=== PATIENT | female | born 1945 | race Caucasian/White ===

== ENCOUNTER 2019-08-13 11:08 | Outpatient (CLI) | payer MEDICARE, SELFPAY ==
[2019-08-13 11:30] LABS: Add Urine Microscopic? YES; Appearance Urine Clear (Clear); Bilirubin Urine Negative (Negative); Blood Urine Negative (Negative); Color Urine Yellow (Yellow); Glucose Urine UA Negative (Negative); Ketones Urine Negative (Negative); Leukocyte Esterase Ur Trace (Negative); Nitrate Urine Negative (Negative); Protein Urine Negative (Negative); Specific Grav Ur <= 1.005 (1.010-1.020); Urobilinogen Urine 0.2 mg/dL (0.2-1.0); pH Urine 5.5 (5.0-8.0)
[2019-08-13 12:17] LABS: Bacteria Urine 1+ /hpf; RBC Urine 0-2 /hpf (0-2); Squamous Epithelial Cell Urine Moderate /hpf (Few); WBC Urine 0-3 /hpf (0-3)
== END 2019-08-13 11:09 | disposition home or self-care (01) ==
LOC: CHSLAB 11:11
PROVIDERS: PCP Nurse Practitioner Family; Visit Provider Nurse Practitioner Family
DX: R39.9 Unspecified symptoms and signs involving the genitourinary system (principal)
CPT/HCPCS: 81001; 87086

== ENCOUNTER 2019-08-18 13:27 | Outpatient (CLI) | payer MEDICARE, SELFPAY ==
[2019-08-18 13:39] LABS: Add Urine Microscopic? NO; Appearance Urine Clear (Clear); Bilirubin Urine Negative (Negative); Blood Urine Negative (Negative); Color Urine Yellow (Yellow); Glucose Urine UA Negative (Negative); Ketones Urine Negative (Negative); Leukocyte Esterase Ur Negative (Negative); Nitrate Urine Negative (Negative); Protein Urine Negative (Negative); Specific Grav Ur <= 1.005 (1.010-1.020); Urobilinogen Urine 0.2 mg/dL (0.2-1.0); pH Urine 5.5 (5.0-8.0)
== END 2019-08-18 13:28 | disposition home or self-care (01) ==
LOC: CHSLAB 13:29
PROVIDERS: PCP Nurse Practitioner Family; Visit Provider Nurse Practitioner Family
DX: N39.0 Urinary tract infection, site not specified (principal); N39.9 Disorder of urinary system, unspecified
CPT/HCPCS: 81003; 87086; 87088

== ENCOUNTER 2019-08-20 11:05 | Outpatient (CLI) | payer MEDICARE, SELFPAY ==
--- NOTE | ~2019-08-20 | US_ITS ---
EXAMINATION: US retroperitoneal comp DATE: 08/20/2019 12:28 INDICATION: Right ureteral stone TECHNIQUE: Multiple ultrasound grayscale images of the kidneys were obtained. COMPARISON: CT dated 07/21/2019 FINDINGS: The right kidney measures 8.8 x 3.9 x 5.1 cm. The left kidney measures 8.7 x 4.6 x 5.1 cm. The kidney s demonstrate normal echogenicity. There is no hydronephrosis in either kidney. No stones identified . The bladder is normal. IMPRESSION: 1. Normal kidneys without hydronephrosis. Reviewed, dictated and finalized at location A. NSION COURSE COORDINATOR
== END 2019-08-20 11:06 | disposition home or self-care (01) ==
PROVIDERS: PCP Nurse Practitioner Family; Visit Provider Urology
DX: R39.9 Unspecified symptoms and signs involving the genitourinary system (principal); N20.1 Calculus of ureter
CPT/HCPCS: 76770

== ENCOUNTER 2019-09-17 16:44 | Outpatient (CLI) | payer MEDICARE, SELFPAY ==
[2019-09-17 16:57] LABS: Basophils Absolute Auto 0.03 K/mm3 (0.00-0.10); Basophils Percent Auto 0.5 % (0.0-1.0); Eosinophils Absolute Auto 0.28 K/mm3 (0.02-0.50); Eosinophils Percent Auto 4.7 % (1.0-6.0); Hemoglobin 12.2 g/dL (11.7-13.8); Immature Granulocyte Absolute 0.02 K/mm3 (0.00-0.00); Immature Granulocyte Percent A 0.3 % (0.0-0.0); Lymphocytes Percent Auto 28.6 % (18.0-42.0); Mean Corpuscular HGB Conc 32.1 g/dL (32.0-36.0); Mean Corpuscular Hemoglobin 29.8 pg (27.0-31.0); Mean Corpuscular Volume 92.7 fL (78.0-102.0); Mean Platelet Volume 9.9 fl (9.2-11.8); Monocytes Absolute Auto 0.45 K/mm3 (0.10-0.90); Monocytes Percent Auto 7.6 % (2.0-11.0); Neutrophils Absolute Auto 3.5 K/mm3 (1.7-7.2); Neutrophils Percent Auto 58.3 % (50.0-70.0); Platelet Count Result 158 K/mm3 (150-420); Red Cell Distribution Width 12.8 % (11.6-14.4); White Blood Count 5.9 K/mm3 (4.8-10.8)
[2019-09-17 18:07] LABS: Alanine Aminotransferase 20 U/L (14-59); Albumin Level 3.6 g/dL (3.4-5.0); Alkaline Phosphatase 41 U/L (46-116); Aspartate Amino Transferase 28 U/L (15-37); Bilirubin,Total 0.3 mg/dL (0.00-1.00); Blood Urea Nitrogen 15 mg/dL (7-18); Calcium 8.6 mg/dL (8.5-10.1); Carbon Dioxide 28 mmol/L (21-32); Chloride 110 mmol/L (98-108); Estimated Glomerular Filt Rate 36; Glucose 103 mg/dL (70-99); Osmolality Calculated 296 mOsm/kg (285-295); Sodium 143 mmol/L (136-145); Total Protein 6.3 g/dL (6.4-8.2)
== END 2019-09-17 16:45 | disposition home or self-care (01) ==
LOC: CHSLAB 16:46
PROVIDERS: PCP Nurse Practitioner Family; Visit Provider Internal Medicine Hematology & Oncology
DX: D05.12 Intraductal carcinoma in situ of left breast (principal)
CPT/HCPCS: 36415; 80053; 85025

== ENCOUNTER 2019-10-07 09:57 | Outpatient (CLI) | payer MEDICARE, SELFPAY ==
--- NOTE | ~2019-10-07 | US_ITS ---
EXAMINATION: US retroperitoneal comp DATE: 10/07/2019 10:38 INDICATION: Chronic kidney disease stage III. TECHNIQUE: Multiple ultrasound grayscale images of the kidneys were obtained. COMPARISON: Ultrasound 08/20/2019 FINDINGS: The right kidney measures 9.0 x 4.8 x 4.1 cm. The left kidney measures 9.0 x 4.0 x 4.3 cm. The kidney s demonstrate normal parenchymal echogenicity. There is no hydronephrosis. The bladder is normal. IMPRESSION: 1. Normal kidneys. No hydronephrosis. Reviewed, dictated and finalized at location A.
[2019-10-07 10:13] LABS: Basophils Absolute Auto 0.01 K/mm3 (0.00-0.10); Basophils Percent Auto 0.2 % (0.0-1.0); Eosinophils Absolute Auto 0.25 K/mm3 (0.02-0.50); Eosinophils Percent Auto 3.9 % (1.0-6.0); Hemoglobin 12.5 g/dL (11.7-13.8); Immature Granulocyte Absolute 0.01 K/mm3 (0.00-0.00); Immature Granulocyte Percent A 0.2 % (0.0-0.0); Lymphocytes Absolute Auto 1.61 K/mm3 (1.10-4.50); Lymphocytes Percent Auto 24.9 % (18.0-42.0); Mean Corpuscular HGB Conc 32.1 g/dL (32.0-36.0); Mean Corpuscular Hemoglobin 29.4 pg (27.0-31.0); Mean Corpuscular Volume 91.8 fL (78.0-102.0); Mean Platelet Volume 10.6 fl (9.2-11.8); Monocytes Absolute Auto 0.49 K/mm3 (0.10-0.90); Monocytes Percent Auto 7.6 % (2.0-11.0); Neutrophils Absolute Auto 4.1 K/mm3 (1.7-7.2); Neutrophils Percent Auto 63.2 % (50.0-70.0); Platelet Count Result 155 K/mm3 (150-420); Red Blood Count 4.25 M/mm3 (4.20-5.40); Red Cell Distribution Width 12.6 % (11.6-14.4); White Blood Count 6.5 K/mm3 (4.8-10.8)
[2019-10-07 10:35] LABS: Add Urine Microscopic? NO; Appearance Urine Clear (Clear); Bilirubin Urine Negative (Negative); Blood Urine Negative (Negative); Color Urine Yellow (Yellow); Glucose Urine UA Negative (Negative); Ketones Urine Negative (Negative); Leukocyte Esterase Ur Negative LEU/UL (Negative); Nitrate Urine Negative (Negative); Protein Urine Negative (Negative); Specific Grav Ur <= 1.005 (1.010-1.020); Urobilinogen Urine 0.2 mg/dL (0.2-1.0); pH Urine 5.5 (5.0-8.0)
[2019-10-07 10:48] LABS: Albumin Level 3.4 g/dL (3.4-5.0); Anion Gap 13.4 mmol/L (7-16); Blood Urea Nitrogen 17 mg/dL (7-18); Calcium 8.3 mg/dL (8.5-10.1); Carbon Dioxide 25 mmol/L (21-32); Chloride 106 mmol/L (98-108); Estimated Glomerular Filt Rate 37; Glucose 79 mg/dL (70-99); Osmolality Calculated 290 mOsm/kg (285-295); Phosphorus 3.8 mg/dL (2.6-4.7); Potassium 4.4 mmol/L (3.5-5.1); Sodium 140 mmol/L (136-145)
[2019-10-07 10:54] LABS: Total Protein Urine Random < 7.0 mg/dL (0.0-11.9)
[2019-10-07 11:30] LABS: Creatinine Urine 23.12 mg/dL (40-278)
[2019-10-07 11:33] LABS: Erythrocyte Sedimentation Rate 8 mm/hr (0-20)
[2019-10-09 11:33] LABS: Complement Total CH50 58 U/mL (31-60)
[2019-10-09 14:11] LABS: Parathyroid Intact 56 pg/mL (14-64)
[2019-10-09 20:10] LABS: Complement C3 103 mg/dL (83-193)
[2019-10-10 17:32] LABS: Kappa\\Lambda Light Chains 1.98 (0.26-1.65)
[2019-10-11 18:31] LABS: Vitamin D 25 Hydroxy 32 ng/mL (30-100)
== END 2019-10-07 09:58 | disposition home or self-care (01) ==
LOC: CHSIMG 09:59
PROVIDERS: PCP Nurse Practitioner Family; Visit Provider Internal Medicine Nephrology
DX: N18.3 Chronic kidney disease, stage 3 (moderate) (principal)
CPT/HCPCS: 36415; 76770; 80069; 81003; 81050; 82306; 82570; 83883; 83970; 84156; 85025; 85652; 86038; 86160; 86162; 86334

== ENCOUNTER 2020-01-15 12:51 | Outpatient (CLI) | payer MEDICARE, SELFPAY ==
[2020-01-15 13:21] LABS: Creatinine Urine 52.96 mg/dL (40-278); Total Protein Urine Random < 7.0 mg/dL (0.0-11.9)
[2020-01-15 13:57] LABS: Albumin Level 3.4 g/dL (3.4-5.0); Anion Gap 10.5 mmol/L (7-16); Blood Urea Nitrogen 18 mg/dL (7-18); Calcium 8.5 mg/dL (8.5-10.1); Carbon Dioxide 29 mmol/L (21-32); Chloride 105 mmol/L (98-108); Estimated Glomerular Filt Rate 36; Glucose 79 mg/dL (70-99); Osmolality Calculated 290 mOsm/kg (285-295); Phosphorus 3.4 mg/dL (2.6-4.7); Potassium 4.5 mmol/L (3.5-5.1); Sodium 140 mmol/L (136-145)
[2020-01-15 15:26] LABS: Appearance Urine Clear (Clear); Blood Urine Negative (Negative); Color Urine Yellow (Yellow); Glucose Urine UA Negative (Negative); Ketones Urine Negative (Negative); Nitrate Urine Negative (Negative); Protein Urine Negative (Negative)
[2020-01-15 15:27] LABS: Add Urine Microscopic? NO; Bilirubin Urine Negative (Negative); Leukocyte Esterase Ur Negative (Negative); Urobilinogen Urine 0.2 mg/dL (0.2-1.0)
[2020-01-21 03:25] LABS: Kappa\\Lambda Light Chains 2.09 (0.26-1.65); Lambda Light Chain 15.8 mg/L (5.7-26.3)
== END 2020-01-15 12:52 | disposition home or self-care (01) ==
LOC: CHSLAB 12:53
PROVIDERS: PCP Nurse Practitioner Family; Visit Provider Internal Medicine Nephrology
DX: N18.3 Chronic kidney disease, stage 3 (moderate) (principal)
CPT/HCPCS: 36415; 80069; 81003; 82570; 83883; 84156

== ENCOUNTER 2020-02-24 14:34 | Outpatient (CLI) | payer MEDICARE, SELFPAY ==
[2020-02-24 16:01] LABS: Free T4 Free Thyroxine 1.04 ng/dL (0.76-1.46); Magnesium 2.2 mg/dL (1.8-2.4); Thyroid Stimulating Hormone 2.36 uIU/mL (0.36-3.74); Vitamin B12 1125 pg/mL (193-986)
[2020-02-27 10:55] LABS: Vitamin D 25 Hydroxy 30 ng/mL (30-100)
== END 2020-02-24 14:35 | disposition home or self-care (01) ==
LOC: CHSLAB 14:37
PROVIDERS: PCP Nurse Practitioner Family; Visit Provider Nurse Practitioner Family
DX: E03.9 Hypothyroidism, unspecified (principal); R53.83 Other fatigue; Z79.899 Other long term (current) drug therapy
CPT/HCPCS: 36415; 82306; 82607; 83735; 84439; 84443

== ENCOUNTER 2020-03-18 09:33 | Outpatient (CLI) | payer MEDICARE, SELFPAY ==
--- NOTE | ~2020-03-18 | XR_ITS ---
XR ankle RT 2V DATE: 03/18/2020 10:04 INDICATION: Lateral ankle pain TECHNIQUE: 2 views COMPARISON: None FINDINGS: No recent fracture or dislocation of the ankle or disruption of the ankle mortise. There is diffuse osteopenia. No periosteal reaction or bone destruction. Mild plantar and posterior calcaneal enthesopathy. IMPRESSION: No recent fracture or dislocation Calcaneal enthesopathy Osteopenia Reviewed, dictated and finalized at location A.
--- NOTE | ~2020-03-18 | US_ITS ---
EXAMINATION: US venous doppler LE RT DATE: 03/18/2020 10:00 INDICATION: Right lower limb swelling TECHNIQUE: Judd scale images without and with compression and Doppler images of the right lower extre mity veins were obtained. COMPARISON: None FINDINGS: The right common femoral vein, profunda femoral vein, femoral vein, popliteal vein, peronea l trunk, posterior tibial veins, and greater saphenous vein are patent. There is partial thrombosis o f the lesser saphenous vein, a superficial vein. IMPRESSION: 1. No evidence of deep venous thrombosis. 2. Partial thrombosis of the lesser saphenous vein, a superficial vein. Reviewed, dictated and finalized at location D.
== END 2020-03-18 09:34 | disposition home or self-care (01) ==
LOC: CHSIMG 09:34
PROVIDERS: PCP Nurse Practitioner Family; Visit Provider Nurse Practitioner Family
DX: M25.571 Pain in right ankle and joints of right foot (principal); R60.0 Localized edema; M79.604 Pain in right leg
CPT/HCPCS: 73600; 93971

== ENCOUNTER 2020-03-31 11:33 | Outpatient (CLI) | payer MEDICARE, SELFPAY ==
[2020-03-31 11:42] LABS: Basophils Absolute Auto 0.04 K/mm3 (0.00-0.10); Basophils Percent Auto 0.7 % (0.0-1.0); Eosinophils Absolute Auto 0.24 K/mm3 (0.02-0.50); Eosinophils Percent Auto 4.1 % (1.0-6.0); Hematocrit 36.7 % (35.0-42.0); Hemoglobin 11.4 g/dL (11.7-13.8); Immature Granulocyte Absolute 0.02 K/mm3 (0.00-0.00); Immature Granulocyte Percent A 0.3 % (0.0-0.0); Lymphocytes Absolute Auto 1.69 K/mm3 (1.10-4.50); Lymphocytes Percent Auto 28.7 % (18.0-42.0); Mean Corpuscular HGB Conc 31.1 g/dL (32.0-36.0); Mean Corpuscular Volume 93.4 fL (78.0-102.0); Mean Platelet Volume 9.9 fl (9.2-11.8); Monocytes Absolute Auto 0.55 K/mm3 (0.10-0.90); Monocytes Percent Auto 9.4 % (2.0-11.0); Neutrophils Absolute Auto 3.3 K/mm3 (1.7-7.2); Neutrophils Percent Auto 56.8 % (50.0-70.0); Platelet Count Result 148 K/mm3 (150-420); Red Blood Count 3.93 M/mm3 (4.20-5.40); Red Cell Distribution Width 13.3 % (11.6-14.4); White Blood Count 5.9 K/mm3 (4.8-10.8)
[2020-03-31 13:08] LABS: Alanine Aminotransferase 17 U/L (14-59); Albumin Level 3.6 g/dL (3.4-5.0); Alkaline Phosphatase 42 U/L (46-116); Anion Gap 7 mmol/L (8-16); Aspartate Amino Transferase 16 U/L (15-37); Bilirubin,Total 0.3 mg/dL (0.00-1.00); Blood Urea Nitrogen 17 mg/dL (7-18); Calcium 8.5 mg/dL (8.5-10.1); Carbon Dioxide 27 mmol/L (21-32); Chloride 109 mmol/L (98-108); Estimated Glomerular Filt Rate 38; Glucose 85 mg/dL (70-99); Osmolality Calculated 296 mOsm/kg (285-295); Potassium 4.4 mmol/L (3.5-5.1); Sodium 143 mmol/L (136-145); Total Protein 6.5 g/dL (6.4-8.2)
== END 2020-03-31 11:34 | disposition home or self-care (01) ==
LOC: CHSLAB 11:34
PROVIDERS: PCP Nurse Practitioner Family; Visit Provider Internal Medicine Hematology & Oncology
DX: D05.12 Intraductal carcinoma in situ of left breast (principal)
CPT/HCPCS: 36415; 80053; 85025

== ENCOUNTER 2020-04-01 13:57 | Outpatient (CLI) | payer MEDICARE, SELFPAY ==
[2020-04-01 14:56] LABS: Lactate Dehydrogenase 235 U/L (81-234)
[2020-04-04 22:06] LABS: Albumin 3.6 g/dL (3.8-4.8); Alpha 1 Globulin 0.2 g/dL (0.2-0.3); Alpha 2 Globulin 0.6 g/dL (0.5-0.9); Beta 1 Globulin 0.5 g/dL (0.4-0.6); Protein, Total 6.1 g/dL (6.1-8.1)
[2020-04-07 20:33] LABS: Beta-2-Microglobulin 3.94 mg/L (<=2.51); Immunoglobulin A 174 mg/dL (70-320); Immunoglobulin G 1005 mg/dL (600-1540); Immunoglobulin M 108 mg/dL (50-300)
== END 2020-04-01 13:58 | disposition home or self-care (01) ==
LOC: CHSLAB 13:58
PROVIDERS: PCP Nurse Practitioner Family; Visit Provider Internal Medicine Hematology & Oncology
DX: Z08 Encounter for follow-up examination after completed treatment for malignant neoplasm (principal)
CPT/HCPCS: 36415; 82232; 82784; 83615; 84155; 84165

== ENCOUNTER 2020-04-18 08:02 | Outpatient (CLI) | payer MEDICARE, SELFPAY ==
--- NOTE | ~2020-04-18 | XR_ITS ---
EXAMINATION: XR foot RT min 3V DATE: 04/18/2020 08:21 INDICATION: Right foot pain TECHNIQUE: Dorsoplantar, lateral, and 2 oblique views of the right foot were obtained. COMPARISON: None. FINDINGS: There is no fracture, dislocation, or subluxation. There is mild osteoarthritis in the midf oot and moderate osteoarthritis at the first metatarsophalangeal joint and several interphalangeal erasto ints. Bone alignment is normal. The soft tissues are unremarkable. Dorsal and plantar calcaneal enthe sophytes are noted. IMPRESSION: 1. Polyarticular osteoarthritis. Reviewed, dictated and finalized at location A.
--- NOTE | ~2020-04-18 | XR_ITS ---
EXAMINATION: XR ankle RT min 3V INDICATION: Right ankle pain TECHNIQUE: Three views of the right ankle are obtained. COMPARISON: 03/18/2020 FINDINGS: Bone alignment is normal. There is no acute fracture. Mild irregularity of the distal fibul a is consistent with prior injury. There is mild osteoarthritis of the ankle and foot. Dorsal and destiny ntar calcaneal enthesophytes are noted. IMPRESSION: 1. No acute osseous abnormality. Reviewed, dictated and finalized at location A.
== END 2020-04-18 08:03 | disposition home or self-care (01) ==
LOC: CHSIMG 08:04
PROVIDERS: PCP Nurse Practitioner Family; Visit Provider Orthopaedic Surgery
DX: M25.571 Pain in right ankle and joints of right foot (principal); M79.671 Pain in right foot
CPT/HCPCS: 73610; 73630

== ENCOUNTER 2020-05-04 14:35 | Outpatient (CLI) | payer MEDICARE, SELFPAY ==
[2020-05-04 14:48] LABS: Basophils Absolute Auto 0.04 K/mm3 (0.00-0.10); Basophils Percent Auto 0.5 % (0.0-1.0); Eosinophils Absolute Auto 0.22 K/mm3 (0.02-0.50); Eosinophils Percent Auto 2.9 % (1.0-6.0); Hematocrit 37.1 % (35.0-42.0); Hemoglobin 11.6 g/dL (11.7-13.8); Immature Granulocyte Absolute 0.02 K/mm3 (0.00-0.00); Immature Granulocyte Percent A 0.3 % (0.0-0.0); Lymphocytes Absolute Auto 1.76 K/mm3 (1.10-4.50); Lymphocytes Percent Auto 23.4 % (18.0-42.0); Mean Corpuscular HGB Conc 31.3 g/dL (32.0-36.0); Mean Corpuscular Hemoglobin 28.7 pg (27.0-31.0); Mean Corpuscular Volume 91.8 fL (78.0-102.0); Mean Platelet Volume 10.6 fl (9.2-11.8); Monocytes Percent Auto 6.7 % (2.0-11.0); Neutrophils Percent Auto 66.2 % (50.0-70.0); Platelet Count Result 136 K/mm3 (150-420); Red Blood Count 4.04 M/mm3 (4.20-5.40); Red Cell Distribution Width 13.6 % (11.6-14.4); White Blood Count 7.5 K/mm3 (4.8-10.8)
[2020-05-04 15:15] LABS: Total Protein Urine Random 9.5 mg/dL (0.0-11.9)
[2020-05-04 15:39] LABS: Albumin Level 3.5 g/dL (3.4-5.0); Anion Gap 7 mmol/L (8-16); Blood Urea Nitrogen 16 mg/dL (7-18); Calcium 8.7 mg/dL (8.5-10.1); Carbon Dioxide 28 mmol/L (21-32); Chloride 107 mmol/L (98-108); Estimated Glomerular Filt Rate 36; Glucose 90 mg/dL (70-99); Osmolality Calculated 295 mOsm/kg (285-295); Phosphorus 3.6 mg/dL (2.6-4.7); Potassium 4.5 mmol/L (3.5-5.1); Sodium 142 mmol/L (136-145)
== END 2020-05-04 14:36 | disposition home or self-care (01) ==
LOC: CHSLAB 14:36
PROVIDERS: PCP Nurse Practitioner Family; Visit Provider Internal Medicine Nephrology
DX: N18.30 Chronic kidney disease, stage 3 unspecified (principal)
CPT/HCPCS: 36415; 80069; 82570; 84156; 85025

== ENCOUNTER 2020-08-26 11:43 | Outpatient (CLI) | payer MEDICARE, SELFPAY ==
[2020-08-26 11:54] LABS: Basophils Absolute Auto 0.02 K/mm3 (0.00-0.10); Basophils Percent Auto 0.3 % (0.0-1.0); Eosinophils Absolute Auto 0.17 K/mm3 (0.02-0.50); Eosinophils Percent Auto 2.7 % (1.0-6.0); Hemoglobin 11.5 g/dL (11.7-13.8); Immature Granulocyte Absolute 0.02 K/mm3 (0.00-0.00); Immature Granulocyte Percent A 0.3 % (0.0-0.0); Lymphocytes Absolute Auto 1.71 K/mm3 (1.10-4.50); Mean Corpuscular HGB Conc 31.9 g/dL (32.0-36.0); Mean Corpuscular Hemoglobin 28.9 pg (27.0-31.0); Mean Corpuscular Volume 90.5 fL (78.0-102.0); Mean Platelet Volume 10.4 fl (9.2-11.8); Monocytes Percent Auto 9.5 % (2.0-11.0); Neutrophils Absolute Auto 3.8 K/mm3 (1.7-7.2); Neutrophils Percent Auto 60.2 % (50.0-70.0); Platelet Count Result 144 K/mm3 (150-420); Red Blood Count 3.98 M/mm3 (4.20-5.40); White Blood Count 6.3 K/mm3 (4.8-10.8)
[2020-08-26 12:09] LABS: Creatinine Urine 36.75 mg/dL (40-278)
[2020-08-26 12:16] LABS: Total Protein Urine Random < 7.0 mg/dL (0.0-11.9); Ur Ttl Prot Creatinine Ratio 0.19 mg/mg (0-0.20)
[2020-08-26 12:20] LABS: Albumin Level 3.5 g/dL (3.4-5.0); Anion Gap 8 mmol/L (8-16); Blood Urea Nitrogen 20 mg/dL (7-18); Calcium 8.7 mg/dL (8.5-10.1); Carbon Dioxide 29 mmol/L (21-32); Chloride 105 mmol/L (98-108); Estimated Glomerular Filt Rate 36; Glucose 85 mg/dL (70-99); Osmolality Calculated 295 mOsm/kg (285-295); Phosphorus 4.1 mg/dL (2.6-4.7); Potassium 4.5 mmol/L (3.5-5.1); Sodium 142 mmol/L (136-145)
[2020-08-28 14:08] LABS: Kappa\\Lambda Light Chains 2.12 (0.26-1.65); Lambda Light Chain 18.1 mg/L (5.7-26.3)
[2020-08-29 13:26] LABS: Parathyroid Intact 62 pg/mL (14-64)
== END 2020-08-26 11:44 | disposition home or self-care (01) ==
LOC: CHSLAB 11:45
PROVIDERS: PCP Nurse Practitioner Family; Visit Provider Internal Medicine Nephrology
DX: N18.32 Chronic kidney disease, stage 3b (principal)
CPT/HCPCS: 36415; 80069; 82570; 83883; 83970; 84156; 85025

== ENCOUNTER 2020-09-12 09:44 | Outpatient (CLI) | payer MEDICARE, SELFPAY ==
[2020-09-12 10:02] LABS: Basophils Absolute Auto 0.02 K/mm3 (0.00-0.10); Basophils Percent Auto 0.4 % (0.0-1.0); Eosinophils Absolute Auto 0.15 K/mm3 (0.02-0.50); Eosinophils Percent Auto 2.9 % (1.0-6.0); Hematocrit 36.4 % (35.0-42.0); Hemoglobin 11.6 g/dL (11.7-13.8); Immature Granulocyte Absolute 0.01 K/mm3 (0.00-0.00); Immature Granulocyte Percent A 0.2 % (0.0-0.0); Lymphocytes Absolute Auto 1.56 K/mm3 (1.10-4.50); Lymphocytes Percent Auto 30.6 % (18.0-42.0); Mean Corpuscular HGB Conc 31.9 g/dL (32.0-36.0); Mean Corpuscular Hemoglobin 28.9 pg (27.0-31.0); Mean Corpuscular Volume 90.8 fL (78.0-102.0); Mean Platelet Volume 10.6 fl (9.2-11.8); Monocytes Absolute Auto 0.48 K/mm3 (0.10-0.90); Monocytes Percent Auto 9.4 % (2.0-11.0); Neutrophils Absolute Auto 2.9 K/mm3 (1.7-7.2); Neutrophils Percent Auto 56.5 % (50.0-70.0); Platelet Count Result 139 K/mm3 (150-420); Red Blood Count 4.01 M/mm3 (4.20-5.40); Red Cell Distribution Width 13.9 % (11.6-14.4); Reticulocyte Hemoglobin Conten 34.4 pg (28.0-35.0); Reticulocyte Percent 2.65 % (0.50-1.50); Reticulocytes Absolute 0.11 M/mm3 (0.02-0.1); White Blood Count 5.1 K/mm3 (4.8-10.8)
[2020-09-12 11:23] LABS: Ferritin 12 ng/mL (8-252); Free T4 Free Thyroxine 1.05 ng/dL (0.76-1.46); Iron 51 ug/dL (50-170); Magnesium 2.2 mg/dL (1.8-2.4); Percent Iron Saturation 14 % (12-57); Vitamin B12 607 pg/mL (193-986)
[2020-09-12 11:54] LABS: Thyroid Stimulating Hormone 2.16 uIU/mL (0.36-3.74)
[2020-09-14 12:11] LABS: Vitamin D 25 Hydroxy 38 ng/mL (30-100)
[2020-09-14 21:00] LABS: Red Blood Cell Folate >1000 ng/mL RBC (>280)
== END 2020-09-12 09:45 | disposition home or self-care (01) ==
LOC: CHSLAB 09:47
PROVIDERS: PCP Nurse Practitioner Family; Visit Provider Nurse Practitioner Family
DX: D64.9 Anemia, unspecified (principal); E03.9 Hypothyroidism, unspecified; R53.83 Other fatigue; Z79.899 Other long term (current) drug therapy
CPT/HCPCS: 36415; 82306; 82607; 82728; 82747; 83540; 83550; 83735; 84439; 84443; 85025; 85046

== ENCOUNTER 2020-10-11 11:42 | Outpatient (CLI) | payer MEDICARE, SELFPAY ==
--- NOTE | ~2020-10-11 | XR_ITS ---
EXAMINATION: XR chest 2V DATE: 10/11/2020 12:13 INDICATION: Coronary atherosclerosis. Preop. TECHNIQUE: Frontal and lateral views of the chest were obtained. COMPARISON: Chest 2 views 07/22/2019 FINDINGS: The chest demonstrates clear lungs without pneumonia, pleural effusion, or pneumothorax. Th e heart size is normal. Surgical clips overlie left breast and the abdomen. IMPRESSION: 1. No acute cardiopulmonary disease. Reviewed, dictated and finalized at location A.
--- NOTE | 2020-10-11 11:45 | ECG_ITS ---
Measurements Intervals [place] Rate: 67 P: 40 NM: 184 QRS: -24 QRSD: 106 T: 17 QT: 393 QTc: 417 Interpretive Statements SINUS RHYTHM BORDERLINE R WAVE PROGRESSION, ANTERIOR LEADS BORDERLINE ECG Electronically Signed On 10-11-2020 12:50:53 CDT by David Arrieta D.O.
[2020-10-11 12:05] LABS: Basophils Absolute Auto 0.02 K/mm3 (0.00-0.10); Basophils Percent Auto 0.4 % (0.0-1.0); Eosinophils Absolute Auto 0.21 K/mm3 (0.02-0.50); Eosinophils Percent Auto 3.9 % (1.0-6.0); Hematocrit 36.9 % (35.0-42.0); Hemoglobin 11.7 g/dL (11.7-13.8); Immature Granulocyte Absolute 0.01 K/mm3 (0.00-0.00); Immature Granulocyte Percent A 0.2 % (0.0-0.0); Mean Corpuscular HGB Conc 31.7 g/dL (32.0-36.0); Mean Corpuscular Volume 91.3 fL (78.0-102.0); Mean Platelet Volume 10.5 fl (9.2-11.8); Monocytes Absolute Auto 0.48 K/mm3 (0.10-0.90); Monocytes Percent Auto 8.8 % (2.0-11.0); Neutrophils Absolute Auto 2.9 K/mm3 (1.7-7.2); Neutrophils Percent Auto 53.7 % (50.0-70.0); Platelet Count Result 148 K/mm3 (150-420); Red Blood Count 4.04 M/mm3 (4.20-5.40); Red Cell Distribution Width 13.7 % (11.6-14.4); White Blood Count 5.5 K/mm3 (4.8-10.8)
[2020-10-11 12:08] LABS: Add Urine Microscopic? NO; Appearance Urine Clear (Clear); Bilirubin Urine Negative (Negative); Blood Urine Negative (Negative); Color Urine Yellow (Yellow); Glucose Urine UA Negative (Negative); Ketones Urine Negative (Negative); Leukocyte Esterase Ur Negative LEU/UL (Negative); Nitrate Urine Negative (Negative); Protein Urine Negative (Negative); Urobilinogen Urine 0.2 mg/dL (0.2-1.0)
[2020-10-11 12:56] LABS: Alanine Aminotransferase 20 U/L (14-59); Albumin Level 3.4 g/dL (3.4-5.0); Alkaline Phosphatase 42 U/L (46-116); Anion Gap 6 mmol/L (8-16); Aspartate Amino Transferase 21 U/L (15-37); Bilirubin,Total 0.4 mg/dL (0.00-1.00); Blood Urea Nitrogen 14 mg/dL (7-18); Calcium 8.7 mg/dL (8.5-10.1); Carbon Dioxide 29 mmol/L (21-32); Chloride 105 mmol/L (98-108); Estimated Glomerular Filt Rate 36; Glucose 89 mg/dL (70-99); Lactate Dehydrogenase 209 U/L (81-234); Osmolality Calculated 289 mOsm/kg (285-295); Potassium 4.4 mmol/L (3.5-5.1); Sodium 140 mmol/L (136-145); Total Protein 6.4 g/dL (6.4-8.2)
== END 2020-10-11 11:43 | disposition home or self-care (01) ==
LOC: CHSLAB 11:45
PROVIDERS: PCP Nurse Practitioner Family; Visit Provider Internal Medicine Hematology & Oncology
DX: D05.12 Intraductal carcinoma in situ of left breast (principal)
CPT/HCPCS: 36415; 71046; 80053; 81003; 83615; 85025; 93005

== ENCOUNTER 2020-11-17 15:58 | Inpatient (IN) | payer MEDICARE, SELFPAY ==
--- NOTE | ~2020-11-17 | CT_ITS ---
EXAMINATION: CT pelvis wo con DATE: 11/28/2020 16:57 INDICATION: Left buttock abscess which is tender to the touch TECHNIQUE: High resolution computed tomography (CT) of the pelvis was performed without intravenous c ontrast. Additional sagittal and coronal reconstructions were performed. Automated exposure control a nd iterative reconstruction technique were employed. The dose-length product was 911.18 mGy-cm. COMPARISON: None FINDINGS: Postoperative change of prior bilateral total hip arthroplasties which appear well-seated in near-hadley tomic alignment. The left total hip arthroplasty is likely relatively recent, not seen on radiograph dated 03/28/2020 and with skin derik extending along a suture line at the posterolateral left buttoc k. No abscess or abnormal mass or fluid collections identified at the left buttock. There has also b een an infraumbilical ventral hernia mesh repair. Partially visualized are couple anastomotic suture lines along the bowel and the central and left hemipelvis. The appendix is not visualized. No pericec al inflammatory change to suggest acute appendicitis. There are few sigmoid diverticula without adjac ent inflammatory change to suggest diverticulitis. The uterus is not identified and has likely been s urgically resected. Portion of the otherwise normal-appearing bladder are obscured by metallic streak artifact from the bilateral total hip arthroplasties. There are a few small heterotopic ossicles lik leyda related to injection granulomata at the bilateral buttocks. IMPRESSION: 1. No evident abscess, mass or other abnormal fluid collections at the left buttock. Reviewed, dictated and finalized at location A. IMPRESSION: 1. No evident abscess, mass or other abnormal fluid collections at the left but tock.
--- NOTE | ~2020-11-17 | US_ITS ---
EXAMINATION: US venous doppler [facility] DATE: 11/23/2020 15:19 INDICATION: Left lower limb pain. TECHNIQUE: Grayscale ultrasound images without and with compression and Doppler ultrasound images of the left lower extremity veins were obtained. COMPARISON: None. FINDINGS: The visualized portions of left common femoral vein, profunda (deep) femoral vein, femoral vein, popl iteal vein, peroneal veins, posterior tibial veins, and greater saphenous vein outflow are patent. Th ere is a moderate-sized Hooper's cyst. IMPRESSION: 1. No deep venous thrombosis. 2. Moderate-sized Hooper's cyst. Reviewed, dictated and finalized at location A.
[2020-11-17 16:00] VITALS: BP 113/47; PULSE 76; RESP 16; TEMP 37.5; O2SAT 95
--- NOTE | 2020-11-17 16:00 | ADMGEN ---
This patient, Maida Camacho, was admitted to 2nd Floor Room 204-2 from [facility]. Patient/family oriented to hospital policies and general routines including ID bracelet, bed and alarms, visiting hours, pain management, procedures, bathroom and other care routines, personal items, smoking policy, room service/diet, and visiting hours. Information on how to activate the Rapid Response Team has been discussed. Patient/Family are encouraged to report perceived risks to care and to ask questions if they do not understand what they are told or what they should do.
[2020-11-17 16:40] VITALS: BMI 34.6
[2020-11-17 17:07] VITALS: BP 113/47; PULSE 76; RESP 16; TEMP 37.5; O2SAT 95
[2020-11-17] MEDS: APIXABAN 2.5 MG TABLET PO (18:03)
[2020-11-17] MEDS: CYCLOBENZAPRINE HCL 5 MG TABLET PO (18:03)
[2020-11-17] MEDS: GABAPENTIN 100 MG CAPSULE PO (18:03)
[2020-11-17] MEDS: oxyCODONE HCL (*CRX) 5 MG TAB IR 10 MG PO (18:20)
[2020-11-17] MEDS: ALPRAZolam (*CRX) 0.5 MG TABLET PO (20:55)
[2020-11-17] MEDS: TAMOXIFEN CITRATE (*CHEMO) 10 MG TABLET 20 MG PO (20:55)
[2020-11-17] MEDS: CHOLECALCIFEROL 1,000 UNITS TABLET 1000 UNITS PO (20:56)
--- NOTE | 2020-11-17 21:09 | PC.NURSE ---
Patient states dressing has not been changed since surgery, it has been reinforced.
--- NOTE | 2020-11-17 21:49 | PC.NURSE ---
Sleeping, no signs of distress.
[2020-11-17 23:47] VITALS: BP 121/45; PULSE 61; RESP 18; TEMP 38; O2SAT 97
--- NOTE | 2020-11-18 00:09 | PC.NURSE ---
pt refused scheduled Tylenol stating my finisher fine diamond dies does not want me to take it nurse discharge notified will pass on to FINANCIAL QUANTITATIVE ANALYST
[2020-11-18 05:35] LABS: Basophils Absolute Auto 0.01 K/mm3 (0.00-0.10); Basophils Percent Auto 0.2 % (0.0-1.0); Eosinophils Absolute Auto 0.18 K/mm3 (0.02-0.50); Eosinophils Percent Auto 3.1 % (1.0-6.0); Hematocrit 23.1 % (35.0-42.0); Hemoglobin 7.5 g/dL (11.7-13.8); Immature Granulocyte Absolute 0.02 K/mm3 (0.00-0.00); Immature Granulocyte Percent A 0.3 % (0.0-0.0); Lymphocytes Absolute Auto 1.27 K/mm3 (1.10-4.50); Lymphocytes Percent Auto 22.2 % (18.0-42.0); Mean Corpuscular HGB Conc 32.5 g/dL (32.0-36.0); Mean Corpuscular Hemoglobin 29.2 pg (27.0-31.0); Mean Corpuscular Volume 89.9 fL (78.0-102.0); Mean Platelet Volume 10.7 fl (9.2-11.8); Monocytes Absolute Auto 0.44 K/mm3 (0.10-0.90); Monocytes Percent Auto 7.7 % (2.0-11.0); Neutrophils Absolute Auto 3.8 K/mm3 (1.7-7.2); Neutrophils Percent Auto 66.5 % (50.0-70.0); Platelet Count Result 115 K/mm3 (150-420); Red Blood Count 2.57 M/mm3 (4.20-5.40); Red Cell Distribution Width 13.7 % (11.6-14.4); White Blood Count 5.7 K/mm3 (4.8-10.8)
[2020-11-18 05:54] LABS: Alanine Aminotransferase 17 U/L (14-59); Albumin Level 1.7 g/dL (3.4-5.0); Alkaline Phosphatase 38 U/L (46-116); Anion Gap 6 mmol/L (8-16); Aspartate Amino Transferase 40 U/L (15-37); Bilirubin,Total 0.4 mg/dL (0.00-1.00); Blood Urea Nitrogen 10 mg/dL (7-18); Calcium 7.3 mg/dL (8.5-10.1); Carbon Dioxide 26 mmol/L (21-32); Chloride 103 mmol/L (98-108); Estimated CRCL calculation 50 ml/min; Estimated Glomerular Filt Rate 48; Glucose 88 mg/dL (70-99); Osmolality Calculated 278 mOsm/kg (285-295); Potassium 3.8 mmol/L (3.5-5.1); Sodium 135 mmol/L (136-145); Total Protein 4.7 g/dL (6.4-8.2)
--- NOTE | 2020-11-18 06:44 | WPDREHABHP ---
H&P: HPI History of Present Illness Date/Time: 11/18/20 06:44 this is a 75-year-old female from [facility] with a history of osteoarthritis and had surgery with a left total hip arthroplasty on the 10th of this month with a history of hypertension and coronary artery disease with status post stent placement 1999, patient also has a history of breast cancer on the left with a lumpectomy status post chemo and radiation and in remission. Patient here transferred for physical therapy and occupational therapy. Chief Complaint: Status post hip replacement Review of Systems Review of Systems All systems reviewed & are unremarkable except as noted in HPI and below PMFSH Past Medical History Medical History Achilles tendinitis of right lower extremity Anxiety Arthritis of ankle, right, degenerative Bilateral lower extremity edema BMI 34.0-34.9,adult Chronic back pain Chronic narcotic use 7.5mg percocet for ten years. Coronary artery disease With history of acute myocardial infarction in 1999 and which is stent was placed. She also had another stent placed in 2008. 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 PORSCHE (generalized anxiety disorder) History of Clostridioides difficile colitis Hyperlipemia Hyperlipidemia Kidney stones Macular degeneration Right ankle pain Surgical History Surgical History H/O bilateral breast reduction surgery H/O cataract extraction H/O hemorrhoidectomy History of appendectomy History of dilation and curettage History of heart artery stent In 1999 and 2008. History of hip replacement History of hysterectomy History of repair of rectocele History of tonsillectomy Hx of cholecystectomy Hx of coronary artery bypass graft Personal history of gastric bypass S/P lumpectomy, left breast Family History Family History Mother Family history of congenital heart disease Family history of diabetes mellitus in first degree relative Family history of malignant neoplasm of uterus Father Family history of chronic obstructive pulmonary disease Family history of emphysema Family history of malignant neoplasm of breast in first degree relative Family history of malignant neoplasm of urinary bladder Diabetes mellitus Hypertension Family history of malignant neoplasm Sibling Family history of diabetes mellitus in first degree relative Family history of malignant neoplasm of uterus Sister Family history of type 2 diabetes mellitus Hypertension Father Acute myocardial infarction Social History Social History Social History: The patient is and lives in [place]. 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 her from cancer in 2003. They have 2 sons, 1 from amyloidosis at the age of 54. Her other son lives in [place]. She designates her son, Malachi, as her surrogate decision maker and she wishes to be a full code. Smoking packs per day: 0.5 Smoking cigarettes per day: 10.0 Years smoked: 41 Smoking pack-years: 20.50 Smoking status: Former smoker Tobacco type: cigarettes Smoking end date: 07/08/99 Alcohol intake: never Substance use: never Substance use type: does not use and prescription drug Other substance usage details: [facility]. Spiritual care concerns: No Agree to blood products: Yes Meds Home Medications and Allergies Home Medications Medication Instructions Recorded Confirmed Type furosemide 40 mg PO DAILY PRN 05/29/19 11/17/20 History potassium chloride 10 meq PO DAILY PRN 05/29/19 11/17/20 History calcium carbonate
[2020-11-18] MEDS: oxyCODONE HCL (*CRX) 5 MG TAB IR 10 MG PO ×3 (07:10→20:17)
[2020-11-18 08:00] VITALS: BP 123/59; PULSE 80; RESP 20; TEMP 37.2; O2SAT 99
[2020-11-18 08:18] VITALS: TEMP 37.2
[2020-11-18] MEDS: APIXABAN 2.5 MG TABLET PO ×2 (08:38→16:32)
[2020-11-18] MEDS: CALCIUM CARBONATE (OSCAL) 500 MG TABLET PO ×2 (08:38→16:32)
[2020-11-18] MEDS: CYCLOBENZAPRINE HCL 5 MG TABLET PO ×3 (08:38→16:32)
[2020-11-18] MEDS: SENNA/DOCUSATE SODIUM TABLET 2 TAB PO ×2 (08:38→16:32)
[2020-11-18] MEDS: ROSUVASTATIN 10 MG TABLET 20 MG PO (08:39)
[2020-11-18] MEDS: GABAPENTIN 100 MG CAPSULE PO ×3 (08:39→16:32)
--- NOTE | 2020-11-18 09:46 | PC.NURSE ---
pt sleeping, left undisturbed. call vega in reach
--- NOTE | 2020-11-18 11:02 | PC.NURSE ---
Report to AMANDA Chavez
[2020-11-18] MEDS: ACETAMINOPHEN 500 MG TABLET 1000 MG PO ×2 (12:39→16:34)
--- NOTE | 2020-11-18 14:18 | PC.NURSE ---
1400--Patient reports pain 9/10, diaphoretic. Repositioned patient back on her back. Patient states pain is better. Checked on patient at 1420. Patient is sleeping. --Lucie Prieto RN
[2020-11-18 16:00] VITALS: BP 105/51; PULSE 79; RESP 16; TEMP 36.9; O2SAT 100
[2020-11-18] MEDS: CHOLECALCIFEROL 1,000 UNITS TABLET 1000 UNITS PO (20:18)
[2020-11-18] MEDS: ALPRAZolam (*CRX) 0.5 MG TABLET PO (20:18)
[2020-11-18] MEDS: TAMOXIFEN CITRATE (*CHEMO) 10 MG TABLET 20 MG PO (20:18)
[2020-11-19] VITALS: BP 109/44; PULSE 78; RESP 18; TEMP 36.1; O2SAT 95
[2020-11-19] MEDS: ACETAMINOPHEN 500 MG TABLET 1000 MG PO (00:02)
--- NOTE | 2020-11-19 02:57 | PC.NURSE ---
PT reports diaphoretic episode, vital signs obtained WNL: BP 100/44, P 80, SPO2 98%, T 97.2, RR 20. PT skin clammy, normal color, PT denies SOB, pain, dizziness or nausea. Removed extra blankets and turned down heat in PT room, PT states she believes it is caused by Tylenol, reported to charge nurse Tracey, will pass on to PLASTERING CONTRACTOR in am.
[2020-11-19] MEDS: oxyCODONE HCL (*CRX) 5 MG TAB IR 10 MG PO ×3 (03:35→22:24)
--- NOTE | 2020-11-19 07:40 | PC.NURSE ---
Patient states that she will only get out of bed with therapy. Patient states she may dangle her legs later today.
[2020-11-19 08:00] VITALS: BP 107/44; PULSE 75; RESP 16; TEMP 37; O2SAT 99
[2020-11-19] MEDS: GABAPENTIN 100 MG CAPSULE PO ×3 (09:01→17:01)
[2020-11-19] MEDS: SENNA/DOCUSATE SODIUM TABLET 2 TAB PO ×2 (09:01→17:01)
[2020-11-19] MEDS: ROSUVASTATIN 10 MG TABLET 20 MG PO (09:01)
[2020-11-19] MEDS: CALCIUM CARBONATE (OSCAL) 500 MG TABLET PO ×2 (09:01→17:01)
[2020-11-19] MEDS: APIXABAN 2.5 MG TABLET PO ×2 (09:01→17:01)
[2020-11-19] MEDS: CYCLOBENZAPRINE HCL 5 MG TABLET PO ×3 (09:01→17:01)
--- NOTE | 2020-11-19 11:31 | PC.NURSE ---
Patient placed on right side
[2020-11-19 16:00] VITALS: BP 116/55; PULSE 80; RESP 18; TEMP 37.4; O2SAT 95
--- NOTE | 2020-11-19 17:58 | PC.NURSE ---
ABD pads changed to left hip incision. NO s/s infection. Well approximated, derik intact. Silver dressing left intact.
[2020-11-19] MEDS: ALPRAZolam (*CRX) 0.5 MG TABLET PO (20:51)
[2020-11-19] MEDS: CHOLECALCIFEROL 1,000 UNITS TABLET 1000 UNITS PO (20:51)
[2020-11-19] MEDS: TAMOXIFEN CITRATE (*CHEMO) 10 MG TABLET 20 MG PO (20:51)
[2020-11-20] VITALS: BP 114/43; PULSE 85; RESP 20; TEMP 36.9; O2SAT 94
[2020-11-20] MEDS: oxyCODONE HCL (*CRX) 5 MG TAB IR 10 MG PO ×3 (04:12→20:37)
[2020-11-20 05:46] LABS: Hematocrit 23.2 % (35.0-42.0); Hemoglobin 7.2 g/dL (11.7-13.8)
[2020-11-20 06:04] LABS: Anion Gap 5 mmol/L (8-16); Blood Urea Nitrogen 10 mg/dL (7-18); Carbon Dioxide 28 mmol/L (21-32); Chloride 104 mmol/L (98-108); Estimated CRCL calculation 54 ml/min; Estimated Glomerular Filt Rate 53; Glucose 93 mg/dL (70-99); Osmolality Calculated 283 mOsm/kg (285-295); Potassium 3.9 mmol/L (3.5-5.1); Sodium 137 mmol/L (136-145)
[2020-11-20] MEDS: ACETAMINOPHEN 500 MG TABLET 1000 MG PO ×3 (06:06→16:56)
[2020-11-20 08:00] VITALS: BP 104/48; PULSE 72; RESP 18; TEMP 36.7; O2SAT 96
[2020-11-20] MEDS: SENNA/DOCUSATE SODIUM TABLET 2 TAB PO ×2 (09:51→16:55)
[2020-11-20] MEDS: CYCLOBENZAPRINE HCL 5 MG TABLET PO ×3 (09:51→16:55)
[2020-11-20] MEDS: CALCIUM CARBONATE (OSCAL) 500 MG TABLET PO ×2 (09:52→16:56)
[2020-11-20] MEDS: ROSUVASTATIN 10 MG TABLET 20 MG PO (09:52)
[2020-11-20] MEDS: GABAPENTIN 100 MG CAPSULE PO ×3 (09:52→16:56)
[2020-11-20] MEDS: APIXABAN 2.5 MG TABLET PO ×2 (09:52→16:55)
[2020-11-20 16:00] VITALS: BP 104/48; PULSE 72; RESP 18; TEMP 36.7; O2SAT 96
--- NOTE | 2020-11-20 17:50 | PC.NURSE ---
Patient sat on side of bed for supper. Patient didn't want to get into chair for supper
[2020-11-20] MEDS: ALPRAZolam (*CRX) 0.5 MG TABLET PO (20:37)
[2020-11-20] MEDS: CHOLECALCIFEROL 1,000 UNITS TABLET 1000 UNITS PO (20:37)
[2020-11-20] MEDS: TAMOXIFEN CITRATE (*CHEMO) 10 MG TABLET 20 MG PO (20:38)
[2020-11-21 00:20] VITALS: BP 106/55; PULSE 76; RESP 16; TEMP 36.1; O2SAT 96
[2020-11-21] MEDS: ACETAMINOPHEN 500 MG TABLET 1000 MG PO ×4 (00:26→17:24)
[2020-11-21] MEDS: oxyCODONE HCL (*CRX) 5 MG TAB IR 10 MG PO ×3 (02:11→21:13)
[2020-11-21 08:00] VITALS: BP 115/46; PULSE 72; RESP 20; TEMP 37.2; O2SAT 98
[2020-11-21] MEDS: SENNA/DOCUSATE SODIUM TABLET 2 TAB PO ×2 (09:02→17:23)
[2020-11-21] MEDS: CYCLOBENZAPRINE HCL 5 MG TABLET PO ×3 (09:03→17:23)
[2020-11-21] MEDS: CALCIUM CARBONATE (OSCAL) 500 MG TABLET PO ×2 (09:03→17:23)
[2020-11-21] MEDS: ROSUVASTATIN 10 MG TABLET 20 MG PO (09:03)
[2020-11-21] MEDS: GABAPENTIN 100 MG CAPSULE PO ×3 (09:03→17:23)
[2020-11-21] MEDS: APIXABAN 2.5 MG TABLET PO ×2 (09:03→17:23)
[2020-11-21 16:45] VITALS: BP 109/54; PULSE 81; RESP 18; TEMP 36.8; O2SAT 99
[2020-11-21] MEDS: CHOLECALCIFEROL 1,000 UNITS TABLET 1000 UNITS PO (21:13)
[2020-11-21] MEDS: ALPRAZolam (*CRX) 0.5 MG TABLET PO (21:13)
[2020-11-21] MEDS: TAMOXIFEN CITRATE (*CHEMO) 10 MG TABLET 20 MG PO (21:14)
[2020-11-22] VITALS: BP 110/80; PULSE 88; RESP 18; TEMP 37; O2SAT 99
[2020-11-22] MEDS: ACETAMINOPHEN 500 MG TABLET 1000 MG PO ×2 (01:00→05:58)
[2020-11-22 06:49] LABS: Hematocrit 22.6 % (35.0-42.0); Hemoglobin 7.1 g/dL (11.7-13.8)
[2020-11-22 06:56] LABS: Anion Gap 6 mmol/L (8-16); Blood Urea Nitrogen 14 mg/dL (7-18); Calcium 8.3 mg/dL (8.5-10.1); Carbon Dioxide 28 mmol/L (21-32); Chloride 104 mmol/L (98-108); Estimated CRCL calculation 49 ml/min; Estimated Glomerular Filt Rate 46; Glucose 80 mg/dL (70-99); Osmolality Calculated 285 mOsm/kg (285-295); Potassium 3.7 mmol/L (3.5-5.1); Sodium 138 mmol/L (136-145)
[2020-11-22 08:00] VITALS: BP 101/57; PULSE 82; RESP 22; TEMP 36.6; O2SAT 97
--- NOTE | 2020-11-22 08:10 | PM.EVENT ---
Event Note Event Note Event Note: received report from physical therapy that patient noted that she had not seen a physician since her admission. informed patient that on her 1st day of admission she did in fact see a physician. I also informed her that she is a rehab patient we as providers only visit her once weekly unless she has complications or problems that she needs to discuss with us. patient informed me that her pain is uncontrolled. her pain medication has been adjusted she is currently on oxycodone extended release with a breakthrough of [place] and p.r.n. Tylenol. I instructed patient that if her pain is not controlled she will need to notify me so that I can make further adjustments. patient agree to notify me if her pain is not controlled.
[2020-11-22] MEDS: SENNA/DOCUSATE SODIUM TABLET 2 TAB PO ×2 (09:35→17:18)
[2020-11-22] MEDS: GABAPENTIN 100 MG CAPSULE PO ×3 (09:36→17:18)
[2020-11-22] MEDS: CYCLOBENZAPRINE HCL 5 MG TABLET PO ×3 (09:36→17:18)
[2020-11-22] MEDS: ROSUVASTATIN 10 MG TABLET 20 MG PO (09:36)
[2020-11-22] MEDS: APIXABAN 2.5 MG TABLET PO ×2 (09:36→17:18)
[2020-11-22] MEDS: oxyCODONE HCL (*CRX) 10 MG TAB SR 12HR PO ×2 (09:36→20:28)
[2020-11-22] MEDS: CALCIUM CARBONATE (OSCAL) 500 MG TABLET PO ×2 (09:36→17:18)
[2020-11-22] MEDS: HYDROcodone/acetaminophen (*CRX) 7.5-325 MG TABLET 1 TAB PO (13:29)
[2020-11-22 15:45] VITALS: BP 115/56; PULSE 70; RESP 18; TEMP 36.5; O2SAT 100
[2020-11-22] MEDS: TAMOXIFEN CITRATE (*CHEMO) 10 MG TABLET 20 MG PO (20:28)
[2020-11-22] MEDS: CHOLECALCIFEROL 1,000 UNITS TABLET 1000 UNITS PO (20:28)
[2020-11-22] MEDS: ALPRAZolam (*CRX) 0.5 MG TABLET PO (20:28)
[2020-11-23] VITALS: BP 133/65; PULSE 91; RESP 18; TEMP 36.4; O2SAT 99
[2020-11-23] MEDS: HYDROcodone/acetaminophen (*CRX) 7.5-325 MG TABLET 1 TAB PO ×2 (02:12→16:46)
[2020-11-23 08:00] VITALS: BP 119/53; PULSE 82; RESP 20; TEMP 37; O2SAT 97
[2020-11-23] MEDS: SENNA/DOCUSATE SODIUM TABLET 2 TAB PO ×2 (09:01→16:45)
[2020-11-23] MEDS: oxyCODONE HCL (*CRX) 10 MG TAB SR 12HR PO ×2 (09:02→21:21)
[2020-11-23] MEDS: ROSUVASTATIN 10 MG TABLET 20 MG PO (09:02)
[2020-11-23] MEDS: GABAPENTIN 100 MG CAPSULE PO ×3 (09:02→16:47)
[2020-11-23] MEDS: APIXABAN 2.5 MG TABLET PO ×2 (09:02→16:47)
[2020-11-23] MEDS: CYCLOBENZAPRINE HCL 5 MG TABLET PO ×3 (09:02→16:46)
[2020-11-23] MEDS: CALCIUM CARBONATE (OSCAL) 500 MG TABLET PO ×2 (09:02→16:46)
[2020-11-23 09:56] LABS: Hematocrit 26.6 % (35.0-42.0); Hemoglobin 8.4 g/dL (11.7-13.8); Mean Corpuscular HGB Conc 31.6 g/dL (32.0-36.0); Mean Corpuscular Hemoglobin 28.7 pg (27.0-31.0); Mean Corpuscular Volume 90.8 fL (78.0-102.0); Mean Platelet Volume 10.5 fl (9.2-11.8); Platelet Count Result 232 K/mm3 (150-420); Red Blood Count 2.93 M/mm3 (4.20-5.40); Red Cell Distribution Width 14.6 % (11.6-14.4); White Blood Count 8.8 K/mm3 (4.8-10.8)
[2020-11-23 09:58] LABS: Add Urine Microscopic? YES; Appearance Urine Cloudy (Clear); Bilirubin Urine Negative (Negative); Blood Urine 3+ (Negative); Color Urine Yellow (Yellow); Glucose Urine UA Negative (Negative); Ketones Urine Trace (Negative); Leukocyte Esterase Ur 2+ (Negative); Nitrate Urine Positive (Negative); Protein Urine 2+ (Negative); Urobilinogen Urine 0.2 mg/dL (0.2-1.0)
[2020-11-23 10:03] LABS: RBC Urine 21-50 /hpf (0-2)
[2020-11-23 10:04] LABS: Bacteria Urine 3+ /hpf; Squamous Epithelial Cell Urine Moderate /hpf (Few); WBC Urine >75 /hpf (0-3)
[2020-11-23 10:15] LABS: Alanine Aminotransferase 17 U/L (14-59); Albumin Level 2.5 g/dL (3.4-5.0); Alkaline Phosphatase 49 U/L (46-116); Anion Gap 11 mmol/L (8-16); Aspartate Amino Transferase 22 U/L (15-37); Bilirubin,Total 0.7 mg/dL (0.00-1.00); Blood Urea Nitrogen 15 mg/dL (7-18); Calcium 8.4 mg/dL (8.5-10.1); Carbon Dioxide 25 mmol/L (21-32); Chloride 102 mmol/L (98-108); Estimated CRCL calculation 42 ml/min; Estimated Glomerular Filt Rate 38; Glucose 101 mg/dL (70-99); Osmolality Calculated 286 mOsm/kg (285-295); Potassium 3.6 mmol/L (3.5-5.1); Sodium 138 mmol/L (136-145); Total Protein 6.2 g/dL (6.4-8.2)
--- NOTE | 2020-11-23 13:39 | P.PN_ITS ---
Progress Note: A&P Assessment and Plan (1) Weakness: Code(s): R53.1 - Weakness Status: Acute Assessment and Plan: ? Exhibit tolerance during physical activity as evidenced by a normal fluctuation of vital signs during physical activity. ? Patient will be ability to perform required activities of daily living. ? Provide appropriate nutrition for healing and strength. ? Use appropriate to prevent falls. ? Continue physical therapy/occupational therapy. (2) Bilateral lower extremity edema: Code(s): R60.0 - Localized edema Status: Acute Assessment and Plan: * Peripheral edema * Continue use of Lasix 40 mg daily (3) Arthritis of ankle, right, degenerative: Qualifiers: Osteoarthritis type: primary Qualified Code(s): M19.071 - Primary osteoarthritis, right ankle and foot Code(s): M19.071 - Primary osteoarthritis, right ankle and foot Status: Acute Assessment and Plan: * Continue PT/OT * Continue pain medication (4) Arthritis of left hip: Code(s): M16.12 - Unilateral primary osteoarthritis, left hip Status: Acute Assessment and Plan: * Status post right ASHLEY 11/14/2020 * Remove derik on 11/28 and apply Steri-Strips * Weightbearing as tolerated * Walker crutches for 6 weeks * Hip precaution posterior hip precaution for 6 weeks (5) BMI 34.0-34.9,adult: Code(s): Z68.34 - Body mass index [BMI] 34.0-34.9, adult Status: Chronic Assessment and Plan: * Patient is status post gastric bypass surgery * Educated on healthy lifestyle (6) PORSCHE (generalized anxiety disorder): Code(s): F41.1 - Generalized anxiety disorder Status: Chronic Assessment and Plan: * Continue Xanax (7) Elevated serum creatinine: Code(s): R79.89 - Other specified abnormal findings of blood chemistry Status: Acute Assessment and Plan: According to patient notes patient has a history of (8) Chronic narcotic use: Code(s): F11.90 - Opioid use, unspecified, uncomplicated Status: Acute Assessment and Plan: * Due to chronic pain (9) Chronic pain: Code(s): G89.29 - Other chronic pain Status: Acute Assessment and Plan: * Chronic pain to the left hip status post right ASHLEY * Chronic opiate use (10) History of cardiac disorder: Code(s): Z86.79 - Personal history of other diseases of the circulatory system Status: Acute Assessment and Plan: * Status post stenting to RCA in 1999 and female LAD 09/30/2011 * History of bradycardic with PVCs * [place] x1 in 1999 * EF 71% stress test 02/05/2017 no insomnia but in part an apical lateral, Mild inferior lateral * Cautious with blood pressure medicine due to history of dizziness or vertigo syncope (11) Elevated d-dimer: Code(s): R79.89 - Other specified abnormal findings of blood chemistry Status: Acute Assessment and Plan: * Complain of left leg pain with edema * Positive Ana * D-dimer 5.20 * Doppler pending * Patient currently on Eliquis will adjust for DVT if positive (12) Hyperlipemia: Qualifiers: Hyperlipidemia type: mixed hyperlipidemia Qualified Code(s): E78.2 - Mixed hyperlipidemia Code(s): E78.5 - Hyperlipidemia, unspecified Status: Acute Assessment and Plan: * Continue statin Objective Data Vital Signs Vital Signs: Vital Signs - 24 hr 11/22/20 15:45 11/23/20 00:00 11/23/20 08:00
--- NOTE | 2020-11-23 13:39 | WPDPN ---
Progress Note: A&P Assessment and Plan (1) Weakness: Code(s): R53.1 - Weakness Status: Acute Assessment and Plan: ? Exhibit tolerance during physical activity as evidenced by a normal fluctuation of vital signs during physical activity. ? Patient will be ability to perform required activities of daily living. ? Provide appropriate nutrition for healing and strength. ? Use appropriate to prevent falls. ? Continue physical therapy/occupational therapy. (2) Bilateral lower extremity edema: Code(s): R60.0 - Localized edema Status: Acute Assessment and Plan: Peripheral edema Continue use of Lasix 40 mg daily (3) Arthritis of ankle, right, degenerative: Qualifiers: Osteoarthritis type: primary Qualified Code(s): M19.071 - Primary osteoarthritis, right ankle and foot Code(s): M19.071 - Primary osteoarthritis, right ankle and foot Status: Acute Assessment and Plan: Continue PT/OT Continue pain medication (4) Arthritis of left hip: Code(s): M16.12 - Unilateral primary osteoarthritis, left hip Status: Acute Assessment and Plan: Status post right ASHLEY 11/14/2020 Remove derik on 11/28 and apply Steri-Strips Weightbearing as tolerated Walker crutches for 6 weeks Hip precaution posterior hip precaution for 6 weeks (5) BMI 34.0-34.9,adult: Code(s): Z68.34 - Body mass index [BMI] 34.0-34.9, adult Status: Chronic Assessment and Plan: Patient is status post gastric bypass surgery Educated on healthy lifestyle (6) PORSCHE (generalized anxiety disorder): Code(s): F41.1 - Generalized anxiety disorder Status: Chronic Assessment and Plan: Continue Xanax (7) Elevated serum creatinine: Code(s): R79.89 - Other specified abnormal findings of blood chemistry Status: Acute Assessment and Plan: According to patient notes patient has a history of (8) Chronic narcotic use: Code(s): F11.90 - Opioid use, unspecified, uncomplicated Status: Acute Assessment and Plan: Due to chronic pain (9) Chronic pain: Code(s): G89.29 - Other chronic pain Status: Acute Assessment and Plan: Chronic pain to the left hip status post right ASHLEY Chronic opiate use (10) History of cardiac disorder: Code(s): Z86.79 - Personal history of other diseases of the circulatory system Status: Acute Assessment and Plan: Status post stenting to RCA in 1999 and female LAD 09/30/2011 History of bradycardic with PVCs [place] x1 in 1999 EF 71% stress test 02/05/2017 no insomnia but in part an apical lateral, Mild inferior lateral Cautious with blood pressure medicine due to history of dizziness or vertigo syncope (11) Elevated d-dimer: Code(s): R79.89 - Other specified abnormal findings of blood chemistry Status: Acute Assessment and Plan: Complain of left leg pain with edema Positive Ana D-dimer 5.20 Doppler pending Patient currently on Eliquis will adjust for DVT if positive (12) Hyperlipemia: Qualifiers: Hyperlipidemia type: mixed hyperlipidemia Qualified Code(s): E78.2 - Mixed hyperlipidemia Code(s): E78.5 - Hyperlipidemia, unspecified Status: Acute Assessment and Plan: Continue statin Objective Data Vital Signs Vital Signs: Vital Signs - 24 hr 11/22/20 15:45 11/23/20 00:00 11/23/20 08:00 Temperature 97.7 F 97.5 F L 98.6 F Pulse Rate 70 91 82 Respiratory Rate 18 18 20 Blood Pressure 115/56 L 133/65 119/53 L Pulse Oximetry 100 99 97 Intake/Output Intake/Output: Intake & Output 11/20/20 11/21/20 11/22/20 11/23/20 23:59 23:59 23:59 23:59 Intake Total 1500 1510 1390 960 Output Total 2100 678 1515 2 Balance -600 1035 -1282 958 Meds/Results Medications: Active Medications Generic Name Dose Route Start Last Admin Trade Name Freq PRN Reason Stop Dose Admin Acetaminophen 650
--- NOTE | 2020-11-23 15:45 | PC.NURSE ---
PT SITTING UP IN CHAIR WORKING WITH THERAPY. ATTEMPTED TO ELEVATE LLE ON STOOL AND PATIENT STATES THAT IT HURT TO MUCH TO ELEVATE AND ASKED THAT THE STOOL BE REMOVED. C/O PAIN STARTING TO RETURN TO HIP AND LEG OFFERED ICE PACK, PATIENTS REFUSED AND STATES SHE IS COLD NATURED. WILL PROVIDE ANALGESICS IF ADMINISTRATION TIME PERMITS.
[2020-11-23 16:00] VITALS: BP 114/51; PULSE 89; RESP 16; TEMP 37.1; O2SAT 95
[2020-11-23] MEDS: TAMOXIFEN CITRATE (*CHEMO) 10 MG TABLET 20 MG PO (21:20)
[2020-11-23] MEDS: CHOLECALCIFEROL 1,000 UNITS TABLET 1000 UNITS PO (21:21)
[2020-11-23] MEDS: ALPRAZolam (*CRX) 0.5 MG TABLET PO (21:21)
[2020-11-23] MEDS: NITROFURANTOIN MONOHYD MACROCR 100 MG CAP PO (21:21)
[2020-11-24] VITALS: BP 127/54; PULSE 84; RESP 16; TEMP 37.3; O2SAT 96
--- NOTE | 2020-11-24 07:19 | PM.EVENT ---
Event Note Event Note Event Note: patient doppler neg for dvt. patient order [place] for edema
[2020-11-24 08:00] VITALS: BP 114/54; PULSE 68; RESP 18; TEMP 36.5; O2SAT 97
[2020-11-24] MEDS: oxyCODONE HCL (*CRX) 20 MG TAB SR 12HR PO ×2 (08:55→20:35)
[2020-11-24] MEDS: ROSUVASTATIN 10 MG TABLET 20 MG PO (08:56)
[2020-11-24] MEDS: GABAPENTIN 100 MG CAPSULE PO ×3 (08:56→16:49)
[2020-11-24] MEDS: CYCLOBENZAPRINE HCL 5 MG TABLET PO ×3 (08:56→16:49)
[2020-11-24] MEDS: SENNA/DOCUSATE SODIUM TABLET 2 TAB PO ×2 (08:56→16:49)
[2020-11-24] MEDS: NITROFURANTOIN MONOHYD MACROCR 100 MG CAP PO ×2 (08:56→20:35)
[2020-11-24] MEDS: CALCIUM CARBONATE (OSCAL) 500 MG TABLET PO ×2 (08:57→16:49)
[2020-11-24] MEDS: APIXABAN 2.5 MG TABLET PO ×2 (08:57→16:50)
[2020-11-24] MEDS: HYDROcodone/acetaminophen (*CRX) 7.5-325 MG TABLET 1 TAB PO (13:43)
[2020-11-24 16:00] VITALS: BP 124/58; PULSE 78; RESP 20; TEMP 37.1; O2SAT 97
--- NOTE | 2020-11-24 18:22 | PC.NURSE ---
erp aware of urine prelim
[2020-11-24] MEDS: ALPRAZolam (*CRX) 0.5 MG TABLET PO (20:26)
[2020-11-24] MEDS: TAMOXIFEN CITRATE (*CHEMO) 10 MG TABLET 20 MG PO (20:26)
[2020-11-24] MEDS: CHOLECALCIFEROL 1,000 UNITS TABLET 1000 UNITS PO (20:26)
[2020-11-25 00:31] VITALS: BP 134/54; PULSE 76; RESP 18; TEMP 37.1; O2SAT 100
[2020-11-25] MEDS: HYDROcodone/acetaminophen (*CRX) 7.5-325 MG TABLET 1 TAB PO ×2 (00:56→13:01)
[2020-11-25 08:00] VITALS: BP 106/59; PULSE 88; RESP 18; TEMP 36.8; O2SAT 95
[2020-11-25] MEDS: APIXABAN 2.5 MG TABLET PO ×2 (09:45→17:13)
[2020-11-25] MEDS: NITROFURANTOIN MONOHYD MACROCR 100 MG CAP PO ×2 (09:45→21:04)
[2020-11-25] MEDS: CALCIUM CARBONATE (OSCAL) 500 MG TABLET PO ×2 (09:45→17:14)
[2020-11-25] MEDS: GABAPENTIN 100 MG CAPSULE PO ×3 (09:45→17:14)
[2020-11-25] MEDS: ROSUVASTATIN 10 MG TABLET 20 MG PO (09:45)
[2020-11-25] MEDS: CYCLOBENZAPRINE HCL 5 MG TABLET PO ×3 (09:45→17:13)
[2020-11-25] MEDS: SENNA/DOCUSATE SODIUM TABLET 2 TAB PO ×2 (09:45→17:14)
[2020-11-25] MEDS: oxyCODONE HCL (*CRX) 20 MG TAB SR 12HR PO ×2 (09:45→21:04)
[2020-11-25 15:47] VITALS: BP 102/50; PULSE 74; RESP 20; TEMP 36.4; O2SAT 95
--- NOTE | 2020-11-25 18:10 | PC.NURSE ---
Pt c SBA use of walker and gait belt p eating dinner. PT. voided and had BM at this time and walked back to bed unassisted. Pt. c/o pain in her hip and leg but got back to bed c minimal assist and salvatore. well.
[2020-11-25] MEDS: ALPRAZolam (*CRX) 0.5 MG TABLET PO (21:04)
[2020-11-25] MEDS: TAMOXIFEN CITRATE (*CHEMO) 10 MG TABLET 20 MG PO (21:04)
[2020-11-25] MEDS: CHOLECALCIFEROL 1,000 UNITS TABLET 1000 UNITS PO (21:04)
[2020-11-26] VITALS: BP 117/53; PULSE 80; RESP 20; TEMP 36.5; O2SAT 98
[2020-11-26] MEDS: HYDROcodone/acetaminophen (*CRX) 7.5-325 MG TABLET 1 TAB PO ×2 (03:21→13:52)
[2020-11-26 08:00] VITALS: BP 110/49; PULSE 73; RESP 16; TEMP 36.4; O2SAT 92
[2020-11-26] MEDS: APIXABAN 2.5 MG TABLET PO ×2 (08:50→17:35)
[2020-11-26] MEDS: SENNA/DOCUSATE SODIUM TABLET 2 TAB PO ×2 (08:50→17:35)
[2020-11-26] MEDS: CALCIUM CARBONATE (OSCAL) 500 MG TABLET PO ×2 (08:50→17:35)
[2020-11-26] MEDS: NITROFURANTOIN MONOHYD MACROCR 100 MG CAP PO ×2 (08:51→21:05)
[2020-11-26] MEDS: GABAPENTIN 100 MG CAPSULE PO ×3 (08:51→17:35)
[2020-11-26] MEDS: ROSUVASTATIN 10 MG TABLET 20 MG PO (08:51)
[2020-11-26] MEDS: CYCLOBENZAPRINE HCL 5 MG TABLET PO ×3 (08:51→17:35)
[2020-11-26] MEDS: oxyCODONE HCL (*CRX) 20 MG TAB SR 12HR PO ×2 (08:51→21:05)
--- NOTE | 2020-11-26 14:30 | PM.EVENT ---
Event Note Event Note Event Note: It appears the patient has a i mass underneath her skin to the left buttocks that is tender to touch. We will continue patient's antibiotic and if no improvement we will complete imaging of her buttocks.
[2020-11-26 16:00] VITALS: BP 97/53; PULSE 72; RESP 18; TEMP 37.3; O2SAT 98
[2020-11-26] MEDS: ALPRAZolam (*CRX) 0.5 MG TABLET PO (21:05)
[2020-11-26] MEDS: TAMOXIFEN CITRATE (*CHEMO) 10 MG TABLET 20 MG PO (21:05)
[2020-11-26] MEDS: CHOLECALCIFEROL 1,000 UNITS TABLET 1000 UNITS PO (21:05)
[2020-11-27] VITALS: BP 120/49; PULSE 77; RESP 18; TEMP 36.4; O2SAT 98
[2020-11-27 08:00] VITALS: BP 124/61; PULSE 83; RESP 18; TEMP 36.9; O2SAT 94
[2020-11-27] MEDS: CYCLOBENZAPRINE HCL 5 MG TABLET PO ×3 (08:05→17:01)
[2020-11-27] MEDS: ROSUVASTATIN 10 MG TABLET 20 MG PO (08:05)
[2020-11-27] MEDS: SENNA/DOCUSATE SODIUM TABLET 2 TAB PO ×2 (08:05→17:01)
[2020-11-27] MEDS: GABAPENTIN 100 MG CAPSULE PO ×3 (08:06→17:01)
[2020-11-27] MEDS: oxyCODONE HCL (*CRX) 20 MG TAB SR 12HR PO ×2 (08:06→21:25)
[2020-11-27] MEDS: APIXABAN 2.5 MG TABLET PO ×2 (08:06→17:01)
[2020-11-27] MEDS: NITROFURANTOIN MONOHYD MACROCR 100 MG CAP PO ×2 (08:06→21:25)
[2020-11-27] MEDS: CALCIUM CARBONATE (OSCAL) 500 MG TABLET PO ×2 (08:06→17:01)
[2020-11-27] MEDS: HYDROcodone/acetaminophen (*CRX) 7.5-325 MG TABLET 1 TAB PO (13:06)
[2020-11-27 16:00] VITALS: BP 118/52; PULSE 76; RESP 20; TEMP 36.9; O2SAT 96
[2020-11-27] MEDS: ACETAMINOPHEN 325 MG TABLET 650 MG PO (17:00)
[2020-11-27] MEDS: CHOLECALCIFEROL 1,000 UNITS TABLET 1000 UNITS PO (21:25)
[2020-11-27] MEDS: TAMOXIFEN CITRATE (*CHEMO) 10 MG TABLET 20 MG PO (21:25)
[2020-11-27] MEDS: ALPRAZolam (*CRX) 0.5 MG TABLET PO (21:33)
[2020-11-28] VITALS: BP 115/51; PULSE 108; RESP 18; TEMP 36.2; O2SAT 96
[2020-11-28] MEDS: HYDROcodone/acetaminophen (*CRX) 7.5-325 MG TABLET 1 TAB PO ×2 (03:15→14:15)
[2020-11-28 08:00] VITALS: BP 117/62; PULSE 95; RESP 18; TEMP 37.1; O2SAT 98
[2020-11-28] MEDS: CYCLOBENZAPRINE HCL 5 MG TABLET PO ×3 (08:46→17:35)
[2020-11-28] MEDS: CALCIUM CARBONATE (OSCAL) 500 MG TABLET PO ×2 (08:47→17:35)
[2020-11-28] MEDS: APIXABAN 2.5 MG TABLET PO ×2 (08:47→17:34)
[2020-11-28] MEDS: NITROFURANTOIN MONOHYD MACROCR 100 MG CAP PO (08:47)
[2020-11-28] MEDS: GABAPENTIN 100 MG CAPSULE PO ×3 (08:48→17:35)
[2020-11-28] MEDS: oxyCODONE HCL (*CRX) 20 MG TAB SR 12HR PO ×2 (08:48→21:00)
[2020-11-28] MEDS: SENNA/DOCUSATE SODIUM TABLET 2 TAB PO ×2 (08:48→17:34)
[2020-11-28] MEDS: ROSUVASTATIN 10 MG TABLET 20 MG PO (08:49)
--- NOTE | 2020-11-28 14:54 | PM.EVENT ---
Event Note Event Note Event Note: patient ua with the growth of K. pnemoniae sensative to bactrim will change ABX to bactrim to treat UTI and abscess ct pending to determine the degree of abscess.
[2020-11-28 16:05] VITALS: BP 105/57; PULSE 87; RESP 18; TEMP 36.8; O2SAT 99
[2020-11-28] MEDS: ACETAMINOPHEN 325 MG TABLET 650 MG PO (17:34)
--- NOTE | 2020-11-28 17:40 | PC.NURSE ---
25 derik removed from incision site to right hip. Patient tolerated well. Site well approximated,no dehiscence noted. Steri-strips applied. Patient resting in bed with hob elevated. Call light and belongings at side.
[2020-11-28] MEDS: CHOLECALCIFEROL 1,000 UNITS TABLET 1000 UNITS PO (20:53)
[2020-11-28] MEDS: CIPROFLOXACIN 500 MG TAB PO (20:53)
[2020-11-28] MEDS: ALPRAZolam (*CRX) 0.5 MG TABLET PO (20:54)
[2020-11-28] MEDS: TAMOXIFEN CITRATE (*CHEMO) 10 MG TABLET 20 MG PO (21:45)
[2020-11-28 23:33] VITALS: BP 107/44; PULSE 74; RESP 20; TEMP 36.9; O2SAT 92
[2020-11-29 08:00] VITALS: BP 102/56; PULSE 74; RESP 18; TEMP 37; O2SAT 98
[2020-11-29] MEDS: SENNA/DOCUSATE SODIUM TABLET 2 TAB PO ×2 (08:27→16:45)
[2020-11-29] MEDS: ROSUVASTATIN 10 MG TABLET 20 MG PO (08:27)
[2020-11-29] MEDS: CALCIUM CARBONATE (OSCAL) 500 MG TABLET PO ×2 (08:28→16:45)
[2020-11-29] MEDS: GABAPENTIN 100 MG CAPSULE PO ×3 (08:28→16:46)
[2020-11-29] MEDS: oxyCODONE HCL (*CRX) 20 MG TAB SR 12HR PO ×2 (08:28→20:47)
[2020-11-29] MEDS: CYCLOBENZAPRINE HCL 5 MG TABLET PO ×3 (08:28→16:46)
[2020-11-29] MEDS: CIPROFLOXACIN 500 MG TAB PO ×2 (08:28→20:46)
[2020-11-29] MEDS: APIXABAN 2.5 MG TABLET PO ×2 (08:28→16:45)
--- NOTE | 2020-11-29 10:09 | PC.NURSE ---
pt sitting up in bed watching tv, denies any needs at this time
--- NOTE | 2020-11-29 11:55 | PC.NURSE ---
pt sitting on side of bed, requests to have Tylenol with next med dose
[2020-11-29] MEDS: ACETAMINOPHEN 325 MG TABLET 650 MG PO (12:00)
[2020-11-29] MEDS: HYDROcodone/acetaminophen (*CRX) 7.5-325 MG TABLET 1 TAB PO (14:12)
[2020-11-29 16:00] VITALS: BP 100/64; PULSE 90; RESP 18; TEMP 37.2; O2SAT 97
[2020-11-29] MEDS: CHOLECALCIFEROL 1,000 UNITS TABLET 1000 UNITS PO (20:47)
[2020-11-29] MEDS: ALPRAZolam (*CRX) 0.5 MG TABLET PO (20:47)
[2020-11-29] MEDS: TAMOXIFEN CITRATE (*CHEMO) 10 MG TABLET 20 MG PO (20:47)
[2020-11-30] VITALS: BP 90/43; PULSE 80; RESP 20; TEMP 37.3; O2SAT 96
--- NOTE | 2020-11-30 00:06 | PC.NURSE ---
Pt resting quietly in bed and doesnt voice any c/o discomfort.
--- NOTE | 2020-11-30 02:05 | PC.NURSE ---
Pt asleep and no signs of discomfort noted.
--- NOTE | 2020-11-30 04:03 | PC.NURSE ---
Pt asleep and no signs of discomfort noted.
--- NOTE | 2020-11-30 05:04 | PC.NURSE ---
Pt called and said she had pain in her left leg, foot and heel. Pt rated her pain as an '8' on a 1-10 pain scale. Pt's left foot and heel were placed on a pillow and pt was given hydrocodone/acetaminophen 7.5/325 mg PO one tablet to relieve left leg, foot and heel pain.
[2020-11-30] MEDS: HYDROcodone/acetaminophen (*CRX) 7.5-325 MG TABLET 1 TAB PO ×2 (05:09→11:10)
[2020-11-30 05:22] LABS: Hematocrit 23.9 % (35.0-42.0); Hemoglobin 7.4 g/dL (11.7-13.8); Mean Corpuscular Hemoglobin 28.6 pg (27.0-31.0); Mean Corpuscular Volume 92.3 fL (78.0-102.0); Mean Platelet Volume 10.3 fl (9.2-11.8); Platelet Count Result 217 K/mm3 (150-420); Red Blood Count 2.59 M/mm3 (4.20-5.40); Red Cell Distribution Width 15.6 % (11.6-14.4); White Blood Count 4.3 K/mm3 (4.8-10.8)
[2020-11-30 05:33] LABS: Anion Gap 5 mmol/L (8-16); Blood Urea Nitrogen 10 mg/dL (7-18); Calcium 8.2 mg/dL (8.5-10.1); Carbon Dioxide 30 mmol/L (21-32); Chloride 105 mmol/L (98-108); Estimated CRCL calculation 44 ml/min; Estimated Glomerular Filt Rate 41; Glucose 87 mg/dL (70-99); Osmolality Calculated 288 mOsm/kg (285-295); Potassium 4.1 mmol/L (3.5-5.1); Sodium 140 mmol/L (136-145)
--- NOTE | 2020-11-30 06:24 | PC.NURSE ---
Pt resting quietly in bed and doesnt voice any c/o left leg, foot or heel pain. Hydrocodone/acetaminophen 7.5/325 effective in relieving pain.
[2020-11-30 08:00] VITALS: BP 104/46; PULSE 71; RESP 16; TEMP 36.9; O2SAT 97
[2020-11-30] MEDS: oxyCODONE HCL (*CRX) 20 MG TAB SR 12HR PO (08:47)
[2020-11-30] MEDS: APIXABAN 2.5 MG TABLET PO (08:47)
[2020-11-30] MEDS: CALCIUM CARBONATE (OSCAL) 500 MG TABLET PO (08:47)
[2020-11-30] MEDS: SENNA/DOCUSATE SODIUM TABLET 2 TAB PO (08:47)
[2020-11-30] MEDS: ROSUVASTATIN 10 MG TABLET 20 MG PO (08:48)
[2020-11-30] MEDS: CYCLOBENZAPRINE HCL 5 MG TABLET PO ×2 (08:48→12:39)
[2020-11-30] MEDS: GABAPENTIN 100 MG CAPSULE PO ×2 (08:48→12:39)
[2020-11-30] MEDS: CIPROFLOXACIN 500 MG TAB PO (08:48)
--- NOTE | 2020-11-30 08:56 | PM.DS ---
DS: Admitting Diagnosis Admitting Diagnosis Admitting Diagnosis: Weakness s/p Total Hip Replacement, UTI DS: Discharge Diagnosis Discharge Diagnosis (1) UTI (urinary tract infection): Code(s): N39.0 - Urinary tract infection, site not specified Status: Acute Assessment and Plan: 11/30/2020 Pt found to have UTI and was started on Cipro, will DC with same for a total of 5 days, Pt also states she has a yeast infection and will write for Diflucan for Pt to take after finishing her Cipro (2) Weakness: Code(s): R53.1 - Weakness Status: Acute Assessment and Plan: ? Exhibit tolerance during physical activity as evidenced by a normal fluctuation of vital signs during physical activity. ? Patient will be ability to perform required activities of daily living. ? Provide appropriate nutrition for healing and strength. ? Use appropriate to prevent falls. ? Continue physical therapy/occupational therapy. 11/30/2020 Pt continues to work with PT/OT and reported to me that she is doing well, able to take shower and dress herself as she is eager to return home (3) Bilateral lower extremity edema: Code(s): R60.0 - Localized edema Status: Acute Assessment and Plan: Peripheral edema Continue use of Lasix 40 mg daily 11/30/2020 Lasix 40 mg, [place] hose ordered but Pt refuses to wear stating she has better ones at home, Pt also instructed to ensure she elevates her leg throughout the day (4) Arthritis of ankle, right, degenerative: Qualifiers: Osteoarthritis type: primary Qualified Code(s): M19.071 - Primary osteoarthritis, right ankle and foot Code(s): M19.071 - Primary osteoarthritis, right ankle and foot Status: Acute Assessment and Plan: Continue PT/OT Continue pain medication (5) Arthritis of left hip: Code(s): M16.12 - Unilateral primary osteoarthritis, left hip Status: Acute Assessment and Plan: Status post right ASHLEY 11/14/2020 Remove derik on 11/28 and apply Steri-Strips Weightbearing as tolerated Walker crutches for 6 weeks Hip precaution posterior hip precaution for 6 weeks (6) BMI 34.0-34.9,adult: Code(s): Z68.34 - Body mass index [BMI] 34.0-34.9, adult Status: Chronic Assessment and Plan: Patient is status post gastric bypass surgery Educated on healthy lifestyle (7) PORSCHE (generalized anxiety disorder): Code(s): F41.1 - Generalized anxiety disorder Status: Chronic Assessment and Plan: Continue Xanax (8) Elevated serum creatinine: Code(s): R79.89 - Other specified abnormal findings of blood chemistry Status: Acute Assessment and Plan: In PCP note Pt states she does not take NSAIDs because of her kidneys. Pt states she was diagnosed with CKD within the last year but unable to find this in PMHx, will leave note for PCP when setting up f/u appointment (9) Chronic narcotic use: Code(s): F11.90 - Opioid use, unspecified, uncomplicated Status: Acute Assessment and Plan: Due to chronic pain (10) Chronic pain: Code(s): G89.29 - Other chronic pain Status: Acute Assessment and Plan: Chronic pain to the left hip status post right ASHLEY Chronic opiate use (11) History of cardiac disorder: Code(s): Z86.79 - Personal history of other diseases of the circulatory system Status: Acute Assessment and Plan: Status post stenting to RCA in 1999 and female LAD 09/30/2011 History of bradycardic with PVCs MO x1 in 1999 EF 71% stress test 02/05/2017 no insomnia but in part an apical lateral, Mild inferior lateral Cautious with blood pressure medicine due to history of dizziness or vertigo syncope 11/30/2020 no reports of Pt having chest pains and Pt has not reported CP (12) Elevated d-dimer: Code(s): R79.89 - Other specified abnormal findings of blood chemistry Status: Acute Assessment and Plan: Compla
--- NOTE | 2020-11-30 13:51 | PC.NURSE ---
Pt given discharge instructions. She verbalized understanding. Scripts sent with pt. All pt belongings returned. Pt discharged per wheel chair to friends car in stable condition. MARSHA
--- NOTE | 2020-12-01 13:50 | PC.NURSE ---
discharge call back attempted, no answer
--- NOTE | 2020-12-06 12:51 | PC.NURSE ---
Follow up call completed, spoke with patient, states probably didn't understand her dc instructions fully at the time, but its ok, Home health has made contact and OT to come today. No concerns regarding care received
== END 2020-11-30 13:50 | disposition home health service (06) | DRG 560 ==
PROVIDERS: Nurse Practitioner; Nurse Practitioner Family; Admitting Provider Emergency Medicine; PCP Nurse Practitioner Family; Visit Provider Emergency Medicine
DX: Z47.1 Aftercare following joint replacement surgery (principal); N39.0 Urinary tract infection, site not specified; Z96.642 Presence of left artificial hip joint; M19.071 Primary osteoarthritis, right ankle and foot; M54.9 Dorsalgia, unspecified; G89.29 Other chronic pain; K57.30 Diverticulosis of large intestine without perforation or abscess without bleeding; E78.5 Hyperlipidemia, unspecified; H35.30 Unspecified macular degeneration; F41.9 Anxiety disorder, unspecified; Z95.5 Presence of coronary angioplasty implant and graft; Z85.3 Personal history of malignant neoplasm of breast; I25.2 Old myocardial infarction; Z87.442 Personal history of urinary calculi; Z98.49 Cataract extraction status, unspecified eye; Z90.710 Acquired absence of both cervix and uterus; Z90.49 Acquired absence of other specified parts of digestive tract; Z98.84 Bariatric surgery status; Z87.891 Personal history of nicotine dependence
CPT/HCPCS: 36415; 72192; 80048; 80053; 81001; 85014; 85018; 85025; 85027; 85380; 87077; 87086; 87088; 87186; 93971; 97110; 97161; 97165; 97530; 97535; A9270

== ENCOUNTER 2020-12-06 17:21 | Emergency (ER) | payer MEDICARE, SELFPAY ==
--- NOTE | ~2020-12-06 | CT_ITS ---
EXAMINATION: CT abdomen pelvis wo con DATE: 12/06/2020 18:19 INDICATION: Left lower quadrant pain. Constipation. TECHNIQUE: Computed tomography (CT) of the abdomen and pelvis was performed without intravenous contr ast. Automated exposure control and iterative reconstruction technique were employed. Exam dose: 939 .42 mGy-cm total exam DLP. COMPARISON: 11/28/2020 CT pelvis 07/21/[address] abdomen pelvis FINDINGS: The lung bases are clear of consolidation. Normal heart size. No pericardial or pleural eff usion. Postoperative change of the proximal stomach. Small sliding hiatal hernia. Ventral abdominal and pelvic wall mesh repair. The gallbladder is absent. No bile duct or pancreatic duct dilatation is evident. Normal splenic size . No pancreatic mass lesion or calcification or pancreatic duct dilatation. Normal morphology of the adrenal glands. Approximately 4.5 mm nonobstructing lower pole left renal calculus. No other apparent urinary tract c alculus or hydroureteronephrosis is evident. The distal ureters and urinary bladder are obscured largely by extensive streak artifact from bilater al hip replacements. Probable hysterectomy, but this area is not well evaluated due to the streak art ifact. There is extensive atherosclerotic calcification of the abdominal aorta but no aneurysm. No intraperi toneal or retroperitoneal or pelvic mass lesion or adenopathy or ascites is evident. Mild sigmoid diverticulosis; no CT evidence of diverticulitis. There is prominent soft tissue thickening and apparent apple core sign of the proximal sigmoid colon suggesting sigmoid colon carcinoma. Further evaluation by barium enema or colonoscopy is recommended. No suspicious osteolytic or osteoblastic lesions are noted. Bilateral total hip arthroplasty. IMPRESSION: Prominent thickening of the wall of the proximal sigmoid colon with suggestion of a palp able core sign, suggestive of colon carcinoma. Further evaluation by barium enema or colonoscopy is r ecommended Mild sigmoid diverticulosis Status post cholecystectomy 4.5 mm nonobstructing lower pole left renal calculus Probable hysterectomy; however is partially obscured by streak artifact from bilateral hip replacemen ts Status post ventral abdominal and pelvic wall mesh repair Reviewed, dictated and finalized at [facility]. Reviewed, dictated and finalized at [facility]. IMPRESSION: Prominent thickening of the wall of the proximal sigmoid colon wit h suggestion of a palpable core sign, suggestive of colon carcinoma. Further ev aluation by barium enema or colonoscopy is recommended Mild sigmoid diverticulosis Status post cholecystectomy 4.5 mm nonobstructing lower pole left renal calculus Probable hysterectomy; however is partially obscured by streak artifact from bi lateral hip replacements Status post ventral abdominal and pelvic wall mesh repair
[2020-12-06 17:35] VITALS: BP 132/59; PULSE 78; RESP 18; TEMP 36.6; O2SAT 95
--- NOTE | 2020-12-06 17:37 | ED.GENADULT ---
HPI - General Adult General Chief complaint: Unspecified Stated complaint: shaking,fever, cold chills Time Seen by Provider: 12/06/20 17:25 Source: patient Mode of arrival: ambulatory Limitations: no limitations History of Present Illness HPI narrative: Patient comes in with complaints of pain all over, in hips, knees, back, moderately severe, and ongoing. She states that she went home from the hospital a few days ago on Saturday. She did ok initially, but then has started to heve diffuse pain and has not been moving well. Pain is moderately severe, sharp and ongoing. It has not been relieved by medications taken at home. No modifying factors. Onset (ago): day(s) Location: back and pelvis (knees, hips) Radiation: non-radiation Severity: moderate Quality: sharp Pain Consistency: intermittent Relieving factors: none Exacerbating factors: movement Associated symptoms: shortness of breath Treatments prior to arrival: other (oxycodone, Eliquis ) Related Data Home Medications Medication Instructions Recorded Confirmed potassium chloride 10 meq PO DAILY PRN 05/29/19 12/06/20 calcium carbonate [Calcium 600] 600 mg PO BID 07/21/19 12/06/20 cholecalciferol (vitamin D3) 25 25 mcg PO HS 03/18/20 12/06/20 mcg (1,000 unit) capsule acetaminophen 1,000 mg PO Q6H 11/17/20 12/06/20 alprazolam 0.5 mg PO HS 11/17/20 12/06/20 apixaban 2.5 mg PO BID 11/17/20 12/06/20 cyclobenzaprine 5 mg PO TID 11/17/20 12/06/20 gabapentin [Neurontin] 100 mg PO TID 11/17/20 12/06/20 oxycodone 10 mg PO Q6H PRN 11/17/20 12/06/20 rosuvastatin 20 mg PO DAILY 11/17/20 12/06/20 senna-docusate sodium 2 tablet PO BID 11/17/20 12/06/20 tamoxifen 20 mg PO HS 11/17/20 12/06/20 Allergies Allergy/AdvReac Type Severity Reaction Status Date / Time codeine Allergy Intermediate unknown Verified 12/06/20 08:39 Sulfa (Sulfonamide Allergy Unknown Nausea Verified 12/06/20 08:39 Antibiotics) Tetanus Vaccines and Toxoid Allergy Unknown Vomiting Verified 12/06/20 08:39 Iodinated Contrast Media AdvReac Other Verified 12/06/20 08:39 Review of Systems Constitutional: Constitutional: Reports body ache(s), Reports fatigue and Reports fever(s) Eyes: Eyes: Reports no additional eye complaints ENT: Reports system reviewed and no additional complaints, except as documented Cardiovascular: Cardiovascular: Reports no additional cardiovascular complaints Respiratory: Respiratory: Reports dyspnea on exertion Gastrointestinal: Gastrointestinal: Reports no additional gastrointestinal complaints Genitourinary: Genitourinary: Reports no additional female genitourinary complaints Musculoskeletal: Musculoskeletal: Reports back pain, Reports myalgias and Reports arthralgias Integumentary/Breasts: Skin/Breast: Reports system reviewed and no additional complaints, except as docu Neurologic: Reports system reviewed and no additional complaints, except as documented Psychiatric: Psychiatric: Reports no additional psychiatric complaints Endocrine: Endocrine: Reports no additional endocrine complaints Hematologic/Lymphatic: Hematologic/Lymphatic: Reports no additional hematologic/lymphatic complaints Allergic/Immunologic: Allergic/Immunologic: Reports no additional allergic/immunologic complaints [facility] Past Medical History Medical History Achilles tendinitis of right lower extremity Anxiety Arthritis of ankle, right, degenerative Bilateral lower extremity edema BMI 34.0-34.9,adult Chronic back pain Chronic narcotic use 7.5mg percocet for ten years. Coronary artery disease With history of acute myocardial infarction in 1999 and which is stent was placed. She also had another stent placed in 2008. 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 PORSCHE (generalized anxiety disorde
--- NOTE | 2020-12-06 17:38 | ECG_ITS ---
Measurements Intervals [place] Rate: 90 P: 57 ND: 190 QRS: -48 QRSD: 117 T: 49 QT: 385 QTc: 473 Interpretive Statements SINUS RHYTHM LEFT ANTERIOR FASCICULAR BLOCK Electronically Signed On 12-06-2020 19:25:34 CDT by David Arrieta D.O.
[2020-12-06] MEDS: KETOROLAC 30 MG/ML VIAL (*BKC) IV PUSH (17:54)
[2020-12-06 18:19] VITALS: BP 138/68; PULSE 80; RESP 18
[2020-12-06 18:22] LABS: Basophils Absolute Auto 0.02 K/mm3 (0.00-0.10); Basophils Percent Auto 0.2 % (0.0-1.0); Eosinophils Absolute Auto 0.02 K/mm3 (0.02-0.50); Eosinophils Percent Auto 0.2 % (1.0-6.0); Hematocrit 28.9 % (35.0-42.0); Immature Granulocyte Absolute 0.07 K/mm3 (0.00-0.00); Immature Granulocyte Percent A 0.6 % (0.0-0.0); Lymphocytes Absolute Auto 0.88 K/mm3 (1.10-4.50); Lymphocytes Percent Auto 7.1 % (18.0-42.0); Mean Corpuscular HGB Conc 31.1 g/dL (32.0-36.0); Mean Corpuscular Hemoglobin 27.9 pg (27.0-31.0); Mean Corpuscular Volume 89.5 fL (78.0-102.0); Mean Platelet Volume 10.4 fl (9.2-11.8); Monocytes Absolute Auto 0.64 K/mm3 (0.10-0.90); Monocytes Percent Auto 5.2 % (2.0-11.0); Neutrophils Absolute Auto 10.8 K/mm3 (1.7-7.2); Neutrophils Percent Auto 86.7 % (50.0-70.0); Platelet Count Result 204 K/mm3 (150-420); Red Blood Count 3.23 M/mm3 (4.20-5.40); Red Cell Distribution Width 15.4 % (11.6-14.4); White Blood Count 12.4 K/mm3 (4.8-10.8)
--- NOTE | 2020-12-06 18:28 | PC.NURSE ---
patient very rude to staff, cussing at staff
[2020-12-06 18:41] LABS: D Dimer 5.59 mg/L (0.19-0.50)
[2020-12-06 18:42] LABS: Alanine Aminotransferase 11 U/L (14-59); Albumin Level 2.9 g/dL (3.4-5.0); Alkaline Phosphatase 59 U/L (46-116); Anion Gap 11 mmol/L (8-16); Aspartate Amino Transferase 16 U/L (15-37); Bilirubin,Total 0.5 mg/dL (0.00-1.00); Blood Urea Nitrogen 13 mg/dL (7-18); Calcium 8.3 mg/dL (8.5-10.1); Carbon Dioxide 26 mmol/L (21-32); Chloride 99 mmol/L (98-108); Estimated CRCL calculation 37 ml/min; Estimated Glomerular Filt Rate 35; Glucose 130 mg/dL (70-99); Osmolality Calculated 284 mOsm/kg (285-295); Potassium 3.5 mmol/L (3.5-5.1); Sodium 136 mmol/L (136-145); Total Protein 6.2 g/dL (6.4-8.2); Troponin I 8.7 ng/L (0.00-60.4); Uric Acid 4.4 mg/dL (2.6-6.0)
[2020-12-06 19:04] LABS: NT Pro B Type Natriuretic Pept 1067 pg/mL (0-450)
[2020-12-06 19:16] LABS: Lactic Acid Reflex 1.2 mmol/L (0.4-2.0)
--- NOTE | 2020-12-06 19:23 | PC.NURSE ---
waiting on radiology to read report
[2020-12-06 19:39] VITALS: BP 130/59; PULSE 70; RESP 18; O2SAT 95
[2020-12-06] MEDS: ENOXAPARIN 100 MG/ML SYRINGE SUB-Q (20:04)
--- NOTE | 2020-12-06 20:30 | PC.NURSE ---
called jes for a bed
--- NOTE | 2020-12-06 20:47 | PC.NURSE ---
accepted, waiting for room number
[2020-12-06 21:05] LABS: Add Urine Microscopic? YES; Appearance Urine Sl Cloudy (Clear); Bilirubin Urine Negative (Negative); Blood Urine Negative (Negative); Color Urine Yellow (Yellow); Glucose Urine UA Negative (Negative); Ketones Urine Trace (Negative); Leukocyte Esterase Ur 1+ LEU/UL (Negative); Nitrate Urine Negative (Negative); Protein Urine Trace (Negative); Specific Grav Ur 1.015 (1.010-1.020); Urobilinogen Urine 0.2 mg/dL (0.2-1.0)
[2020-12-06 21:09] LABS: Bacteria Urine 1+ /hpf; RBC Urine None seen /hpf (0-2); Squamous Epithelial Cell Urine Moderate /hpf (Few)
[2020-12-06] MEDS: HYDROmorphone HCL INJ (*CRX) 2 MG/ML VIAL 1 MG IV PUSH (21:24)
[2020-12-06] MEDS: ONDANSETRON HCL ODT 4 MG TABLET PO (21:25)
[2020-12-06 21:51] VITALS: BP 140/60; PULSE 72; RESP 16; TEMP 36.6; O2SAT 98
== END 2020-12-06 21:53 | disposition short-term general hospital (02) ==
PROVIDERS: Emergency Provider Emergency Medicine; PCP Nurse Practitioner Family
DX: L03.90 Cellulitis, unspecified (principal); I82.409 Acute embolism and thrombosis of unspecified deep veins of unspecified lower extremity; R06.02 Shortness of breath; E78.5 Hyperlipidemia, unspecified; Z87.891 Personal history of nicotine dependence; R82.90 Unspecified abnormal findings in urine
CPT/HCPCS: 36415; 71046; 74176; 80053; 81001; 83605; 83880; 84484; 84550; 85025; 85380; 87040; 87086; 87088; 93005; 96365; 96372; 96375; 99285; A9270; J1170; J1650; J1885; J2543

== ENCOUNTER 2020-12-06 22:33 | Inpatient (IN) | payer MEDICARE, SELFPAY ==
--- NOTE | ~2020-12-06 | US_ITS ---
EXAMINATION: US venous doppler LE EXAM DATE: 12/07/2020 11:05 INDICATION: left leg swelling. TECHNIQUE: Multiple grayscale, color flow and Doppler images of the lower extremity deep venous syste ms bilaterally were obtained and reviewed. Comparison is made to prior examination from 11/23/2020. FINDINGS: Right side: The right common femoral, femoral and profunda veins demonstrate normal color flow, respi ratory variation, augmentation and compressibility. Compressibility, color flow confirmed within the right popliteal, posterior tibial, peroneal, and greater saphenous veins. Left side: The left common femoral, femoral and profunda veins demonstrate normal color flow, respira tory variation, augmentation and compressibility. Compressibility, color flow confirmed within the l eft popliteal, posterior tibial, peroneal, and greater saphenous veins. IMPRESSION: 1. No lower extremity deep venous thrombosis bilaterally. Reviewed, dictated and finalized at location [facility].
--- NOTE | ~2020-12-06 | US_ITS ---
EXAMINATION: US soft tissue buttock RT DATE: 12/07/2020 15:45 INDICATION: Right buttock mass. TECHNIQUE: Multiple grayscale and Doppler ultrasound images of the right buttock were obtained. COMPARISON: CT abdomen and pelvis 12/06/2020 FINDINGS: There is hyperechoic subcutaneous fat in the area of concern in right buttock, consistent w ith inflammation. IMPRESSION: 1. Hyperechoic subcutaneous fat in the area of concern in right buttock, consistent with inflammation . Reviewed, dictated and finalized at location [facility]. IMPRESSION: 1. Hyperechoic subcutaneous fat in the area of concern in right buttock, consis tent with inflammation.
--- NOTE | 2020-12-06 22:33 | ADMGEN ---
This patient, Maida Camacho, was admitted to Medical Room 345-01. Patient/family oriented to hospital policies and general routines including ID bracelet, bed and alarms, visiting hours, pain management, procedures, bathroom and other care routines, personal items, smoking policy, room service/diet, and visiting hours. Information on how to activate the Rapid Response Team has been discussed. Patient/Family are encouraged to report perceived risks to care and to ask questions if they do not understand what they are told or what they should do.
[2020-12-06 23:03] VITALS: BMI 32.3
[2020-12-06 23:04] VITALS: BP 135/65; PULSE 77; RESP 14; TEMP 36.8; O2SAT 98
[2020-12-07] VITALS (9 sets, daily range): BP systolic 106–120; BP diastolic 45–54; PULSE 81–107; RESP 16–18; TEMP 36.1–37.7; O2SAT 97–100; BMI 32.3
--- NOTE | 2020-12-07 00:47 | PM.IMHP ---
H&P: HPI History of Present Illness Date/Time: 12/07/20 00:47 Chief Complaint: fever, generalized pain Narrative: Patient came to the [facility] ED today with generalised pain and fever. She was feeling weak and sob with ambulation. She was recently released from [facility] after finished her rehabilitation from her left hip replacment surgery done in early November 2020 at [facility]. she reprots she noticed fever and also foul smelling drainage from her wound in the bottom. she states the wound starated while she was at [place] but got worse subsequently. she has been ambulatory since being on rehab. she was evaluted in the ED and was noted to have cellulitis around her coccygeal wound along with left lower extremity dopler. she was on eliquis 2.5 mg po bid dosing since the left hip surgery but has been off anticoagulation since her discahrge from the rehab facility. she was given a lovenox shot priro to transfer for her left lower extrmeity swelling. dopper could not be done there in the [facility]. she also had CT abdomen done which showed some apple core deformity in sigmoid colon. she reports she has hx of breast cancer needing lumpectomy and follows with Dr. Sal in [place], [place]. she has been cancer free since past 4 years now. she denies any loss of weight. no blood loss in bowel, no melena or hematochezia. she is noted to be anemic in outlying hospital, she has been anemic since her left hip surery though. she also reports she has hx of diverticulitis needing sigmoid colon surgical resection. she subsequenlty had adhesions related bowel obstrution in the past which required her another abdomnal surgery with resection of more part of her intestines removed. Review of Systems Review of Systems: Narrative: - CONSTITUTIONAL: Denies weight loss, reports fever and chills. - HEENT: Denies changes in vision and hearing - RESPIRATORY: Denies SOB and cough. - CV: Denies palpitations and CP. - GI: reports abdominal pain, denies nausea, vomiting and diarrhea. she rpeorts chronic constipation - : Denies dysuria and urinary frequency. - MSK: Denies myalgia and joint pain. - SKIN: Denies rash and pruritus. - NEUROLOGICAL: Denies headache and syncope. - PSYCHIATRIC: Denies recent changes in mood. Denies anxiety and depression. All systems reviewed & are unremarkable except as noted in HPI and below Constitutional: Constitutional: Reports fatigue and Reports weakness Neurologic: Reports weakness Endocrine: Endocrine: Reports fatigue [facility] Past Medical History Medical History Achilles tendinitis of right lower extremity Anxiety Arthritis of ankle, right, degenerative Bilateral lower extremity edema BMI 34.0-34.9,adult Chronic back pain Chronic narcotic use 7.5mg percocet for ten years. Coronary artery disease With history of acute myocardial infarction in 1999 and which is stent was placed. She also had another stent placed in 2008. 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 PORSCHE (generalized anxiety disorder) History of Clostridioides difficile colitis Hyperlipemia Hyperlipidemia Kidney stones Macular degeneration Right ankle pain Surgical History Surgical History H/O bilateral breast reduction surgery H/O cataract extraction H/O hemorrhoidectomy History of appendectomy History of dilation and curettage History of heart artery stent In 1999 and 2008. History of hip replacement History of hysterectomy History of repair of rectocele History of tonsillectomy Hx of cholecystectomy Hx of coronary artery bypass graft Personal history of gastric bypass S/P lumpectomy, left breast Family History Family History Mot
[2020-12-07] MEDS: oxyCODONE HCL (*CRX) 5 MG TAB IR 10 MG PO ×3 (05:31→18:52)
[2020-12-07 05:43] LABS: Basophils Percent Auto 0.2 % (0.2-1.2); Eosinophils Absolute Auto 0.1 K/mm3 (0-0.3); Eosinophils Percent Auto 0.5 % (0-4.4); Hematocrit 25.1 % (37.0-47.0); Hemoglobin 7.8 g/dL (12.0-15.0); Immature Granulocyte Absolute 0.07 K/mm3 (0.00-0.031); Immature Granulocyte Percent A 0.6 % (0-0.5); Lymphocytes Absolute Auto 1.27 K/mm3 (0.9-3.2); Lymphocytes Percent Auto 11.2 % (18.3-44.2); Mean Corpuscular HGB Conc 31.1 g/dl (32-36); Mean Corpuscular Hemoglobin 28.2 pg (26-34); Mean Corpuscular Volume 90.6 fl (80-100); Monocytes Absolute Auto 0.6 K/mm3 (0.1-0.6); Monocytes Percent Auto 5.5 % (2.6-8.5); Neutrophils Absolute Auto 9.3 K/mm3 (1.3-6.7); Platelet Count Result 145 k/mm3 (150-375); Red Blood Count 2.77 M/mm3 (4.2-5.4); Red Cell Distribution Width 15.4 % (11.5-14.5); White Blood Count 11.4 K/mm3 (4.5-10.0)
[2020-12-07 05:57] LABS: Alanine Aminotransferase 7 U/L (4-35); Albumin Level 2.8 g/dL (3.5-5.1); Alkaline Phosphatase 44 U/L (38-126); Anion Gap 5 mmol/L (8-16); Aspartate Amino Transferase 22 U/L (14-36); Bilirubin,Total 0.4 mg/dL (0.2-1.3); Blood Urea Nitrogen 14 mg/dL (7-17); Calcium 8.1 mg/dL (8.4-10.2); Carbon Dioxide 28 mmol/L (22-30); Chloride 100 mmol/L (98-107); Estimated CRCL calculation 39 ml/min; Estimated Glomerular Filt Rate 37; Glucose 117 mg/dL (65-105); Potassium 3.7 mmol/L (3.4-5.0); Sodium 133 mmol/L (137-145)
[2020-12-07 06:26] LABS: Iron < 10 ug/dL (37-170)
[2020-12-07 06:38] LABS: Percent Iron Saturation < 4 % (20-50)
[2020-12-07] MEDS: CALCIUM CARBONATE (OSCAL) 500 MG TABLET PO ×2 (09:04→16:42)
[2020-12-07] MEDS: OPTI-GEN TAB 1 TABLET PO ×2 (09:04→16:41)
[2020-12-07] MEDS: ASPIRIN 81 MG CHEWABLE TABLET PO (09:04)
[2020-12-07] MEDS: ROSUVASTATIN 10 MG TABLET 20 MG PO (09:04)
[2020-12-07] MEDS: SENNA/DOCUSATE SODIUM TABLET 2 TAB PO ×2 (09:04→16:41)
[2020-12-07] MEDS: COLLAGENASE OINT 30 GM TUBE 1 APPLIC TOPICAL (11:58)
--- NOTE | 2020-12-07 14:28 | WPDGICN ---
Assessment and Plan Assessment and plan (1) Acute on chronic blood loss anemia: Code(s): D62 - Acute posthemorrhagic anemia Status: Acute Assessment and Plan: anemia could be multifactorial after recent hip surgery and now ongoing infection, also malabsorption (h/o gastric surgery) but also noted abnormal sigmoid by CT scan- need to rule out malignancy will do EGD and colonoscopy this Saturday, will wait that she can tolerate bowel prep (2) Abnormal CT scan, sigmoid colon: Code(s): R93.3 - Abnormal findings on diagnostic imaging of other parts of digestive tract Status: Acute Assessment and Plan: colonoscopy saturday no overt gib (3) CKD (chronic kidney disease), stage III: Code(s): N18.30 - Chronic kidney disease, stage 3 unspecified Status: Acute (4) Decubitus ulcer: Code(s): L89.90 - Pressure ulcer of unspecified site, unspecified stage Status: Acute Assessment and Plan: on antibiotics by primary team (5) Leukocytosis: Code(s): D72.829 - Elevated white blood cell count, unspecified Status: Acute Assessment and Plan: continue to monitor (6) Personal history of gastric bypass: Code(s): Z98.84 - Bariatric surgery status Status: Acute GI Consult Note Consult date/time: 12/07/20 14:28 Reason for consult: anemia, abnormal sigmoid colon by CT scan HPI: Maida Camacho is a 75 year old female with previous left hemicolectomy years ago after diverticulitis (last colonoscopy about 5-6 years ago in [place]), gastric bypass complicated with adhesions (had partial sb resection), breast cancer on remission, left hip surgery at [facility] November 2020, admitted with generalized pain and fever. She was recently released from [facility] after finished her rehabilitation from her hip replacement surgery. Noted fever and also foul smelling drainage from her wound in the bottom. She was found to have cellulitis around her coccygeal wound, also had edema left lower extremity (doppler negative for DVT). She was on eliquis 2.5 mg po bid dosing since the left hip surgery but has been off anticoagulation since her discharge from the rehab facility. CT scan a/p reviewed, showed prominent thickening of the wall of the proximal sigmoid colon with suggestion of a palpable core sign, suggestive of colon carcinoma, mild sigmoid diverticulosis, status post cholecystectomy. She denies overt GIB but noted more constipation lately. Hb recently has been around 7.5-8.5 Review of Systems Constitutional: Constitutional: Reports weakness Eyes: Eyes: Denies blurry vision ENT: Reports Normal hearing present Cardiovascular: Cardiovascular: Denies chest pain Respiratory: Respiratory: Denies dyspnea Gastrointestinal: Gastrointestinal: Reports constipation Genitourinary: Genitourinary: Denies dysuria Musculoskeletal: Musculoskeletal: Reports arthralgias Integumentary/Breasts: Skin/Breast: Reports wounds Neurologic: Reports system reviewed and no additional complaints, except as documented Psychiatric: Psychiatric: Reports no additional psychiatric complaints [facility] Past Medical History Medical History (Updated 12/07/20 @ 17:48 by Rohith Cochran MD) Abnormal CT scan, sigmoid colon Achilles tendinitis of right lower extremity Acute on chronic blood loss anemia Anxiety Arthritis of ankle, right, degenerative Bilateral lower extremity edema BMI 34.0-34.9,adult Chronic back pain Chronic narcotic use 7.5mg percocet for ten years. Coronary artery disease With history of acute myocardial infarction in 1999 and which is stent was placed. She also had another stent placed in 2008. 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 PORSCHE (generalized anxiety disorder) History of Clostridioides diff
--- NOTE | 2020-12-07 14:58 | PCPTNOTE ---
Attempted PT evaluation. Pt just got back into bed and fatigued. Was up in chair and walking to restroom all day CGA with 2WW. Will follow. Niyah Jones, VENITAT
--- NOTE | 2020-12-07 15:16 | PM.IMPN ---
Progress Note: A&P Assessment and Plan (1) Decubitus ulcer: Code(s): L89.90 - Pressure ulcer of unspecified site, unspecified stage Status: Acute Assessment and Plan: Patient has decubitus ulcer is unstageable with some slight drainage but no odor and no overwhelming signs of infection -she does have a 2 cm masslike abnormality on her right buttocks close to the wound. Will obtain ultrasound to ensure no abscess -there is also prominent soft tissue thickening on CT -continue cefepime and vancomycin, will tailor results once blood cultures are back and ultrasound is back -wound care has seen the patient, please see their note for recommendations (2) Leukocytosis: Code(s): D72.829 - Elevated white blood cell count, unspecified Status: Acute Assessment and Plan: Patient has a leukocytosis which she has had in the past but is concerning as she had a fever of 102 outpatient -she has not had no fevers here -she had a left hip repair 11/14/20 -will obtain blood cultures since she has had recent surgery and continue antibiotics until those resulted. I am also worried about the abscess-like mass as stated above -monitor (3) Elevated d-dimer: Code(s): R79.89 - Other specified abnormal findings of blood chemistry Status: Acute Assessment and Plan: Unclear etiology at this time -ultrasound lower extremities are negative -if in fact she does have a mass in her colon, this could represent cancer -it also could be elevated due to infection or recent surgery -PE seems less likely; wells criteria for PE she was a 1.5 point results which shows a low risk of it being a PE. The patient has CKD and I am concerned that a CTA may worsen her kidney function. At this time since the likelihood of PE is low, I will hold off on this at this time (4) Chronic pain: Code(s): G89.29 - Other chronic pain Status: Acute Assessment and Plan: Continue pain medications (5) Hyperlipemia: Qualifiers: Hyperlipidemia type: mixed hyperlipidemia Qualified Code(s): E78.2 - Mixed hyperlipidemia Code(s): E78.5 - Hyperlipidemia, unspecified Status: Acute Assessment and Plan: Chronic (6) Chronic narcotic use: Code(s): F11.90 - Opioid use, unspecified, uncomplicated Status: Acute Assessment and Plan: As above (7) CKD (chronic kidney disease), stage III: Code(s): N18.30 - Chronic kidney disease, stage 3 unspecified Status: Acute Assessment and Plan: At baseline (8) Left leg swelling: Code(s): M79.89 - Other specified soft tissue disorders Status: Acute Assessment and Plan: She says this has been like this since surgery -no DVT noted on ultrasound -will obtain echo since the patient's BNP is elevated and she had cardiac stents in 1999 and 2008 (9) Anemia: Code(s): D64.9 - Anemia, unspecified Status: Acute Assessment and Plan: Back in October of this year her hemoglobin was around normal 11.7 -since her surgery and admission, her hemoglobin has ranged from 7.1-9.0 -she was on anticoagulation but is not currently -she has some dyspnea on exertion which could be explained by blood loss. The iron studies look to be early iron deficiency anemia. This is also concerning with the CT abnormality of an apple-core lesion. -obtain colonoscopy, I believe the plan is to do this on Saturday -consider Janene, will speak with GI (10) Abnormal CT of the abdomen: Code(s): R93.5 - Abnormal findings on diagnostic imaging of other abdominal regions, including retroperitoneum Status: Acute Assessment and Plan: CT shows appple core lesion -patient has a history of abdominal surgeries in the past -plan for colonoscopy I believe on Saturday per GI Time Spent With Patient Time with patient: 25 - 35 minutes Subjective Date/time seen: 0
[2020-12-07] MEDS: CHOLECALCIFEROL 1,000 UNITS TABLET 1000 UNITS PO (20:02)
[2020-12-07] MEDS: TAMOXIFEN CITRATE (*CHEMO) 10 MG TABLET 20 MG PO (20:02)
[2020-12-08] VITALS (9 sets, daily range): BP systolic 108–119; BP diastolic 49–57; PULSE 76–86; RESP 14–16; TEMP 36.1–37.1; O2SAT 95–98
--- NOTE | 2020-12-08 | ECHO_ITS ---
Patient Info Name: Maida Camacho Age: 75 years : 1945 Gender: Female Ht: 69 in Wt: 218 lbs BSA: 2.23 m2 HR: 77 bpm BP: 119 / 49 mmHg Heart Rhythm: Sinus Rhythm Technical Quality: Good Exam Date: 12/08/2020 9:57 AM Exam Location: [facility] Patient Status: Outpatient Admit Date: 12/06/2020 Staff Ordering Physician: Kayla Baptiste PA-C Assistant General Manager: Shannan Sullivan RDCS Attending Provider: Kayla Baptiste PA-C Referring Physician: Emile LAYTON; Exam Type: CA echo doppler color flow Study Info Indications R06.02 - Shortness of breath Complete two-dimensional, color flow and Doppler transthoracic echocardiogram is performed. Summary 1. Complete two-dimensional, color flow and Doppler transthoracic echocardiogram is performed. 2. Left ventricular chamber dimension is normal. 3. Left ventricular systolic function is normal, estimated at 65-70%. 4. There is mildly increased left ventricular wall thickness. 5. The left ventricular diastolic function is grade I diastolic dysfunction. 6. Left atrial chamber dimension is mildly enlarged. 7. Mild pulmonary hypertension, estimated pulmonary arterial systolic pressure is 37 mmHg. 8. There is mild tricuspid valve regurgitation. Left Ventricle Left ventricular chamber dimension is normal. Left ventricular systolic function is normal, estimated at 65-70%. There is mildly increased left ventricular wall thickness. The left ventricular diastolic function is grade I diastolic dysfunction. Right Ventricle Right ventricular chamber dimension is normal. Right ventricular systolic function is normal. Left Atria Left atrial chamber dimension is mildly enlarged. Right Atria Right atrial chamber dimension is normal. Atrial Septum Intact interatrial septum visualized by color flow imaging. Aortic Valve The aortic valve is trileaflet. There is mild aortic valve sclerosis. There is no aortic valve stenosis. There is trace aortic valve regurgitation. Pulmonic Valve The pulmonic valve is normal. There is no pulmonic valve stenosis. There is trace pulmonic regurgitation. Mitral Valve The mitral valve has normal leaflets. There is no mitral valve stenosis. There is trace mitral valve regurgitation. Tricuspid Valve The tricuspid valve leaflets are normal. There is no significant tricuspid valve stenosis. There is mild tricuspid valve regurgitation. Mild pulmonary hypertension, estimated pulmonary arterial systolic pressure is 37 mmHg. Pericardium/Pleural The pericardium appears normal. There is no pericardial effusion. Inferior Vena Cava Normal inferior vena cava with <50% collapse upon inspiration consistent with elevated right atrial pressure, 10 mmHg. Left Ventricular Outflow Tract Name Value Normal LVOT 2D LVOT Diameter 2.0 cm LVOT Doppler LVOT Peak Gradient 5 mmHg LVOT Mean Gradient 2 mmHg LVOT VTI 24 cm LVOT VTI/AV VTI Ratio 0.7 LVOT Stroke Volume 72 ml
[2020-12-08] MEDS: oxyCODONE HCL (*CRX) 5 MG TAB IR 10 MG PO ×4 (01:09→21:36)
[2020-12-08 05:58] LABS: Basophils Percent Auto 0.2 % (0.2-1.2); Eosinophils Absolute Auto 0.3 K/mm3 (0-0.3); Eosinophils Percent Auto 3.2 % (0-4.4); Hemoglobin 7.4 g/dL (12.0-15.0); Immature Granulocyte Absolute 0.04 K/mm3 (0.00-0.031); Immature Granulocyte Percent A 0.5 % (0-0.5); Lymphocytes Absolute Auto 1.18 K/mm3 (0.9-3.2); Lymphocytes Percent Auto 14.1 % (18.3-44.2); Mean Corpuscular HGB Conc 30.8 g/dl (32-36); Mean Corpuscular Hemoglobin 28.1 pg (26-34); Mean Corpuscular Volume 91.3 fl (80-100); Mean Platelet Volume 11.8 fl (7.4-10.4); Monocytes Absolute Auto 0.6 K/mm3 (0.1-0.6); Monocytes Percent Auto 7.2 % (2.6-8.5); Neutrophils Absolute Auto 6.3 K/mm3 (1.3-6.7); Neutrophils Percent Auto 74.8 % (45.5-73.1); Platelet Count Result 138 k/mm3 (150-375); Red Blood Count 2.63 M/mm3 (4.2-5.4); Red Cell Distribution Width 15.1 % (11.5-14.5); White Blood Count 8.4 K/mm3 (4.5-10.0)
[2020-12-08 06:28] LABS: Anion Gap 4 mmol/L (8-16); Blood Urea Nitrogen 17 mg/dL (7-17); Calcium 8.3 mg/dL (8.4-10.2); Carbon Dioxide 28 mmol/L (22-30); Chloride 101 mmol/L (98-107); Estimated CRCL calculation 41 ml/min; Estimated Glomerular Filt Rate 40; Glucose 90 mg/dL (65-105); Potassium 3.8 mmol/L (3.4-5.0); Sodium 133 mmol/L (137-145)
[2020-12-08 07:09] LABS: CRP 23.3 mg/dL (<1.0)
--- NOTE | 2020-12-08 08:56 | WPDGIPROGNO ---
Progress Note: A&P Assessment and Plan (1) Acute on chronic blood loss anemia: Code(s): D62 - Acute posthemorrhagic anemia Status: Acute Assessment and Plan: will do EGD and colonoscopy tomorrow to assess if GI blood loss anemia also could be multifactorial (history of hip surgery, also post gastric bypass, etc) (2) Abnormal CT scan, sigmoid colon: Code(s): R93.3 - Abnormal findings on diagnostic imaging of other parts of digestive tract Status: Acute Assessment and Plan: abnormal appearance of sigmoid, will check with colonoscopy to rule out malignancy (3) Left leg swelling: Code(s): M79.89 - Other specified soft tissue disorders Status: Acute (4) CKD (chronic kidney disease), stage III: Code(s): N18.30 - Chronic kidney disease, stage 3 unspecified Status: Acute (5) Personal history of gastric bypass: Code(s): Z98.84 - Bariatric surgery status Status: Acute Assessment and Plan: will check with egd (6) Decubitus ulcer: Code(s): L89.90 - Pressure ulcer of unspecified site, unspecified stage Status: Acute Assessment and Plan: on iv antibiotics, wound care management Subjective Date/time seen: 12/08/20 08:56 Interval history: still some abdominal but otherwise she is comfortable Review of Systems Review of Systems: All systems reviewed & are unremarkable except as noted in HPI and below Exam Const: General: comfortable and no acute distress HENMT: General nose exam: Normal nares present Neck: Neck: supple Resp: Auscultation: clear to auscultation bilaterally Cardio: Rate: regular rate GI: Inspection: non-distended GI Palp: Yes Soft to palpation and No Guarding due to palpation present (GI) Auscultation: normal bowel sounds Skin: Other: Incision site on the left hip is clean and dry back: 2.0 cm unstageable coccyx wound with slough. Neuro: Speech: normal speech Extrem: Other: edema left leg Psych: Affect: normal affect and Anxious affect present Objective Data Vital Signs Vital Signs: Vital Signs - 24 hr 12/07/20 12:00 12/07/20 14:00 12/07/20 16:00 Temperature 97.0 F L Pulse Rate 98 81 107 H Respiratory Rate 18 Blood Pressure 106/54 L Pulse Oximetry 100 12/07/20 20:00 12/07/20 20:49 12/08/20 00:00 Temperature 99.8 F H Pulse Rate 87 84 86 Respiratory Rate 18 Blood Pressure 120/45 L Pulse Oximetry 97 12/08/20 04:00 12/08/20 04:46 12/08/20 07:49 Temperature 98.7 F 98.5 F Pulse Rate 78 76 77 Respiratory Rate 14 14 Blood Pressure 119/49 L 119/49 L Pulse Oximetry 95 96 12/08/20 08:00 Temperature Pulse Rate 83 Respiratory Rate Blood Pressure Pulse Oximetry Intake/Output Intake/Output: Intake & Output 12/05/20 12/06/20 12/07/20 12/08/20 23:59 23:59 23:59 23:59 Intake Total 1460 50 Output Total 1200 1450 Balance 260 -1400 Meds/Results Medications: Active Medications Generic Name Dose Route Start Last Admin Trade Name Freq PRN Reason Stop Dose Admin Acetaminophen 650 mg 12/07/20 07:36 Acetaminophen 325 Mg Tablet PO Q6H PRN Pain Rated 1-3 Alprazolam 0.5 mg 12/07/20 01:09 Alprazolam (*Crx) 0.5 Mg Tablet PO HS PRN Insomnia Aspirin 81 mg 12/07/20 08:00 12/07/20 09:04 Aspirin 81 Mg Chewable Tablet PO 81 mg DAILY@0800 [place] Administration Bisacodyl 20 mg 12/08/20 16:00 Bisacodyl 5 Mg Tablet Ec PO 12/08/20 16:01 ONCE ONE Calcium Carbonate 500 mg 12/07/20 09:00 12/07/20 16:42 Calcium Carbonate (Oscal) 500 Mg Tablet PO 01/06/21 09:01 500 mg BID [place] Administration Collagenase 1 applic 12/07/20 09:00 12/07/20 11:58 Collagenase Oint 30 Gm Tube TOPICAL 1 applic QAM [place] Administration Furosemide 40 mg 12/07/20 01:09 Furosemide 40 Mg Tablet PO DAILY PRN Edema Iron Sucrose 100 mg/ Sodium 55 mls @ 220 mls/hr 12/08/20 09:00 Chloride IV
[2020-12-08] MEDS: ROSUVASTATIN 10 MG TABLET 20 MG PO (09:16)
[2020-12-08] MEDS: SENNA/DOCUSATE SODIUM TABLET 2 TAB PO ×2 (09:18→17:40)
[2020-12-08] MEDS: CALCIUM CARBONATE (OSCAL) 500 MG TABLET PO ×2 (09:18→17:40)
[2020-12-08] MEDS: ASPIRIN 81 MG CHEWABLE TABLET PO (09:21)
[2020-12-08] MEDS: OPTI-GEN TAB 1 TABLET PO ×2 (09:21→17:40)
--- NOTE | 2020-12-08 09:21 | PC.NURSE ---
Patient medications to be administered by clinical instructor and student.
--- NOTE | 2020-12-08 09:52 | PM.IMPN ---
Progress Note: A&P Assessment and Plan (1) Decubitus ulcer: Code(s): L89.90 - Pressure ulcer of unspecified site, unspecified stage Status: Acute Assessment and Plan: Patient has decubitus ulcer is unstageable with some slight drainage but no odor and no overwhelming signs of infection -she does have a 2 cm masslike abnormality on her right buttocks close to the wound.This was ultrasounds and just shows inflammation, no signs of abscess -there is also prominent soft tissue thickening on CT -continue cefepime and vancomycin. Would consider stopping/narrowing these if blood cultures are negative tomorrow after colonoscopy if no infectious source is found. She had a fever outpt but none here. However, her WBC has normalized. -wound care has seen the patient, please see their note for recommendations (2) Leukocytosis: Code(s): D72.829 - Elevated white blood cell count, unspecified Status: Acute Assessment and Plan: Patient has a leukocytosis with a fever of 102 outpatient -she has not had no fevers here -she had a left hip repair 11/14/20 and incision site looks clean and dry -She had a dental impant 11/01/20 with no pain or sigs of infection as well -Await blood cultures since she has had recent surgery and continue antibiotics until those resulted. -as above, consider adjusting abx tomorrow depending on cultures and procedure findings. (3) Elevated d-dimer: Code(s): R79.89 - Other specified abnormal findings of blood chemistry Status: Acute Assessment and Plan: Unclear etiology at this time -ultrasound lower extremities are negative -if in fact she does have a mass in her colon, this could be caused by cancer -She has no further SOB whatsoever on exam -it also could be elevated due to infection or recent surgery -PE seems less likely; wells criteria for PE she was a 1.5 point results which shows a low risk of it being a PE. The patient has CKD and I am concerned that a CTA may worsen her kidney function. At this time since the likelihood of PE is low, I will hold off on this (4) Chronic pain: Code(s): G89.29 - Other chronic pain Status: Acute Assessment and Plan: Continue pain medications (5) Hyperlipemia: Qualifiers: Hyperlipidemia type: mixed hyperlipidemia Qualified Code(s): E78.2 - Mixed hyperlipidemia Code(s): E78.5 - Hyperlipidemia, unspecified Status: Acute Assessment and Plan: Chronic (6) Chronic narcotic use: Code(s): F11.90 - Opioid use, unspecified, uncomplicated Status: Acute Assessment and Plan: As above (7) CKD (chronic kidney disease), stage III: Code(s): N18.30 - Chronic kidney disease, stage 3 unspecified Status: Acute Assessment and Plan: At baseline (8) Left leg swelling: Code(s): M79.89 - Other specified soft tissue disorders Status: Acute Assessment and Plan: She says this has been like this since surgery -no DVT noted on ultrasound -will obtain echo since the patient's BNP is elevated and she had cardiac stents in 1999 and 2008 (9) Anemia: Code(s): D64.9 - Anemia, unspecified Status: Acute Assessment and Plan: Back in October of this year her hemoglobin was around normal 11.7 -since her surgery and admission, her hemoglobin has ranged from 7.1-9.0 -she was on anticoagulation but is not currently -she has some dyspnea on exertion which could be explained by blood loss but this is now improved without improvement in her hgb. The iron studies look to be early iron deficiency anemia. This is also concerning with the CT abnormality of an apple-core lesion. -obtain colonoscopy, I believe the plan is to do this on Saturday -Venofer ordered while she is here, will give oral iron at d/c -consider transfusion if pt drops below 7 or she becomes symptomatic (10) Abnormal CT of the ab
[2020-12-08] MEDS: COLLAGENASE OINT 30 GM TUBE 1 APPLIC TOPICAL (12:16)
[2020-12-08] MEDS: IRON SUCROSE COMPLEX 100 MG in SODIUM CHLORIDE 0.9% IV 50 ML 220 MG IVPB (15:19)
[2020-12-08] MEDS: BISACODYL 5 MG TABLET EC 20 MG PO (15:19)
[2020-12-08] MEDS: MAGNESIUM CITRATE 300 ML BTL PO (15:33)
--- NOTE | 2020-12-08 15:47 | PC.NURSE ---
On 12/08/20, the student, [ Sabine Montano], provided care and completed [facility] documentation on this patient. I have reviewed the student's documentation and agree with the findings.
[2020-12-08] MEDS: TAMOXIFEN CITRATE (*CHEMO) 10 MG TABLET 20 MG PO (20:02)
[2020-12-08] MEDS: CHOLECALCIFEROL 1,000 UNITS TABLET 1000 UNITS PO (20:02)
[2020-12-09] VITALS (11 sets, daily range): BP systolic 111–162; BP diastolic 46–65; PULSE 76–98; RESP 15–22; TEMP 36.1–36.6; O2SAT 91–99
[2020-12-09 03:23] LABS: IFOB Positive Control Positive; Immunochemical Fecal Occult Bl Positive (N)
[2020-12-09] MEDS: oxyCODONE HCL (*CRX) 5 MG TAB IR 10 MG PO ×3 (03:45→19:32)
[2020-12-09] MEDS: MAGNESIUM CITRATE 300 ML BTL PO (03:49)
[2020-12-09 06:02] LABS: Basophils Percent Auto 0.1 % (0.2-1.2); Eosinophils Absolute Auto 0.3 K/mm3 (0-0.3); Eosinophils Percent Auto 4.2 % (0-4.4); Hematocrit 31.1 % (37.0-47.0); Hemoglobin 9.5 g/dL (12.0-15.0); Immature Granulocyte Absolute 0.02 K/mm3 (0.00-0.031); Immature Granulocyte Percent A 0.3 % (0-0.5); Lymphocytes Absolute Auto 0.63 K/mm3 (0.9-3.2); Lymphocytes Percent Auto 9.4 % (18.3-44.2); Mean Corpuscular HGB Conc 30.5 g/dl (32-36); Mean Corpuscular Hemoglobin 27.8 pg (26-34); Mean Corpuscular Volume 90.9 fl (80-100); Mean Platelet Volume 11.3 fl (7.4-10.4); Monocytes Absolute Auto 0.5 K/mm3 (0.1-0.6); Monocytes Percent Auto 7.5 % (2.6-8.5); Neutrophils Absolute Auto 5.2 K/mm3 (1.3-6.7); Neutrophils Percent Auto 78.5 % (45.5-73.1); Platelet Count Result 172 k/mm3 (150-375); Red Blood Count 3.42 M/mm3 (4.2-5.4); Red Cell Distribution Width 14.9 % (11.5-14.5); White Blood Count 6.7 K/mm3 (4.5-10.0)
[2020-12-09 06:10] LABS: INR 1.4; Partial Thromboplastin Time 39.2 SECONDS (22.3-36.8); Prothrombin Time 18.1 Seconds (11.1-14.7)
[2020-12-09 06:28] LABS: Anion Gap 8 mmol/L (8-16); Blood Urea Nitrogen 22 mg/dL (7-17); Carbon Dioxide 27 mmol/L (22-30); Chloride 101 mmol/L (98-107); Estimated CRCL calculation 45 ml/min; Estimated Glomerular Filt Rate 44; Glucose 99 mg/dL (65-105); Potassium 3.9 mmol/L (3.4-5.0); Sodium 136 mmol/L (137-145)
[2020-12-09 06:51] LABS: CRP 18.1 mg/dL (<1.0)
[2020-12-09] MEDS: IRON SUCROSE COMPLEX 100 MG in SODIUM CHLORIDE 0.9% IV 50 ML 220 MG IVPB (08:02)
--- NOTE | 2020-12-09 11:04 | PC.NURSE ---
0810 patients IV infiltrated. Oneyda the Vascular resource management specialist notified we need a new IV. She placed her previous IV yesterday. She will come and place a new IV. IV medications will be given once IV access obtained.
--- NOTE | 2020-12-09 11:16 | PCOTNOTE ---
Attempted to see pt for therapy this AM. Pt declined to participate in ADLs, therapeutic activities stating increased discomfort, nausea, and pain and states that she is prepping for a colonoscopy. When asked if therapist could try later, pt declined stating I am just not doing good today. Will attempt tomorrow per POC frequency and duration.
--- NOTE | 2020-12-09 11:27 | PCPTNOTE ---
Attempted to see patient for Physical Therapy this AM. Patient stated that things were not going well leading up to her colonoscopy this afternoon. Patient stated that it hurts every time she moves. RN notified of patient stating that she had pain every time she moved and refusing Physical Therapy.
[2020-12-09] MEDS: ONDANSETRON INJ 4 MG/2 ML VIAL IV PUSH (12:22)
--- NOTE | 2020-12-09 12:57 | PC.NURSE ---
Pt to GI lab per wheelchair.
--- NOTE | 2020-12-09 13:02 | PM.IMPN ---
Progress Note: A&P Assessment and Plan (1) Colitis: Code(s): K52.9 - Noninfective gastroenteritis and colitis, unspecified Status: Acute Assessment and Plan: Patient with history of gastric bypass presents with abdominal pain. CT abdomen demonstrated demonstrated prominent wall thickening at proximal sigmoid colon with apparent apple core sign. Colonoscopy this afternoon with Dr. Haas demonstrated a large ulcer with a localized ischemic colitis, no evidence of active bleeding. Biopsy taken. Discussed case with Dr. Haas and we have agreed to narrow antibiotics to ciprofloxacin and Flagyl. Start with a full liquid diet, advanced diet as tolerated to low fiber diet. (2) Decubitus ulcer: Qualifiers: Pressure injury location: sacral region Pressure injury stage: unstageable Qualified Code(s): L89.150 - Pressure ulcer of sacral region, unstageable Code(s): L89.90 - Pressure ulcer of unspecified site, unspecified stage Status: Acute Assessment and Plan: Patient has a chronic decubitus ulcer with some slight drainage without evidence of acute infection. She does have a 2 cm masslike abnormality on her right buttocks close to the wound. Ultrasound just shows inflammation, no signs of abscess. Continue local wound care, turn every few hours for pressure offloading. (3) Leukocytosis: Qualifiers: Leukocytosis type: unspecified Qualified Code(s): D72.829 - Elevated white blood cell count, unspecified Code(s): D72.829 - Elevated white blood cell count, unspecified Status: Acute Assessment and Plan: Patient has a leukocytosis with a fever of 102 outpatient; afebrile here. Suspect related to colitis. Antibiotics changed as above. She had a left hip repair 11/14/20 and incision site looks clean and dry. She had a dental implant 11/01/20 with no pain or signs of infection as well. Blood cultures pending with no growth to date. (4) Elevated d-dimer: Code(s): R79.89 - Other specified abnormal findings of blood chemistry Status: Acute Assessment and Plan: Etiology unclear. Venous Doppler lower extremities with no evidence of DVT. No shortness of breath, tachycardia, or other signs of PE. May be related secondary to infection. PE seems less likely; Wells criteria for PE she was a 1.5 point result which shows a low risk for PE. The patient has CKD and CTA could worsen her kidney function. At this time since the likelihood of PE is low, I will hold off on this. Consider CTA chest if she develops any worrisome symptoms. (5) CKD (chronic kidney disease), stage III: Qualifiers: Chronic kidney disease stage 3 subtype: stage 3b (GFR 30-44) Qualified Code(s): N18.32 - Chronic kidney disease, stage 3b Code(s): N18.30 - Chronic kidney disease, stage 3 unspecified Status: Acute Assessment and Plan: Cr 1.2; renal function appears at baseline. Monitor renal function and electrolytes daily, avoid nephrotoxic agents as possible. (6) Chronic pain: Qualifiers: Chronic pain type: other chronic pain Qualified Code(s): G89.29 - Other chronic pain Code(s): G89.29 - Other chronic pain Status: Chronic Assessment and Plan: Continue pain medications. (7) Chronic narcotic use: Code(s): F11.90 - Opioid use, unspecified, uncomplicated Status: Chronic Assessment and Plan: As above (8) Left leg swelling: Code(s): M79.89 - Other specified soft tissue disorders Status: Acute Assessment and Plan: She says this has been like this since surgery. No DVT noted on ultr
--- NOTE | 2020-12-09 13:26 | WPDANESEPPF ---
Anes - Initial Pre Proc Eval Procedure: Operation Date: 12/09/20 15:15 Proposed Procedures p Esophagogastroduodenoscopy & Colonoscopy - Rohith Cochran MD Date/Time: 12/09/20 13:26 Surgeon: ANDREW Lyle Pre Op Diagnosis: Decubitus ulcer infection, cellulitis, abnormal ct Patient Data Age: 75 Gender: F Height: 5 ft 9 in Weight: 99.2 kg Last Vital Signs Temp 97.7 F 12/09/20 13:07 Pulse 96 12/09/20 13:07 Resp 20 12/09/20 13:07 BP 162/65 H 12/09/20 13:07 Pulse Ox 98 12/09/20 13:07 Allergies Allergy/AdvReac Type Severity Reaction Status Date / Time codeine Allergy Intermediate unknown Verified 12/09/20 13:06 Sulfa (Sulfonamide Allergy Unknown Nausea Verified 12/09/20 13:06 Antibiotics) Tetanus Vaccines and Toxoid Allergy Unknown Vomiting Verified 12/09/20 13:06 Iodinated Contrast Media AdvReac Other Verified 12/09/20 13:06 Home Medications Medication Instructions Recorded Confirmed Type potassium chloride 10 meq PO DAILY PRN 05/29/19 12/06/20 History calcium carbonate [Calcium 600] 600 mg PO BID 07/21/19 12/06/20 History cholecalciferol (vitamin D3) 25 25 mcg PO HS 03/18/20 12/06/20 History mcg (1,000 unit) capsule alprazolam 0.5 mg PO HS PRN 11/17/20 12/06/20 History oxycodone 10 mg PO Q6H PRN 11/17/20 12/06/20 History rosuvastatin 20 mg PO DAILY 11/17/20 12/06/20 History senna-docusate sodium 2 tablet PO BID 11/17/20 12/06/20 History tamoxifen 20 mg PO HS 11/17/20 12/06/20 History Baby Aspirin 81 mg PO DAILY 12/06/20 12/06/20 History PreserVision AREDS 1 tab-cap PO BID 12/06/20 12/06/20 History furosemide 40 mg PO DAILY PRN 12/06/20 12/06/20 History Laboratory Tests 12/09/20 12/09/20 12/09/20 02:59 05:42 05:42 WBC 6.7 K/mm3 K/mm3 (4.5-10.0) RBC 3.42 M/mm3 L M/mm3 (4.2-5.4) Hgb 9.5 g/dL L g/dL (12.0-15.0) Hct 31.1 % L % (37.0-47.0) MCV 90.9 fl fl (80-100) MCH 27.8 pg pg (26-34) MCHC 30.5 g/dl L g/dl (32-36) RDW 14.9 % H % (11.5-14.5) Plt Count 172 k/mm3 k/mm3 (150-375) MPV 11.3 fl H fl (7.4-10.4) Immature Gran % (Auto) 0.3 % % (0-0.5) Neut % (Auto) 78.5 % H % (45.5-73.1) Lymph % (Auto) 9.4 % L % (18.3-44.2) [place] % (Auto) 7.5 % % (2.6-8.5) Eos % (Auto) 4.2 % % (0-4.4) Baso % (Auto) 0.1 % L % (0.2-1.2) Lymph # (Auto) 0.63 K/mm3 L K/mm3 (0.9-3.2) [place] # (Auto) 0.5 K/mm3 K/mm3 (0.1-0.6) Eos # (Auto) 0.3 K/mm3 K/mm3 (0-0.3) Baso # (Auto) 0.0 K/mm3 K/mm3 (0.0-0.1) Abs Immat Gran (auto) 0.02 K/mm3 K/mm3 (0.00-0.031) Absolute Neuts (auto) 5.2 K/mm3 K/mm3 (1.3-6.7) Absolute Nucleated RBC 0.0 K/mm3 K/mm3 (0.0-0.012) Nucleated RBC % 0.0 % % (0.0-0.2) PT 18.1 Seconds H Seconds (11.1-14.7) INR 1.4 APTT 39.2 SECONDS H SECONDS (22.3-36.8) Sodium Potassium Chloride Carbon Dioxide Anion Gap BUN Creatinine Estim Creat Clear Calc Estimated GFR Glucose Calcium C-Reactive Protein Stl Occult Blood (IFOB) Positive H (N) 12/09/20 05:42 WBC RBC Hgb Hct MCV MCH MCHC RDW Plt Count MPV Immature Gran % (Auto) Neut % (Auto) Lymph % (Auto) [place] % (Auto) Eos % (Auto) Baso % (Auto) Lymph # (Auto) [place] # (Auto) Eos # (Auto) Baso # (Auto) Abs Immat Gran (auto) Absolute Neuts (auto) Absolute Nucleated RBC Nucleated RBC % PT INR APTT Sodium 136 mmol/L L mmol/L (137-145) Potassium 3.9 mmol/L mmol/L (3.4-5.0) Chloride
[2020-12-09] MEDS: diphenhydrAMINE HCl INJ 50 MG/ML VIAL 12.5 MG IV PUSH (13:43)
--- NOTE | 2020-12-09 14:34 | PC.NURSE ---
On 12/09/20, the student, [Sabine Montano ], provided care and completed [facility] documentation on this patient. I have reviewed the student's documentation and agree with the findings.
[2020-12-09] MEDS: LACTATED RINGERS 1,000 ML 150 ML IV CONT (15:01)
--- NOTE | 2020-12-09 15:40 | PC.NURSE ---
Pt return from GI lab per stretcher 12/09/20 [id number].
[2020-12-09] MEDS: OPTI-GEN TAB 1 TABLET PO (15:49)
[2020-12-09] MEDS: FUROSEMIDE 40 MG TABLET PO (15:50)
[2020-12-09] MEDS: POTASSIUM CHLORIDE 20 MEQ TABLET.ER 10 MEQ PO (15:50)
[2020-12-09] MEDS: CALCIUM CARBONATE (OSCAL) 500 MG TABLET PO (15:51)
[2020-12-09] MEDS: ROSUVASTATIN 10 MG TABLET 20 MG PO (15:51)
[2020-12-09] MEDS: COLLAGENASE OINT 30 GM TUBE 1 APPLIC TOPICAL (15:52)
[2020-12-09] MEDS: CIPROFLOXACIN 400 MG/D5W 200ML 200 ML 200 MG IVPB (16:42)
[2020-12-09] MEDS: TAMOXIFEN CITRATE (*CHEMO) 10 MG TABLET 20 MG PO (21:06)
[2020-12-09] MEDS: CHOLECALCIFEROL 1,000 UNITS TABLET 1000 UNITS PO (21:06)
[2020-12-09] MEDS: metroNIDAZOLE 500 MG/ISO 100ML 500 MG/100 ML BAG 100 MG IVPB (21:07)
[2020-12-10] MEDS: CIPROFLOXACIN 400 MG/D5W 200ML 200 ML 200 MG IVPB ×2 (04:58→15:01)
[2020-12-10 05:03] VITALS: BP 104/69; PULSE 73; RESP 17; TEMP 36.4; O2SAT 97
[2020-12-10] MEDS: metroNIDAZOLE 500 MG/ISO 100ML 500 MG/100 ML BAG 100 MG IVPB ×2 (06:11→14:01)
[2020-12-10 06:17] LABS: Basophils Percent Auto 0.2 % (0.2-1.2); Eosinophils Absolute Auto 0.3 K/mm3 (0-0.3); Eosinophils Percent Auto 4.9 % (0-4.4); Hemoglobin 7.4 g/dL (12.0-15.0); Immature Granulocyte Absolute 0.02 K/mm3 (0.00-0.031); Immature Granulocyte Percent A 0.4 % (0-0.5); Lymphocytes Absolute Auto 1.42 K/mm3 (0.9-3.2); Mean Corpuscular HGB Conc 30.8 g/dl (32-36); Mean Corpuscular Hemoglobin 27.4 pg (26-34); Mean Corpuscular Volume 88.9 fl (80-100); Mean Platelet Volume 11.5 fl (7.4-10.4); Monocytes Absolute Auto 0.5 K/mm3 (0.1-0.6); Monocytes Percent Auto 8.2 % (2.6-8.5); Neutrophils Absolute Auto 3.3 K/mm3 (1.3-6.7); Neutrophils Percent Auto 60.3 % (45.5-73.1); Platelet Count Result 154 k/mm3 (150-375); Red Cell Distribution Width 14.8 % (11.5-14.5); White Blood Count 5.5 K/mm3 (4.5-10.0)
[2020-12-10 06:26] LABS: Anion Gap 5 mmol/L (8-16); Blood Urea Nitrogen 18 mg/dL (7-17); Calcium 7.6 mg/dL (8.4-10.2); Carbon Dioxide 32 mmol/L (22-30); Chloride 99 mmol/L (98-107); Estimated CRCL calculation 48 ml/min; Estimated Glomerular Filt Rate 48; Glucose 100 mg/dL (65-105); Magnesium 2.7 mg/dL (1.6-2.3); Potassium 3.4 mmol/L (3.4-5.0); Sodium 136 mmol/L (137-145)
[2020-12-10] MEDS: COLLAGENASE OINT 30 GM TUBE 1 APPLIC TOPICAL (08:54)
[2020-12-10] MEDS: SENNA/DOCUSATE SODIUM TABLET 2 TAB PO ×2 (08:54→17:10)
[2020-12-10 08:55] LABS: Vancomycin Trough 7.1 ug/mL (10.0-20.0)
[2020-12-10] MEDS: CALCIUM CARBONATE (OSCAL) 500 MG TABLET PO ×2 (08:55→17:11)
[2020-12-10] MEDS: OPTI-GEN TAB 1 TABLET PO ×2 (08:55→17:10)
[2020-12-10] MEDS: ROSUVASTATIN 10 MG TABLET 20 MG PO (08:56)
[2020-12-10] MEDS: oxyCODONE HCL (*CRX) 5 MG TAB IR 10 MG PO ×3 (08:59→21:17)
[2020-12-10] MEDS: POTASSIUM CHLORIDE 20 MEQ TABLET 40 MEQ PO (10:20)
[2020-12-10 11:48] LABS: Lactic Acid Reflex 1.2 mmol/L (0.7-2.1)
--- NOTE | 2020-12-10 12:08 | PM.IMPN ---
Progress Note: A&P Assessment and Plan (1) Colitis: Code(s): K52.9 - Noninfective gastroenteritis and colitis, unspecified Status: Acute Assessment and Plan: Patient with history of gastric bypass presents with abdominal pain. CT abdomen demonstrated demonstrated prominent wall thickening at proximal sigmoid colon with apparent apple core sign. Colonoscopy 12/09/[address] Haas demonstrated a large ulcer with a localized colitis possibly ischemic, no evidence of active bleeding. Biopsies taken. Lactic acid normal x 2. Discussed case with Dr. Haas and we have agreed to narrow antibiotics to ciprofloxacin and Flagyl, continue these today. Tolerating a low fiber diet. (2) Decubitus ulcer: Qualifiers: Pressure injury location: sacral region Pressure injury stage: unstageable Qualified Code(s): L89.150 - Pressure ulcer of sacral region, unstageable Code(s): L89.90 - Pressure ulcer of unspecified site, unspecified stage Status: Acute Assessment and Plan: Patient has a chronic decubitus ulcer with some slight drainage without evidence of acute infection. She does have a 2 cm masslike abnormality on her right buttocks close to the wound. Ultrasound just shows inflammation, no signs of abscess. Continue local wound care, turn every few hours for pressure offloading. (3) Leukocytosis: Qualifiers: Leukocytosis type: unspecified Qualified Code(s): D72.829 - Elevated white blood cell count, unspecified Code(s): D72.829 - Elevated white blood cell count, unspecified Status: Acute Assessment and Plan: Patient has a leukocytosis with a fever of 102 outpatient; afebrile here. Suspect related to colitis. Antibiotics as above. She had a left hip repair 11/14/20 and incision site looks clean and dry. She had a dental implant 11/01/20 with no pain or signs of infection as well. Blood cultures pending with no growth to date. (4) Elevated d-dimer: Code(s): R79.89 - Other specified abnormal findings of blood chemistry Status: Acute Assessment and Plan: Etiology unclear. Venous Doppler lower extremities with no evidence of DVT. No shortness of breath, tachycardia, or other signs of PE. May be related secondary to infection. PE seems less likely; Wells criteria for PE she was a 1.5 point result which shows a low risk for PE. The patient has CKD and CTA could worsen her kidney function. At this time since the likelihood of PE is low, will hold off on this. Consider CTA chest if she develops any worrisome symptoms. (5) CKD (chronic kidney disease), stage III: Qualifiers: Chronic kidney disease stage 3 subtype: stage 3b (GFR 30-44) Qualified Code(s): N18.32 - Chronic kidney disease, stage 3b Code(s): N18.30 - Chronic kidney disease, stage 3 unspecified Status: Acute Assessment and Plan: Cr 1.1; renal function appears at baseline. Monitor renal function and electrolytes daily, avoid nephrotoxic agents as possible. (6) Chronic pain: Qualifiers: Chronic pain type: other chronic pain Qualified Code(s): G89.29 - Other chronic pain Code(s): G89.29 - Other chronic pain Status: Chronic Assessment and Plan: Continue pain medications. (7) Chronic narcotic use: Code(s): F11.90 - Opioid use, unspecified, uncomplicated Status: Chronic Assessment and Plan: As above (8) Left leg swelling: Code(s): M79.89 - Other specified soft tissue disorders Status: Acute Assessment and Plan: Improved today. She says this has been like this since surgery. No DVT noted
--- NOTE | 2020-12-10 12:52 | WPDGIPROGNO ---
Progress Note: A&P Assessment and Plan (1) Ischemic colitis: Code(s): K55.9 - Vascular disorder of intestine, unspecified Status: Acute Assessment and Plan: part of the reason of anemia, pending biopsy no abdominal pain or diarrhea advancing diet to low fiber on iv antibiotics (flagyl, cipro) (2) Acute on chronic blood loss anemia: Code(s): D62 - Acute posthemorrhagic anemia Status: Acute Assessment and Plan: multifactorial ok to start iron (3) Abnormal CT scan, sigmoid colon: Code(s): R93.3 - Abnormal findings on diagnostic imaging of other parts of digestive tract Status: Acute (4) Personal history of gastric bypass: Code(s): Z98.84 - Bariatric surgery status Status: Acute (5) GERD (gastroesophageal reflux disease): Code(s): K21.9 - Gastro-esophageal reflux disease without esophagitis Status: Acute Assessment and Plan: egd unremarkable but given gerd symptoms in setting of previous gastric bypass will start low dose of ppi Subjective Date/time seen: 12/10/20 12:52 Interval history: colonoscopy yesterday with large ulcerated area in sigmoid, probably localized ischemic colitis. EGD with changes of gastric bypass. Today denies abdominal pain, tolerating diet, no new issues other than more reflux Review of Systems Review of Systems: All systems reviewed & are unremarkable except as noted in HPI and below Exam Const: General: comfortable and no acute distress HENMT: General nose exam: Normal nares present Neck: Neck: supple Resp: Auscultation: clear to auscultation bilaterally Cardio: Rate: regular rate GI: Inspection: non-distended GI Palp: Yes Soft to palpation and No Guarding due to palpation present (GI) Auscultation: normal bowel sounds Skin: Other: Incision site on the left hip is clean and dry Neuro: Speech: normal speech Motor exam (neuro): Normal motor muscle tone present throughout Extrem: Other: edema left leg Psych: Affect: normal affect and Anxious affect present Objective Data Vital Signs Vital Signs: Vital Signs - 24 hr 12/09/20 13:07 12/09/20 15:07 12/09/20 15:17 Temperature 97.7 F Pulse Rate 96 79 79 Respiratory Rate 20 15 19 Blood Pressure 162/65 H 128/58 L 133/61 Pulse Oximetry 98 91 97 12/09/20 15:27 12/09/20 16:06 12/09/20 19:55 Temperature 96.9 F L 98 F Pulse Rate 76 83 83 Respiratory Rate 18 18 18 Blood Pressure 114/46 L 130/52 L 111/58 L Pulse Oximetry 99 97 99 12/10/20 05:03 Temperature 97.6 F Pulse Rate 73 Respiratory Rate 17 Blood Pressure 104/69 Pulse Oximetry 97 Intake/Output Intake/Output: Intake & Output 12/07/20 12/08/20 12/09/20 12/10/20 23:59 23:59 23:59 23:59 Intake Total 4706 820 9874 980 Output Total 1200 3000 300 550 Balance 260 -1545 950 430 Meds/Results Medications: Active Medications Generic Name Dose Route Start Last Admin Trade Name Freq PRN Reason Stop Dose Admin Acetaminophen 650 mg 12/07/20 07:36 Acetaminophen 325 Mg Tablet PO Q6H PRN Pain Rated 1-3 Alprazolam 0.5 mg 12/07/20 01:09 Alprazolam (*Crx) 0.5 Mg Tablet PO HS PRN Insomnia Aspirin 81 mg 12/07/20 08:00 12/09/20 15:57 Aspirin 81 Mg Chewable Tablet PO Not Given DAILY@0800 [place] Calcium Carbonate 500 mg 12/07/20 09:00 12/10/20 08:55 Calcium Carbonate (Oscal) 500 Mg Tablet PO 01/06/21 09:01 500 mg BID [place] Administration Collagenase 1 applic 12/07/20 09:00 12/10/20 08:54 Collagenase Oint 30 Gm Tube TOPICAL 1 applic QAM [place] Administration Furosemide 40 mg 12/07/20 01:09 12/09/20 15:50 Furosemide 40 Mg Tablet PO 40 mg DAILY PRN Administration Edema Metronidazole 500 mg in 100 mls @ 100 mls/hr 12/09/20 22:00 12/10/20 07:11 Flagyl 500 Mg/Iso Soln 100 Ml IVPB Infused Q8HR [place] Infusion Ciprofloxacin/Dextrose 200 mls @ 200 mls/hr 12/09/20 16:00 12/10/20 05:58 Cipro 400 Mg/D5w
[2020-12-10 14:00] VITALS: BP 116/55; PULSE 80; RESP 18; TEMP 36.6; O2SAT 100
[2020-12-10] MEDS: FERROUS SULFATE 324 MG TABLET PO (14:01)
[2020-12-10] MEDS: PANTOPRAZOLE SOD SESQUIHYDRATE 20 MG TAB PO (17:10)
[2020-12-10 20:29] VITALS: BP 127/56; PULSE 74; RESP 18; TEMP 36.4; O2SAT 98
[2020-12-10] MEDS: TAMOXIFEN CITRATE (*CHEMO) 10 MG TABLET 20 MG PO (21:17)
[2020-12-10] MEDS: CHOLECALCIFEROL 1,000 UNITS TABLET 1000 UNITS PO (21:17)
[2020-12-10] MEDS: metroNIDAZOLE 250 MG TABLET 500 MG PO (22:51)
[2020-12-11] MEDS: oxyCODONE HCL (*CRX) 5 MG TAB IR 10 MG PO ×2 (03:32→10:34)
[2020-12-11 04:08] VITALS: BP 138/54; PULSE 87; RESP 20; TEMP 36.3; O2SAT 98
[2020-12-11 06:04] LABS: Hematocrit 23.8 % (37.0-47.0); Hemoglobin 7.5 g/dL (12.0-15.0)
[2020-12-11 06:18] LABS: Anion Gap 4 mmol/L (8-16); Blood Urea Nitrogen 13 mg/dL (7-17); Calcium 7.9 mg/dL (8.4-10.2); Carbon Dioxide 28 mmol/L (22-30); Chloride 102 mmol/L (98-107); Estimated CRCL calculation 53 ml/min; Estimated Glomerular Filt Rate 54; Glucose 93 mg/dL (65-105); Magnesium 2.3 mg/dL (1.6-2.3); Potassium 4.1 mmol/L (3.4-5.0); Sodium 134 mmol/L (137-145)
[2020-12-11] MEDS: metroNIDAZOLE 250 MG TABLET 500 MG PO ×2 (06:31→13:16)
[2020-12-11] MEDS: CIPROFLOXACIN 500 MG TAB PO (06:31)
[2020-12-11] MEDS: CALCIUM CARBONATE (OSCAL) 500 MG TABLET PO (09:41)
[2020-12-11] MEDS: PANTOPRAZOLE SOD SESQUIHYDRATE 20 MG TAB PO (09:41)
[2020-12-11] MEDS: OPTI-GEN TAB 1 TABLET PO (09:42)
[2020-12-11] MEDS: SENNA/DOCUSATE SODIUM TABLET 2 TAB PO (09:42)
[2020-12-11] MEDS: COLLAGENASE OINT 30 GM TUBE 1 APPLIC TOPICAL (09:42)
[2020-12-11] MEDS: ROSUVASTATIN 10 MG TABLET 20 MG PO (09:42)
[2020-12-11] MEDS: FERROUS SULFATE 324 MG TABLET PO (09:44)
--- NOTE | 2020-12-11 11:38 | WPDGIPROGNO ---
Progress Note: A&P Assessment and Plan (1) Ischemic colitis: Code(s): K55.9 - Vascular disorder of intestine, unspecified Status: Acute Assessment and Plan: part of the reason of anemia, pending biopsy advancing diet to low fiber she can complete oral antibiotics (flagyl, cipro) 5 more days and follow-up in office in 2-3 weeks consider to repeat sigmoidoscopy in ~ 6 months to assess for healing of ulcerated site in sigmoid (2) Acute on chronic blood loss anemia: Code(s): D62 - Acute posthemorrhagic anemia Status: Acute Assessment and Plan: multifactorial ok to start iron (3) Abnormal CT scan, sigmoid colon: Code(s): R93.3 - Abnormal findings on diagnostic imaging of other parts of digestive tract Status: Acute (4) Personal history of gastric bypass: Code(s): Z98.84 - Bariatric surgery status Status: Acute Assessment and Plan: antiemetics prn (5) GERD (gastroesophageal reflux disease): Code(s): K21.9 - Gastro-esophageal reflux disease without esophagitis Status: Acute Assessment and Plan: egd unremarkable but given gerd symptoms in setting of previous gastric bypass will start low dose of ppi Subjective Date/time seen: 12/11/20 11:38 Interval history: she had a BM earlier today without any bleeding, also some left abdominal pain and left hip area but she feels like going home today Review of Systems Review of Systems: All systems reviewed & are unremarkable except as noted in HPI and below Exam Const: General: comfortable and no acute distress HENMT: General nose exam: Normal nares present Eyes: Pupils: Equal, round and reactive pupils present Neck: Neck: supple Resp: Auscultation: clear to auscultation bilaterally Cardio: Rate: regular rate GI: Inspection: non-distended GI Palp: Yes Soft to palpation and No Guarding due to palpation present (GI) Auscultation: normal bowel sounds Skin: Other: Incision site on the left hip is clean and dry Neuro: Speech: normal speech Motor exam (neuro): Normal motor muscle tone present throughout Extrem: Other: edema left leg Psych: Affect: normal affect Objective Data Vital Signs Vital Signs: Vital Signs - 24 hr 12/10/20 14:00 12/10/20 20:29 12/11/20 04:08 Temperature 97.8 F 97.6 F 97.4 F L Pulse Rate 80 74 87 Respiratory Rate 18 18 20 Blood Pressure 116/55 L 127/56 L 138/54 L Pulse Oximetry 100 98 98 Intake/Output Intake/Output: Intake & Output 12/08/20 12/09/20 12/10/20 12/11/20 23:59 23:59 23:59 23:59 Intake Total 605 1250 1400 340 Output Total 3000 300 550 550 Balance -2395 950 850 -210 Meds/Results Medications: Active Medications Generic Name Dose Route Start Last Admin Trade Name Freq PRN Reason Stop Dose Admin Acetaminophen 650 mg 12/07/20 07:36 Acetaminophen 325 Mg Tablet PO Q6H PRN Pain Rated 1-3 Alprazolam 0.5 mg 12/07/20 01:09 Alprazolam (*Crx) 0.5 Mg Tablet PO HS PRN Insomnia Aspirin 81 mg 12/07/20 08:00 12/09/20 15:57 Aspirin 81 Mg Chewable Tablet PO Not Given DAILY@0800 [facility] Calcium Carbonate 500 mg 12/07/20 09:00 12/11/20 09:41 Calcium Carbonate (Oscal) 500 Mg Tablet PO 01/06/21 09:01 500 mg BID [place] Administration Ciprofloxacin 500 mg 12/11/20 07:00 12/11/20 06:31 Ciprofloxacin 500 Mg Tab PO 500 mg Q12H [place] Administration Collagenase 1 applic 12/07/20 09:00 12/11/20 09:42 Collagenase Oint 30 Gm Tube TOPICAL 1 applic QAM [place] Administration Ferrous Sulfate 324 mg 12/10/20 13:15 12/11/20 09:44 Ferrous Sulfate 324 Mg Tablet PO 324 mg DAILY [place] Administration Furosemide 40 mg 12/07/20 01:09 12/09/20 15:50 Furosemide 40 Mg Tablet PO 40 mg DAILY PRN Administration Edema Metronidazole 500 mg 12/10/20 22:40 12/11/20 06:31 Metronidazole 250 Mg Tablet PO 500 mg Q8HR [place] Administration Multivitamins/Minerals 1 table
[2020-12-11 14:00] VITALS: BP 108/66; PULSE 82; RESP 18; TEMP 36.4; O2SAT 100
--- NOTE | 2020-12-11 14:38 | PM.DS ---
DS: Admitting Diagnosis Admitting Diagnosis Admitting Diagnosis: Abnormal CT, colitis DS: Discharge Diagnosis Discharge Diagnosis (1) Colitis: Code(s): K52.9 - Noninfective gastroenteritis and colitis, unspecified Status: Acute Assessment and Plan: Date of Admission 12/06/20 Date of Discharge 12/11/20 Ms. Camacho is a 75yo F with CKD, anemia, dyslipidemia, chronic pain on narcotic pain medications for many years, and a sacral decubitus ulcer who presented to [facility] [place] of pain all over. She described abdominal pain, CT demonstrated prominent thickening of the wall of the proximal sigmoid colon. She was transferred to our facility for GI consultation and was started on IV zosyn due to some leg swelling and suspicion for infection of sacral decubitus ulcer. She was evaluated by wound RN and wound bed looks clean, does not appear to be acutely infected. She has a lump to right buttocks that was evaluated by ultrasound which showed no evidence of abscess. She was evaluated by GI, Dr Haas. She underwent EGD/Colonoscopy 12/09/20 and colonoscopy demonstrated a large ulcer with localized colitis, possibly ischemic, no evidence of active bleeding - biopsies were taken. Lactic acid normal x 2. Since she did not appear to have an acute skin/soft tissue infection - her antibiotics were narrowed to Cipro and Flagyl to cover for the colitis. She showed clinical improvement in pain and was tolerating low-fiber meals without nausea, vomiting or abdominal pain prior to discharge. She was hemodynamically stable for discharge on 12/11/20 with instructions to follow up with PCP and GI. She is anemic and will benefit from outpatient follow up labs - started on oral iron. Patient with history of gastric bypass presents with abdominal pain. CT abdomen demonstrated demonstrated prominent wall thickening at proximal sigmoid colon with apparent apple core sign. Colonoscopy 12/09/[address] Haas demonstrated a large ulcer with a localized colitis possibly ischemic, no evidence of active bleeding. Biopsies taken. Lactic acid normal x 2. Discussed case with Dr. Haas and we have agreed to narrow antibiotics to ciprofloxacin and Flagyl, continue these at discharge. Tolerating a low fiber diet. (2) Decubitus ulcer: Qualifiers: Pressure injury location: sacral region Pressure injury stage: unstageable Qualified Code(s): L89.150 - Pressure ulcer of sacral region, unstageable Code(s): L89.90 - Pressure ulcer of unspecified site, unspecified stage Status: Acute Assessment and Plan: Patient has a chronic decubitus ulcer with some slight drainage without evidence of acute infection. She does have a 2 cm masslike abnormality on her right buttocks close to the wound. Ultrasound just shows inflammation, no signs of abscess. Continue local wound care, turn every few hours for pressure offloading. (3) Leukocytosis: Qualifiers: Leukocytosis type: unspecified Qualified Code(s): D72.829 - Elevated white blood cell count, unspecified Code(s): D72.829 - Elevated white blood cell count, unspecified Status: Acute Assessment and Plan: Patient has a leukocytosis with a fever of 102 outpatient; afebrile here. Suspect related to colitis. Antibiotics as above. She had a left hip repair 11/14/20 and incision site looks clean and dry. She had a dental implant 11/01/20 with no pain or signs of infection as well. Blood cultures negative. (4) Elevated d-dimer: Code(s): R79.89 - Other specified abnormal findings of blood chemistry Status: Acute Assessment and Plan: Etiology unclear. Venous Doppler lower extremities with no evidence of DVT. No shortness of breath, tachycardia, or other signs of P
== END 2020-12-11 16:40 | disposition home health service (06) | DRG 394 ==
PROVIDERS: Internal Medicine Gastroenterology; Physician Assistant; Admitting Provider Internal Medicine; PCP Nurse Practitioner Family; Visit Provider Family Medicine
PROC: 0DJ08ZZ Inspection of Upper Intestinal Tract, Via Natural or Artificial Opening Endoscopic (ICD-10-PCS; CPT 43235; principal; 2020-12-09 15:15)
DX: K55.9 Vascular disorder of intestine, unspecified (principal); L03.319 Cellulitis of trunk, unspecified; K63.3 Ulcer of intestine; L89.150 Pressure ulcer of sacral region, unstageable; D50.0 Iron deficiency anemia secondary to blood loss (chronic); K21.9 Gastro-esophageal reflux disease without esophagitis; K31.89 Other diseases of stomach and duodenum; Z98.84 Bariatric surgery status; R93.3 Abnormal findings on diagnostic imaging of other parts of digestive tract; I12.9 Hypertensive chronic kidney disease with stage 1 through stage 4 chronic kidney disease, or unspecified chronic kidney disease; N18.32 Chronic kidney disease, stage 3b; D72.829 Elevated white blood cell count, unspecified; F41.1 Generalized anxiety disorder; I25.10 Atherosclerotic heart disease of native coronary artery without angina pectoris; M79.89 Other specified soft tissue disorders; G89.29 Other chronic pain; R79.89 Other specified abnormal findings of blood chemistry; F11.90 Opioid use, unspecified, uncomplicated; E78.2 Mixed hyperlipidemia; Z96.642 Presence of left artificial hip joint; Z85.3 Personal history of malignant neoplasm of breast; Z87.19 Personal history of other diseases of the digestive system; Z95.5 Presence of coronary angioplasty implant and graft; Z87.891 Personal history of nicotine dependence
CPT/HCPCS: 36415; 76705; 80048; 80053; 80202; 82274; 82728; 83540; 83550; 83605; 83735; 85014; 85018; 85025; 85610; 85730; 86140; 88305; 93306; 93970; 96365; 96366; 96367; 96376; 97110; 97116; 97161; 97165; 97530; 97535; A9270; G0378; J0692; J0744; J1200; J1756; J2405; J3370; J7120

== ENCOUNTER 2020-12-15 13:45 | Outpatient (NON) | payer MEDICARE, SELFPAY ==
[2020-12-15 14:08] LABS: Basophils Absolute Auto 0.02 K/mm3 (0.00-0.10); Basophils Percent Auto 0.3 % (0.0-1.0); Eosinophils Absolute Auto 0.14 K/mm3 (0.02-0.50); Eosinophils Percent Auto 2.4 % (1.0-6.0); Hematocrit 32.7 % (35.0-42.0); Hemoglobin 9.8 g/dL (11.7-13.8); Immature Granulocyte Absolute 0.07 K/mm3 (0.00-0.00); Immature Granulocyte Percent A 1.2 % (0.0-0.0); Lymphocytes Absolute Auto 1.51 K/mm3 (1.10-4.50); Lymphocytes Percent Auto 25.9 % (18.0-42.0); Mean Corpuscular Hemoglobin 27.5 pg (27.0-31.0); Mean Corpuscular Volume 91.6 fL (78.0-102.0); Mean Platelet Volume 11.1 fl (9.2-11.8); Monocytes Absolute Auto 0.66 K/mm3 (0.10-0.90); Monocytes Percent Auto 11.3 % (2.0-11.0); Neutrophils Absolute Auto 3.4 K/mm3 (1.7-7.2); Neutrophils Percent Auto 58.9 % (50.0-70.0); Platelet Count Result 283 K/mm3 (150-420); Red Blood Count 3.57 M/mm3 (4.20-5.40); Red Cell Distribution Width 15.9 % (11.6-14.4); White Blood Count 5.8 K/mm3 (4.8-10.8)
== END 2020-12-15 13:46 | disposition home or self-care (01) ==
LOC: CHSLAB 13:47
PROVIDERS: Visit Provider Nurse Practitioner Family
DX: D64.9 Anemia, unspecified (principal)
CPT/HCPCS: 36415; 85025

== ENCOUNTER 2020-12-21 10:17 | Outpatient (RCR) | payer MEDICARE, SELFPAY ==
[2020-12-21 10:15] VITALS: BMI 32.2
== END 2021-02-28 12:20 | disposition home or self-care (01) ==
LOC: ANHWOC 10:17
PROVIDERS: PCP Nurse Practitioner Family; Visit Provider Nurse Practitioner Family
DX: L89.150 Pressure ulcer of sacral region, unstageable (principal)
CPT/HCPCS: 99212; G0463

== ENCOUNTER 2020-12-23 10:41 | Outpatient (NON) | payer MEDICARE, SELFPAY ==
[2020-12-23 10:56] LABS: Basophils Absolute Auto 0.03 K/mm3 (0.00-0.10); Basophils Percent Auto 0.7 % (0.0-1.0); Eosinophils Absolute Auto 0.17 K/mm3 (0.02-0.50); Eosinophils Percent Auto 3.8 % (1.0-6.0); Hematocrit 33.4 % (35.0-42.0); Hemoglobin 10.3 g/dL (11.7-13.8); Immature Granulocyte Absolute 0.01 K/mm3 (0.00-0.00); Immature Granulocyte Percent A 0.2 % (0.0-0.0); Lymphocytes Absolute Auto 1.59 K/mm3 (1.10-4.50); Lymphocytes Percent Auto 35.3 % (18.0-42.0); Mean Corpuscular HGB Conc 30.8 g/dL (32.0-36.0); Mean Corpuscular Volume 90.8 fL (78.0-102.0); Mean Platelet Volume 11.2 fl (9.2-11.8); Monocytes Absolute Auto 0.31 K/mm3 (0.10-0.90); Monocytes Percent Auto 6.9 % (2.0-11.0); Neutrophils Absolute Auto 2.4 K/mm3 (1.7-7.2); Neutrophils Percent Auto 53.1 % (50.0-70.0); Platelet Count Result 241 K/mm3 (150-420); Red Blood Count 3.68 M/mm3 (4.20-5.40); Red Cell Distribution Width 16.8 % (11.6-14.4); White Blood Count 4.5 K/mm3 (4.8-10.8)
== END 2020-12-23 10:42 | disposition home or self-care (01) ==
LOC: CHSHH 10:43
PROVIDERS: Visit Provider Nurse Practitioner Family
DX: Z47.1 Aftercare following joint replacement surgery (principal); Z96.642 Presence of left artificial hip joint; F41.1 Generalized anxiety disorder; I25.10 Atherosclerotic heart disease of native coronary artery without angina pectoris
CPT/HCPCS: 36415; 85025

== ENCOUNTER 2021-01-24 11:34 | Outpatient (CLI) | payer MEDICARE, SELFPAY ==
--- NOTE | ~2021-01-24 | XR_ITS ---
XR shoulder RT min 2V DATE: 01/24/2021 11:53 INDICATION: Right shoulder pain for 5 months TECHNIQUE: 4 views COMPARISON: None FINDINGS: Diffuse osteopenia. No fracture or dislocation, periosteal reaction or bone destruction. No abnormal shoulder soft tissue calcification. IMPRESSION: Osteopenia Reviewed, dictated and finalized at location A. IMPRESSION: Osteopenia
[2021-01-24 11:52] LABS: Basophils Absolute Auto 0.03 K/mm3 (0.00-0.10); Basophils Percent Auto 0.5 % (0.0-1.0); Eosinophils Absolute Auto 0.13 K/mm3 (0.02-0.50); Eosinophils Percent Auto 2.3 % (1.0-6.0); Hematocrit 39.1 % (35.0-42.0); Hemoglobin 12.1 g/dL (11.7-13.8); Immature Granulocyte Absolute 0.01 K/mm3 (0.00-0.00); Immature Granulocyte Percent A 0.2 % (0.0-0.0); Lymphocytes Absolute Auto 1.83 K/mm3 (1.10-4.50); Mean Corpuscular HGB Conc 30.9 g/dL (32.0-36.0); Mean Corpuscular Volume 90.5 fL (78.0-102.0); Neutrophils Absolute Auto 3.3 K/mm3 (1.7-7.2); Platelet Count Result 163 K/mm3 (150-420); Red Blood Count 4.32 M/mm3 (4.20-5.40); Red Cell Distribution Width 14.6 % (11.6-14.4); White Blood Count 5.7 K/mm3 (4.8-10.8)
[2021-01-24 12:45] LABS: Alanine Aminotransferase 24 U/L (14-59); Albumin Level 3.6 g/dL (3.4-5.0); Alkaline Phosphatase 44 U/L (46-116); Anion Gap 9 mmol/L (8-16); Aspartate Amino Transferase 18 U/L (15-37); Bilirubin,Total 0.4 mg/dL (0.00-1.00); Blood Urea Nitrogen 11 mg/dL (7-18); Calcium 8.8 mg/dL (8.5-10.1); Carbon Dioxide 26 mmol/L (21-32); Chloride 107 mmol/L (98-108); Estimated Glomerular Filt Rate 49; Glucose 97 mg/dL (70-99); Osmolality Calculated 293 mOsm/kg (285-295); Potassium 4.5 mmol/L (3.5-5.1); Sodium 142 mmol/L (136-145); Total Protein 6.4 g/dL (6.4-8.2)
== END 2021-01-24 11:35 | disposition home or self-care (01) ==
LOC: CHSLAB 11:36
PROVIDERS: PCP Nurse Practitioner Family; Visit Provider Nurse Practitioner Family
DX: D64.9 Anemia, unspecified (principal); M25.511 Pain in right shoulder; Z00.00 Encounter for general adult medical examination without abnormal findings; N18.32 Chronic kidney disease, stage 3b
CPT/HCPCS: 36415; 73030; 80053; 85025

== ENCOUNTER 2021-02-06 08:54 | Outpatient (CLI) | payer MEDICARE, SELFPAY ==
--- NOTE | ~2021-02-06 | MM_ITS ---
EXAMINATION: MM screening [facility] BI w rafiq HISTORY: Screening TECHNIQUE: Craniocaudal and mediolateral oblique 3-D tomosynthesis images were obtained and synthetic 2-D images were generated. CAD analysis was submitted and interpreted. COMPARISON: Comparison to multiple prior studies sequentially, with oldest reviewed study dated 11/2016. BREAST PARENCHYMAL COMPOSITION: There are scattered areas of fibroglandular density. FINDINGS: There is no evidence of suspicious mass, calcification, or architectural distortion to sugg est malignancy in either breast. There has been no suspicious interval change. IMPRESSION: 1. No mammographic evidence of malignancy. 2. Recommend routine screening mammography in one year. BI-RADS Category 1: Negative Reviewed, dictated and finalized at location A.
== END 2021-02-06 08:55 | disposition home or self-care (01) ==
LOC: CHSIMG 08:55
PROVIDERS: PCP Nurse Practitioner Family; Visit Provider Internal Medicine Hematology & Oncology
DX: Z12.31 Encounter for screening mammogram for malignant neoplasm of breast (principal)
CPT/HCPCS: 77063; 77067

== ENCOUNTER 2021-02-14 01:28 | Day surgery (SDC) | payer MEDICARE, SELFPAY ==
[2021-02-02 13:12] VITALS: BMI 31.1
[2021-02-14 11:00] VITALS: BP 153/72; PULSE 73; RESP 16; TEMP 36.2; O2SAT 99; BMI 30.1
[2021-02-14] MEDS: LACTATED RINGERS 1,000 ML 150 ML IV CONT (11:14)
--- NOTE | 2021-02-14 11:27 | WPDANESEPPF ---
Anes - Initial Pre Proc Eval Procedure: Operation Date: 02/14/21 12:30 Proposed Procedures p Flexible Sigmoidoscopy - Rohith Cochran MD Date/Time: 02/14/21 11:27 Surgeon: Rohith Cochran MD Pre Op Diagnosis: ischemic colitis Patient Data Age: 76 Gender: F Height: 1.73 m Weight: 89.9 kg Last Vital Signs Temp 36.2 C L 02/14/21 11:00 Pulse 73 02/14/21 11:00 Resp 16 02/14/21 11:00 BP 153/72 H 02/14/21 11:00 Pulse Ox 99 02/14/21 11:00 Allergies Allergy/AdvReac Type Severity Reaction Status Date / Time codeine Allergy Intermediate unknown Verified 02/14/21 11:10 cephalexin [From Keflex] Allergy Rash Verified 02/14/21 11:10 Sulfa (Sulfonamide AdvReac Unknown Nausea Verified 02/14/21 11:10 Antibiotics) Tetanus Vaccines and Toxoid AdvReac Unknown Vomiting Verified 02/14/21 11:10 Iodinated Contrast Media AdvReac Other Verified 02/14/21 11:10 Home Medications Medication Instructions Recorded Confirmed Type calcium carbonate [Calcium 600] 600 mg PO BID 07/21/19 02/14/21 History cholecalciferol (vitamin D3) 25 25 mcg PO HS 03/18/20 02/14/21 History mcg (1,000 unit) capsule rosuvastatin 20 mg PO DAILY 11/17/20 02/14/21 History senna-docusate sodium 2 tablet PO BID PRN 11/17/20 02/14/21 History tamoxifen 20 mg PO HS 11/17/20 02/14/21 History Baby Aspirin 81 mg PO DAILY 12/06/20 02/14/21 History PreserVision AREDS 1 tab-cap PO BID 12/06/20 02/14/21 History furosemide 40 mg PO DAILY PRN 12/06/20 02/14/21 History linaclotide 145 mcg capsule 145 mcg PO DAILY #30 cap 01/19/21 02/14/21 Rx alprazolam 0.5 mg tablet 0.5 mg PO HS PRN #20 tablet 01/24/21 02/14/21 Rx cyanocobalamin (vitamin B-12) 1 tablet PO EVERY OTHER DAY 02/02/21 02/14/21 History [Vitamin B-12] meclizine 12.5 mg PO BID 02/02/21 02/14/21 History [id number]-FA-vit K 1 tablet PO DAILY 02/02/21 02/14/21 History [Adults Multivitamin] oxycodone-acetaminophen 1 tablet PO BID PRN 02/02/21 02/14/21 History potassium chloride 20 meq PO DAILY PRN 02/02/21 02/14/21 History Patient hx anesthesia problems: none Family hx anesthesia problems: none PMFSH Past Medical History Medical History Abnormal CT scan, sigmoid colon Achilles tendinitis of right lower extremity Acute on chronic blood loss anemia Anxiety Arthritis of ankle, right, degenerative Bilateral lower extremity edema BMI 34.0-34.9,adult Chronic back pain Chronic narcotic use 7.5mg percocet for ten years. Coronary artery disease With history of acute myocardial infarction in 1999 and which is stent was placed. She also had another stent placed in 2008. 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 PORSCHE (generalized anxiety disorder) GERD (gastroesophageal reflux disease) History of Clostridioides difficile colitis Hyperlipemia Hyperlipidemia Ischemic colitis Kidney stones Macular degeneration Right ankle pain Surgical History Surgical History H/O bilateral breast reduction surgery H/O cataract extraction H/O hemorrhoidectomy History of appendectomy History of dilation and curettage History of heart artery stent In 1999 and 2008. History of hip replacement History of hysterectomy History of repair of rectocele History of tonsillectomy Hx of cholecystectomy Hx of coronary artery bypass graft Personal history of gastric bypass S/P lumpectomy, left breast Family History Family History Mother Family history of congenital heart disease Family history of diabetes mellitus in first degree relative Family history of malignant neoplasm of uterus Father Family history of chronic obstructive pulmonary disease Family history
--- NOTE | 2021-02-14 12:10 | PM.HPGS ---
History of Present Illness History of Present Illness Consent: Risks, benefits, and alternatives have been discussed and questions answered. Patient agrees to proceed with procedure. Chief complaint: ischemic colitis Narrative: Maida Camacho is a 76 year old female with severe ischemic colitis in sigmoid, here to reassess, denies rectal bleeding. Review of Systems Constitutional: Constitutional: Denies headache(s) and Denies weakness Eyes: Eyes: Denies blurry vision ENT: Reports Normal hearing present, Denies headache(s) and Denies neck pain Cardiovascular: Cardiovascular: Denies chest pain and Denies dyspnea Respiratory: Respiratory: Denies dyspnea Gastrointestinal: Gastrointestinal: Reports no additional gastrointestinal complaints Genitourinary: Genitourinary: Denies dysuria Musculoskeletal: Musculoskeletal: Denies neck pain Integumentary/Breasts: Skin/Breast: Denies dry skin Neurologic: Reports Normal hearing present, Denies headache(s) and Denies weakness Psychiatric: Psychiatric: Denies anxiety Endocrine: Endocrine: Denies change in body appearance Hematologic/Lymphatic: Hematologic/Lymphatic: Denies easy bleeding Allergic/Immunologic: Allergic/Immunologic: Denies urticaria PMFSH Past Medical History Medical History Abnormal CT scan, sigmoid colon Achilles tendinitis of right lower extremity Acute on chronic blood loss anemia Anxiety Arthritis of ankle, right, degenerative Bilateral lower extremity edema BMI 34.0-34.9,adult Chronic back pain Chronic narcotic use 7.5mg percocet for ten years. Coronary artery disease With history of acute myocardial infarction in 1999 and which is stent was placed. She also had another stent placed in 2008. 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 PORSCHE (generalized anxiety disorder) GERD (gastroesophageal reflux disease) History of Clostridioides difficile colitis Hyperlipemia Hyperlipidemia Ischemic colitis Kidney stones Macular degeneration Right ankle pain Surgical History Surgical History H/O bilateral breast reduction surgery H/O cataract extraction H/O hemorrhoidectomy History of appendectomy History of dilation and curettage History of heart artery stent In 1999 and 2008. History of hip replacement History of hysterectomy History of repair of rectocele History of tonsillectomy Hx of cholecystectomy Hx of coronary artery bypass graft Personal history of gastric bypass S/P lumpectomy, left breast Family History Family History Mother Family history of congenital heart disease Family history of diabetes mellitus in first degree relative Family history of malignant neoplasm of uterus Father Family history of chronic obstructive pulmonary disease Family history of emphysema Family history of malignant neoplasm of breast in first degree relative Family history of malignant neoplasm of urinary bladder Diabetes mellitus Hypertension Family history of malignant neoplasm Sibling Family history of diabetes mellitus in first degree relative Family history of malignant neoplasm of uterus Sister Family history of type 2 diabetes mellitus Hypertension Father Acute myocardial infarction Social History Social History Social History: The patient is and lives in [place]. 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 her from cancer in 2003. They have 2 sons, 1 from amyloidosis at the age of 54. Her other son lives in [place]. She designates her son, Malachi, as her surrogate decision maker and she wishes to be a full code. Smoking packs per day: 0.5
[2021-02-14 12:29] VITALS: BP 110/52; PULSE 61; RESP 22; O2SAT 99
[2021-02-14 12:39] VITALS: BP 133/66; PULSE 66; RESP 12; O2SAT 100
[2021-02-14 12:49] VITALS: BP 133/66; PULSE 69; RESP 18; O2SAT 100
== END 2021-02-14 13:11 | disposition home or self-care (01) ==
PROVIDERS: PCP Nurse Practitioner Family; Visit Provider Internal Medicine Gastroenterology
PROC: 0DJD8ZZ Inspection of Lower Intestinal Tract, Via Natural or Artificial Opening Endoscopic (ICD-10-PCS; CPT 45330; principal; 2021-02-14 12:30)
DX: K55.9 Vascular disorder of intestine, unspecified (principal); K52.9 Noninfective gastroenteritis and colitis, unspecified; D12.3 Benign neoplasm of transverse colon; K63.3 Ulcer of intestine; I25.10 Atherosclerotic heart disease of native coronary artery without angina pectoris; K21.9 Gastro-esophageal reflux disease without esophagitis; E78.5 Hyperlipidemia, unspecified; F41.1 Generalized anxiety disorder; Z85.3 Personal history of malignant neoplasm of breast; Z92.21 Personal history of antineoplastic chemotherapy; Z79.891 Long term (current) use of opiate analgesic; Z95.1 Presence of aortocoronary bypass graft; Z95.5 Presence of coronary angioplasty implant and graft; Z98.84 Bariatric surgery status; Z87.891 Personal history of nicotine dependence; Z79.810 Long term (current) use of selective estrogen receptor modulators (SERMs)
CPT/HCPCS: 45331; 45338; 88305; J2704; J7120

== ENCOUNTER 2021-03-07 13:44 | Outpatient (CLI) | payer MEDICARE, SELFPAY ==
[2021-03-07 14:07] LABS: Basophils Absolute Auto 0.02 K/mm3 (0.00-0.10); Basophils Percent Auto 0.4 % (0.0-1.0); Eosinophils Percent Auto 1.9 % (1.0-6.0); Hematocrit 36.6 % (35.0-42.0); Hemoglobin 11.7 g/dL (11.7-13.8); Immature Granulocyte Absolute 0.01 K/mm3 (0.00-0.00); Immature Granulocyte Percent A 0.2 % (0.0-0.0); Lymphocytes Absolute Auto 1.97 K/mm3 (1.10-4.50); Mean Corpuscular Hemoglobin 28.5 pg (27.0-31.0); Mean Corpuscular Volume 89.3 fL (78.0-102.0); Mean Platelet Volume 10.8 fl (9.2-11.8); Monocytes Absolute Auto 0.43 K/mm3 (0.10-0.90); Monocytes Percent Auto 8.1 % (2.0-11.0); Neutrophils Absolute Auto 2.8 K/mm3 (1.7-7.2); Neutrophils Percent Auto 52.4 % (50.0-70.0); Platelet Count Result 161 K/mm3 (150-420); Red Cell Distribution Width 13.6 % (11.6-14.4); White Blood Count 5.3 K/mm3 (4.8-10.8)
[2021-03-07 14:12] LABS: Creatinine Urine 41.23 mg/dL (40-278); Ur Ttl Prot Creatinine Ratio 0.15 mg/mg (0-0.20)
[2021-03-07 14:18] LABS: Total Protein Urine Random < 6.0 mg/dL (0.0-11.9)
[2021-03-07 14:48] LABS: Albumin Level 3.6 g/dL (3.4-5.0); Anion Gap 5 mmol/L (8-16); Blood Urea Nitrogen 10 mg/dL (7-18); Calcium 8.9 mg/dL (8.5-10.1); Carbon Dioxide 29 mmol/L (21-32); Chloride 103 mmol/L (98-108); Estimated Glomerular Filt Rate 50; Glucose 83 mg/dL (70-99); Osmolality Calculated 282 mOsm/kg (285-295); Potassium 4.3 mmol/L (3.5-5.1); Sodium 137 mmol/L (136-145)
== END 2021-03-07 13:45 | disposition home or self-care (01) ==
LOC: CHSLAB 13:46
PROVIDERS: PCP Nurse Practitioner Family; Visit Provider Internal Medicine Nephrology
DX: N18.32 Chronic kidney disease, stage 3b (principal)
CPT/HCPCS: 36415; 80069; 82570; 84156; 85025

== ENCOUNTER 2021-04-12 09:03 | Outpatient (CLI) | payer MEDICARE, SELFPAY ==
--- NOTE | ~2021-04-12 | XR_ITS ---
XR lumbar spine 2-3V DATE: 04/12/2021 09:22 INDICATION: Generalized low back pain, stiffness TECHNIQUE: AP, lateral, coned lateral lumbosacral views COMPARISON: 02/25/2019 lumbar spine 02/25/2019 MRI lumbar spine FINDINGS: Diffuse osteopenia. There is minimal levoscoliosis of the lumbar spine. There is moderately prominent degenerative disc disease at L1-2, mild degenerative disc disease at L2 -3 and moderate loss of interspace height at L5-S1. No fracture or bone destruction is evident. The included lower thoracic and lumbar pedicles are intac t. The sacroiliac joints are intact. Bilateral hip prostheses are noted. There is extensive calcification of the abdominal aorta and calcification of the common iliac arterie s; no abdominal aortic aneurysm is evident. IMPRESSION: Diffuse osteopenia Multilevel degenerative disc disease Bilateral hip joint replacement Reviewed, dictated and finalized at location A.
--- NOTE | ~2021-04-12 | XR_ITS ---
XR_CERV2-3V_CR DATE: 04/12/2021 09:22 INDICATION: Neck pain, stiffness TECHNIQUE: AP, open-mouth, lateral views COMPARISON: None FINDINGS: There is diffuse osteopenia. Elongated C7 transverse processes are noted bilaterally. C1 and C2 are normally aligned and the odontoid process is intact. No fracture or dislocation or lock ed facet or prevertebral soft tissue swelling. There is moderately severe degenerative disc disease and minimal retrolisthesis at C5-6. There is sev ere degenerative disc disease at C6-7. There is uncovertebral joint spurring particularly at C5-6 and C6-7. IMPRESSION: Moderately severe degenerative disc disease and mild retrolisthesis at C5-6 Severe degenerative disc disease at C6-7 Reviewed, dictated and finalized at Location A. Reviewed, dictated and finalized at location A.
== END 2021-04-12 09:04 | disposition home or self-care (01) ==
LOC: CHSIMG 09:05
PROVIDERS: PCP Nurse Practitioner Family; Visit Provider Nurse Practitioner Family
DX: M54.50 Low back pain, unspecified (principal); M25.60 Stiffness of unspecified joint, not elsewhere classified; Z96.643 Presence of artificial hip joint, bilateral; M51.36 Other intervertebral disc degeneration, lumbar region; M50.322 Other cervical disc degeneration at C5-C6 level; M50.323 Other cervical disc degeneration at C6-C7 level
CPT/HCPCS: 72040; 72100

== ENCOUNTER 2021-04-17 15:49 | Outpatient (RCR) | payer MEDICARE, SELFPAY ==
--- NOTE | 2021-04-17 17:07 | PTOPEVAL ---
Thank you for referring Maida Camacho to [facility].? The patient is scheduled to be seen for therapy? ____x/week for ___ weeks. Please review, sign, date and return this plan of care NBA. I agree with and certify that the following plan of care is medically necessary. Referring Physician Date Admitting Provider: Attending Provider: Irasema Murguia NP Referring Provider: MyraPT Outpatient Evaluation Start: 04/17/21 15:50 Freq: Status: Active Protocol: Document 04/17/21 15:51 ACR (Rec: 04/17/21 16:59 ACR [id number]) Therapy Assessment Status Assessment Status Assessment Status Evaluation Outpatient Past Medical History Neurological History Hx Neurological Disorders No Significant History Cardiovascular History Hx Deep Vein Thrombosis Yes: DVT, Surface bloodclot Respiratory History Hx Respiratory Disorders No Significant History Gastrointestinal History Hx Bowel Surgery Yes: 12.5 inches removed r/t diverticulitis with mesh Genitourinary History Hx Bladder Surgery Yes: Tie up Musculoskeletal History Hx Arthritis Yes: Generalized arthritis Hx Back Pain Yes Hx Fractures Yes: Hx Rony ankle Fractures Hx Orthopedic Surgery Yes: ankle surgery Hematological History Hx Anemia Yes Endocrine History Hx Hypothyroidism Yes HEENT History Hx Macular Degeneration Yes Hx Ear Surgery Yes: Recent lower teeth implants Integumentary History Hx Other Skin Disorders Yes: Decubitus ulcer on coccyx Reproductive History Hx Post Menopausal Yes Psychosocial History Hx Anxiety Yes Pain History Has Past Pain Affected Your Daily Life Yes History of Long-Term Prescription Pain Yes: Uses Percocet from Pain Medication Use (Opiates) Clinic Anesthesia History Hx Anesthesia Reactions No Significant History Other History Hx Implanted Device Yes: Abdominal Mesh, Bilater Hip Replacements, Dental Implants Hx Radiation Therapy Yes Evaluation Information Problem Diagnosis poor balance, R shoulder pain, back pain, neck pain Onset 04/10/21 Subjective Information Patient states that she got a Query Text:As Reported By Patient/ L hip replacement on 11/14/20 Family and she has had hip and back pain since then, the more she walks the more it hurts. She states she is unable to get dressed without holding onto
--- NOTE | 2021-05-17 12:49 | PTOPEVAL ---
Thank you for referring Maida Camacho to [facility].? The patient is scheduled to be seen for therapy? ____x/week for ___ weeks. Please review, sign, date and return this plan of care NBA. I agree with and certify that the following plan of care is medically necessary. Referring Physician Date Admitting Provider: Attending Provider: Irasema Murguia NP Referring Provider: SWATHI Outpatient Evaluation Start: 04/17/21 15:50 Freq: Status: Active Protocol: Document 05/17/21 10:00 [facility] (Rec: 05/17/21 12:48 [facility] [id number]) Therapy Assessment Status Assessment Status Assessment Status Discharge Outpatient Past Medical History Neurological History Hx Neurological Disorders No Significant History Cardiovascular History Hx Deep Vein Thrombosis Yes: DVT, Surface bloodclot Respiratory History Hx Respiratory Disorders No Significant History Gastrointestinal History Hx Bowel Surgery Yes: 12.5 inches removed r/t diverticulitis with mesh Genitourinary History Hx Bladder Surgery Yes: Tie up Musculoskeletal History Hx Arthritis Yes: Generalized arthritis Hx Back Pain Yes Hx Fractures Yes: Hx Rony ankle Fractures Hx Orthopedic Surgery Yes: ankle surgery Hematological History Hx Anemia Yes Endocrine History Hx Hypothyroidism Yes HEENT History Hx Macular Degeneration Yes Hx Ear Surgery Yes: Recent lower teeth implants Integumentary History Hx Other Skin Disorders Yes: Decubitus ulcer on coccyx Reproductive History Hx Post Menopausal Yes Psychosocial History Hx Anxiety Yes Pain History Has Past Pain Affected Your Daily Life Yes History of Long-Term Prescription Pain Yes: Uses Percocet from Pain Medication Use (Opiates) Clinic Anesthesia History Hx Anesthesia Reactions No Significant History Other History Hx Implanted Device Yes: Abdominal Mesh, Bilater Hip Replacements, Dental Implants Hx Radiation Therapy Yes Evaluation Information Problem Diagnosis poor balance, R shoulder pain, back pain, neck pain Onset 04/10/21 Subjective Information patient reports she feels Query Text:As Reported By Patient/ Well this date. she reports Family some soreness in the neck and shoulders. she report sno falls. she reports she is completing her exerises at home. she reports feeling stron
== END 2021-05-17 13:29 | disposition home or self-care (01) ==
LOC: CHSPT 15:49
PROVIDERS: PCP Nurse Practitioner Family; Visit Provider Nurse Practitioner Family
DX: M25.511 Pain in right shoulder (principal); M54.2 Cervicalgia; R26.9 Unspecified abnormalities of gait and mobility; M54.50 Low back pain, unspecified
CPT/HCPCS: 97014; 97110; 97140; 97161; 97530; G0283

== ENCOUNTER 2021-04-21 09:28 | Outpatient (CLI) | payer MEDICARE, SELFPAY ==
[2021-04-21 09:42] LABS: Basophils Absolute Auto 0.04 K/mm3 (0.00-0.10); Basophils Percent Auto 0.6 % (0.0-1.0); Eosinophils Absolute Auto 0.42 K/mm3 (0.02-0.50); Eosinophils Percent Auto 6.3 % (1.0-6.0); Hematocrit 38.1 % (35.0-42.0); Hemoglobin 12.1 g/dL (11.7-13.8); Immature Granulocyte Absolute 0.02 K/mm3 (0.00-0.00); Immature Granulocyte Percent A 0.3 % (0.0-0.0); Lymphocytes Percent Auto 31.7 % (18.0-42.0); Mean Corpuscular HGB Conc 31.8 g/dL (32.0-36.0); Mean Corpuscular Hemoglobin 28.5 pg (27.0-31.0); Mean Corpuscular Volume 89.9 fL (78.0-102.0); Mean Platelet Volume 10.2 fl (9.2-11.8); Monocytes Absolute Auto 0.53 K/mm3 (0.10-0.90); Neutrophils Absolute Auto 3.5 K/mm3 (1.7-7.2); Neutrophils Percent Auto 53.1 % (50.0-70.0); Platelet Count Result 188 K/mm3 (150-420); Red Blood Count 4.24 M/mm3 (4.20-5.40); Red Cell Distribution Width 14.2 % (11.6-14.4); White Blood Count 6.6 K/mm3 (4.8-10.8)
[2021-04-21 10:11] LABS: Alanine Aminotransferase 18 U/L (14-59); Albumin Level 3.5 g/dL (3.4-5.0); Alkaline Phosphatase 46 U/L (46-116); Anion Gap 7 mmol/L (8-16); Aspartate Amino Transferase 14 U/L (15-37); Bilirubin,Total 0.3 mg/dL (0.00-1.00); Blood Urea Nitrogen 14 mg/dL (7-18); Calcium 9.2 mg/dL (8.5-10.1); Carbon Dioxide 30 mmol/L (21-32); Chloride 103 mmol/L (98-108); Estimated Glomerular Filt Rate 48; Glucose 90 mg/dL (70-99); Osmolality Calculated 290 mOsm/kg (285-295); Potassium 4.4 mmol/L (3.5-5.1); Sodium 140 mmol/L (136-145); Total Protein 6.7 g/dL (6.4-8.2)
== END 2021-04-21 09:29 | disposition home or self-care (01) ==
LOC: CHSLAB 09:32
PROVIDERS: PCP Nurse Practitioner Family; Visit Provider Internal Medicine Hematology & Oncology
DX: D05.12 Intraductal carcinoma in situ of left breast (principal)
CPT/HCPCS: 36415; 80053; 85025

== ENCOUNTER 2021-08-01 08:02 | Outpatient (CLI) | payer MEDICARE, SELFPAY ==
--- NOTE | ~2021-08-01 | MR_ITS ---
EXAMINATION: MR cervical spine wo con DATE: 08/01/2021 09:03 INDICATION: Cervical myelopathy. Neck pain. TECHNIQUE: Magnetic resonance imaging (MRI) of the cervical spine was performed without intravenous c ontrast. Sequences included sagittal T2-weighted FSE, sagittal T2-weighted FS FSE, sagittal T1-weight ed FSE, axial MERGE, and axial T2-weighted FSE. COMPARISON: Cervical spine radiographs 04/12/2021 FINDINGS: Bone alignment is normal in cervical spine. Vertebral body heights are normal. There is mod erately decreased disc height at C5-C6 and severely decreased disc height at C6-C7 with endplate juan deling. The spinal cord signal intensity is normal. The following disc levels are specifically discus sed: C2-C3: The disc does not extend beyond the endplate margin. There is no uncovertebral joint osteoarth ritis. There is severe bilateral facet joint osteoarthritis. There is mild left neural foraminal sten osis. There is no central canal stenosis. C3-C4: There is a central protrusion. There is no uncovertebral joint osteoarthritis. There is severe right facet joint osteoarthritis. There is ankylosis of left facet joint with moderate hypertrophy. There is mild left neural foraminal stenosis. There is no central canal stenosis. C4-C5: There is a central protrusion. There is mild left uncovertebral joint osteoarthritis. There is severe bilateral facet joint osteoarthritis. There is no neural foraminal stenosis. There is mild ce ntral canal stenosis. C5-C6: The disc is bulging. There is severe bilateral uncovertebral joint osteoarthritis. There is se mike bilateral facet joint osteoarthritis. There is mild bilateral neural foraminal stenosis. There i s mild central canal stenosis with ventral indentation of the spinal cord. C6-C7: The disc is bulging. There is severe bilateral uncovertebral joint osteoarthritis. There is mo derate right and severe left facet joint osteoarthritis. There is mild left neural foraminal stenosis . There is mild central canal stenosis with ventral indentation of the spinal cord. C7-T1: The disc does not extend beyond the endplate margin. There is no uncovertebral joint osteoarth ritis. There is severe bilateral facet joint osteoarthritis. There is mild bilateral neural foraminal stenosis. There is no central canal stenosis. IMPRESSION: 1. Severe cervical spondylosis. Reviewed, dictated and finalized at location A. 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
== END 2021-08-01 08:03 | disposition home or self-care (01) ==
LOC: CHSIMG 08:04
PROVIDERS: PCP Nurse Practitioner Family
DX: G95.9 Disease of spinal cord, unspecified (principal)
CPT/HCPCS: 72141

== ENCOUNTER 2021-09-08 09:52 | Outpatient (CLI) | payer MEDICARE, SELFPAY ==
[2021-09-08 10:12] LABS: Basophils Absolute Auto 0.02 K/mm3 (0.00-0.10); Basophils Percent Auto 0.4 % (0.0-1.0); Eosinophils Absolute Auto 0.16 K/mm3 (0.02-0.50); Eosinophils Percent Auto 3.2 % (1.0-6.0); Hematocrit 35.4 % (35.0-42.0); Hemoglobin 11.1 g/dL (11.7-13.8); Immature Granulocyte Absolute 0.01 K/mm3 (0.00-0.00); Immature Granulocyte Percent A 0.2 % (0.0-0.0); Lymphocytes Absolute Auto 1.66 K/mm3 (1.10-4.50); Lymphocytes Percent Auto 33.4 % (18.0-42.0); Mean Corpuscular HGB Conc 31.4 g/dL (32.0-36.0); Mean Corpuscular Hemoglobin 29.2 pg (27.0-31.0); Mean Corpuscular Volume 93.2 fL (78.0-102.0); Mean Platelet Volume 10.3 fl (9.2-11.8); Monocytes Absolute Auto 0.45 K/mm3 (0.10-0.90); Monocytes Percent Auto 9.1 % (2.0-11.0); Neutrophils Absolute Auto 2.7 K/mm3 (1.7-7.2); Neutrophils Percent Auto 53.7 % (50.0-70.0); Platelet Count Result 144 K/mm3 (150-420); Red Cell Distribution Width 13.9 % (11.6-14.4)
[2021-09-08 10:27] LABS: Creatinine Urine 40.99 mg/dL (40-278); Total Protein Urine Random < 7.0 mg/dL (0.0-11.9); Ur Ttl Prot Creatinine Ratio 0.17 mg/mg (0-0.20)
[2021-09-08 11:20] LABS: Albumin Level 3.3 g/dL (3.4-5.0); Anion Gap 9 mmol/L (8-16); Blood Urea Nitrogen 23 mg/dL (7-18); Calcium 8.6 mg/dL (8.5-10.1); Carbon Dioxide 27 mmol/L (21-32); Chloride 107 mmol/L (98-108); Estimated Glomerular Filt Rate 37; Glucose 87 mg/dL (70-99); Osmolality Calculated 298 mOsm/kg (285-295); Phosphorus 4.2 mg/dL (2.6-4.7); Potassium 4.4 mmol/L (3.5-5.1); Sodium 143 mmol/L (136-145)
[2021-09-12 12:53] LABS: Parathyroid Intact 54 pg/mL (14-64)
== END 2021-09-08 09:53 | disposition home or self-care (01) ==
LOC: CHSLAB 09:54
PROVIDERS: PCP Nurse Practitioner Family; Visit Provider Internal Medicine Nephrology
DX: N18.32 Chronic kidney disease, stage 3b (principal)
CPT/HCPCS: 36415; 80069; 82570; 83970; 84156; 85025

== ENCOUNTER 2021-10-14 10:15 | Outpatient (CLI) | payer MEDICARE, SELFPAY ==
--- NOTE | ~2021-10-14 | MR_ITS ---
EXAMINATION: MR lumbar spine wo [facility] EXAM DATE: 10/14/2021 11:11 INDICATION: Spinal stenosis lumbar. TECHNIQUE: Multi-sequential, multiplanar MR images of the lumbar spine were obtained without contrast . Sagittal T1, T2, T2 fat saturation images. Axial T2 weighted images. Comparison is made to prior examination from 02/25/2019. FINDINGS: There is mild to moderate disc disease L-1-2 with 2-3 mm retrolisthesis. There is mild disc disease at L2-3. There are no suspicious marrow signal abnormalities. The conus medullaris terminate s at the T12-L1 level and has normal signal intensity and morphology. Paraspinal soft tissue is unre markable. Level by level evaluation: T12-L1: There is a mild diffuse disc bulge. Facet arthropathy: Mild. Neural foraminal stenosis: Mild right. Central canal stenosis: No stenosis. L1-L2: Disc does not extend beyond the endplate margin. Facet arthropathy: None. Neural foraminal stenosis: No stenosis. Central canal stenosis: No stenosis. L2-L3: There is a mild diffuse disc bulge. Facet arthropathy: Mild. Neural foraminal stenosis: Mild right. Central canal stenosis: Mild. L3-L4: There is a minimal diffuse disc bulge. Facet arthropathy: Moderate . Ligamentum flavum enlargement. Neural foraminal stenosis: Mild to moderate right, mild left. Central canal stenosis: Mild to moderate. L4-L5: There is a minimal diffuse disc bulge. Facet arthropathy: Moderate to severe right, moderate left. Neural foraminal stenosis: Mild bilateral. Central canal stenosis: Mild. L5-S1: Disc does not extend beyond the endplate margin. Facet arthropathy: Mild to moderate. Neural foraminal stenosis: No stenosis. Central canal stenosis: No stenosis. IMPRESSION: 1. Overall moderate mid lumbar facet arthropathy. 2. Spondylosis as detailed above. Reviewed, dictated and finalized at location A.
== END 2021-10-14 10:16 | disposition home or self-care (01) ==
LOC: CHSIMG 10:17
PROVIDERS: PCP Nurse Practitioner Family
DX: M54.50 Low back pain, unspecified (principal)
CPT/HCPCS: 72148

== ENCOUNTER 2021-11-06 10:27 | Outpatient (CLI) | payer MEDICARE, SELFPAY ==
[2021-11-06 10:42] LABS: Add Urine Microscopic? YES; Appearance Urine Clear (Clear); Basophils Absolute Auto 0.03 K/mm3 (0.00-0.10); Basophils Percent Auto 0.5 % (0.0-1.0); Bilirubin Urine Negative (Negative); Blood Urine Negative (Negative); Color Urine Light Yellow (Yellow); Eosinophils Absolute Auto 0.15 K/mm3 (0.02-0.50); Eosinophils Percent Auto 2.6 % (1.0-6.0); Glucose Urine UA Negative (Negative); Hematocrit 35.2 % (35.0-42.0); Hemoglobin 10.6 g/dL (11.7-13.8); Immature Granulocyte Absolute 0.01 K/mm3 (0.00-0.00); Immature Granulocyte Percent A 0.2 % (0.0-0.0); Ketones Urine Negative (Negative); Leukocyte Esterase Ur 2+ LEU/UL (Negative); Lymphocytes Percent Auto 31.2 % (18.0-42.0); Mean Corpuscular HGB Conc 30.1 g/dL (32.0-36.0); Mean Corpuscular Hemoglobin 27.8 pg (27.0-31.0); Mean Corpuscular Volume 92.4 fL (78.0-102.0); Monocytes Absolute Auto 0.53 K/mm3 (0.10-0.90); Monocytes Percent Auto 9.2 % (2.0-11.0); Neutrophils Absolute Auto 3.3 K/mm3 (1.7-7.2); Neutrophils Percent Auto 56.3 % (50.0-70.0); Nitrate Urine Negative (Negative); Platelet Count Result 153 K/mm3 (150-420); Protein Urine Negative (Negative); Red Blood Count 3.81 M/mm3 (4.20-5.40); Red Cell Distribution Width 14.4 % (11.6-14.4); Urobilinogen Urine 0.2 mg/dL (0.2-1.0); White Blood Count 5.8 K/mm3 (4.8-10.8)
[2021-11-06 10:51] LABS: Bacteria Urine Trace /hpf; RBC Urine None seen /hpf (0-2); Squamous Epithelial Cell Urine Few /hpf (Few); WBC Urine 0-3 /hpf (0-3)
[2021-11-06 11:09] LABS: Alanine Aminotransferase 17 U/L (14-59); Albumin Level 3.3 g/dL (3.4-5.0); Alkaline Phosphatase 42 U/L (46-116); Anion Gap 4 mmol/L (8-16); Aspartate Amino Transferase 21 U/L (15-37); Bilirubin,Total 0.5 mg/dL (0.00-1.00); Blood Urea Nitrogen 24 mg/dL (7-18); Calcium 8.6 mg/dL (8.5-10.1); Carbon Dioxide 28 mmol/L (21-32); Chloride 105 mmol/L (98-108); Estimated Glomerular Filt Rate 36; Glucose 88 mg/dL (70-99); Osmolality Calculated 287 mOsm/kg (285-295); Potassium 4.6 mmol/L (3.5-5.1); Sodium 137 mmol/L (136-145); Total Protein 6.8 g/dL (6.4-8.2)
== END 2021-11-06 10:28 | disposition home or self-care (01) ==
LOC: CHSLAB 10:30
PROVIDERS: PCP Nurse Practitioner Family; Visit Provider Internal Medicine Hematology & Oncology
DX: D05.12 Intraductal carcinoma in situ of left breast (principal); R39.9 Unspecified symptoms and signs involving the genitourinary system
CPT/HCPCS: 36415; 80053; 81001; 85025; 87086; 87088

== ENCOUNTER 2021-11-16 09:44 | Outpatient (RCR) | payer MEDICARE, SELFPAY ==
--- NOTE | 2021-11-16 10:29 | PTOPEVAL ---
Thank you for referring Maida Camacho to [facility].? The patient is scheduled to be seen for therapy? __1__x/week for 2 visits. Please review, sign, date and return this plan of care NBA. I agree with and certify that the following plan of care is medically necessary. Referring Physician Date Admitting Provider: Attending Provider: Irasema Murguia NP Referring Provider: *PT Outpatient Evaluation Start: 11/16/21 09:43 Freq: Status: Active Protocol: Document 11/16/21 09:43 DONNY (Rec: 11/16/21 10:28 DONNY [id number]) Therapy Assessment Status Assessment Status Assessment Status Evaluation Outpatient Past Medical History Neurological History Hx Neurological Disorders No Significant History Cardiovascular History Hx Deep Vein Thrombosis Yes: DVT, Surface bloodclot Respiratory History Hx Respiratory Disorders No Significant History Gastrointestinal History Hx Bowel Surgery Yes: 12.5 inches removed r/t diverticulitis with mesh Genitourinary History Hx Bladder Surgery Yes: Tie up Musculoskeletal History Hx Arthritis Yes: Generalized arthritis Hx Back Pain Yes Hx Fractures Yes: Hx Rony ankle Fractures Hx Orthopedic Surgery Yes: ankle surgery Hematological History Hx Anemia Yes Endocrine History Hx Hypothyroidism Yes HEENT History Hx Macular Degeneration Yes Hx Ear Surgery Yes: Recent lower teeth implants Integumentary History Hx Other Skin Disorders Yes: Decubitus ulcer on coccyx Reproductive History Hx Post Menopausal Yes Psychosocial History Hx Anxiety Yes Pain History Has Past Pain Affected Your Daily Life Yes History of Long-Term Prescription Pain Yes: Uses Percocet from Pain Medication Use (Opiates) Clinic Anesthesia History Hx Anesthesia Reactions No Significant History Other History Hx Implanted Device Yes: Abdominal Mesh, Bilater Hip Replacements, Dental Implants Hx Radiation Therapy Yes Evaluation Information Problem Diagnosis vertigo Onset 11/16/21 Subjective Information Pt. reports that she has Query Text:As Reported By Patient/ experienced on/off dizziness Family for years. She reports that the dizziness is increased with bending forward. She recalls no falls in the recent months. She reports that the dizziness will also increase wi
--- NOTE | 2021-11-29 13:04 | PTOPEVAL ---
Thank you for referring Maida Camacho to [facility].? The patient is scheduled to be seen for therapy? __2__x/week for 8 visits. Please review, sign, date and return this plan of care NBA. I agree with and certify that the following plan of care is medically necessary. Referring Physician Date Admitting Provider: Attending Provider: Irasema Murguia NP Referring Provider: *PT Outpatient Evaluation Start: 11/16/21 09:43 Freq: Status: Active Protocol: Document 11/28/21 10:00 DONNY (Rec: 11/29/21 13:04 DONNY [id number]) Therapy Assessment Status Assessment Status Assessment Status Progress Outpatient Past Medical History Neurological History Hx Neurological Disorders No Significant History Cardiovascular History Hx Deep Vein Thrombosis Yes: DVT, Surface bloodclot Respiratory History Hx Respiratory Disorders No Significant History Gastrointestinal History Hx Bowel Surgery Yes: 12.5 inches removed r/t diverticulitis with mesh Genitourinary History Hx Bladder Surgery Yes: Tie up Musculoskeletal History Hx Arthritis Yes: Generalized arthritis Hx Back Pain Yes Hx Fractures Yes: Hx Rony ankle Fractures Hx Orthopedic Surgery Yes: ankle surgery Hematological History Hx Anemia Yes Endocrine History Hx Hypothyroidism Yes HEENT History Hx Macular Degeneration Yes Hx Ear Surgery Yes: Recent lower teeth implants Integumentary History Hx Other Skin Disorders Yes: Decubitus ulcer on coccyx Reproductive History Hx Post Menopausal Yes Psychosocial History Hx Anxiety Yes Pain History Has Past Pain Affected Your Daily Life Yes History of Long-Term Prescription Pain Yes: Uses Percocet from Pain Medication Use (Opiates) Clinic Anesthesia History Hx Anesthesia Reactions No Significant History Other History Hx Implanted Device Yes: Abdominal Mesh, Bilater Hip Replacements, Dental Implants Hx Radiation Therapy Yes Evaluation Information Problem Diagnosis vertigo, neck pain Onset 11/16/21 Subjective Information Pt. enters the clinic with Query Text:As Reported By Patient/ orders to address neck pain. Family She states that her vertigo has been less intense and was able to work in the garden without dizziness. She reports she still notes dizziness if getting out of bed
--- NOTE | 2021-12-15 16:45 | PTOPEVAL ---
Thank you for referring Maida Camacho to [facility].? The patient is scheduled to be seen for therapy? ____x/week for ___ weeks. Please review, sign, date and return this plan of care NBA. I agree with and certify that the following plan of care is medically necessary. Referring Physician Date Admitting Provider: Attending Provider: Irasema Murguia NP Referring Provider: SWATHI Outpatient Evaluation Start: 11/16/21 09:43 Freq: Status: Active Protocol: Document 12/15/21 11:00 [facility] (Rec: 12/15/21 12:30 [facility] [id number]) Therapy Assessment Status Assessment Status Assessment Status Progress Outpatient Past Medical History Neurological History Hx Neurological Disorders No Significant History Cardiovascular History Hx Deep Vein Thrombosis Yes: DVT, Surface bloodclot Respiratory History Hx Respiratory Disorders No Significant History Gastrointestinal History Hx Bowel Surgery Yes: 12.5 inches removed r/t diverticulitis with mesh Genitourinary History Hx Bladder Surgery Yes: Tie up Musculoskeletal History Hx Arthritis Yes: Generalized arthritis Hx Back Pain Yes Hx Fractures Yes: Hx Rony ankle Fractures Hx Orthopedic Surgery Yes: ankle surgery Hematological History Hx Anemia Yes Endocrine History Hx Hypothyroidism Yes HEENT History Hx Macular Degeneration Yes Hx Ear Surgery Yes: Recent lower teeth implants Integumentary History Hx Other Skin Disorders Yes: Decubitus ulcer on coccyx Reproductive History Hx Post Menopausal Yes Psychosocial History Hx Anxiety Yes Pain History Has Past Pain Affected Your Daily Life Yes History of Long-Term Prescription Pain Yes: Uses Percocet from Pain Medication Use (Opiates) Clinic Anesthesia History Hx Anesthesia Reactions No Significant History Other History Hx Implanted Device Yes: Abdominal Mesh, Bilater Hip Replacements, Dental Implants Hx Radiation Therapy Yes Evaluation Information Problem Diagnosis vertigo, neck pain Onset 11/16/21 Subjective Information Niecy reports that her neck Query Text:As Reported By Patient/ pain is a little bit better. Family She reports that the most challenging thing for her to do is to look over her shoulder when driving her car. She has the most dizziness when sitting up from supine, putting
--- NOTE | 2021-12-26 14:07 | PTOPEVAL ---
Thank you for referring Maida Camacho to [facility].? The patient is scheduled to be seen for therapy? ____x/week for ___ weeks. Please review, sign, date and return this plan of care NBA. I agree with and certify that the following plan of care is medically necessary. Referring Physician Date Admitting Provider: Attending Provider: Irasema Murguia NP Referring Provider: *PT Outpatient Evaluation Start: 11/16/21 09:43 Freq: Status: Active Protocol: Document 12/26/21 13:00 Matt (Rec: 12/26/21 13:41 JENI [id number]) Therapy Assessment Status Assessment Status Assessment Status Discharge Outpatient Past Medical History Neurological History Hx Neurological Disorders No Significant History Cardiovascular History Hx Deep Vein Thrombosis Yes: DVT, Surface bloodclot Respiratory History Hx Respiratory Disorders No Significant History Gastrointestinal History Hx Bowel Surgery Yes: 12.5 inches removed r/t diverticulitis with mesh Genitourinary History Hx Bladder Surgery Yes: Tie up Musculoskeletal History Hx Arthritis Yes: Generalized arthritis Hx Back Pain Yes Hx Fractures Yes: Hx Rony ankle Fractures Hx Orthopedic Surgery Yes: ankle surgery Hematological History Hx Anemia Yes Endocrine History Hx Hypothyroidism Yes HEENT History Hx Macular Degeneration Yes Hx Ear Surgery Yes: Recent lower teeth implants Integumentary History Hx Other Skin Disorders Yes: Decubitus ulcer on coccyx Reproductive History Hx Post Menopausal Yes Psychosocial History Hx Anxiety Yes Pain History Has Past Pain Affected Your Daily Life Yes History of Long-Term Prescription Pain Yes: Uses Percocet from Pain Medication Use (Opiates) Clinic Anesthesia History Hx Anesthesia Reactions No Significant History Other History Hx Implanted Device Yes: Abdominal Mesh, Bilater Hip Replacements, Dental Implants Hx Radiation Therapy Yes Evaluation Information Problem Diagnosis vertigo, neck pain Onset 11/16/21 Subjective Information Pt reports that her neck is Query Text:As Reported By Patient/ doing better compared to her Family first day of therapy. She feels as though her neck is more flexible when turning to the R, but has difficulty turning her head to the L. She says that this primarily causes
== END 2021-12-26 15:11 | disposition home or self-care (01) ==
LOC: CHSPT 09:44
PROVIDERS: PCP Nurse Practitioner Family; Visit Provider Nurse Practitioner Family
DX: R42 Dizziness and giddiness (principal)
CPT/HCPCS: 97014; 97110; 97112; 97140; 97161; G0283

== ENCOUNTER 2022-02-08 10:15 | Outpatient (CLI) | payer MEDICARE, SELFPAY ==
--- NOTE | ~2022-02-08 | MM_ITS ---
EXAMINATION: MM screening [facility] BI w rafiq HISTORY: Screening TECHNIQUE: Craniocaudal and mediolateral oblique 3-D tomosynthesis images were obtained and synthetic 2-D images were generated. CAD analysis was submitted and interpreted. COMPARISON: Comparison to multiple prior studies sequentially, with oldest reviewed study dated 01/2017. BREAST PARENCHYMAL COMPOSITION: There are scattered areas of fibroglandular density. FINDINGS: There is no evidence of suspicious mass, calcification, or architectural distortion to sugg est malignancy in either breast. There has been no suspicious interval change. IMPRESSION: 1. No mammographic evidence of malignancy. 2. Recommend routine screening mammography in one year. BI-RADS Category 1: Negative Reviewed, dictated and finalized at location A.
== END 2022-02-08 10:16 | disposition home or self-care (01) ==
LOC: CHSIMG 10:17
PROVIDERS: PCP Nurse Practitioner Family; Visit Provider Internal Medicine Hematology & Oncology
DX: Z12.31 Encounter for screening mammogram for malignant neoplasm of breast (principal)
CPT/HCPCS: 77063; 77067

== ENCOUNTER 2022-03-08 09:43 | Outpatient (CLI) | payer MEDICARE, SELFPAY ==
[2022-03-08 10:10] LABS: Basophils Absolute Auto 0.03 K/mm3 (0.00-0.10); Basophils Percent Auto 0.5 % (0.0-1.0); Eosinophils Absolute Auto 0.21 K/mm3 (0.02-0.50); Eosinophils Percent Auto 3.4 % (1.0-6.0); Hematocrit 35.6 % (35.0-42.0); Hemoglobin 10.8 g/dL (11.7-13.8); Immature Granulocyte Absolute 0.02 K/mm3 (0.00-0.00); Immature Granulocyte Percent A 0.3 % (0.0-0.0); Lymphocytes Absolute Auto 2.14 K/mm3 (1.10-4.50); Lymphocytes Percent Auto 34.4 % (18.0-42.0); Mean Corpuscular HGB Conc 30.3 g/dL (32.0-36.0); Mean Corpuscular Hemoglobin 27.6 pg (27.0-31.0); Mean Corpuscular Volume 90.8 fL (78.0-102.0); Mean Platelet Volume 10.9 fl (9.2-11.8); Monocytes Absolute Auto 0.52 K/mm3 (0.10-0.90); Monocytes Percent Auto 8.4 % (2.0-11.0); Neutrophils Absolute Auto 3.3 K/mm3 (1.7-7.2); Platelet Count Result 156 K/mm3 (150-420); Red Blood Count 3.92 M/mm3 (4.20-5.40); Red Cell Distribution Width 15.1 % (11.6-14.4); White Blood Count 6.2 K/mm3 (4.8-10.8)
[2022-03-08 10:53] LABS: Creatinine Urine 37.58 mg/dL (40-278); Total Protein Urine Random < 6.0 mg/dL (0.0-11.9); Ur Ttl Prot Creatinine Ratio 0.16 mg/mg (0-0.20)
[2022-03-08 11:22] LABS: Albumin Level 3.1 g/dL (3.4-5.0); Anion Gap 8 mmol/L (8-16); Blood Urea Nitrogen 24 mg/dL (7-18); Calcium 8.4 mg/dL (8.5-10.1); Carbon Dioxide 25 mmol/L (21-32); Chloride 106 mmol/L (98-108); Cholesterol 98 mg/dL (0-200); Estimated Glomerular Filt Rate 38; Free T4 Free Thyroxine 0.85 ng/dL (0.76-1.46); Glucose 103 mg/dL (70-99); HDL Direct 49 mg/dL (40-60); LDL Cholesterol Calculated 34 mg/dL (<130); Osmolality Calculated 292 mOsm/kg (285-295); Phosphorus 5.3 mg/dL (2.6-4.7); Potassium 4.2 mmol/L (3.5-5.1); Sodium 139 mmol/L (136-145); Thyroid Stimulating Hormone 1.95 uIU/mL (0.36-3.74); Triglycerides 74 mg/dL (0-150)
[2022-03-11 13:27] LABS: Parathyroid Intact 60 pg/mL (14-64)
[2022-03-13 12:49] LABS: Vitamin D 25 Hydroxy 38 ng/mL (30-100)
== END 2022-03-08 09:44 | disposition home or self-care (01) ==
LOC: CHSLAB 09:46
PROVIDERS: PCP Nurse Practitioner Family; Visit Provider Internal Medicine Nephrology
DX: N18.32 Chronic kidney disease, stage 3b (principal); E03.9 Hypothyroidism, unspecified; E78.5 Hyperlipidemia, unspecified; E78.2 Mixed hyperlipidemia; Z79.899 Other long term (current) drug therapy
CPT/HCPCS: 36415; 80061; 80069; 82306; 82570; 83970; 84156; 84439; 84443; 85025

== ENCOUNTER 2022-05-17 09:03 | Outpatient (CLI) | payer MEDICARE, SELFPAY ==
[2022-05-17 09:14] LABS: Basophils Absolute Auto 0.03 K/mm3 (0.00-0.10); Basophils Percent Auto 0.5 % (0.0-1.0); Eosinophils Absolute Auto 0.22 K/mm3 (0.02-0.50); Eosinophils Percent Auto 3.6 % (1.0-6.0); Hematocrit 34.6 % (35.0-42.0); Hemoglobin 10.5 g/dL (11.7-13.8); Immature Granulocyte Absolute 0.02 K/mm3 (0.00-0.00); Immature Granulocyte Percent A 0.3 % (0.0-0.0); Immature Reticulocyte Fraction 18.6 % (2.0-16.52); Lymphocytes Absolute Auto 1.86 K/mm3 (1.10-4.50); Lymphocytes Percent Auto 30.7 % (18.0-42.0); Mean Corpuscular HGB Conc 30.3 g/dL (32.0-36.0); Mean Corpuscular Hemoglobin 27.3 pg (27.0-31.0); Mean Corpuscular Volume 90.1 fL (78.0-102.0); Mean Platelet Volume 10.9 fl (9.2-11.8); Monocytes Absolute Auto 0.51 K/mm3 (0.10-0.90); Monocytes Percent Auto 8.4 % (2.0-11.0); Neutrophils Absolute Auto 3.4 K/mm3 (1.7-7.2); Neutrophils Percent Auto 56.5 % (50.0-70.0); Platelet Count Result 161 K/mm3 (150-420); Red Blood Count 3.84 M/mm3 (4.20-5.40); Red Cell Distribution Width 15.3 % (11.6-14.4); Reticulocyte Hemoglobin Conten 27.5 pg (28.0-35.0); Reticulocyte Percent 1.44 % (0.50-1.50); Reticulocytes Absolute 0.06 M/mm3 (0.02-0.1); White Blood Count 6.1 K/mm3 (4.8-10.8)
[2022-05-17 09:53] LABS: Alanine Aminotransferase 18 U/L (14-59); Albumin Level 3.3 g/dL (3.4-5.0); Alkaline Phosphatase 40 U/L (46-116); Anion Gap 7 mmol/L (8-16); Aspartate Amino Transferase 21 U/L (15-37); Bilirubin,Total 0.4 mg/dL (0.00-1.00); Blood Urea Nitrogen 21 mg/dL (7-18); Calcium 8.6 mg/dL (8.5-10.1); Carbon Dioxide 28 mmol/L (21-32); Chloride 109 mmol/L (98-108); Estimated Glomerular Filt Rate 35; Ferritin 9 ng/mL (8-252); Free T4 Free Thyroxine 0.95 ng/dL (0.76-1.46); Glucose 91 mg/dL (70-99); Iron 51 ug/dL (50-170); Osmolality Calculated 301 mOsm/kg (285-295); Potassium 4.5 mmol/L (3.5-5.1); Sodium 144 mmol/L (136-145); Thyroid Stimulating Hormone 2.48 uIU/mL (0.36-3.74); Total Protein 6.5 g/dL (6.4-8.2)
== END 2022-05-17 09:04 | disposition home or self-care (01) ==
LOC: CHSLAB 09:04
PROVIDERS: PCP Nurse Practitioner Family; Visit Provider Internal Medicine Hematology & Oncology
DX: E85.9 Amyloidosis, unspecified (principal); E64.9 Sequelae of unspecified nutritional deficiency; E03.9 Hypothyroidism, unspecified; D64.9 Anemia, unspecified
CPT/HCPCS: 36415; 80053; 82728; 83540; 84439; 84443; 85025; 85046

== ENCOUNTER 2022-06-11 10:59 | Outpatient (CLI) | payer MEDICARE, SELFPAY ==
--- NOTE | ~2022-06-11 | XR_ITS ---
XR hand BI arthritis min 3V DATE: 06/11/2022 11:50 INDICATION: Pain in the joints of the fingers TECHNIQUE: 4 views of each hand COMPARISON: None FINDINGS: There is osteopenia. There is narrowing at the triscaphe joints and first carpometacarpal joints with spurring at the firs t carpometacarpal joints, more severe on the left. There is mild narrowing at the right first metacarpophalangeal and left fifth metacarpophalangeal osorio nts. There is narrowing at the interphalangeal joints of both hands. Findings are consistent with ost eoporosis. No erosive change is noted. No fracture or dislocation, periosteal reaction or bone destruction or chondrocalcinosis is detected. IMPRESSION: Osteopenia Polyarticular osteoarthritis Reviewed, dictated and finalized at location B. STANT COOK
--- NOTE | ~2022-06-11 | XR_ITS ---
XR foot LT standing 2V DATE: 06/11/2022 11:49 INDICATION: Pain in joints of the foot TECHNIQUE: Weightbearing AP and lateral views COMPARISON: None FINDINGS: There is osteopenia. Mild soft tissue swelling of the dorsum of the forefoot. Mild plantar and slight posterior calcaneal enthesopathy without associated erosive change or periost itis. Status post bunionectomy. Mild osteophyte is at first metatarsophalangeal joint and multiple interphalangeal joints. No erosive change. No fracture or dislocation, periosteal reaction or bone destruction or erosive change. Anterior and posterior tibial and dorsalis pedis artery calcification. IMPRESSION: Mild plantar and slight posterior calcaneal enthesopathy Status post bunionectomy Mild osteoarthritis Reviewed, dictated and finalized at location B. ING/SIGNAGE TEAM MEMBER
--- NOTE | ~2022-06-11 | XR_ITS ---
XR foot RT standing 2V DATE: 06/11/2022 11:47 INDICATION: Pain of the joints of the feet TECHNIQUE: AP and lateral weightbearing views of right foot COMPARISON: None FINDINGS: Mild plantar calcaneal enthesopathy without associated erosive change or periostitis. Mild hallux valgus and bunion deformity. There is narrowing at multiple interphalangeal joints consistent with mild osteoarthritis. No fracture or dislocation, periosteal reaction or bone destruction is detected. Osteopenia. Anterior and posterior tibial artery and dorsalis pedis artery mild calcification. IMPRESSION: Mild plantar calcaneal enthesopathy Mild osteoarthritis Mild hallux valgus and bunion deformity Osteopenia. Reviewed, dictated and finalized at location B. S [employer]
[2022-06-11 11:45] LABS: Rheumatoid Factor Screen Negative (Negative)
[2022-06-14 12:38] LABS: Anti Cyclic Citrullinated Pept <16 Units (<20)
== END 2022-06-11 11:00 | disposition home or self-care (01) ==
PROVIDERS: PCP Nurse Practitioner Family; Visit Provider Internal Medicine
DX: M19.90 Unspecified osteoarthritis, unspecified site (principal)
CPT/HCPCS: 36415; 73130; 73620; 86200; 86430

== ENCOUNTER 2022-07-25 11:09 | Outpatient (CLI) | payer MEDICARE, SELFPAY ==
[2022-07-25 11:19] LABS: Basophils Absolute Auto 0.01 K/mm3 (0.00-0.10); Basophils Percent Auto 0.2 % (0.0-1.0); Eosinophils Absolute Auto 0.22 K/mm3 (0.02-0.50); Eosinophils Percent Auto 4.4 % (1.0-6.0); Hematocrit 35.2 % (35.0-42.0); Hemoglobin 10.4 g/dL (11.7-13.8); Immature Granulocyte Absolute 0.01 K/mm3 (0.00-0.00); Immature Granulocyte Percent A 0.2 % (0.0-0.0); Lymphocytes Absolute Auto 1.79 K/mm3 (1.10-4.50); Lymphocytes Percent Auto 36.2 % (18.0-42.0); Mean Corpuscular HGB Conc 29.5 g/dL (32.0-36.0); Mean Corpuscular Hemoglobin 26.8 pg (27.0-31.0); Mean Corpuscular Volume 90.7 fL (78.0-102.0); Mean Platelet Volume 11.4 fl (9.2-11.8); Monocytes Absolute Auto 0.44 K/mm3 (0.10-0.90); Monocytes Percent Auto 8.9 % (2.0-11.0); Neutrophils Absolute Auto 2.5 K/mm3 (1.7-7.2); Neutrophils Percent Auto 50.1 % (50.0-70.0); Platelet Count Result 154 K/mm3 (150-420); Red Blood Count 3.88 M/mm3 (4.20-5.40); Red Cell Distribution Width 15.7 % (11.6-14.4)
[2022-07-25 11:35] LABS: Alanine Aminotransferase 20 U/L (14-59); Albumin Level 3.3 g/dL (3.4-5.0); Alkaline Phosphatase 46 U/L (46-116); Anion Gap 5 mmol/L (8-16); Aspartate Amino Transferase 24 U/L (15-37); Bilirubin,Total 0.4 mg/dL (0.00-1.00); Blood Urea Nitrogen 17 mg/dL (7-18); Calcium 8.4 mg/dL (8.5-10.1); Carbon Dioxide 30 mmol/L (21-32); Chloride 105 mmol/L (98-108); Cholesterol 118 mg/dL (0-200); Estimated Glomerular Filt Rate 41; Glucose 89 mg/dL (70-99); HDL Direct 55 mg/dL (40-60); Iron 52 ug/dL (50-170); LDL Cholesterol Calculated 50 mg/dL (<130); Osmolality Calculated 290 mOsm/kg (285-295); Percent Iron Saturation 14 % (12-57); Potassium 4.4 mmol/L (3.5-5.1); Sodium 140 mmol/L (136-145); Total Protein 6.3 g/dL (6.4-8.2); Triglycerides 65 mg/dL (0-150)
== END 2022-07-25 11:10 | disposition home or self-care (01) ==
LOC: CHSLAB 11:10
PROVIDERS: PCP Nurse Practitioner Family; Visit Provider Nurse Practitioner Family
DX: E78.2 Mixed hyperlipidemia (principal); N18.32 Chronic kidney disease, stage 3b; E61.1 Iron deficiency; D64.9 Anemia, unspecified
CPT/HCPCS: 36415; 80053; 80061; 83540; 83550; 85025

== ENCOUNTER 2022-08-10 10:43 | Outpatient (CLI) | payer MEDICARE, SELFPAY | END 2022-08-10 10:44 | disposition home or self-care (01) | LOC: CHSLAB 10:44 | PROVIDERS: PCP Nurse Practitioner Family; Visit Provider Nurse Practitioner Family | DX: R19.7 Diarrhea, unspecified (principal) | CPT/HCPCS: 87045; 87427; 87493 ==

== ENCOUNTER 2022-09-06 08:24 | Outpatient (CLI) | payer MEDICARE, SELFPAY ==
--- NOTE | ~2022-09-06 | DEXA_ITS ---
Bone Density Report Name: MARBELLA IYER Age: 77 Sex: Female Ethnicity: White Date of : 1945 Indication: postmenopausal; screening for osteoporosis; height loss; inflammatory bowel disease; prior fracture; cancer; end stage renal disease; hysterectomy; Referring Provider: Irasema Murguia Study: Bone densitometry was performed. Exam Date: September 06, 2022 Accession number: [id number] Bone Density: Region BMD T-score Z-score Classification AP Spine(L2, L3, L4) 1.104 0.2 2.9 Normal World Health Organization criteria for BMD impression classify patients as: Normal (T-score at or above -1.0), Osteopenia (T-score between -1.0 and -2.5), or Osteoporosis (T-score at or below -2.5). Clinical Information Provided by Patient: Have had a previous hip or vertebral fracture Has had a low trauma fracture Has used the following medications: Vitamin D, Calcium, multivitamin Has the following medical conditions: Cancer, End stage renal disease, Inflammatory bowel diseases, Hysterectomy Patient maximum height was 69 Menopause Age: 37 No regular weight bearing exercise Drinks caffeinated beverages Onset of menses at age 13 Number of children 2 Impression: The patient has normal bone mass. The patient has risk factors, including: previous fracture. Discussion: INCREASED RISK OF FRACTURE DUE TO HISTORY OF FRACTURE. The patient's previous fracture puts the patient at high risk of a future fracture. In untreated patients, the risk of osteoporotic fracture increases approximately two-fold for each 1.0 SD decrease in T-score. Low bone density is not the only risk factor for fracture; also consider factors such as patient's age, frailty or poor health, risk of falling, risk of injury, previous osteoporotic fracture, family history of osteoporosis, cigarette smoking, low body weight, etc. Not everyone with a low trauma fracture has osteoporosis; osteomalacia and other metabolic bone disorders should also be considered. Patients who have osteoporosis should be evaluated for specific diseases and conditions (secondary causes) that may cause or contribute to bone loss and fracture risk. National Osteoporosis Foundation (NOF) recommends pharmacologic intervention for patients with a prior hip or vertebral fracture regardless of BMD T-score. The patient should follow a healthful lifestyle (good nutrition with adequate calcium and vitamin D, and appropriate weight-bearing exercise). Follow-Up: Consider a repeat BMD and Vertebral Fracture Assessment (VFA) exam in 2 years or sooner if medically necessary, to reassess this patient's status. Reported by: Dr. Dwain Gomez on 09/10/2022 8:23:00 AM. Reviewed, dictated and finalized at location [facility]
== END 2022-09-06 08:25 | disposition home or self-care (01) ==
PROVIDERS: PCP Nurse Practitioner Family; Visit Provider Internal Medicine
DX: N18.32 Chronic kidney disease, stage 3b (principal); Z78.0 Asymptomatic menopausal state
CPT/HCPCS: 77080

== ENCOUNTER 2022-09-08 09:03 | Outpatient (CLI) | payer MEDICARE, SELFPAY ==
--- NOTE | ~2022-09-08 | MR_ITS ---
EXAMINATION: MR hand RT wo con DATE: 09/08/2022 10:30 INDICATION: Right hand pain. TECHNIQUE: Magnetic resonance imaging (MRI) of the right hand was performed without intravenous contr ast. COMPARISON: Right hand radiographs 06/11/2022 FINDINGS: Bone alignment is normal. No fracture. There is mild osteoarthritis of triscaphe joint and severe osteoarthritis of first carpometacarpal joint. There is mild osteoarthritis of many of the int erphalangeal joints. There is moderate osteoarthritis of second-fourth distal interphalangeal joints. There is a small effusion of first carpometacarpal joint. The flexor and extensor tendons are normal . IMPRESSION: 1. Polyarticular osteoarthritis. Reviewed, dictated and finalized at location A. L HARDENER
--- NOTE | ~2022-09-08 | MR_ITS ---
EXAMINATION: MR hand LT wo con DATE: 09/08/2022 10:31 INDICATION: Left hand pain. TECHNIQUE: Magnetic resonance imaging (MRI) of the left hand was performed without intravenous contra st. COMPARISON: Left hand radiographs 06/11/2022 FINDINGS: Bone alignment is normal. No fracture. There is mild osteoarthritis of triscaphe joint and moderate osteoarthritis of first carpometacarpal joint. There is mild osteoarthritis of some of the i nterphalangeal joints. There is moderate osteoarthritis of second-fourth distal interphalangeal joint s. The flexor and extensor tendons are normal. The musculature is normal. IMPRESSION: 1. Polyarticular osteoarthritis. Reviewed, dictated and finalized at location A. ING HOME ADMISSIONS DIRECTOR
== END 2022-09-08 09:04 | disposition home or self-care (01) ==
LOC: CHSIMG 09:04
PROVIDERS: PCP Nurse Practitioner Family; Visit Provider Internal Medicine
DX: M19.042 Primary osteoarthritis, left hand (principal); M19.041 Primary osteoarthritis, right hand
CPT/HCPCS: 73218

== ENCOUNTER 2022-09-17 11:17 | Outpatient (CLI) | payer MEDICARE, SELFPAY ==
[2022-09-17 11:32] LABS: Basophils Absolute Auto 0.02 K/mm3 (0.00-0.10); Basophils Percent Auto 0.3 % (0.0-1.0); Eosinophils Absolute Auto 0.21 K/mm3 (0.02-0.50); Eosinophils Percent Auto 3.7 % (1.0-6.0); Hematocrit 38.2 % (35.0-42.0); Hemoglobin 11.7 g/dL (11.7-13.8); Immature Granulocyte Absolute 0.01 K/mm3 (0.00-0.00); Immature Granulocyte Percent A 0.2 % (0.0-0.0); Lymphocytes Absolute Auto 1.95 K/mm3 (1.10-4.50); Mean Corpuscular HGB Conc 30.6 g/dL (32.0-36.0); Mean Corpuscular Hemoglobin 27.6 pg (27.0-31.0); Mean Corpuscular Volume 90.1 fL (78.0-102.0); Mean Platelet Volume 10.7 fl (9.2-11.8); Monocytes Absolute Auto 0.53 K/mm3 (0.10-0.90); Monocytes Percent Auto 9.2 % (2.0-11.0); Neutrophils Percent Auto 52.6 % (50.0-70.0); Platelet Count Result 173 K/mm3 (150-420); Red Blood Count 4.24 M/mm3 (4.20-5.40); Red Cell Distribution Width 14.9 % (11.6-14.4); White Blood Count 5.7 K/mm3 (4.8-10.8)
[2022-09-17 11:42] LABS: Total Protein Urine Random < 7.0 mg/dL (0.0-11.9); Ur Ttl Prot Creatinine Ratio 0.17 mg/mg (0-0.20)
[2022-09-17 12:08] LABS: Albumin Level 3.5 g/dL (3.4-5.0); Anion Gap 6 mmol/L (8-16); Blood Urea Nitrogen 16 mg/dL (7-18); Calcium 8.9 mg/dL (8.5-10.1); Carbon Dioxide 30 mmol/L (21-32); Chloride 107 mmol/L (98-108); Estimated Glomerular Filt Rate 40; Glucose 84 mg/dL (70-99); Osmolality Calculated 296 mOsm/kg (285-295); Phosphorus 4.1 mg/dL (2.6-4.7); Potassium 4.4 mmol/L (3.5-5.1); Sodium 143 mmol/L (136-145)
[2022-09-20 18:56] LABS: Parathyroid Intact 56 pg/mL (14-64)
== END 2022-09-17 11:18 | disposition home or self-care (01) ==
LOC: CHSLAB 11:18
PROVIDERS: PCP Nurse Practitioner Family; Visit Provider Internal Medicine Nephrology
DX: N18.32 Chronic kidney disease, stage 3b (principal)
CPT/HCPCS: 36415; 80069; 82570; 83970; 84156; 85025

== ENCOUNTER 2022-10-04 05:46 | Outpatient (CLI) | payer MEDICARE, SELFPAY ==
--- NOTE | 2022-10-04 06:55 | SUR.OPER ---
Patient brought to GI Lab. Instructions for patient undergoing Patency Capsule Endoscopy reviewed with patient. Consent form signed. Patient swallowed capsule with 8ozs of water. Patient instructed they may have clear liquids at 0830 this AM and eat or drink at 1030 this AM. Patient instructed to return to Imaging Center on 10/05/22 between 1000 and 1200 for x-ray imaging and to call [phone] or to return to the hospital if any nausea and vomiting or abdominal pain is experienced.
== END 2022-10-04 05:47 | disposition home or self-care (01) ==
PROVIDERS: PCP Nurse Practitioner Family; Visit Provider Internal Medicine Gastroenterology
PROC: 0DJ07ZZ Inspection of Upper Intestinal Tract, Via Natural or Artificial Opening (ICD-10-PCS; CPT 91110; principal; 2022-10-04 07:00)
DX: D50.9 Iron deficiency anemia, unspecified (principal)
CPT/HCPCS: 91110

== ENCOUNTER 2022-10-05 10:04 | Outpatient (CLI) | payer MEDICARE, SELFPAY ==
--- NOTE | ~2022-10-05 | XR_ITS ---
XR abdomen/kub 1V DATE: 10/05/2022 10:26 INDICATION: Anemia TECHNIQUE: 2 AP views COMPARISON: 12/06/2020 CT abdomen pelvis FINDINGS: Radiopaque bowel sutures overlie the left lower quadrant of the abdomen. Status post ventra l abdominal wall repair. Status post bilateral total hip arthroplasty. No bowel obstruction or visceromegaly or significant abnormal calcification is noted. IMPRESSION: Postoperative changes; no bowel obstruction is evident Reviewed, dictated and finalized at Location A. Reviewed, dictated and finalized at location B.
== END 2022-10-05 10:05 | disposition home or self-care (01) ==
LOC: ANHIMG 10:10
PROVIDERS: PCP Nurse Practitioner Family; Visit Provider Internal Medicine Gastroenterology
DX: Z12.11 Encounter for screening for malignant neoplasm of colon (principal); D64.9 Anemia, unspecified
CPT/HCPCS: 74018

== ENCOUNTER 2022-10-23 00:13 | Day surgery (SDC) | payer MEDICARE, SELFPAY ==
[2022-10-15 13:57] VITALS: BMI 33.0
--- NOTE | 2022-10-22 13:11 | WPDANESEPPF ---
Anes - Initial Pre Proc Eval Procedure: Operation Date: 10/23/22 07:30 Proposed Procedures p Esophagogastroduodenoscopy With - Rohith Cochran MD s Deployment Of Givens Capsule Endoscopy - Rohith Cochran MD Date/Time: 10/22/22 13:11 Surgeon: Rohith Cochran MD Pre Op Diagnosis: HEATH Patient Data Age: 77 Gender: F Height: 1.7 m Weight: 96.5 kg Allergies Allergy/AdvReac Type Severity Reaction Status Date / Time codeine Allergy Intermediate unknown Verified 10/23/22 06:31 cephalexin [From Keflex] Allergy Rash Verified 10/23/22 06:31 Sulfa (Sulfonamide AdvReac Unknown Nausea Verified 10/23/22 06:31 Antibiotics) Tetanus Vaccines and Toxoid AdvReac Unknown Vomiting Verified 10/23/22 06:31 Iodinated Contrast Media AdvReac Other Verified 10/23/22 06:31 Home Medications Medication Instructions Recorded Confirmed Type calcium carbonate 600 mg calcium 600 mg PO BID 07/21/19 10/15/22 History (1,500 mg) tablet (Calcium) cholecalciferol (vitamin D3) 25 25 mcg PO HS 03/18/20 10/15/22 History mcg (1,000 unit) capsule Baby Aspirin 81 mg PO DAILY 12/06/20 10/15/22 History PreserVision AREDS 1 tab-cap PO BID 12/06/20 10/15/22 History cyanocobalamin (vitamin B-12) 1 tablet PO EVERY OTHER DAY 02/02/21 10/15/22 History multivit with minerals-iron 18 1 tablet PO DAILY 02/02/21 10/15/22 History mg-folic ac 400 mcg-vit K 25 mcg tablet (Adults Multivitamin) rosuvastatin 20 mg tablet See Rx Instructions .Route 09/26/22 10/15/22 Rx .COMPLEX #90 tabs alprazolam 0.5 mg tablet 0.5 mg PO HS PRN Insomnia #20 tabs 10/01/22 10/15/22 Rx Patient hx anesthesia problems: none Family hx anesthesia problems: none Results Review: All pre-operative results and documents have been reviewed as part of the pre-operative evaluation. [facility] Past Medical History Medical History Abnormal CT scan, sigmoid colon Achilles tendinitis of right lower extremity Acute on chronic blood loss anemia Anxiety Arthritis of ankle, right, degenerative Bilateral lower extremity edema BMI 34.0-34.9,adult Chronic back pain Chronic narcotic use 7.5mg percocet for ten years. Coronary artery disease With history of acute myocardial infarction in 1999 and which is stent was placed. She also had another stent placed in 2008. 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 PORSCHE (generalized anxiety disorder) Generalized osteoarthritis of multiple sites GERD (gastroesophageal reflux disease) History of Clostridioides difficile colitis Hyperlipemia Hyperlipidemia Inflammatory arthritis Inflammatory arthritis Ischemic colitis Kidney stones Laceration of left lower leg Macular degeneration Right ankle pain Surgical History Surgical History H/O bilateral breast reduction surgery H/O cataract extraction H/O hemorrhoidectomy History of appendectomy History of dilation and curettage History of heart artery stent In 1999 and 2008. History of hip replacement History of hysterectomy History of repair of rectocele History of tonsillectomy Hx of cholecystectomy Hx of coronary artery bypass graft Personal history of gastric bypass S/P lumpectomy, left breast Family History Family History Mother Family history of congenital heart disease Family history of diabetes mellitus in first degree relative Family history of malignant neoplasm of uterus Father Family history of chronic obstructive pulmonary disease Family history of emphysema Family history of malignant neoplasm of breast in first degree relative Family history of malignant neoplasm of urinary bladder Diabetes mellitus Hypertension F
[2022-10-23 06:32] VITALS: BP 140/67; PULSE 72; RESP 20; TEMP 36.1; O2SAT 98; BMI 33.4
[2022-10-23] MEDS: LACTATED RINGERS 1,000 ML 150 ML IV CONT (06:48)
--- NOTE | 2022-10-23 07:29 | PM.HPGS ---
History of Present Illness History of Present Illness Consent: Risks, benefits, and alternatives have been discussed and questions answered. Patient agrees to proceed with procedure. Chief complaint: HEATH Narrative: Maida Camacho is a 77 year old female h/o anemia with hb 10.5, then she saw GI in [place] that recommended egd with capsule. She denies overt gib, had episode earlier of diarrhea but improved. No nausea, weight loss. She also had breast cancer on remission and oncologist suggested GI referral. She had gastric bypass with 8 inches SB removed (h/o adhesions). patency capsule was ok. Last colonoscopy healing of ischemic colitis. Review of Systems Constitutional: Constitutional: Denies headache(s) and Denies weakness Eyes: Eyes: Denies blurry vision ENT: Reports Normal hearing present, Denies headache(s) and Denies neck pain Cardiovascular: Cardiovascular: Denies chest pain and Denies dyspnea Respiratory: Respiratory: Denies dyspnea Gastrointestinal: Gastrointestinal: Reports no additional gastrointestinal complaints Genitourinary: Genitourinary: Denies dysuria Musculoskeletal: Musculoskeletal: Denies neck pain Integumentary/Breasts: Skin/Breast: Denies dry skin Neurologic: Reports Normal hearing present, Denies headache(s) and Denies weakness Psychiatric: Psychiatric: Denies anxiety Endocrine: Endocrine: Denies change in body appearance Hematologic/Lymphatic: Hematologic/Lymphatic: Denies easy bleeding Allergic/Immunologic: Allergic/Immunologic: Denies urticaria PMFSH Past Medical History Medical History Abnormal CT scan, sigmoid colon Achilles tendinitis of right lower extremity Acute on chronic blood loss anemia Anxiety Arthritis of ankle, right, degenerative Bilateral lower extremity edema BMI 34.0-34.9,adult Chronic back pain Chronic narcotic use 7.5mg percocet for ten years. Coronary artery disease With history of acute myocardial infarction in 1999 and which is stent was placed. She also had another stent placed in 2008. 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 PORSCHE (generalized anxiety disorder) Generalized osteoarthritis of multiple sites GERD (gastroesophageal reflux disease) History of Clostridioides difficile colitis Hyperlipemia Hyperlipidemia Inflammatory arthritis Inflammatory arthritis Ischemic colitis Kidney stones Laceration of left lower leg Macular degeneration Right ankle pain Surgical History Surgical History H/O bilateral breast reduction surgery H/O cataract extraction H/O hemorrhoidectomy History of appendectomy History of dilation and curettage History of heart artery stent In 1999 and 2008. History of hip replacement History of hysterectomy History of repair of rectocele History of tonsillectomy Hx of cholecystectomy Hx of coronary artery bypass graft Personal history of gastric bypass S/P lumpectomy, left breast Family History Family History Mother Family history of congenital heart disease Family history of diabetes mellitus in first degree relative Family history of malignant neoplasm of uterus Father Family history of chronic obstructive pulmonary disease Family history of emphysema Family history of malignant neoplasm of breast in first degree relative Family history of malignant neoplasm of urinary bladder Diabetes mellitus Hypertension Family history of malignant neoplasm Sibling Family history of diabetes mellitus in first degree relative Family history of malignant neoplasm of uterus Sister Family history of type 2 diabetes mellitus Hypertension Father Acute myocardial infarction Social History Social History (Re
[2022-10-23 07:53] VITALS: BP 124/55; PULSE 73; RESP 19; O2SAT 93
[2022-10-23 08:03] VITALS: BP 125/56; PULSE 69; RESP 19; O2SAT 93
[2022-10-23 08:13] VITALS: BP 130/60; PULSE 72; RESP 20; O2SAT 93
--- NOTE | 2022-10-23 15:33 | SUR.OPER ---
Patient returned to the GI Lab at 1530 for recorder box removal. Patient voiced no complaints. States they have understanding of instructions. Patient left ambulatory.
== END 2022-10-23 08:25 | disposition home or self-care (01) ==
PROVIDERS: PCP Nurse Practitioner Family; Visit Provider Internal Medicine Gastroenterology
PROC: 0DJ08ZZ Inspection of Upper Intestinal Tract, Via Natural or Artificial Opening Endoscopic (ICD-10-PCS; CPT 43235; principal; 2022-10-23 07:30)
PROC: 0DJ07ZZ Inspection of Upper Intestinal Tract, Via Natural or Artificial Opening (ICD-10-PCS; CPT 91110; 2022-10-23 07:30)
DX: D50.9 Iron deficiency anemia, unspecified (principal); K21.00 Gastro-esophageal reflux disease with esophagitis, without bleeding; K22.10 Ulcer of esophagus without bleeding; Z98.84 Bariatric surgery status; I25.10 Atherosclerotic heart disease of native coronary artery without angina pectoris; I25.2 Old myocardial infarction; E78.5 Hyperlipidemia, unspecified; F41.1 Generalized anxiety disorder; H35.30 Unspecified macular degeneration; G89.29 Other chronic pain; Z79.891 Long term (current) use of opiate analgesic; Z95.5 Presence of coronary angioplasty implant and graft; Z85.3 Personal history of malignant neoplasm of breast; Z92.3 Personal history of irradiation; Z95.1 Presence of aortocoronary bypass graft; Z87.891 Personal history of nicotine dependence; E66.9 Obesity, unspecified; Z68.33 Body mass index [BMI] 33.0-33.9, adult
CPT/HCPCS: 43239; 88305; 88312; J2704; J7120

== ENCOUNTER 2022-11-05 09:58 | Outpatient (CLI) | payer MEDICARE, SELFPAY ==
--- NOTE | ~2022-11-05 | US_ITS ---
Renal-Bladder ultrasound Clinical History: Chronic kidney disease Technique: Real-time sonographic imaging of the kidneys and urinary bladder was performed. Findings: The right kidney measures 8.7 cm in length and the left kidney measures 8.4 cm. There is no hydronephrosis or renal calculus identified. Renal cortical echogenicity is within normal limits. No renal mass lesion is identified. The urinary bladder is partially distended at the time of this exam. No intraluminal echoes are ident ified. No abnormal wall thickening is seen. Impression: Unremarkable ultrasound of the kidneys and urinary bladder. Reviewed, dictated and finalized at location M. Impression: Unremarkable ultrasound of the kidneys and urinary bladder.
== END 2022-11-05 09:59 | disposition home or self-care (01) ==
LOC: CHSIMG 09:58
PROVIDERS: PCP Nurse Practitioner Family; Visit Provider Internal Medicine Nephrology
DX: N18.32 Chronic kidney disease, stage 3b (principal)
CPT/HCPCS: 76775

== ENCOUNTER 2022-11-27 11:39 | Outpatient (CLI) | payer MEDICARE, SELFPAY ==
[2022-11-27 12:20] LABS: Basophils Absolute Auto 0.02 K/mm3 (0.00-0.10); Basophils Percent Auto 0.4 % (0.0-1.0); Eosinophils Absolute Auto 0.23 K/mm3 (0.02-0.50); Eosinophils Percent Auto 4.2 % (1.0-6.0); Hematocrit 37.2 % (35.0-42.0); Hemoglobin 11.1 g/dL (11.7-13.8); Immature Granulocyte Absolute 0.01 K/mm3 (0.00-0.00); Immature Granulocyte Percent A 0.2 % (0.0-0.0); Lymphocytes Absolute Auto 1.84 K/mm3 (1.10-4.50); Lymphocytes Percent Auto 33.9 % (18.0-42.0); Mean Corpuscular HGB Conc 29.8 g/dL (32.0-36.0); Mean Corpuscular Hemoglobin 27.2 pg (27.0-31.0); Mean Corpuscular Volume 91.2 fL (78.0-102.0); Mean Platelet Volume 11.1 fl (9.2-11.8); Monocytes Absolute Auto 0.46 K/mm3 (0.10-0.90); Monocytes Percent Auto 8.5 % (2.0-11.0); Neutrophils Absolute Auto 2.9 K/mm3 (1.7-7.2); Neutrophils Percent Auto 52.8 % (50.0-70.0); Platelet Count Result 148 K/mm3 (150-420); Red Blood Count 4.08 M/mm3 (4.20-5.40); Red Cell Distribution Width 15.2 % (11.6-14.4); White Blood Count 5.4 K/mm3 (4.8-10.8)
[2022-11-27 12:57] LABS: Ferritin 11 ng/mL (8-252); Iron 49 ug/dL (50-170); Percent Iron Saturation 14 % (12-57)
== END 2022-11-27 11:40 | disposition home or self-care (01) ==
LOC: CHSLAB 11:41
PROVIDERS: PCP Nurse Practitioner Family; Visit Provider Internal Medicine Hematology & Oncology
DX: D50.9 Iron deficiency anemia, unspecified (principal)
CPT/HCPCS: 36415; 82728; 83540; 83550; 85025

== ENCOUNTER 2022-12-10 07:33 | Outpatient (CLI) | payer MEDICARE, SELFPAY ==
--- NOTE | ~2022-12-10 | XR_ITS ---
Left ankle Technique: AP, oblique, and lateral views were obtained. Clinical History: Pain Findings: No acute fracture or dislocation is seen. Osseous alignment is anatomic. Ankle mortise and other visualized joint spaces are preserved. Mild soft tissue swelling noted. Impression: No fracture or dislocation. Mild soft tissue swelling about the ankle. Reviewed, dictated and finalized at [facility]. Impression: No fracture or dislocation. Mild soft tissue swelling about the ankle.
--- NOTE | ~2022-12-10 | XR_ITS ---
Left foot Technique: AP, oblique, and lateral views were obtained. Clinical History: Chronic pain Findings: No acute fracture or dislocation is seen. Osseous alignment is anatomic. Mild degenerative changes are present of the interphalangeal joints of the toes. Probable prior first metatarsal osteot bala and bunionectomy. Soft tissues are unremarkable. Impression: No acute reality seen. Mild degenerative changes interphalangeal joints of the toes. Probable prior first metatarsal osteotomy and/or bunionectomy. Correlate with any relevant surgical h istory. Reviewed, dictated and finalized at location . Impression: No acute reality seen. Mild degenerative changes interphalangeal joints of the toes. Probable prior first metatarsal osteotomy and/or bunionectomy. Correlate with a ny relevant surgical history.
[2022-12-10 11:18] LABS: Partial Thromboplastin Time 25.9 SEC (23.90-30.70)
== END 2022-12-10 07:34 | disposition home or self-care (01) ==
PROVIDERS: Nurse Practitioner Family; PCP Nurse Practitioner Family; Visit Provider Orthopaedic Surgery
DX: H93.8X2 Other specified disorders of left ear (principal); M25.572 Pain in left ankle and joints of left foot; M79.672 Pain in left foot
CPT/HCPCS: 36415; 73610; 73630; 85730

== ENCOUNTER 2022-12-21 10:16 | Outpatient (CLI) | payer MEDICARE, SELFPAY ==
[2022-12-21] MEDS: IRON SUCROSE COMPLEX 300 MG in SODIUM CHLORIDE 0.9% IV 250 ML 125 MG IVPB (10:30)
[2022-12-21 10:34] VITALS: BP 135/56; PULSE 60; RESP 16; TEMP 36.4; O2SAT 97; BMI 33.2
--- NOTE | 2022-12-21 12:24 | PC.NURSE ---
Patient here for #2 of 3 IV Venofer infusions. Reports did well with #1 last week. Education given. No concerns voiced. IV Venofer administered. SEE MAR. Tolerated well. Will return 12/28/22 for #3. Safe exit of hospital per self/ambulatory.
== END 2022-12-21 10:17 | disposition home or self-care (01) ==
LOC: CHSTREATRM 10:17
PROVIDERS: PCP Nurse Practitioner Family; Visit Provider Internal Medicine Hematology & Oncology
DX: D50.8 Other iron deficiency anemias (principal)
CPT/HCPCS: 96365; 96366; J1756; J7050

== ENCOUNTER 2022-12-28 10:24 | Outpatient (CLI) | payer MEDICARE, SELFPAY ==
--- NOTE | 2022-12-28 10:35 | PC.NURSE ---
Here for OP infusion, warm blanket given
[2022-12-28] MEDS: IRON SUCROSE COMPLEX 300 MG in SODIUM CHLORIDE 0.9% IV 250 ML 125 MG IVPB (10:54)
--- NOTE | 2022-12-28 11:15 | PC.NURSE ---
No complaints, iron infusing well, lunch order obtained
--- NOTE | 2022-12-28 12:47 | PC.NURSE ---
ate 100 % of lunch, iron continues to infuse
--- NOTE | 2022-12-28 13:10 | PC.NURSE ---
discharged ambulatory to home, no complaints, IV site was removed and tolerated infusion well
== END 2022-12-28 10:25 | disposition home or self-care (01) ==
LOC: CHSTREATRM 10:27
PROVIDERS: PCP Nurse Practitioner Family; Visit Provider Internal Medicine Hematology & Oncology
DX: D50.9 Iron deficiency anemia, unspecified (principal)
CPT/HCPCS: 96365; 96366; J1756; J7050

== ENCOUNTER 2023-01-24 08:40 | Outpatient (CLI) | payer MEDICARE, SELFPAY ==
[2023-01-24 08:58] LABS: Basophils Absolute Auto 0.05 K/mm3 (0.00-0.10); Eosinophils Percent Auto 3.8 % (1.0-6.0); Hematocrit 41.7 % (35.0-42.0); Hemoglobin 12.9 g/dL (11.7-13.8); Immature Granulocyte Absolute 0.02 K/mm3 (0.00-0.00); Immature Granulocyte Percent A 0.4 % (0.0-0.0); Immature Platelet Fraction Pct 4.4 % (1.0-7.0); Lymphocytes Absolute Auto 1.89 K/mm3 (1.10-4.50); Lymphocytes Percent Auto 36.2 % (18.0-42.0); Mean Corpuscular HGB Conc 30.9 g/dL (32.0-36.0); Mean Corpuscular Hemoglobin 29.1 pg (27.0-31.0); Mean Corpuscular Volume 93.9 fL (78.0-102.0); Mean Platelet Volume 10.2 fl (9.2-11.8); Monocytes Absolute Auto 0.39 K/mm3 (0.10-0.90); Monocytes Percent Auto 7.5 % (2.0-11.0); Neutrophils Absolute Auto 2.7 K/mm3 (1.7-7.2); Neutrophils Percent Auto 51.1 % (50.0-70.0); Platelet Count Result 143 K/mm3 (150-420); Red Blood Count 4.44 M/mm3 (4.20-5.40); Red Cell Distribution Width 16.1 % (11.6-14.4); White Blood Count 5.2 K/mm3 (4.8-10.8)
[2023-01-24 09:42] LABS: Ferritin 78 ng/mL (8-252); Iron 61 ug/dL (50-170); Percent Iron Saturation 23 % (12-57); Vitamin B12 603 pg/mL (193-986)
== END 2023-01-24 08:41 | disposition home or self-care (01) ==
LOC: CHSLAB 08:43
PROVIDERS: PCP Nurse Practitioner Family; Visit Provider Internal Medicine Hematology & Oncology
DX: D50.9 Iron deficiency anemia, unspecified (principal)
CPT/HCPCS: 36415; 82607; 82728; 83540; 83550; 85025; 85055

== ENCOUNTER 2023-02-11 13:17 | Outpatient (CLI) | payer MEDICARE, SELFPAY ==
--- NOTE | ~2023-02-11 | MM_ITS ---
EXAMINATION: MM screening gisella BI w rafiq HISTORY: Screening mammogram, history of left breast cancer TECHNIQUE: Craniocaudal and mediolateral oblique 3-D tomosynthesis images were obtained and synthetic 2-D images were generated. CAD analysis was submitted and interpreted. COMPARISON: 02/08/2022, 02/06/2021, 12/29/2018 BREAST PARENCHYMAL COMPOSITION: There are scattered areas of fibroglandular density. FINDINGS: Lumpectomy changes are noted in the left breast. No suspicious mass, calcification, or arch itectural distortion are identified in either breast to suggest malignancy. There has been no suspici ous interval change. IMPRESSION: 1. No mammographic evidence of malignancy. 2. Recommend routine screening mammography in one year. BI-RADS Category 2: Benign finding(s). Reviewed, dictated and finalized at location A.
== END 2023-02-11 13:18 | disposition home or self-care (01) ==
LOC: CHSIMG 13:19
PROVIDERS: PCP Nurse Practitioner Family; Visit Provider Internal Medicine Hematology & Oncology
DX: Z12.31 Encounter for screening mammogram for malignant neoplasm of breast (principal)
CPT/HCPCS: 77063; 77067

== ENCOUNTER 2023-02-15 10:21 | Outpatient (CLI) | payer MEDICARE, SELFPAY ==
--- NOTE | 2023-02-15 10:30 | PC.NURSE ---
Here for outpatient infusion
[2023-02-15 10:42] VITALS: BMI 31.5
[2023-02-15 10:44] VITALS: BP 138/65; PULSE 62; RESP 18; TEMP 36.2; O2SAT 95
[2023-02-15] MEDS: IRON SUCROSE COMPLEX 300 MG in SODIUM CHLORIDE 0.9% IV 250 ML 125 MG IVPB (10:55)
--- NOTE | 2023-02-15 13:15 | PC.NURSE ---
saline lock discontniued, tolerated infusion well, site clear, ambulatory upon discharge home, no questions
== END 2023-02-15 10:22 | disposition home or self-care (01) ==
LOC: CHSTREATRM 10:23
PROVIDERS: PCP Nurse Practitioner Family; Visit Provider Internal Medicine Hematology & Oncology
DX: D50.8 Other iron deficiency anemias (principal)
CPT/HCPCS: 96365; 96366; J1756; J7050

== ENCOUNTER 2023-02-21 08:54 | Outpatient (CLI) | payer MEDICARE, SELFPAY ==
--- NOTE | ~2023-02-21 | MR_ITS ---
EXAMINATION: MR brain IAC wo/w con DATE: 02/21/2023 10:47 INDICATION: Vertigo. TECHNIQUE: Magnetic resonance imaging (MRI) of the brain, brainstem, and internal auditory canals was performed without and with 20 mL MultiHance intravenous contrast. COMPARISON: None. FINDINGS: There is no intracranial hemorrhage, acute infarction, or abnormal intracranial mass lesion . The ventricles are normal in size. There are likely changes of left ocular lens replacement surgery . There is mild mucosal thickening in the ethmoid sinuses. There is a trace left mastoid effusion. Th e internal auditory canals and inner and middle ears are normal. IMPRESSION: 1. Normal brain. Reviewed, dictated and finalized at location A. IMPRESSION: 1. Normal brain.
== END 2023-02-21 08:55 | disposition home or self-care (01) ==
LOC: CHSIMG 08:55
PROVIDERS: PCP Nurse Practitioner Family; Visit Provider Nurse Practitioner Family
DX: R26.89 Other abnormalities of gait and mobility (principal); R42 Dizziness and giddiness
CPT/HCPCS: 70553; A9577

== ENCOUNTER 2023-02-22 10:00 | Outpatient (CLI) | payer MEDICARE, SELFPAY ==
[2023-02-22 10:07] VITALS: BMI 31.5
[2023-02-22 10:20] LABS: Hematocrit 41.9 % (35.0-42.0); Hemoglobin 13.2 g/dL (11.7-13.8); Mean Corpuscular HGB Conc 31.5 g/dL (32.0-36.0); Mean Corpuscular Hemoglobin 29.7 pg (27.0-31.0); Mean Corpuscular Volume 94.4 fL (78.0-102.0); Mean Platelet Volume 10.5 fl (9.2-11.8); Platelet Count Result 141 K/mm3 (150-420); Red Blood Count 4.44 M/mm3 (4.20-5.40); Red Cell Distribution Width 14.9 % (11.6-14.4); White Blood Count 5.4 K/mm3 (4.8-10.8)
[2023-02-22 10:27] VITALS: BP 132/55; PULSE 64; RESP 16; TEMP 36.3; O2SAT 97
[2023-02-22] MEDS: IRON SUCROSE COMPLEX 300 MG in SODIUM CHLORIDE 0.9% IV 250 ML 125 MG IVPB (10:35)
[2023-02-22 10:41] LABS: Creatinine Urine 53.66 mg/dL (40-278); Total Protein Urine Random < 6.0 mg/dL (0.0-11.9); Ur Ttl Prot Creatinine Ratio 0.11 mg/mg (0-0.20)
[2023-02-22 10:46] LABS: Albumin Level 3.8 g/dL (3.4-5.0); Anion Gap 7 mmol/L (8-16); Blood Urea Nitrogen 16 mg/dL (7-18); Calcium 8.9 mg/dL (8.5-10.1); Carbon Dioxide 30 mmol/L (21-32); Chloride 105 mmol/L (98-108); Estimated CRCL calculation 36 ml/min; Estimated Glomerular Filt Rate 38; Glucose 91 mg/dL (70-99); Osmolality Calculated 295 mOsm/kg (285-295); Phosphorus 4.2 mg/dL (2.6-4.7); Potassium 4.1 mmol/L (3.5-5.1); Sodium 142 mmol/L (136-145)
--- NOTE | 2023-02-22 12:32 | PC.NURSE ---
Patient here for #2 of 3 IV Venofer infusion. No concerns voiced. Reports had no problems with last few iron infusions. IV Venofer administered. SEE MAR. Tolerated well. Will return 03/01 for #3. Safe exit of hospital per self/amb.
[2023-02-27 19:36] LABS: Parathyroid Intact 61 pg/mL (14-64)
== END 2023-02-22 10:01 | disposition home or self-care (01) ==
LOC: CHSTREATRM 10:02
PROVIDERS: Internal Medicine Nephrology; PCP Nurse Practitioner Family; Visit Provider Internal Medicine Hematology & Oncology
DX: N18.32 Chronic kidney disease, stage 3b (principal); D50.8 Other iron deficiency anemias
CPT/HCPCS: 36415; 80069; 82570; 83970; 84156; 85027; 96365; 96366; J1756; J7050

== ENCOUNTER 2023-03-01 09:56 | Outpatient (CLI) | payer MEDICARE, SELFPAY ==
[2023-03-01 10:02] VITALS: BMI 31.5
[2023-03-01 10:13] VITALS: BP 150/70; PULSE 78; RESP 16; TEMP 36.4; O2SAT 98
[2023-03-01] MEDS: IRON SUCROSE COMPLEX 300 MG in SODIUM CHLORIDE 0.9% IV 250 ML 125 MG IVPB (10:15)
--- NOTE | 2023-03-01 12:14 | PC.NURSE ---
Patient here for #3 of 3 IV Venofer infusion. No concerns voiced. IV Venofer administered. SEE MAR. Tolerated well. Safe exit of hospital per amb/self.
== END 2023-03-01 09:57 | disposition home or self-care (01) ==
LOC: CHSTREATRM 09:59
PROVIDERS: PCP Nurse Practitioner Family; Visit Provider Internal Medicine Hematology & Oncology
DX: D50.8 Other iron deficiency anemias (principal)
CPT/HCPCS: 96365; 96366; J1756; J7050

== ENCOUNTER 2023-04-05 10:05 | Outpatient (CLI) | payer MEDICARE, SELFPAY ==
[2023-04-05 10:20] LABS: Basophils Absolute Auto 0.03 K/mm3 (0.00-0.10); Basophils Percent Auto 0.6 % (0.0-1.0); Eosinophils Absolute Auto 0.22 K/mm3 (0.02-0.50); Eosinophils Percent Auto 4.2 % (1.0-6.0); Hematocrit 43.1 % (35.0-42.0); Hemoglobin 13.8 g/dL (11.7-13.8); Immature Granulocyte Absolute 0.02 K/mm3 (0.00-0.00); Immature Granulocyte Percent A 0.4 % (0.0-0.0); Lymphocytes Absolute Auto 1.96 K/mm3 (1.10-4.50); Lymphocytes Percent Auto 37.5 % (18.0-42.0); Mean Corpuscular Hemoglobin 30.5 pg (27.0-31.0); Mean Corpuscular Volume 95.1 fL (78.0-102.0); Mean Platelet Volume 10.4 fl (9.2-11.8); Monocytes Absolute Auto 0.34 K/mm3 (0.10-0.90); Monocytes Percent Auto 6.5 % (2.0-11.0); Neutrophils Absolute Auto 2.7 K/mm3 (1.7-7.2); Neutrophils Percent Auto 50.8 % (50.0-70.0); Platelet Count Result 141 K/mm3 (150-420); Red Blood Count 4.53 M/mm3 (4.20-5.40); Red Cell Distribution Width 13.5 % (11.6-14.4); White Blood Count 5.2 K/mm3 (4.8-10.8)
[2023-04-05 11:11] LABS: Ferritin 230 ng/mL (8-252); Iron 98 ug/dL (50-170); Percent Iron Saturation 45 % (12-57)
== END 2023-04-05 10:06 | disposition home or self-care (01) ==
LOC: CHSLAB 10:08
PROVIDERS: PCP Nurse Practitioner Family; Visit Provider Internal Medicine Hematology & Oncology
DX: D50.9 Iron deficiency anemia, unspecified (principal)
CPT/HCPCS: 36415; 82728; 83540; 83550; 85025

== ENCOUNTER 2023-05-28 13:34 | Outpatient (CLI) | payer MEDICARE, SELFPAY ==
--- NOTE | ~2023-05-28 | XR_ITS ---
EXAM: XR hand LT min 3V DATE: 05/28/2023 13:49 HISTORY: 4th and 5th finger numbness X 1 year . COMPARISON: 06/11/2022. FINDINGS: Severely decreased mineralization. No fracture or dislocation. No lytic or blastic lesion. Scattered moderate osteoarthritic type change in the hand, most notable in the DIP joints of the fin gers and the trapeziometacarpal joint. No erosion or periosteal change. Soft tissues within normal li mits. IMPRESSION: No acute osseous finding. Polyarticular osteoarthritis of left hand. Reviewed, dictated and finalized at location K. BRA TUTOR IMPRESSION: No acute osseous finding. Polyarticular osteoarthritis of left hand .
== END 2023-05-28 13:35 | disposition home or self-care (01) ==
LOC: CHSIMG 13:36
PROVIDERS: PCP Nurse Practitioner Family; Visit Provider Nurse Practitioner Family
DX: R20.0 Anesthesia of skin (principal); M79.645 Pain in left finger(s); M19.042 Primary osteoarthritis, left hand
CPT/HCPCS: 73130

== ENCOUNTER 2023-09-17 09:45 | Outpatient (CLI) | payer MEDICARE, SELFPAY ==
[2023-09-17 10:47] LABS: Hematocrit 44.9 % (35.0-42.0); Hemoglobin 14.3 g/dL (11.7-13.8); Mean Corpuscular HGB Conc 31.8 g/dL (32-36); Mean Corpuscular Hemoglobin 29.6 pg (27.0-31.0); Mean Platelet Volume 10.8 fl (9.2-11.8); Platelet Count Result 153 K/mm3 (150-420); Red Blood Count 4.83 M/mm3 (4.20-5.40); Red Cell Distribution Width 12.5 % (11.6-14.4); White Blood Count 5.7 K/mm3 (4.8-10.8)
[2023-09-17 11:09] LABS: Albumin Level 3.7 g/dL (3.4-5.0); Anion Gap 11 mmol/L (8-16); Blood Urea Nitrogen 22 mg/dL (7-18); Calcium 8.9 mg/dL (8.5-10.1); Carbon Dioxide 27 mmol/L (21-32); Chloride 104 mmol/L (98-108); Estimated Glomerular Filt Rate 43; Glucose 92 mg/dL (70-99); Osmolality Calculated 297 mOsm/kg (285-295); Potassium 4.5 mmol/L (3.5-5.1); Sodium 142 mmol/L (136-145)
[2023-09-17 11:22] LABS: Creatinine Urine 65.68 mg/dL (40-278); Total Protein Urine Random 10.5 mg/dL (0.0-11.9)
[2023-09-17 11:23] LABS: Ur Ttl Prot Creatinine Ratio 0.16 mg/mg (0-0.20)
[2023-09-17 15:44] LABS: Partial Thromboplastin Time 25.1 Sec (23.9-30.70); Prothrombin Time 11.3 Seconds (9.50-12.1)
[2023-09-20 17:20] LABS: Parathyroid Intact 68 pg/mL (14-64)
== END 2023-09-17 09:46 | disposition home or self-care (01) ==
PROVIDERS: Anesthesiology; PCP Nurse Practitioner Family; Visit Provider Internal Medicine Nephrology
DX: N18.32 Chronic kidney disease, stage 3b (principal)
CPT/HCPCS: 36415; 80069; 82570; 83970; 84156; 85027; 85610; 85730

== ENCOUNTER 2023-09-26 00:49 | Day surgery (SDC) | payer MEDICARE, SELFPAY ==
[2023-09-17 14:28] VITALS: BMI 32.0
--- NOTE | 2023-09-17 14:45 | PC.NURSE ---
PRE-OP INSTRUCTIONS, PLEASE READ CAREFULLY Report to the Outpatient Waiting Room, entrance under the green pavilion located off [facility], at time _0915_ on date _09/26/23_. Planned Procedure Time: _1115_. Time changes happen often and if your time is changed the preop area will call you the afternoon before. - You and your visitor will be asked to self-screen and do not enter if you have any COVID symptoms. - A mask is optional within the hospital at this time. - No food/fluids from midnight until time of surgery Take the following medications with a SIP of water the morning of surgery: _ALPRAZOLAM IF NEEDED_ DO NOT STOP ANY OF YOUR OTHER PRESCRIPTION MEDICATIONS PRIOR TO SURGERY ?EXCEPT THE FOLLOWING Medications to discontinue - _ASPIRIN PER DR. GODFREY - CALL OFFICE FOR INSTRUCTIONS_ Medications to discontinue per ANESTHESIA - _PRESERVISION & SUPPLEMENTS 3 DAYS PRIOR TO SURGERY, Date to take last dose 09/22/23_ Please no make-up, nail martiniquais, hairspray, perfume, deodorant, or body powder the day of surgery. No jewelry (including any body piercings) or valuables the day of surgery, leave them at home. Please take a shower or bath the night before, or the morning of, surgery with an antibacterial soap. Wear comfortable, loose fitting clothing. - Jewelry must be removed prior to entering the operating room. Rings and piercings that are not removed may be cut off. - The hospital will not accept responsibility for valuables. - Please leave all valuables, including medications, at home the day of surgery. If you are going home after surgery, a licensed driver trainee must drive you home. - NO public transportation without another adult if you receive anesthesia. - We recommend that an adult stay with you for 24 hours following discharge. - We also recommend that you do not drive, make important decision, drink alcoholic beverages, or take any drugs that were not prescribed by your health care provider for at least 24 hours after your discharge time. Follow any additional instructions given to you from your surgeon. If you or anyone in your household have experienced Covid symptoms in the past week, please notify your surgeon or the nurse liaison at the phone number below for possible testing. Telephone instructions given to _PATIENT_and asked if any additional questions and then verbalized understanding. Patient advised to call surgeon office or pre surgery nurse liaison [phone] if any additional questions.
[2023-09-26 09:40] VITALS: BP 121/66; PULSE 62; RESP 16; TEMP 36.2; O2SAT 100
[2023-09-26] MEDS: LACTATED RINGERS 1,000 ML 30 ML IV CONT (09:44)
--- NOTE | 2023-09-26 10:11 | PM.HPGS ---
History of Present Illness History of Present Illness Chief complaint: ulnar neuropathy at elbow Narrative: Patient seen and examined in pre-operative holding area. No interval change in medical history or symptoms. Patient recalls previous discussion of benefits and alternatives to procedure. Continues to desire to proceed with lef tcubital tunnel release. Reviewed procedure, post-op expectations and risks including but not limited to bleeding, infection, injury to tendon/nerve/vessel, decreased hand function, stiffness, RSD, no change or worsening of symptoms. I discussed the possible use of assistants and their participation in the case. Patient stated understanding and signed the consent form wishing to proceed. Review of Systems Review of Systems: All systems reviewed & are unremarkable except as noted in HPI and below PMFSH Past Medical History Medical History (Updated 09/26/23 @ 10:12 by Mary Nix MD) Abnormal CT scan, sigmoid colon Achilles tendinitis of right lower extremity Acute on chronic blood loss anemia Ankle pain, left Anxiety Arthritis of ankle, left, degenerative Arthritis of ankle, right, degenerative Bilateral lower extremity edema BMI 34.0-34.9,adult Chronic back pain Chronic narcotic use 7.5mg percocet for ten years. Coronary artery disease With history of acute myocardial infarction in 1999 and which is stent was placed. She also had another stent placed in 2008. 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 Entrapment of left ulnar nerve at elbow PORSCHE (generalized anxiety disorder) Generalized osteoarthritis of multiple sites GERD (gastroesophageal reflux disease) History of Clostridioides difficile colitis Hyperlipemia Hyperlipidemia Inflammatory arthritis Inflammatory arthritis Ischemic colitis Kidney stones Laceration of left lower leg Macular degeneration Osteoporosis Right ankle pain Surgical History Surgical History H/O bilateral breast reduction surgery H/O cataract extraction H/O hemorrhoidectomy History of appendectomy History of dilation and curettage History of heart artery stent In 1999 and 2008. History of hip replacement History of hysterectomy History of repair of rectocele History of tonsillectomy Hx of cholecystectomy Hx of coronary artery bypass graft Personal history of gastric bypass S/P lumpectomy, left breast Family History Family History Mother Family history of congenital heart disease Family history of diabetes mellitus in first degree relative Family history of malignant neoplasm of uterus Father Family history of chronic obstructive pulmonary disease Family history of emphysema Family history of malignant neoplasm of breast in first degree relative Family history of malignant neoplasm of urinary bladder Diabetes mellitus Hypertension Family history of malignant neoplasm Sibling Family history of diabetes mellitus in first degree relative Family history of malignant neoplasm of uterus Sister Family history of type 2 diabetes mellitus Hypertension Father Acute myocardial infarction Social History Social History Social History: The patient is and lives in [place]. 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 her from cancer in 2003. They have 2 sons, 1 from amyloidosis at the age of 54. Her other son lives in [place]. She designates her son, Malachi, as her surrogate decision maker and she wishes to be a full code. Smoking packs per day: 0.5 Smoking cigarettes per day: 10.0 Years smoked: 37 Smoking pack-years: 18.50 Smoking status: Never smoker Tobacco type: cigarettes Second cristobal
--- NOTE | 2023-09-26 10:13 | W.PM.PROC2 ---
Procedure Note - Detailed Date of Procedure 09/26/23 Pre-op Diagnosis ulnar neuropathy at elbow Post-op Diagnosis Same Procedure Performed left cubital tunnel release Surgeon Mary Nix MD Identity Management Developer Trae Lundy PA-C Anesthesia MAC Description of Procedure INFORMED CONSENT:The patient was seen and examined and marked in the pre-op area.? The patient signed the consent form. PROCEDURE IN DETAIL: The patient taken back to OR on the stretcher in supine position. Time out performed with anesthesia, surgeon and staff agreeing on patient's name site and surgery to be performed SCDs were placed on the lower extremities and inflated A tourniquet was placed on {left} upper extremity and antibiotics given IV After anesthesia administered sedation I injected {10}cc 1%lido with epi and 0.5% marcaine plain at the operative site The?{left upper extremity}?was prepped and draped in sterile fashion the??{left upper extremity} was??exsanguinated with Esmarch bandage and tourniquet inflated to 250mmHg I next proceeded with making a longitudinal incision between two heads for flexor carpi ulnaris at end of {left} cubital tunnel with 15 blade scalpel.? Littler scissors were used to spread down to FCU fascia.? An incision was made in FCU fascia and ulnar nerve identified exiting cubital tunnel.? I proceeded with complete retrograde release of the cubital tunnel including 7cm proximal for the intermuscular septum.? The nerve appeared healthy with visible vaso nervorum.? There was no subluxation on full elbow range of motion. ? I irrigated with normal saline and closure with 4-0 monocryl for dermis and subcuticular. The incision was covered with Dermabond then 4x4s, keke, and a posterior elbow splint for patient safety, security and comfort and secured with quang bandages after the tourniquet was let down noting the hand was warm and well perfused.? Patient awaken from anesthesia and transferred to recovery in stable condition Complications - none EBL- 1cc Disposition - home in stable conditions Trae Lundy PA-C was essential for positioning, retraction, closure and dressing placement [facility] Billing Surgery - Charge Forward: Surgery Billing ([id number] same for trae add mod )
--- NOTE | 2023-09-26 10:37 | WPDANESEPPF ---
Anes - Initial Pre Proc Eval Procedure: Operation Date: 09/26/23 11:15 Proposed Procedures p Left Cubital Tunnel Release - Mary Nix MD Date/Time: 09/26/23 10:37 Surgeon: Mary Nix MD Pre Op Diagnosis: ulnar neuropathy at elbow Patient Data Age: 78 Gender: F Height: 1.73 m Weight: 94.5 kg Last Vital Signs Temp 36.2 C L 09/26/23 09:40 Pulse 62 09/26/23 09:40 Resp 16 09/26/23 09:40 BP 121/66 09/26/23 09:40 Pulse Ox 100 09/26/23 09:40 O2 Del Method Room Air 09/26/23 09:40 Allergies Allergy/AdvReac Type Severity Reaction Status Date / Time codeine Allergy Intermediate STATES Verified 09/26/23 09:14 MAKES ME A VERY MEAN PERSON cephalexin [From Keflex] Allergy Rash Verified 09/26/23 09:14 Sulfa (Sulfonamide AdvReac Unknown Nausea Verified 09/26/23 09:14 Antibiotics) Tetanus Vaccines and Toxoid AdvReac Unknown Vomiting Verified 09/26/23 09:14 Iodinated Contrast Media AdvReac AVOID D/T Verified 09/26/23 09:14 STAGE 3 KIDNEY DISEASE Home Medications Medication Instructions Recorded Confirmed Type calcium carbonate 600 mg calcium 600 mg PO BID 07/21/19 09/25/23 History (1,500 mg) tablet (Calcium) cholecalciferol (vitamin D3) 25 25 mcg PO HS 03/18/20 09/25/23 History mcg (1,000 unit) capsule Baby Aspirin 81 mg PO DAILY 12/06/20 09/25/23 History PreserVision AREDS 1 tab-cap PO BID 12/06/20 09/25/23 History cyanocobalamin (vitamin B-12) 1 tablet PO EVERY OTHER DAY 02/02/21 09/25/23 History rosuvastatin 20 mg tablet See Rx Instructions .Route 09/26/22 09/25/23 Rx .COMPLEX #90 tabs omeprazole 40 mg capsule,delayed 40 mg PO DAILY #30 caps 10/23/22 09/25/23 Rx release furosemide 20 mg tablet (Lasix) 20 mg PO DAILY PRN SWELLING 11/21/22 09/25/23 History meclizine 12.5 mg tablet 12.5 mg PO TID PRN Dizziness Or 11/21/22 09/25/23 History Vertigo alprazolam 0.5 mg tablet 0.5 mg PO HS PRN Insomnia #20 tabs 09/02/23 09/25/23 Rx Patient hx anesthesia problems: none Family hx anesthesia problems: none Results Review: All pre-operative results and documents have been reviewed as part of the pre-operative evaluation. [facility] Past Medical History Medical History Abnormal CT scan, sigmoid colon Achilles tendinitis of right lower extremity Acute on chronic blood loss anemia Ankle pain, left Anxiety Arthritis of ankle, left, degenerative Arthritis of ankle, right, degenerative Bilateral lower extremity edema BMI 34.0-34.9,adult Chronic back pain Chronic narcotic use 7.5mg percocet for ten years. Coronary artery disease With history of acute myocardial infarction in 1999 and which is stent was placed. She also had another stent placed in 2008. 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 Entrapment of left ulnar nerve at elbow PORSCHE (generalized anxiety disorder) Generalized osteoarthritis of multiple sites GERD (gastroesophageal reflux disease) History of Clostridioides difficile colitis Hyperlipemia Hyperlipidemia Inflammatory arthritis Inflammatory arthritis Ischemic colitis Kidney stones Laceration of left lower leg Macular degeneration Osteoporosis Right ankle pain Surgical History Surgical History H/O bilateral breast reduction surgery H/O cataract extraction H/O hemorrhoidectomy History of appendectomy History of dilation and curettage History of heart artery stent In 1999 and 2008. History of hip replacement History of hysterectomy History of repair of rectocele History of tonsillectomy Hx of cholecystectomy Hx of coronary artery bypass graft Personal history of gastric bypass S/P lumpectomy, left breast Family History Family His
[2023-09-26] MEDS: CLINDAMYCIN 900 MG/D5W 50 ML 900 MG/50 ML PIGGYBACK 50 MG IVPB (11:20)
[2023-09-26] MEDS: LIDO 1%/EPINEPHRINE 1:100,000 50 ML VIAL 10 ML INFILTRATE (11:28)
[2023-09-26 11:48] VITALS: BP 101/47; PULSE 66; RESP 14; O2SAT 96
[2023-09-26 12:15] VITALS: BP 110/67; PULSE 60; RESP 15
[2023-09-26 12:45] VITALS: BP 131/52; PULSE 65; RESP 20
[2023-09-26 13:15] VITALS: BP 129/51; PULSE 69; RESP 20
== END 2023-09-26 13:30 | disposition home or self-care (01) ==
PROVIDERS: PCP Nurse Practitioner Family; Visit Provider Plastic Surgery
PROC: (CPT 64718; principal; 2023-09-26 11:15)
DX: G56.22 Lesion of ulnar nerve, left upper limb (principal); E78.5 Hyperlipidemia, unspecified; F41.9 Anxiety disorder, unspecified; K21.9 Gastro-esophageal reflux disease without esophagitis; D62 Acute posthemorrhagic anemia; G89.29 Other chronic pain; M54.9 Dorsalgia, unspecified; M81.0 Age-related osteoporosis without current pathological fracture; I25.10 Atherosclerotic heart disease of native coronary artery without angina pectoris; H35.30 Unspecified macular degeneration; I25.2 Old myocardial infarction; E66.9 Obesity, unspecified; Z68.31 Body mass index [BMI] 31.0-31.9, adult; Z98.84 Bariatric surgery status; Z90.10 Acquired absence of unspecified breast and nipple; Z90.49 Acquired absence of other specified parts of digestive tract; Z95.5 Presence of coronary angioplasty implant and graft; Z85.3 Personal history of malignant neoplasm of breast; Z92.3 Personal history of irradiation; Z82.49 Family history of ischemic heart disease and other diseases of the circulatory system; Z86.79 Personal history of other diseases of the circulatory system; Z80.49 Family history of malignant neoplasm of other genital organs; Z80.3 Family history of malignant neoplasm of breast; Z80.52 Family history of malignant neoplasm of bladder
CPT/HCPCS: 64718; J2704; J3010; J7120

== ENCOUNTER 2023-10-17 07:41 | Outpatient (CLI) | payer MEDICARE, SELFPAY ==
[2023-10-17 08:09] LABS: Basophils Absolute Auto 0.03 K/mm3 (0.00-0.10); Basophils Percent Auto 0.6 % (0.0-1.0); Eosinophils Absolute Auto 0.25 K/mm3 (0.02-0.50); Eosinophils Percent Auto 4.6 % (1.0-6.0); Hematocrit 43.6 % (35.0-42.0); Hemoglobin 13.6 g/dL (11.7-13.8); Immature Granulocyte Absolute 0.02 K/mm3 (0.00-0.00); Immature Granulocyte Percent A 0.4 % (0.0-0.0); Immature Platelet Fraction Pct 3.6 % (1.0-7.0); Lymphocytes Absolute Auto 1.78 K/mm3 (1.10-4.50); Mean Corpuscular HGB Conc 31.2 g/dL (32-36); Mean Corpuscular Hemoglobin 29.3 pg (27.0-31.0); Mean Platelet Volume 10.2 fl (9.2-11.8); Monocytes Absolute Auto 0.46 K/mm3 (0.10-0.90); Monocytes Percent Auto 8.5 % (2.0-11.0); Neutrophils Absolute Auto 2.85 K/mm3 (1.70-7.20); Neutrophils Percent Auto 52.9 % (50.0-70.0); Platelet Count Result 134 K/mm3 (150-420); Red Blood Count 4.64 M/mm3 (4.20-5.40); Red Cell Distribution Width 12.5 % (11.6-14.4); White Blood Count 5.4 K/mm3 (4.8-10.8)
[2023-10-17 08:43] LABS: Ferritin 196 ng/mL (8-252); Iron 77 ug/dL (50-170); Percent Iron Saturation 36 % (12-57)
== END 2023-10-17 07:42 | disposition home or self-care (01) ==
LOC: CHSLAB 07:44
PROVIDERS: PCP Nurse Practitioner Family; Visit Provider Internal Medicine Hematology & Oncology
DX: D50.9 Iron deficiency anemia, unspecified (principal)
CPT/HCPCS: 36415; 82728; 83540; 83550; 85025; 85055

== ENCOUNTER 2024-02-17 13:35 | Outpatient (CLI) | payer MEDICARE, SELFPAY ==
--- NOTE | ~2024-02-17 | MM_ITS ---
EXAMINATION: MM screening gisella BI w rafiq HISTORY: Screening TECHNIQUE: Craniocaudal and mediolateral oblique 3-D tomosynthesis images were obtained and synthetic 2-D images were generated. CAD analysis was submitted and interpreted. COMPARISON: Comparison to multiple prior studies sequentially, with oldest reviewed study dated 03/2019. BREAST PARENCHYMAL COMPOSITION: Not dense: There are scattered areas of fibroglandular density. FINDINGS: Bilateral breast asymmetries are unchanged from prior studies. There is no evidence of susp icious mass, calcification, or architectural distortion to suggest malignancy in either breast. There has been no suspicious interval change. IMPRESSION: 1. No mammographic evidence of malignancy. 2. Recommend routine screening mammography in one year. BI-RADS Category 1: Negative Reviewed, dictated and finalized at location B.
== END 2024-02-17 13:36 | disposition home or self-care (01) ==
LOC: CHSIMG 13:36
PROVIDERS: PCP Nurse Practitioner Family; Visit Provider Internal Medicine Hematology & Oncology
DX: Z12.31 Encounter for screening mammogram for malignant neoplasm of breast (principal)
CPT/HCPCS: 77063; 77067

== ENCOUNTER 2024-03-23 11:42 | Outpatient (CLI) | payer MEDICARE, SELFPAY ==
[2024-03-23 12:23] LABS: Hematocrit 43.6 % (35.0-42.0); Hemoglobin 13.6 g/dL (11.7-13.8); Mean Corpuscular HGB Conc 31.2 g/dL (32-36); Mean Corpuscular Hemoglobin 29.2 pg (27.0-31.0); Mean Corpuscular Volume 93.6 fL (78.0-102.0); Mean Platelet Volume 10.6 fl (9.2-11.8); Platelet Count Result 141 K/mm3 (150-420); Red Blood Count 4.66 M/mm3 (4.20-5.40); Red Cell Distribution Width 13.3 % (11.6-14.4); White Blood Count 5.1 K/mm3 (4.8-10.8)
[2024-03-23 15:40] LABS: Creatinine Urine 44.99 mg/dL (40-278)
[2024-03-23 15:47] LABS: Ur Ttl Prot Creatinine Ratio 0.13 mg/mg (0-0.20)
[2024-03-23 15:58] LABS: Total Protein Urine Random < 6.0 mg/dL (0.0-11.9)
[2024-03-23 16:51] LABS: Albumin Level 3.9 g/dL (3.4-5.0); Anion Gap 17 mmol/L (4-12); Blood Urea Nitrogen 23 mg/dL (7-18); Calcium 9.1 mg/dL (8.5-10.1); Carbon Dioxide 20 mmol/L (21-32); Chloride 103 mmol/L (98-108); Estimated Glomerular Filt Rate 39; Glucose 83 mg/dL (70-99); Osmolality Calculated 292 mOsm/kg (285-295); Potassium 4.2 mmol/L (3.5-5.1); Sodium 140 mmol/L (136-145)
[2024-03-25 02:43] LABS: Vitamin D 25 Hydroxy 40 ng/mL (30-100)
[2024-03-25 19:33] LABS: Parathyroid Intact 39 pg/mL (16-77)
== END 2024-03-23 11:43 | disposition home or self-care (01) ==
LOC: CHSLAB 11:43
PROVIDERS: PCP Nurse Practitioner Family; Visit Provider Internal Medicine Nephrology
DX: N18.32 Chronic kidney disease, stage 3b (principal); E78.5 Hyperlipidemia, unspecified; E21.1 Secondary hyperparathyroidism, not elsewhere classified; R26.89 Other abnormalities of gait and mobility
CPT/HCPCS: 36415; 80069; 82306; 82570; 83970; 84156; 85027

== ENCOUNTER 2024-03-31 09:54 | Outpatient (RCR) | payer MEDICARE, SELFPAY ==
--- NOTE | 2024-03-31 14:47 | PTOPEVAL1 ---
Assessment and note entered by Tea Ricketts DPT Evaluation Information Assessment Status Evaluation Diagnosis R hip tendonitis Other ICD-10 Condition Codes ( m76.891 PT) Onset 02/27/24 Subjective Information Patient reports a few months ago she rolled over in bed and felt a pop in her R hip and since has had R hip pain. She reports pain is getting worse. Patient reports pain is worse with laying on her hip. She reports she is cautious with stairs and notices pain is worse when she first stands up. She reports history of B hip replacement. She had x-rays done that came back negative and she was told she had tendonitis. Reported Pain Level Pain Score 5: Self Report Assessment PT Clinical Summary Ms. Cmaacho is a 79 year old female who presents to PT with R hip pain. 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 She would benefit from skilled PT to address impairments and return to PLOF. Plan of Care Interventions Electrical Stimulation,Gait Training,Hot Pack/Cold Pack,Manual Therapy,Mechanical Traction,Neuro Re- education,Patient/Caregiver Educati,Therapeutic Activities,Therapeutic Exercise PT Services Indicated Yes Treatment Frequency and 2x weekly for 10 visits Duration These treatments will address the objective and functional deficits as defined above. The patient will be advanced safely and appropriately in order for the patient to progress towards his/her prior level of function. Additional exercises will be introduced and as well as a comprehensive home exercise program upon discharge, if needed, ?to ensure carryover of functional gains achieved in the clinic. This treatment plan has been reviewed and agreement upon by the patient.
--- NOTE | 2024-05-03 14:34 | OPREHPOC ---
Outpatient Therapy Plan of Care This is a Multidisciplinary Plan of Care that may contain components documented by all disciplines (PT, OT, and ST.) PT Problem 1 PT Problem #1 Knowledge Deficit PT Goal 1 Goal / Goal Update Patient to demonstrate independence with HEP Target Visit 5 Progress Met PT Problem 2 PT Problem #2 Pain PT Goal 1 Goal / Goal Update 1. Patient to report highest pain at 4/10 2. Patient to report to sleep through the night with no disturbance due to R hip pain Target Visit 16 Progress Not Met PT Problem 3 PT Problem #3 Impaired Endurance PT Goal 1 Goal / Goal Update Patient to display 25 deg of B HS length to return to standing for prolonged periods to complete house hold tasks Target Visit 16 Progress Not Met PT Problem 4 PT Problem #4 Impaired Functional Mobil PT Goal 1 Goal / Goal Update 1. Patient to score 20% improvement on LEFS 2. Patient to navigate 1 flight of stairs with no increase in pain 3. Patient to report ability to ambulate 30 minutes with no increase in pain Target Visit 16 Progress Not Met
--- NOTE | 2024-05-03 14:34 | PTOPREEVAL ---
Assessment and note entered by JT File, PT Evaluation Information Assessment Status Re-evaluation Diagnosis R hip tendonitis Other ICD-10 Condition Codes ( m76.891 PT) Onset 02/27/24 Subjective Information patient reports she is a bit more sore today. she reports she still is unable to lay on the R side, and has pain in the R hip and sometime front of the R thigh. she reports she still has pain with steps, and reports the pain is worse when first getting up and moving. Reported Pain Level Pain Score 5: Self Report Assessment PT Clinical Summary mrs. rinaldi presents to skilled PT for her 10th skilled PT visit. she presents today with continued pain in the R hip, tenderness in the R lateral hip, weakness of the R hip, and antalgic gait pattern. she has met HEP goal, but not met any other goals yet for skilled PT. she has made some progress in hip flexibility, but lacks adequate hip strength or ambulation mechanics yet. she would benefit from continued skilled PT to allow more time to improve her objective/ functional deficits and achieve goals related to functional activity performance/quality of life. Plan of Care Interventions Electrical Stimulation,Gait Training,Hot Pack/Cold Pack,Manual Therapy,Mechanical Traction,Neuro Re- education,Patient/Caregiver Educati,Therapeutic Activities,Therapeutic Exercise PT Services Indicated Yes Treatment Frequency and continue skilled PT 2x weekly for 6 more visits Duration These treatments will address the objective and functional deficits as defined above. The patient will be advanced safely and appropriately in order for the patient to progress towards his/her prior level of function. Additional exercises will be introduced and as well as a comprehensive home exercise program upon discharge, if needed, ?to ensure carryover of functional gains achieved in the clinic. This treatment plan has been reviewed and agreement upon by the patient.
== END 2024-05-01 17:00 | disposition home or self-care (01) ==
LOC: CHSPT 09:54
DX: M76.891 Other specified enthesopathies of right lower limb, excluding foot (principal)
CPT/HCPCS: 97014; 97110; 97140; 97150; 97161; G0283

== ENCOUNTER 2024-04-09 10:26 | Outpatient (CLI) | payer MEDICARE, SELFPAY ==
[2024-04-09 11:08] LABS: Basophils Absolute Auto 0.04 K/mm3 (0.00-0.10); Basophils Percent Auto 0.8 % (0.0-1.0); Eosinophils Absolute Auto 0.21 K/mm3 (0.02-0.50); Hematocrit 45.2 % (35.0-42.0); Hemoglobin 14.3 g/dL (11.7-13.8); Immature Granulocyte Absolute 0.01 K/mm3 (0.00-0.00); Immature Granulocyte Percent A 0.2 % (0.0-0.0); Immature Platelet Fraction Pct 4.9 % (1.0-7.0); Lymphocytes Absolute Auto 1.53 K/mm3 (1.10-4.50); Lymphocytes Percent Auto 29.4 % (18.0-42.0); Mean Corpuscular HGB Conc 31.6 g/dL (32-36); Mean Corpuscular Hemoglobin 29.6 pg (27.0-31.0); Mean Corpuscular Volume 93.6 fL (78.0-102.0); Mean Platelet Volume 11.3 fl (9.2-11.8); Monocytes Absolute Auto 0.41 K/mm3 (0.10-0.90); Monocytes Percent Auto 7.9 % (2.0-11.0); Neutrophils Percent Auto 57.7 % (50.0-70.0); Platelet Count Result 137 K/mm3 (150-420); Red Blood Count 4.83 M/mm3 (4.20-5.40); Red Cell Distribution Width 13.1 % (11.6-14.4); White Blood Count 5.2 K/mm3 (4.8-10.8)
[2024-04-09 12:54] LABS: Ferritin 189 ng/mL (8-252); Iron 76 ug/dL (50-170); Percent Iron Saturation 32 % (12-57)
[2024-04-09 12:58] LABS: Vitamin B12 > 2000 pg/mL (193-986)
== END 2024-04-09 10:27 | disposition home or self-care (01) ==
LOC: CHSLAB 10:28
PROVIDERS: PCP Nurse Practitioner Family; Visit Provider Internal Medicine Hematology & Oncology
DX: D50.9 Iron deficiency anemia, unspecified (principal)
CPT/HCPCS: 36415; 82607; 82728; 83540; 83550; 85025; 85055

== ENCOUNTER 2024-06-02 10:02 | Outpatient (CLI) | payer MEDICARE, SELFPAY ==
--- NOTE | ~2024-06-02 | CT_ITS ---
EXAMINATION: CT abdomen pelvis wo con DATE: 06/02/2024 10:57 INDICATION: Diverticulitis of intestine, part unspecified. TECHNIQUE: Computed tomography (CT) of the abdomen and pelvis was performed without intravenous contr ast. Automated exposure control and iterative reconstruction technique were employed. The dose-length product was 768.61 mGy-cm. COMPARISON: CT abdomen and pelvis 12/06/2020 FINDINGS: The visualized portions of the lung bases demonstrate mild atelectasis. There is mild scarr ing in paraspinal right lower lobe. No pleural effusion. The heart size is normal. There are coronary artery calcifications. No pericardial effusion. There are surgical changes in the stomach. There is a small sliding hiatal hernia. The liver, spleen, pancreas, and right adrenal gland are normal. There is a 2.2 cm mass in left adrenal gland measuring low attenuation, consistent with an adenoma. The ki dneys are normal. There are scattered diverticula in the colon. There is wall thickening of the sigmo id colon, consistent with colitis. There is a moderate volume of stool in the colon. The appendix is not visualized. There are changes of ventral hernia repair. There is calcified atherosclerosis of the aorta and many of the other arteries. There are no pathologically enlarged lymph nodes. There is no free intraperitoneal fluid. There are bilateral total hip arthroplasties. There is mild lumbar spondy losis. IMPRESSION: 1. Sigmoid colitis. Reviewed, dictated and finalized at location A. ENT ACCOUNT LIAISON IMPRESSION: 1. Sigmoid colitis.
[2024-06-02 10:26] LABS: Basophils Absolute Auto 0.03 K/mm3 (0.00-0.10); Basophils Percent Auto 0.4 % (0.0-1.0); Eosinophils Absolute Auto 0.33 K/mm3 (0.02-0.50); Eosinophils Percent Auto 4.8 % (1.0-6.0); Hematocrit 41.4 % (35.0-42.0); Hemoglobin 13.4 g/dL (11.7-13.8); Immature Granulocyte Absolute 0.02 K/mm3 (0.00-0.00); Immature Granulocyte Percent A 0.3 % (0.0-0.0); Immature Platelet Fraction Pct 3.7 % (1.0-7.0); Lymphocytes Absolute Auto 1.34 K/mm3 (1.10-4.50); Lymphocytes Percent Auto 19.3 % (18.0-42.0); Mean Corpuscular HGB Conc 32.4 g/dL (32-36); Mean Corpuscular Hemoglobin 29.1 pg (27.0-31.0); Mean Corpuscular Volume 89.8 fL (78.0-102.0); Mean Platelet Volume 10.5 fl (9.2-11.8); Monocytes Percent Auto 7.2 % (2.0-11.0); Neutrophils Absolute Auto 4.71 K/mm3 (1.70-7.20); Platelet Count Result 134 K/mm3 (150-420); Red Blood Count 4.61 M/mm3 (4.20-5.40); Red Cell Distribution Width 12.6 % (11.6-14.4); White Blood Count 6.9 K/mm3 (4.8-10.8)
[2024-06-02 10:40] LABS: Alanine Aminotransferase 14 U/L (14-59); Albumin Level 3.2 g/dL (3.4-5.0); Alkaline Phosphatase 59 U/L (46-116); Anion Gap 7 mmol/L (4-12); Aspartate Amino Transferase 12 U/L (15-37); Bilirubin,Total 0.7 mg/dL (0.00-1.00); Blood Urea Nitrogen 15 mg/dL (7-18); Calcium 9.2 mg/dL (8.5-10.1); Carbon Dioxide 27 mmol/L (21-32); Chloride 104 mmol/L (98-108); Estimated Glomerular Filt Rate 46; Glucose 97 mg/dL (70-99); Lipase 17 U/L (16-77); Osmolality Calculated 286 mOsm/kg (285-295); Potassium 4.1 mmol/L (3.5-5.1); Sodium 138 mmol/L (136-145); Total Protein 6.6 g/dL (6.4-8.2)
[2024-06-02 10:41] LABS: Add Urine Microscopic? YES; Appearance Urine Clear (Clear); Bilirubin Urine Negative (Negative); Blood Urine 1+ (Negative); Color Urine Light Yellow (Yellow); Glucose Urine UA Negative (Negative); Ketones Urine Negative (Negative); Leukocyte Esterase Ur Negative (Negative); Nitrate Urine Negative (Negative); Protein Urine Negative (Negative); Specific Grav Ur <= 1.005 (1.010-1.020); Urobilinogen Urine 0.2 mg/dL (0.2-1.0)
[2024-06-02 10:46] LABS: Bacteria Urine Trace /hpf; Lactic Acid Reflex 0.9 mmol/L (0.4-2.0); Squamous Epithelial Cell Urine Few /hpf (Few); WBC Urine None seen /hpf (0-3)
== END 2024-06-02 10:03 | disposition home or self-care (01) ==
LOC: CHSLAB 10:02
PROVIDERS: PCP Nurse Practitioner Family; Visit Provider Family Medicine
DX: R10.9 Unspecified abdominal pain (principal); K57.92 Diverticulitis of intestine, part unspecified, without perforation or abscess without bleeding; K52.9 Noninfective gastroenteritis and colitis, unspecified
CPT/HCPCS: 36415; 74176; 80053; 81001; 83605; 83690; 85025; 85055; 86140

== ENCOUNTER 2024-06-06 09:06 | Outpatient (CLI) | payer MEDICARE, SELFPAY ==
--- NOTE | ~2024-06-06 | MR_ITS ---
EXAMINATION: MR hip RT wo con DATE: 06/06/2024 09:55 INDICATION: Right hip pain. TECHNIQUE: Magnetic resonance imaging (MRI) of the right hip was performed without intravenous contra st. COMPARISON: CT abdomen and pelvis 06/02/2024 FINDINGS: There is lumbar levocurvature and mild spondylosis. There is artifact from bilateral total hip arthroplasties. No fracture. There is mild tendinopathy of the hamstring origins bilaterally. The re is a partial tear of the gluteus minimus tendon. There is mild bilateral gluteus minimus tendinopa thy. There is mild right trochanteric bursitis. There is wall thickening of the sigmoid colon. There are scattered diverticula in the colon. There is no ascites. IMPRESSION: 1. Bilateral total hip arthroplasties. Artifact obscures surrounding structures. 2. Partial tear of right gluteus minimus tendon. 3. Mild right trochanteric bursitis. 4. Sigmoid colitis again seen. Reviewed, dictated and finalized at location A. GER PLUMBING IMPRESSION: 1. Bilateral total hip arthroplasties. Artifact obscures surrounding structures . 2. Partial tear of right gluteus minimus tendon. 3. Mild right trochanteric bursitis. 4. Sigmoid colitis again seen.
== END 2024-06-06 09:07 | disposition home or self-care (01) ==
LOC: CHSIMG 09:07
PROVIDERS: PCP Nurse Practitioner Family
DX: M76.891 Other specified enthesopathies of right lower limb, excluding foot (principal); Z47.1 Aftercare following joint replacement surgery; Z96.649 Presence of unspecified artificial hip joint; Z96.643 Presence of artificial hip joint, bilateral; S76.011A Strain of muscle, fascia and tendon of right hip, initial encounter; K52.89 Other specified noninfective gastroenteritis and colitis
CPT/HCPCS: 73721

== ENCOUNTER 2024-07-29 12:11 | Outpatient (CLI) | payer MEDICARE, SELFPAY ==
--- NOTE | 2024-07-29 12:15 | ECG_ITS ---
Test Date: 2024-07-29 12:26:29 Measurements Intervals [place] Rate: 59 P: 30 AR: 188 QRS: -60 QRSD: 128 T: 21 QT: 447 QTc: 445 Interpretive Statements SINUS BRADYCARDIA LEFT ANTERIOR FASCICULAR BLOCK [QRS AXIS <= -45, QR IN I, RS IN II] No previous ECG available for comparison Electronically Signed On 07-30-2024 12:35:30 BROKERAGE COORDINATOR by Mila Breaux M.D.
== END 2024-07-29 12:12 | disposition home or self-care (01) ==
PROVIDERS: PCP Nurse Practitioner Family; Visit Provider Nurse Practitioner Family
DX: Z01.818 Encounter for other preprocedural examination (principal); R00.1 Bradycardia, unspecified; I44.60 Unspecified fascicular block
CPT/HCPCS: 93005

== ENCOUNTER 2024-09-21 09:20 | Outpatient (CLI) | payer MEDICARE, SELFPAY ==
[2024-09-21 09:42] LABS: Hematocrit 42.7 % (35.0-42.0); Hemoglobin 13.3 g/dL (11.7-13.8); Mean Corpuscular HGB Conc 31.1 g/dL (32-36); Mean Corpuscular Volume 93.2 fL (78.0-102.0); Mean Platelet Volume 10.2 fl (9.2-11.8); Platelet Count Result 144 K/mm3 (150-420); Red Blood Count 4.58 M/mm3 (4.20-5.40); Red Cell Distribution Width 12.9 % (11.6-14.4); White Blood Count 6.6 K/mm3 (4.8-10.8)
[2024-09-21 10:06] LABS: Total Protein Urine Random < 6.0 mg/dL (0.0-11.9)
--- OUTSIDE RECORDS SUMMARY | 2024-09-21 10:16 | XMS_ITS | Clinical Summary ---
Author Organization [facility] Address [address] [place] [address] Care Team Providers Care Design Engineering Technician Name Role Phone Irasema Murguia CHICK ROOM SUPERVISOR Primary Care Provider [phone] Allergies Active Allergy Reactions Criticality Noted Date Comments Cephalexin Itching Low 12/16/2015 Codeine Other (see comment) Low 12/16/2015 Other reaction(s): Other (See comments) Makes patient angry Makes patient angry Iodine Other (see comment) High 11/10/2020 CKD Stage 3 Metoprolol Unknown 12/16/2015 Sulfa Antibiotics Hives,Shortness of Breath High 10/01/2019 Tetanus Toxoid Swelling High 10/01/2019 Other reaction(s): Other (See comments) Skin peeled off Medications ALPRAZolam (XANAX) 0.5 MG tablet nightly as needed. 03/08/2022 Active aspirin EC (ECOTRIN) 81 MG tablet Take 1 tablet (81 mg total) by mouth daily. Active bisacodyl EC (DULCOLAX) 5 MG Tab EC tablet Take 1 tablet (5 mg total) by mouth daily as needed. Active PROLENSA 0.07 % ophthalmic solution as needed. 08/03/2021 Active vitamin D3, cholecalciferol , 1000 UNIT Tab tablet Take 1 tablet (1,000 Units total) by mouth daily. Active vitamin B-12 (CYANOCOBALAMIN ) 1000 MCG tablet Take 1 tablet (1,000 mcg total) by mouth daily. Every other day Active EPINEPHrine (EPIPEN JR) 0.15 MG/0.3ML injection Inject 1 Syringe into the muscle. Active rosuvastatin (CRESTOR) 20 MG tablet Take 1 tablet (20 mg total) by mouth daily. 03/19/2022 Active Multiple Vitamin (MULTIVITAMIN) capsule Take 1 capsule by mouth. Active oxyCODONE-aceta minophen (PERCOCET) 7.5-325 MG tablet 1 tablet as needed. 06/30/2021 Active Calcium-Magnesi um-Vitamin D 185-50-100 MG-MG-UNIT Cap Take 600 mg by mouth 2 (two) times daily. Active meclizine (ANTIVERT) 12.5 MG tablet Take 1 tablet (12.5 mg total) by mouth 2 (two) times daily. Active Active Problems Problem Noted Date Diagnosed Date Cervical radiculopathy 04/09/2022 Family History Medical History Relation Comments Breast Cancer Father Uterine Cancer Mother Uterine Cancer Sister Relation Status Comments Father Mother Sister Social History Tobacco Use Types Packs/Day Years Used Date Smoking Tobacco: Former Smokeless Tobacco: Never Alcohol Use Standard Drinks/Week Comments Not Currently 0 (1 standard drink = 0.6 oz pur e alcohol) occasionally Comments No Sex and Gender Information Value Date Recorded Sex Assigned at Not on file Legal Sex Female 1:41 AM CDT Gender Identity Not on file Sexual Orientation Not on file Last Filed Vital Signs Vital Sign Reading Time Taken Comments Blood Pressure 184/74 09/21/2022 2:30 PM CDT Pulse 73 09/21/2022 2:30 PM CDT Temperature 37.1 C (98.7 F) 09/21/2022 2:30 PM CDT Respiratory Rate 18 09/21/2022 2:30 PM CDT Oxygen Saturation 99% 09/21/2022 2:30 PM CDT Inhaled Oxygen Concentration - - Weight 95.3 kg (210 lb) 09/17/2022 9:31 AM CDT Height 170.2 cm (5' 7 ) 09/17/2022 9:31 AM CDT Body Mass Index 32.89 09/17/2022 9:31 AM CDT Plan of Treatment Health Maintenance Due Date Last Done Comments DTaP, Tdap and Td Vaccines (1 - Tdap) 01/22/1963 Zoster Vaccines (1 of 2) 01/22/1994 Annual Medicare Wellness Visit 01/22/2009 Dexa Scan (General) 01/22/2009 RSV Immunization or 60+ Years (1 - 1-dose 75+ series) 01/22/2019 COVID-19 Vaccine (2023- season) 2024 08/31/2020, 08/10/2020 Influenza Adult (#1) 2024 04/21/2021, 03/01/2020, 04/04/2019, Additional history exists Pneumococcal Vaccine: 65+ Years Completed 04/10/2019, 04/08/2018, 04/07/2018, Additional history exists Meningococcal B Vaccine Aged Out No l onger eligible based on patient's age to complete this topic Meningococcal Vaccine Aged Out No gayle leanne eligible based on patient's age to complete this topic RSV Immunizations Under 20 Months Aged Out No longer eligible based on patient's age to complete this topic Insurance [facility] Care Teams Design Engineering Technician Relationship Specialty Start Date End Date Irasema Murguia FNP [address] [place] [id number] PCP - General NURSE PRACTITIONER 02/03/20
--- OUTSIDE RECORDS SUMMARY | 2024-09-21 10:16 | XMS_ITS | Data Portability ---
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 The hypersensitivity is a little bit unusual for cubital tunnel syndrome which usually presents with diminished sensitivity and raises the possibility that she may have concomitant ulnar radiculopathy. I recommended that she have a nerve conduction velocity test an EMG for a upper extremities to evaluate this further fully. I would recommend that she avoid holding the left elbow bent and try to keep it fairly straight. I have talked her about other options such as using a magnifying visor sup that such is [employer] by [employer]. She can buy of [employer] with a light attached another option would be for her to start using a desk top magnifying glass and I went through [employer] in showed her examples of desk top lamps that have illumination surrounding the glass magnifying lens. I will see her back after the EMG nerve conduction velocity test is completed. 45 minutes were spent total care this patient more than half the time spent in [id number] care. Not available 06/20/2023 16:44:49 07/26/2023 07/26/2023 Patient returns. EMG nerve conduction velocity testing was performed. It demonstrated left ulnar neuropathy likely localizing to the elbow region. EMG portion of the test was normal. No response left ulnar sensory. no evidence of EMG abnormality to suggest a superimposed C8-T1 radiculopathy. no evidence of carpal tunnel syndrome. Patient states that She is unimproved. She has been trying to avoid flexion. Patient has a 20 degree flexion contracture of the left elbow and does have hypertrophic spurring of the ulnar aspect of the ulna humeral articulation which likely encroaches to some degree into the cubital tunnel. I have discussed with her the option of surgical intervention. I am concerned that a simple decompression alone may not be effective and she may require a transposition. I would recommend that she be seen by a and surgery subspecialist on going to refer her to Dr. Mccord for evaluation and his recommendation as to whether a simple decompression would suffice or whether he felt there was a transposition would be more appropriate for her. I have discussed with her that her prognosis for complete return of normal sensation is somewhat poor because of her advanced age. I noticed on her papers that she states that she is not allowed to use NSAID or Tylenol per her previous budget and policy analyst. Patient denies any history of liver problems. I suspect that she could use Tylenol as needed and she could ask your primary care physician or Dr. Abel her budget and policy analyst currently if they would agree and plans to do that. I will see her back on an as-needed basis. 20 minutes were spent with this patient more than half the time spent in [id number] care for will Not available 07/28/2023 11:49:57 Plan of Treatment Reminders Order Date Submit Date Provider Last Modified By Organization Details Last Modified Time Details Appointments None recorded. Lab None recorded. Referral hand surgeon referral - pt has significan t cubital tunnel syndrome with mild osteoarthr itis left elbow 2023 024 ATHENAFAX Mary Nix MD, [address], [place] [address], [place], [address], 4 15:50:27 Procedures None recorded. Surgeries None recorded. Imaging XR, elbow, 2 view 2022 023 [email or web address] [facility] [place], [address], [place], [address], 3 14:44:59 Medication Orders None recorded. Patient TargetsNo targets recorded. Patient InstructionsNo instructions recorded. Reason for Referral Hand Surgeon Referral for Pa in in upper arm possible transposition ulnar nerve pt has significant cubital tunnel syndrome with mild osteoarthritis left elbow Referring Physician: Pako Sow, Orthopedic Surgery, Encounter Date: 07/26/2023 Results Created Date Observation Date Name Description Value Unit Range Abnormal Flag Note LastModifiedBy Organization Detail LastModifiedTime 06/04/2005/28/2023 XR, hand, 3 or more view No observ ation record ed. [email or web address] Not Available 05/09 15:05:46 06/17/20 XR, elbow , 2 view No observ ation record ed. [facility] [place] [address], [place], [address], 06/20/2023 16:42:14 06/17/2008/01/2021 MRI, cervi emerson spine , w/o contr ast No observ ation record ed. [email or web address] Not Available 2022 18:12:55 Result Notes None recorded. Problems Name Problem SNOMED Code Status Onset Date Resolution Date Notes Provider Name and Address Organization Details Recorded Time Pain of left hand 254978218791299 Active 2022 NAYANA Lozano [facility] [employer] 3 15:45:16 Pain in upper arm 449157852 Active 2023 NAYANA Lozano, [facility] [employer] [facility] 4 11:25:57 Problem Notes None recorded. Procedures Surgical History Date Name Laterality Status Provider Name and Address Organization Details Recorded Time Tonsillectomy and/or Adenoidectomy completed NAYANA Lozano [facility] [employer] [facility] 06/17/2023 15:34:43 ligation of fallopian tube completed Fiona Sanchez Delon [facility] [employer] [facility] 06/17/2023 15:34:56 Partial hysterectomy completed Laurie Sanchez [facility] 06/17/2023 15:35:14 Breast Surgery completed Fiona chance [facility] [employer] [facility] 06/17/2023 15:35:40 insertion of stent into ureter completed [facility] 06/17/2023 15:36:06 excision of bunion completed Fiona Sanchez [facility] 06/17/2023 15:36:20 Cholecystectomy completed Fiona Redman en, [facility] 06/17/2023 15:36:30 Cholecystectomy completed Fiona Gre en, [facility] 06/17/2023 15:36:47 Cyst Removal completed Fiona Sanchez [facility] 06/17/2023 15:36:59 hemorrhoidectomy completed Fiona Bates een, [facility] 06/17/2023 15:37:17 procedure on heart completed Fiona Sanchez [facility] 06/17/2023 15:37:49 procedure on urinary bladder completed Fiona Sanchez [facility] 06/17/2023 15:38:04 resection of diverticulum completed Fiona Sanchez [facility] 06/17/2023 15:38:30 bypass of stomach completed Fiona bryan [facility] 06/17/2023 15:39:01 total replacement of hip completed Fiona Sanchez [facility] 06/17/2023 15:39:09 procedure on wrist completed Fiona Sanchez [facility] 06/17/2023 15:39:19 adjustment of lid position completed Fiona Sanchez [facility] 06/17/2023 15:39:31 extraction of cataract completed Fiona Sanchez [facility] 06/17/2023 15:39:53 operation on oral cavity completed Fiona Sanchez [facility] 06/17/2023 15:40:02 Ankle Surgery completed Fiona Sanchez [facility] 06/17/2023 15:40:27 Imaging Results Imaging Date Name Status LastModified by Organiz ation Details LastModified Time 05/28/2023 XR, hand, 3 or more view completed [email or web address] Information not available 06/04/2023 15:05:46 06/17/2023 XR, elbow, 2 view completed [facility] [place] [address], [place], [address], 06/20/2023 16:42:14 08/01/2021 MRI, cervical spine, w/o contrast completed [email or web address] Information not available 06/17/2023 18:12:55 Procedure Notes None recorded. Medical Equipment None Reported. Allergies Allergen ID Allergen Name Allergen Category Reaction Reaction Severity Criticality Documentation Date Start Date Code Code System Note Provider Name and Address Organization Details Recorded Time 17358 Substance with sulfonami de structure and antibacte rial mechanism of action (substanc e) medicatio n Not available Not available Not available 06/17/2023 22787 8003 SNOMED Fiona Sanchez RMA null, [facility] 3 15:18:39 12881 codeine medicatio n Not available Not available Not available 06/17/2023 2670 RxNorm Fiona Sanchez RMA null, [facility] 3 15:18:51 30607 Keflex medicatio n Not available Not available Not available 06/17/2023 59553 7 RxNorm Fiona Sanchez RMA null, [facility] 3 15:41:05 Medications Name Sig Start Date Stop Date Status Note LastModified by Organization Details LastModified Time amoxicillin 500 mg capsule 06/17 completed Not Available Not Available Not Available valacyclovir 1 gram tablet 06/17 completed Not Available Not Available Not Available cyanocobalami n (vit B-12) 1,000 mcg tablet Take by oral route. active Not Available Not Available No t Available omeprazole 40 mg capsule,delay ed release active Not Available Not Available N ot Available alprazolam 0.5 mg tablet active Not Available Not Availabl e Not Available calcium 600 mg (as calcium carbonate 1,500 mg) tablet Take by oral route. active Not Available Not Available No t Available dicyclomine 20 mg tablet 06/17 completed Not Available Not Available Not Available furosemide 20 mg tablet active Not Available Not Available No t Available ketoconazole 2 % topical cream active Not Available Not Available Not Available Crestor 20 mg tablet Take 1 tablet every day by oral route. active Not Available Not Available No t Available aspirin active Not Available Not Avail able Not Available epinephrine active Not Available Not A vailable Not Available cholecalcifer ol (vitamin D3) active Not Available Not Available Not Available Prolensa 0.07 % eye drops 06/17 completed Not Available Not Available Not Available Vitals Date Recorded Body height Body mass index (BMI) Body weight Provider Name and Address Organization Details Last Updated DateTime 06/17/2023 167.64 cm 33.7 kg/m2 55188.81 g NAYANA Lozano [facility] 06/17/2023 15:49:18 Date Recorded Body height Provider Name an d Address Organization Details Last Updated DateTime 07/26/2023 167.64 cm NAYANA Lozano [facility] 07/26/2023 11:24:20 Social History Question Answer Notes LastModified by Organizat ion Details LastModified Time Tobacco Smoking Status [facility]/17/2023 15:34:23 What Is Your Current Pack Years? 10-packyea rs Information not available 06/17/2023 Sex: Unknown Functional Status None recorded. Mental Status None recorded. Family History Relationship Description Onset Age of this Age Resolved Age Notes LastModified by Organization Details LastModified Time Sister Complication of anesthesia [email or web address] Not available 06/17 15:31:43 Sister Heart disease Not available 2022 15:32:04 Sister Family history of stroke [email or web address] Not available 2022 15:32:44 Sister Family history of malignant neoplasm [email or web address] Not available 2022 15:33:01 Sister Diabetes mellitus [email or web address] Not available 2022 15:34:00 Mother Heart disease [email or web address] Not available 2022 15:32:04 Mother Family history of stroke [email or web address] Not available 2022 15:32:44 Mother Family history of malignant neoplasm Not available 2022 15:33:01 Mother Hypertensive disorder [email or web address] Not available 2022 15:33:13 Mother Diabetes mellitus [email or web address] Not available 2022 15:34:00 Father Heart disease [email or web address] Not available 2022 15:32:04 Father Family history of stroke [email or web address] Not available 2022 15:32:44 Father Family history of malignant neoplasm [email or web address] Not available 2022 15:33:01 Brother Family history of stroke [email or web address] Not available 2022 15:32:44 Maternal Uncle Diabetes mellitus [email or web address] Not available 2022 15:34:00 Unspecified Relation Diabetes mellitus niece [email or web address] Not available 2022 15:34:00 Medical History Condition Response CANCER: SPECIFY Y ARTHRITIS Y ULCERS Y ANEMIA/BLOOD DISORDER Y Past Encounters Encounter ID Performer Location Encounter Start Date Encounter Closed Date Diagnosis/Indication Diagnosis SNOMED-CT Code Diagnosis ICD10 Code Diagnosis Note [id number] Pako Sow MD [facility] [place] [address] [place] [address] 06/17/2023 15:04:14 06/25/2023 14:44:58 Pain of left hand 0676679595 55554 M79.291 [id number] Pako Sow MD [facility] [place] [address] [place] [address] 07/26/2023 11:16:23 07/29/2023 15:01:17 Pain in upper arm 347600709 M79.629 G56.22 Health Concerns Section Related Observation LastModified by Organization Detai ls LastModified Time None Recorded Concern Status LastModified by Organization Details LastModified Time None Recorded Advance Directives Directive None Recorded Payers Encounter Date Sequence Insurance Name Policy Number Policy Pickering Covered Member ID Pickering Member ID Guarantor Name 06/17/2023 1 [facility] (MEDICARE REPLACEMENT/A DVANTAGE - PPO) [id number] Maida Camacho [id number] Maida Camacho 07/26/2023 1 [facility] (MEDICARE REPLACEMENT/A DVANTAGE - PPO) [id number] Miada Camacho [id number] Maida Camacho Notes Date Note Type Note Provider Name and Address Organization Details Recorded Time 06/17/2023 text/html patient is a 78-year-old female who presents for evaluation of left ulnar hand numbness. For approximately the last 6 months she has had numbness in the dorsum of the ulnar left hand ulnar left hand and the ulnar palm of her left hand the 5th finger as well as the ulnar side of her ring finger. I asked her if she holds her elbow bent and she advised me that she has significant macular degeneration and she uses a high-powered magnifying glass to be able to read and she holds this up to her eyes with her left hand exclusively and many times it is up close to her face and she may do this for several hours at a time. 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 She has a history of excision of a large fatty tumor over the dorsal distal forearm which was benign she states but it was so large they could get all of it. This is through a 2 in short oblique primarily transverse incision over the dorsum of the distal forearm just proximal to the wrist. She does note that she has slight swelling in the dorsum of the wrist just distal to the incision. It is very minimal to my eye I think it is more of an appearance of swelling due to the contraction of the transverse incision. She has a history of neck problems and has had 2 epidural steroid injections in the cervical spine earlier this summer which helped Her neck pain. Her past medical history also significant for history of breast cancer, stage 3 kidney disease, anemia, 2 coronary artery stents, osteopenia, right total hip replacement, gastric bypass, kidney stones. History of allergy to sulfa, codeine, tetanus. The She had an MRI scan of the cervical spine dated 08/01/2021 [facility] and I reviewed the report. It indicates severe bilateral facet joint arthritis at multiple levels, mild central canal stenosis with ventral indentation of spinal cord at C5-6 and C6-7. Impression was severe cervical spondylosis. Pako Sow MD [address] [place] [address], [place] [address], [place], [address], [place] [facility] [place] [employer] [facility] 06/20/2023 16:45:03
--- OUTSIDE RECORDS SUMMARY | 2024-09-21 10:16 | XMS_ITS | Referral Summary ---
Author Organization [facility] Address [address] [place] [address] Care Team Providers Care Stripping Cutter And Winder Name Role Phone Irasema Murguia NP Primary Care Provider [phone] Encounters Date Type Department Care Team Description 06/26/2024 9:55 AM PHARMACOLOGY ASSOCIATE - 06/26/2024 11:59 PM PHARMACOLOGY ASSOCIATE Hospital Encounter [facility] [address] [place] [phone] Right hip pain; Presence of right artificial hip joint Discharge Disposition: Discharge to home or self care 06/26/2024 10:30 AM PHARMACOLOGY ASSOCIATE Office Visit [facility] Orthopaedic Surgery [address] [facility] 6[address] [place] [address] [place] [address] Dmitriy Lovett MD Right hip pain (Primary Dx); Presence of right artificial hip joint from Last 3 Months Allergies Active Allergy Reactions Criticality Noted Date Comments Codeine Other (See comments) Low Makes patient angry Iodinated Contrast Media Other (See comments) High 11/10/2020 CKD Stage 3 Cephalexin Itching Low 02/06/2021 Metoprolol Unknown 12/16/2015 Sulfa (Sulfonamide Antibiotics) Hives,Shortness of breath,Unknown High 10/04/2023 Tetanus Vaccines And Toxoid Swelling,Other (See comments) High Skin peeled off Medications calcium carbonate (CALCIUM 600) 1,500 mg (600 mg of elemental calcium) tablet take 1 by Oral route 2 times every day 0 0 7 Active tamoxifen (NOLVADEX) 20 mg tabletIndicatio ns:carcinoma of breast Take 1 tablet (20 mg total) by mouth nightly Active cholecalciferol (VITAMIN D-3) 25 mcg (1,000 unit) tabletIndicatio ns:Vitamin D Deficiency Take 1 tablet (1,000 Units total) by mouth nightly Active EPINEPHrine (EPIPEN) 0.15 mg/0.3 mL injection syringeIndicati ons:Anaphylaxis Inject 0.3 mL (0.15 mg total) into the muscle as instructed as needed for anaphylaxis Active acetaminophen 500 mg capsule Take 2 capsules (1,000 mg total) by mouth every 6 (six) hours 60 tablet 1 Active Additional Information Patient not taking.Reported on 06/26/2024 ALPRAZolam (XANAX) 0.5 mg tablet 1 Active oxyCODONE-aceta minophen (PERCOCET) 7.5-325 mg per tablet 1 Active meclizine (ANTIVERT) 12.5 mg tablet Take 1 tablet (12.5 mg total) by mouth 2 (two) times a day Active aspirin 81 mg enteric coated tablet Take 1 tablet (81 mg total) by mouth daily Active vit C/E/Zn/coppr/baldomero tein/zeaxan (PRESERVISION AREDS-2 ORAL) Take by mouth Ac tive cyanocobalamin (Vitamin B-12) 1,000 mcg tabletIndicatio ns:Prevention of Vitamin B12 Deficiency Take 1 tablet (1,000 mcg total) by mouth every other day Active omeprazole (PriLOSEC) 40 mg capsule 3 Active furosemide (LASIX) 40 mg tablet Take 1 tablet (40 mg total) by mouth daily 30 tablet 3 3 Active Additional Information Patient taking differently:40 mg oralAs needed, Reported on 08/02/2023 ketoconazole (NIZORAL) 2 % cream 3 Active rosuvastatin (CRESTOR) 20 mg tablet TAKE ONE TABLET BY MOUTH DAILY 90 tablet 1 4 Active Active Problems Problem Noted Date Diagnosed Date Right hip tendonitis 02/27/2024 Aftercare following hip joint replacement surger y 02/27/2024 Abnormal ECG 08/02/2023 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) 05/06/2023 Mixed hyperlipidemia 09/05/2021 H/O syncope 09/05/2021 Anemia 03/01/2021 Retention of urine 01/10/2021 Primary osteoarthritis of left hip 10/11/2020 Overview (10/11/2020): Added automatically from request for surgery [id number] BPV (benign positional vertigo) 02/19/2020 Chronic kidney disease, stage 3b 10/05/2019 Bariatric surgery status 11/20/2017 Obesity (BMI 30.0-34.9) 11/01/2017 Breast cancer 04/25/2017 Vasovagal syncope 02/05/2017 Preoperative cardiovascular examination 02/06/20 17 Localized edema 10/19/2016 Overview (11/30/2016): Localized edema Dermatochalasis of both upper eyelids 03/07/2016 Blepharoptosis 03/07/2016 Palpitations 10/18/2015 Overview (10/12/2016): Palpitations Adiposity 10/18/2015 Overview (10/12/2016): Obesity (BMI 30.0-34.9) Bradycardia 04/18/2015 Overview (10/12/2016): Bradycardia Muscle pain 04/18/2015 Overview (10/12/2016): Myalgia Simple obesity 03/29/2015 Abnormal weight gain 03/29/2015 Benign hypertension 01/25/2015 Overview (10/12/2016): HTN (hypertension), benign Pre-syncope 01/25/2015 Overview (10/12/2016): Near syncope 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 01/25/2015 Overview (10/12/2016): CAD in wilton artery Dizziness 01/25/2015 Overview (10/12/2016): Dizziness Malabsorption 02/02/2014 Familial multiple polyposis syndrome 10/03/2012 Constipation 10/03/2012 Ischemic colitis 05/26/2012 Former smoker 07/19/2011 Morbid obesity 06/12/2011 Resolved Problems Problem Noted Date Diagnosed Date Resolved Date Dyslipidemia 01/25/2015 09/05/2021 Overview (10/12/2016): Mixed dyslipidemia Immunizations Immunization Administration Dates Next Due Influenza, Quadrivalent, Hig h Dose, Preservative Free, Intrr 03/01/2020,03/01/2020 Influenza, Trivalent, Adjuva nted, Intramuscular 03/25/2019 Influenza, Trivalent, High D ose, Split, Preservative Free, Intramuscular 04/08/2018,04/07/2018,03/18/2017,04/09,04/11/2015 Influenza, Trivalent, IM (MDV) 04/04/2019,2013,04/15/2013 Pfizer SARS-CoV-2 Monovalent Vaccination (12+ Yrs) PURPLE 08/31/2020,08/10/2020 Pneumococcal Conjugate PCV 13 04/08/2018, 018 Pneumococcal Polysaccharide PPV23 04/10/2019,,04/15/2013 Social History Tobacco Use Types Packs/Day Years Used Date Smoking Tobacco: Former Cigarettes 0.5 38 1 962 - 2000 Smokeless Tobacco: Never Tobacco Cessation:Counseling Given: Yes Social Connection and Isolat ion Panel [NHANES] Answer Date Recorded In a typical week, how many times do you talk on the phone with family, friends, or neighbors? More than three times a week 11/16/2020 How often do you get togethe r with friends or relatives? More than three times a week 11/16/2020 Attends [employer] Services Not on file 11/16 Active Member of Clubs or Organizations Not on f ile 11/16/2020 Attends Club or Organization Meetings Not on sara e 11/16/2020 Are you , , di vorced, , never , or living with a partner? 11/16/2020 AUDIT-C Answer Date Recorded Q1: How often do you have a drink containing alc ohol? Monthly or less 11/14/2020 Q2: How many drinks containi ng alcohol do you have on a typical day when you are drinking? 1 or 2 11/14/2020 Q3: How often do you have si x or more drinks on one occasion? Never 11/14/2020 Overall Financial Resource Strain (CARDIA) Answe r Date Recorded How hard is it for you to pa y for the very basics like food, housing, medical care, and heating? Not hard at all 11/16/2020 Hunger Vital Sign Answer Date Recorded Within the past 12 months, y ou worried that your food would run out before you got the money to buy more. Never true 11/17/19 21 Within the past 12 months, t he food you bought just didn't last and you didn't have money to get more. Never true 11/16/2020 PRAPARE - Transportation Answer Date Re corded In the past 12 months, has l ack of transportation kept you from medical appointments or from getting medications? No 11/05 In the past 12 months, has l ack of transportation kept you from meetings, work, or from getting things needed for daily living? No 11/16/2020 Housing Stability Vital Sign Answer Power e Recorded In the last 12 months, was t here a time when you were not able to pay the mortgage or rent on time? No 11/16/2020 Number of Places Lived in the Last Year Not on f ile 11/16/2020 In the last 12 months, was t here a time when you did not have a steady place to sleep or slept in a retirement (including now)? No 11/16/2020 Comments No Sex and Gender Information Value Date Recorded Sex Assigned at Not on file Legal Sex Female 11:59 PM PHARMACOLOGY ASSOCIATE Gender Identity Not on file Sexual Orientation Not on file Last Filed Vital Signs Vital Sign Reading Time Taken Comments Blood Pressure 130/72 10/04/2023 12:14 PM CDT Pulse 61 10/04/2023 12:14 PM CDT Temperature 35.7 C (96.2 F) 01/10/2021 11:01 AM CDT Respiratory Rate 16 11/17/2020 7:59 AM CDT Oxygen Saturation 99% 10/04/2023 12: 14 PM CDT Inhaled Oxygen Concentration - - Weight 94.8 kg (208 lb 14.4 oz) 024 12:14 PM CDT Height 175.3 cm (5' 9 ) 10/04/2023 12:1 4 PM CDT Body Mass Index 30.85 10/04/2023 12:14 PM CDT Plan of Treatment Not on file Medical Devices Implanted Type Area Rubber Off Device Identifier Shelf Expiration Date Model / Serial / Lot [employer] [id number] 52mm Limit 3 Hole Hip E Hemisphere Offset Shell Acetabular - [id number] Implanted:Qty: 1 on 11/14/2020 by Estefany Joy MD at [facility] Left: Hip [employer] [id number] / / [employer] [id number] Trilogy 6.5mm 30mm Self Tap Acetabular Cortical Screw Bone - [id number] Implanted:Qty: 1 on 11/14/2020 by Estefany Joy MD at [facility] Left: Hip [employer] [id number] / / [employer] [id number] Trilogy 6.5mm 30mm Self Tap Acetabular Cortical Screw Bone - [id number] Implanted:Qty: 1 on 11/14/2020 by Estefany Joy MD at [facility] Left: Hip [employer] [id number] / / [employer] [id number] 36mm Lumen Hip E Liner Acetabular Longevity Sterile Latex Free - [id number] Implanted:Qty: 1 on 11/14/2020 by Estefany Joy MD at [facility] Left: Hip [employer] [id number] / / [employer] [id number] 14mm 149mm 39.1mm Primary Pressfit Hip /14 46.5mm Extend Offset - [id number] Implanted:Qty: 1 on 11/14/2020 by Estefany Joy MD at [facility] Left: Hip [employer] [id number] / / [employer] [id number] Versys Legacy 36mm Hip +7mm 12/14 Head Femoral Zimaloy Sterile - [id number] Implanted:Qty: 1 on 11/14/2020 by Estefany Joy MD at [facility] Left: Hip [employer] [id number] / / Procedures Procedure Name Priority Date/Time Associated Diagnosis Comments XR HIP RIGHT 2 OR 3 VIEWS Routine 06/26/2024 10:15 AM PHARMACOLOGY ASSOCIATE Right hip pain Presence of right artificial hip joint from Last 3 Months Results * XR Hip Right 2 or 3 Views (06/26/2024 10:15 AM PHARMACOLOGY ASSOCIATE) Anatomical Region Laterality Modality Lower Extremities, Hip, Pelvis Right C omputed Radiography 06/26/2024 11:1 0 AM PHARMACOLOGY ASSOCIATE Impressions 06/26/2024 12:40 PM PHARMACOLOGY ASSOCIATE Unchanged right hip arthroplasty in near-anatomic alignment. Dictated by: Manju Cortez MD The radiology attending physician has personally reviewed this study, and had reviewed and/or edited this written report and agrees with it. Electronically signed by: Rick Sinclair M.D. Narrative 06/26/2024 12:40 PM PHARMACOLOGY ASSOCIATE EXAMINATION: XR HIP RIGHT 2 OR 3 VIEWS HISTORY: Right hip arthroplasty COMPARISON: 11/12/2022 FINDINGS: 2 views of the right hip were obtained. Unchanged right hip arthroplasty in near anatomic alignment. No periprosthetic lucency or fracture. Left hip total arthroplasty is noted. Ventral abdominal wall hernia mesh repair. Procedure Note Rick Sinclair MD - 06/26/2024 EXAMINATION: XR HIP RIGHT 2 OR 3 VIEWS HISTORY: Right hip arthroplasty COMPARISON: 11/12/2022 FINDINGS: 2 views of the right hip were obtained. Unchanged right hip arthroplasty in near anatomic alignment. No periprosthetic lucency or fracture. Left hip total arthroplasty is noted. Ventral abdominal wall hernia mesh repair. IMPRESSION: Unchanged right hip arthroplasty in near-anatomic alignment. Dictated by: Manju Cortez MD The radiology attending physician has personally reviewed this study, and had reviewed and/or edited this written report and agrees with it. Electronically signed by: Rick Sinclair M.D. Dmitriy Lovett MD IMG XR PROCEDURES Final Re sult from Last 3 Months Insurance MEDICARE [facility] MED[facility] Address: [address] [place] [address] MEDICARE [facility] Address: [place] [id number] [place] [address] [facility] Address: [address] [address] [place] [address] MEDICARE SOL[employer]IONS Advance Directives For more information, please contact: [phone] * Full Code (Latest Code Status on File) Date Activated Date Inactivated Comments 11/14/2020 6:19 PM 11/17/2020 6:44 PM Care Teams Stripping Cutter And Winder Relationship Specialty Start Date End Date Irasema Murguia NP [address] [place] [address] PCP - General Nurse Practitioner 08/14/19
--- OUTSIDE RECORDS SUMMARY | 2024-09-21 10:16 | XMS_ITS | Clinical Summary ---
Author Organization [facility] Address [address] [place] [phone] Care Team Providers Care Supervisory Training Specialist Name Role Phone Irasema Murguia NP Primary Care Provider [phone] Allergies Active Allergy Reactions Criticality Noted Date [...] (10/11/2020): Added automatically from request for surgery [id number] BPV (benign positional vertigo) 02/19/2020 Chronic kidney [...] Near syncope Coronary artery disease invo lving lummi coronary artery of lummi heart without angina pectoris 01/25/2015 Overview (10/12/2016): CAD in lummi artery Dizziness 01/25/2015 Overview (10/12/2016): Dizziness Malabsorption 02/02/2014 Familial multiple polyposis syndrome 10/03/2012 Constipation 10/03/2012 Ischemic colitis 05/26/2012 Former smoker 07/19/2011 Morbid obesity 06/12/2011 Resolved Problems Problem Noted Date Diagnosed Date Resolved Date Dyslipidemia 01/25/2015 09/05/2021 Overview (10/12/2016): Mixed dyslipidemia Encounters Date Type Department Care Team Description 06/26/2024 10:30 AM SHUTTLECOCK FEATHER TRIMMER Office Visit [facility] Orthopaedic Surgery [address] [facility] 6th [place] [address] [place] [address] Dmitriy Lovett MD Right hip pain (Primary Dx); Presence of right artificial hip joint 06/26/2024 9:55 AM SHUTTLECOCK FEATHER TRIMMER - 06/26/2024 11:59 PM SHUTTLECOCK FEATHER TRIMMER Hospital Encounter [facility] [address] [place] [id number] Right hip pain; Presence of right artificial hip joint Discharge Disposition: Discharge to home or self care from Last 3 Months Immunizations Immunization Administration Dates Next Due Influenza, Quadrivalent, Hig h Dose, Preservative Free, Intrr 03/01/2020,03/01/2020 Influenza, Trivalent, Adjuva nted, Intramuscular 03/25/2019 Influenza, Trivalent, High D ose, Split, Preservative Free, Intramuscular 04/08/2018,04/07/2018,03/18/2017,04/09,04/11/2015 Influenza, Trivalent, IM (MDV) 04/04/2019,2013,04/15/2013 Pfizer SARS-CoV-2 Monovalent Vaccination (12+ Yrs) PURPLE 08/31/2020,08/10/2020 Pneumococcal Conjugate PCV 13 04/08/2018, 018 Pneumococcal Polysaccharide PPV23 04/10/2019,,04/15/2013 Surgical History Surgery Date Site/Laterality Comments OTHER SURGICAL HISTORY Obesity, Morbid s/p Bariatric surgery: KIDNEY STONE SURGERY Medical History Medical History Date Comments Hx Other Medical Macular Degener ation Hx Other Medical Cataracts Auditory vertigo Meniere's Disea se Osteoarthritis Osteoarthritis Hx Other Medical Obesity, Morbid s/p Bariatric surgery Cardiovascular disease Coronary Artery Disease Myocardial infarction (HCC) Myoc ardial infarction Status post radiation therapy 2018 br east cancer Breast cancer (HCC) Weight loss Urinary incontinence Kidney stone Anemia History of blood clots Back pain Visual impairment Family History Medical History Relation Name Comments Cancer Father Family history of malignant neoplasm - (Added by TW Conv) Heart disease Father Family history of cardiac disorder - (Added by TW Conv) Cancer Mother Family history of malignant neoplasm - (Added by TW Conv) Diabetes Mother Family history of diabetes mellitus - (Added by TW Conv) Heart disease Mother Family history of cardiac disorder - (Added by TW Conv) Hypertension Mother Family history of hypertension - (Added by TW Conv) Obesity Mother Family history of obesity - (Added by TW Conv) Stroke Mother Family history of cerebrovascular accident - (Added by TW Conv) Heart disease Other 1 Family history of cardiac disorder - (Added by TW Conv) Cancer Other 2 Family history of malignant neoplasm - (Added by TW Conv) Obesity Other 3 Family history of obesity - (Added by TW Conv) Diabetes Other 4 Family history of diabetes mellitus - (Added by TW Conv) Hypertension Other 5 Family history of hypertension - (Added by TW Conv) Stroke Other 6 Family history of cerebrovascular accident - (Added by TW Conv) Anesthesia problems Sister DANYEL/V Relation Name Status Comments Father Mother Other 1 Other 2 Other 3 Other 4 Other 5 Other 6 Sister Social History Tobacco Use Types Packs/Day [...] than three times a week 11/16/2020 Attends [employer] Services Not on file 11/16 Active Member [...] place to sleep or slept in a fpc (including now)? No 11/16/2020 Comments No Sex and Gender Information Value Date Recorded Sex Assigned at Not on file Legal Sex Female 11:59 PM SHUTTLECOCK FEATHER TRIMMER Gender Identity Not on file Sexual Orientation Not on file Obstetrics History Last Filed Vital Signs Vital Sign Reading [...] 10/04/2023 12:14 PM CDT Plan of Treatment Health Maintenance Due Date Last Done Comments Depression Screening 1945 Osteoporosis Screening-Bone Density Scan 1945 DTaP/Tdap/Td Vaccine (1 - Tdap) 01/22/1955 Hepatitis B Screening 01/22/1962 Zoster Vaccine (1 of 2) 01/22/1963 Well Visit 65+ 01/22/2009 Covid-19 Vaccine (3 - Pfizer risk series) 09/28/2020 08/31/2020, 08/10/2020 Fall Risk Assessment 11/17/2021 11/17/2020 Influenza Vaccine (#1) 2024 , 03/01/2020, 03/01/2020, Additional history exists Pneumococcal vaccine 65+ Completed 019, 04/08/2018, 04/07/2018, Additional history exists Medical Devices Implanted Type Area Fish Checker Device Identifier Shelf Expiration Date Model / Serial / Lot [employer] [id number] 52mm Limit 3 Hole Hip E Hemisphere Offset Shell Acetabular - [id number] Implanted:Qty: 1 on 11/14/2020 by Estefany Joy MD at [facility] Left: Hip [employer] [id number] / / [employer] [id number] Trilogy 6.5mm 30mm Self Tap Acetabular Cortical Screw Bone - [id number] Implanted:Qty: 1 on 11/14/2020 by Estefany Joy MD at [facility] Left: Hip [employer] [id number] / / [employer] [id number] Trilogy 6.5mm 30mm Self Tap Acetabular Cortical Screw Bone - [id number] Implanted:Qty: 1 on 11/14/2020 by Estefany Joy MD at [facility] Left: Hip [employer] [id number] / / [employer] [id number] 36mm Lumen Hip E Liner Acetabular Longevity Sterile Latex Free - [id number] Implanted:Qty: 1 on 11/14/2020 by Estefany Joy MD at [facility] Left: Hip [employer] [id number] / / [employer] [id number] 14mm 149mm 39.1mm Primary Pressfit Hip 14 46.5mm Extend Offset - [id number] Implanted:Qty: 1 on 11/14/2020 by Estefany Joy MD at [facility] Left: Hip [employer] [id number] / / [employer] [id number] Versys Legacy 36mm Hip +7mm 12/14 Head Femoral Zimaloy Sterile - [id number] Implanted:Qty: 1 on 11/14/2020 by Estefany Joy MD at [facility] Left: Hip [employer] [id number] / / Procedures Procedure Name Priority Date/Time Associated Diagnosis Comments XR HIP RIGHT 2 OR 3 VIEWS Routine 06/26/2024 10:15 AM SHUTTLECOCK FEATHER TRIMMER Right hip pain Presence of right artificial hip joint from Last 3 Months Results * XR Hip Right 2 or 3 Views (06/26/2024 10:15 AM SHUTTLECOCK FEATHER TRIMMER) Anatomical Region Laterality Modality Lower Extremities, Hip, Pelvis Right C omputed Radiography 06/26/2024 11:1 0 AM SHUTTLECOCK FEATHER TRIMMER Impressions 06/26/2024 12:40 PM SHUTTLECOCK FEATHER TRIMMER Unchanged right hip arthroplasty in near-anatomic alignment. Dictated by: Manju Cortez MD The radiology attending physician has personally reviewed this study, and had reviewed and/or edited this written report and agrees with it. Electronically signed by: Rick Sinclair M.D. Narrative 06/26/2024 12:40 PM SHUTTLECOCK FEATHER TRIMMER EXAMINATION: XR HIP RIGHT 2 OR 3 [...] Last 3 Months Insurance MEDICARE [facility] MEDIC[facility] Address: [place] [address] [address] MEDICARE Address: [place] [address] MED[employer] MED[employer]ARE SOLUTIONS Advance Directives For more information, please contact: [phone] * Full Code (Latest Code Status on File) Date Activated Date Inactivated Comments 11/14/2020 6:19 PM 11/17/2020 6:44 PM Care Teams Supervisory Training Specialist Relationship Specialty Start Date End Date Irasema Murguia NP [address] [place] [address] PCP - General Nurse Practitioner 08/14/19
--- OUTSIDE RECORDS SUMMARY | 2024-09-21 10:16 | XMS_ITS | Encounter Summary ---
Author Organization [facility] Address [address] [place] [address] Phone Care Team Providers Care Liberal Arts Teacher Name Role Phone Irasema Murguia NP Primary Care Provider [phone] Encounter Details Date Type Department Care Team (Late st Contact Info) Description 12/12/2020 Telephone [facility] Orthopaedic Surgery [address] [facility] [address]th [place] [address] [place] [address] Estefany Joy MD [address] [place] [address] Social History Tobacco Use Types Packs/Day Years Used Date Smoking Tobacco: Former Cigarettes 0.5 38 1 962 - 2000 Smokeless Tobacco: Never Social Connection and Isolat ion Panel [NHANES] [...] place to sleep or slept in a usp (including now)? No 11/16/2020 Comments No Sex and Gender Information Value Date Recorded Sex Assigned at Not on file Legal Sex Female 11:59 PM PLEASURE CRAFT SAILOR Gender Identity Not on file Sexual Orientation Not on file documented as of this encounter Plan of Treatment Not on file documented as of this encounter Visit Diagnoses Not on filedocumented in this encounter Care Teams Liberal Arts Teacher Relationship Specialty Start Date End Date Irasema Murguia NP [address] [place] [address] PCP - General Nurse Practitioner 08/14/19 documented as of this encounter
--- OUTSIDE RECORDS SUMMARY | 2024-09-21 10:16 | XMS_ITS | Clinical Summary ---
Author Organization [facility] Address [address] [place] [address] Phone Care Team Providers Care High School Learning Support Teacher Name Role Phone Irasema Murguia QUETA Primary Care Provider [phone] Allergies Active Allergy Reactions Criticality Noted Date Comments Cephalexin Itching Low 02/06/2021 Codeine Low 10/01/2019 Other reaction(s): Other (See comments) Makes patient angry Sulfa Antibiotics Hives,Shortness of breath High 10/01/2019 Tetanus Toxoid Swelling High 10/01/2019 Other reaction(s): Other (See comments) Skin peeled off Medications Medication Sig Dispensed Refills Start Date End Date Status ALPRAZolam (XANAX) 0.5 MG tablet TAKE 1 TABLET BY MOUTH EVERY DAY NEEDED FOR ANXIETY 08/18/2019 Active meclizine (ANTIVERT) 12.5 MG tablet Take 2 tablets by mouth every 8 hours 03/04/2009 Active oxyCODONE-acetaminop hen (PERCOCET) 7.5-325 MG per tablet 09/30/2019 Active potassium chloride (KLOR-CON) 10 MEQ CR tablet Take 10 mEq by mouth 09/26/2018 Acti ve tamoxifen (NOLVADEX) 20 MG chemo tablet Take 20 mg by mouth 1 (one) time each day 07/23/2019 Active fluticasone (FLONASE) 50 MCG/ACT nasal spray INSTILL 1 SPRAY INTO EACH NOSTRIL 10/19/2019 Active loratadine (CLARITIN) 10 MG tablet Take 10 mg by mouth 1 (one) time each day 11/10/2019 Active Qlkvoek-Kayqaoieg-Cc tamin D (CALCIUM 1200+D3 PO) Take by mouth 3 (three) times a day 2 in am and 1 in pm Active Cholecalciferol (Vitamin D3) 25 MCG (1000 UT) capsule Take by mouth Acti ve aspirin 81 MG chewable tablet Chew 81 mg 1 (one) time each day Active Multiple Vitamins-Minerals (PreserVision AREDS 2) chewable tablet Chew Active Multiple Vitamin (multivitamin) capsule Take 1 capsule by mouth 1 (one) time each day Active rosuvastatin (CRESTOR) 20 MG tablet Take 20 mg by mouth 1 (one) time each day Active Naloxone HCl (Narcan) 4 MG/0.1ML liquid Call 911. Administer a single spray in one nostril. Repeat every 3 minutes as needed if no or minimal response. 05/15/2020 Active Bromfenac Sodium 0.07 % solution Administer into affected eye(s) Active bisacodyl (DULCOLAX) 5 MG EC tablet Take 5 mg by mouth Ac tive EPINEPHrine (EPIPEN-JR) 0.15 MG/0.3ML injection syringe Inject 1 Syringe into the shoulder, thigh, or buttocks Active Active Problems Problem Noted Date Diagnosed Date Stage 3b chronic kidney disease 10/05/2019 Benign hypertension 01/25/2015 Overview (10/01/2019): HTN (hypertension), benign Coronary arteriosclerosis 01/25/2015 Overview (10/01/2019): CAD in [place] artery Dyslipidemia 01/25/2015 Overview (09/01/2020): Mixed dyslipidemia Immunizations Name Administration Dates Next Due Fluzone High-Dose 03/01/2020 Influenza Split High Dose Pr eservative Free IM 03/01/2020,04/08/2018,04/07/2018,04/07,03/18/2017,03/18/2017,04/09/2016 ,04/09/2016,04/11/2015,04/11/2015 Influenza TIV (IM) 04/21/2021, 9,04/04/2019,04/22,04/15/2013,04/15/2013 Influenza Trivalent Adjuvanted 03/25/2019 Pfizer Sars-cov-2 Vaccination 08/31/2020, 021 Pneumococcal Conjugate 13-Valent 04/08/2018,10/0 07/2017,04/07/2018 Pneumococcal Polysaccharide 04/10/2019,1 ,03/25/2017,03/25,04/15/2013,04/15/2013 Family History Medical History Relation Comments Kidney disease Sister Relation Status Comments Sister Social History Tobacco Use Types Packs/Day Years Used Date Smoking Tobacco: Former Smokeless Tobacco: Never Alcohol Use Standard Drinks/Week Comments Yes 0 (1 standard drink = 0.6 oz pur e alcohol) occasionally Sex and Gender Information Value Date Recorded Sex Assigned at Not on file Gender Identity Not on file Sexual Orientation Not on file Last Filed Vital Signs Vital Sign Reading Time Taken Comments Blood Pressure 128/60 03/26/2022 11:03 AM CDT Pulse 60 03/26/2022 11:03 AM CDT Temperature 35.4 C (95.8 F) 03/26/2022 11:03 AM CDT Respiratory Rate - - Oxygen Saturation - - Inhaled Oxygen Concentration - - Weight 93.4 kg (206 lb) 03/26/2022 11:03 AM CDT Height 170.2 cm (5' 7 ) 03/26/2022 11:03 AM CDT Body Mass Index 32.26 03/26/2022 11:03 AM CDT Plan of Treatment Health Maintenance Due Date Last Done Comments COVID-19 Vaccine (2023-2 5 season) 2024 08/31/2020, 08/10/2020 Influenza Vaccine (#1) 2024 , 04/04/2019, 04/04/2019, Additional history exists Pneumococcal PPSV23/PCV13 65 + Years / High and Highest Risk Completed 04/10/2019, 04/10/2019, 04/08/2018, Additional history exists Care Teams High School Learning Support Teacher Relationship Specialty Start Date End Date Irasema Murguia FNP PCP - General Family Medicine 08/06/19
[2024-09-21 10:27] LABS: Albumin Level 3.6 g/dL (3.4-5.0); Anion Gap 5 mmol/L (4-12); Blood Urea Nitrogen 20 mg/dL (7-18); Calcium 9.2 mg/dL (8.5-10.1); Carbon Dioxide 31 mmol/L (21-32); Chloride 106 mmol/L (98-108); Estimated Glomerular Filt Rate 45; Glucose 111 mg/dL (70-99); Osmolality Calculated 297 mOsm/kg (285-295); Phosphorus 4.4 mg/dL (2.6-4.7); Potassium 4.4 mmol/L (3.5-5.1); Sodium 142 mmol/L (136-145)
[2024-09-22 13:58] LABS: Parathyroid Intact 47 pg/mL (16-77)
== END 2024-09-21 09:21 | disposition home or self-care (01) ==
LOC: CHSLAB 09:21
PROVIDERS: PCP Family Medicine; Visit Provider Internal Medicine Nephrology
DX: N18.32 Chronic kidney disease, stage 3b (principal); E78.2 Mixed hyperlipidemia
CPT/HCPCS: 36415; 80069; 82570; 83970; 84156; 85027

== ENCOUNTER 2024-11-02 09:59 | Outpatient (CLI) | payer MEDICARE, SELFPAY ==
[2024-11-02 10:12] LABS: Basophils Absolute Auto 0.04 K/mm3 (0.00-0.10); Basophils Percent Auto 0.8 % (0.0-1.0); Eosinophils Absolute Auto 0.26 K/mm3 (0.02-0.50); Eosinophils Percent Auto 5.3 % (1.0-6.0); Hemoglobin 13.6 g/dL (11.7-13.8); Lymphocytes Absolute Auto 1.59 K/mm3 (1.10-4.50); Lymphocytes Percent Auto 32.6 % (18.0-42.0); Mean Corpuscular HGB Conc 30.9 g/dL (32-36); Mean Corpuscular Hemoglobin 29.1 pg (27.0-31.0); Mean Corpuscular Volume 94.2 fL (78.0-102.0); Mean Platelet Volume 10.5 fl (9.2-11.8); Monocytes Absolute Auto 0.44 K/mm3 (0.10-0.90); Neutrophils Absolute Auto 2.54 K/mm3 (1.70-7.20); Neutrophils Percent Auto 52.3 % (50.0-70.0); Platelet Count Result 152 K/mm3 (150-420); Red Blood Count 4.67 M/mm3 (4.20-5.40); Red Cell Distribution Width 12.1 % (11.6-14.4); White Blood Count 4.9 K/mm3 (4.8-10.8)
[2024-11-02 11:07] LABS: Ferritin 155 ng/mL (8-252); Iron 79 ug/dL (50-170); Percent Iron Saturation 32 % (12-57); Vitamin B12 1978 pg/mL (193-986)
--- OUTSIDE RECORDS SUMMARY | 2024-11-02 11:14 | XMS_ITS | Data Portability ---
Author Organization [place] [facility], Main Office Address [address] [place] [address] Care Team Providers Care All Source Intelligence Analyst Name Role Phone CONSTANCE GLEN Primary Care Provider CONSTANCE GLEN Referring Provider Assessment Encounter Date Assessment Date Assessment LastModified [...] a magnifying visor sup that such is optiEgenera brand by Carmelina. She can buy of Abiquo with a light attached another option would be for her to start using a desk top magnifying glass and I went through [facility] in showed her examples of desk top lamps that have illumination surrounding the glass magnifying lens. I will see her back after the EMG nerve conduction velocity test is completed. 45 minutes were spent total care this patient more than half the time spent in hwqi-gb-xrqq care. Not available 06/20/2023 16:44:49 07/26/2023 07/26/2023 [...] use NSAID or Tylenol per her previous stitch cleaner. Patient denies any history of liver problems. I suspect that she could use Tylenol as needed and she could ask your primary care physician or Dr. Abel her stitch cleaner currently if they would agree and plans to do that. I will see her back on an as-needed basis. 20 minutes were spent with this patient more than half the time spent in mdtq-jh-dovr care for will Not available 07/28/2023 11:49:57 Plan of Treatment Reminders Order Date Submit Date Provider Last Modified By Organization Details Last Modified Time Details Appointments None recorded. Lab None recorded. 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 Surgeries None recorded. Imaging XR, elbow, 2 view 2022 023 [email or web address] [facility] [place], [address] [facility] [address], [place], [address], 3 14:44:59 Medication Orders None recorded. Patient [...] No observ ation record ed. [facility] [place] [address], [place], [address], 06/20/2023 16:42:14 06/17/2008/01/2021 MRI, cervi emerson spine , w/o contr ast No observ ation record ed. [email or web address] Not Available 2022 18:12:55 Result Notes None recorded. Problems Name Problem SNOMED Code Status Onset Date Resolution Date Notes Provider Name and Address Organization Details Recorded Time Pain of left hand 721721960411031 Active 2022 NAYANA Lozano [facility] [employer] [facility] 3 15:45:16 Pain in upper arm 599635015 Active 2023 NAYANA Lozano, [facility] [employer] [facility] 4 11:25:57 Problem Notes None recorded. Procedures Surgical History Date Name Laterality Status Provider Name and Address Organization Details Recorded Time Tonsillectomy and/or Adenoidectomy completed NAYANA Lozano [facility] [employer] [facility] 06/17/2023 15:34:43 ligation of fallopian tube completed Fiona Sanchez Delon [facility] [employer] [facility] 06/17/2023 15:34:56 Partial hysterectomy completed Laurie Sanchez [facility] 06/17/2023 15:35:14 Breast Surgery completed Fiona chance [facility] [employer] [facility] 06/17/2023 15:35:40 insertion of stent into ureter completed Fiona Sanchez [facility] 06/17/2023 15:36:06 excision of bunion completed Fiona Sanchez [facility] 06/17/2023 15:36:20 Cholecystectomy completed Fiona Redman en, [facility] 06/17/2023 15:36:30 Cholecystectomy completed Fiona Gre en, [facility] 06/17/2023 15:36:47 Cyst Removal completed Fiona Sanchez [facility] 06/17/2023 15:36:59 hemorrhoidectomy completed Fiona Bates een, [facility] 06/17/2023 15:37:17 procedure on heart completed Fiona Sanchez [facility] 06/17/2023 15:37:49 procedure on urinary bladder completed Fiona Sanchez [facility] 06/17/2023 15:38:04 resection of diverticulum completed Fiona Sanchez [facility] 06/17/2023 15:38:30 bypass of stomach completed Fiona bryan [facility] 06/17/2023 15:39:01 total replacement of hip completed Fiona Sanchez [facility] 06/17/2023 15:39:09 procedure on wrist completed Fiona Sanchez [facility] 06/17/2023 15:39:19 adjustment of lid position completed Fiona Sanchez [facility] 06/17/2023 15:39:31 extraction of cataract completed Fiona Sanchez [facility] 06/17/2023 15:39:53 operation on oral cavity completed Fiona Sanchez [facility] 06/17/2023 15:40:02 Ankle Surgery completed Fiona Sanchez [facility] 06/17/2023 15:40:27 Imaging Results Imaging Date Name Status LastModified by Organiz ation Details LastModified Time 05/28/2023 XR, hand, 3 or more view completed [email or web address] Information not available 06/04/2023 15:05:46 06/17/2023 XR, elbow, 2 view completed [facility] [place] [address], [place], [address], 06/20/2023 16:42:14 08/01/2021 MRI, cervical spine, w/o contrast completed [email or web address] Information not available 06/17/2023 18:12:55 Procedure Notes None recorded. Medical Equipment None Reported. Allergies Allergen ID Allergen Name Allergen Category Reaction Reaction Severity Criticality Documentation Date Start Date Code Code System Note Provider Name and Address Organization Details Recorded Time 20292 Substance with sulfonami de structure and antibacte rial mechanism of action (substanc e) medicatio n Not available Not available Not available 06/17/2023 87314 8003 SNOMED Fiona Sanchez RMA null, [facility] 3 15:18:39 37706 codeine medicatio n Not available Not available Not available 06/17/2023 2670 RxNorm Fiona Sanchez RMA null, [facility] 3 15:18:51 48254 Keflex medicatio n Not available Not available Not available 06/17/2023 06954 7 RxNorm Fiona aSnchez RMA null, [facility] 3 15:41:05 Medications Name Sig Start Date [...] Updated DateTime 06/17/2023 167.64 cm 33.7 kg/m2 40486.81 g NAYANA Lozano [facility] 06/17/2023 15:49:18 Date Recorded Body height Provider Name an d Address Organization Details Last Updated DateTime 07/26/2023 167.64 cm NAYANA Lozano [facility] [employer] 07/26/2023 11:24:20 Social History Question Answer Notes LastModified by Organizat ion Details LastModified Time Tobacco Smoking Status Former Smoker [facility] 06/17/2023 15:34:23 What Is Your Current Pack Years? 10-packyea rs [email or web address] Information not available 06/17/2023 Sex: Unknown Functional Status None recorded. Mental Status None recorded. Family History Relationship Description Onset Age of this Age Resolved Age Notes LastModified by Organization Details LastModified Time Sister Complication of anesthesia [email or web address] Not available 06/17 15:31:43 Sister Heart disease [email or web address] Not available 2022 15:32:04 Sister Family history of stroke Not available 2022 15:32:44 Sister Family history of malignant neoplasm Not available 2022 15:33:01 Sister Diabetes mellitus [email or web address] Not available 2022 15:34:00 Mother Heart disease Not available 2022 15:32:04 Mother Family history of stroke Not available 2022 15:32:44 Mother Family history of malignant neoplasm [email or web address] Not available 2022 15:33:01 Mother Hypertensive disorder Not available 2022 15:33:13 Mother Diabetes mellitus Not available 2022 15:34:00 Father Heart disease [email or web address] Not available 2022 15:32:04 Father Family history of stroke [email or web address] Not available 2022 15:32:44 Father Family history of malignant neoplasm [email or web address] Not available 2022 15:33:01 Brother Family history of stroke [email or web address] Not available 2022 15:32:44 Maternal Uncle Diabetes mellitus [email or web address] Not available 2022 15:34:00 Unspecified Relation Diabetes mellitus niece [email or web address] Not available 2022 15:34:00 Medical History Condition Response ARTHRITIS Y CANCER: SPECIFY Y ULCERS Y ANEMIA/BLOOD DISORDER Y Past Encounters Encounter ID Performer Location Encounter Start Date Encounter Closed Date Diagnosis/Indication Diagnosis SNOMED-CT Code Diagnosis ICD10 Code Diagnosis Note [id number] Pako Sow MD [facility] [place] [address] [place] [address] 06/17/2023 15:04:14 06/25/2023 14:44:58 Pain of left hand 4595532279 67290 M79.955 [id number] Pako Sow MD [facility] [place] [address] [place] [address] 07/26/2023 11:16:23 07/29/2023 15:01:17 Pain in upper arm 925873022 M79.629 G56.22 Health Concerns Section Related Observation LastModified by Organization Detai ls LastModified Time None Recorded Concern Status LastModified by Organization Details LastModified Time None Recorded Advance Directives Directive None Recorded Payers Encounter Date Sequence Insurance Name Policy Number Policy Pickering Covered Member ID Pickering Member ID Guarantor Name 06/17/2023 1 [facility] (MEDICARE REPLACEMENT/A DVANTAGE - PPO) [id number] Maida Camacho [id number] Maida Camacho 07/26/2023 1 [facility] (MEDICARE REPLACEMENT/A DVANTAGE - PPO) [id number] Maida Camacho [id number] Maida Camacho Notes Date Note Type Note [...] scan of the cervical spine dated 08/01/2021 [facility] and I reviewed the report. It indicates severe bilateral facet joint arthritis at multiple levels, mild central canal stenosis with ventral indentation of spinal cord at C5-6 and C6-7. Impression was severe cervical spondylosis. Pako Sow MD [address] [place] [address], [place] [address], [place], [address], [place] [employer] [facility] 06/20/2023 16:45:03
--- OUTSIDE RECORDS SUMMARY | 2024-11-02 11:15 | XMS_ITS | Encounter Summary ---
Author Organization [facility] Address [address] [place] [address] Phone Care Team Providers Care Heat Treating Furnace Tender Name Role Phone Irasema Murguia NP Primary Care Provider [phone] [phone] Encounter Details Date Type Department Care Team (Late st Contact Info) Description 12/12/[address] [facility] Orthopaedic Surgery [address] [facility] [address] 6th [place] [address] [place] [address] Estefany Joy MD [address] [place] [address] Social History Tobacco Use Types Packs/Day Years [...] than three times a week 11/16/2020 Attends Bahai Services Not on file 11/16 Active Member [...] place to sleep or slept in a senior care (including now)? 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
--- OUTSIDE RECORDS SUMMARY | 2024-11-02 11:15 | XMS_ITS | Referral Summary ---
Author Organization [facility] Address [address] [place] [address] Care Team Providers Care Housetrailer Servicer Name Role Phone Irasema Murguia NP Primary Care Provider [phone] Allergies Active Allergy Reactions Criticality Noted Date [...] (10/11/2020): Added automatically from request for surgery [id number] BPV (benign positional vertigo) 02/19/2020 Chronic kidney [...] Near syncope Coronary artery disease invo lving [place] coronary artery of [place] heart without angina pectoris 01/25/2015 Overview (10/12/2016): CAD in [place] artery Dizziness 01/25/2015 Overview (10/12/2016): Dizziness Malabsorption [...] than three times a week 11/16/2020 Attends Cheondoism Services Not on file 11/16 Active Member [...] the money to buy more. Never true 05/12/20 21 Within the past 12 months, t [...] place to sleep or slept in a halfway (including now)? 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 Gender Identity Not on file Sexual Orientation [...] on file Medical Devices Implanted Type Area Senior Pharmacy Technician Device Identifier Shelf Expiration Date Model / Serial / Lot [employer] [id number] 52mm Limit 3 Hole Hip E Hemisphere Offset Shell Acetabular - [id number] Implanted:Qty: 1 on 11/14/2020 by Estefany Joy MD at [facility] Left: Hip [employer] [id number] / / [employer] [id number] Trilogy 6.5mm 30mm Self Tap Acetabular Cortical Screw Bone - [id number] Implanted:Qty: 1 on 11/14/2020 by Estefany Joy MD at [facility] Left: Hip [employer] [id number] / / [employer] [id number] Trilogy 6.5mm 30mm Self Tap Acetabular Cortical Screw Bone - [id number] Implanted:Qty: 1 on 11/14/2020 by Estefany Joy MD at [facility] Left: Hip [employer] [id number] / / [employer] [id number] 36mm Lumen Hip E Liner Acetabular Longevity Sterile Latex Free - [id number] Implanted:Qty: 1 on 11/14/2020 by Estefany Joy MD at [facility] Left: Hip [employer] [id number] / / [employer] [id number] 14mm 149mm 39.1mm Primary Pressfit Hip 12/14 46.5mm Extend Offset - [id number] Implanted:Qty: 1 on 11/14/2020 by Estefany Joy MD at [facility] Left: Hip [employer] [id number] / / [employer] [id number] Versys Legacy 36mm Hip +7mm 12/14 Head Femoral Zimaloy Sterile - [id number] Implanted:Qty: 1 on 11/14/2020 by Estefany Joy MD at [facility] Left: Hip [employer] [id number] / / Insurance [facility] MEDICARE ADVANTAGE [place] [id number] UHC MEDICARE ADVANTAGE [place] [id number] MEDICARE ADVANTAGE UHC MEDICARE ADVANTAGE Advance Directives For more information, please contact: [phone] * Full Code (Latest Code Status on File) Date Activated Date Inactivated Comments 11/14/2020 6:19 PM 11/17/2020 6:44 PM Care Teams Housetrailer Servicer Relationship Specialty Start Date End Date Irasema Murguia NP [address] [place] [address] PCP - General Nurse Practitioner 08/14/19
--- OUTSIDE RECORDS SUMMARY | 2024-11-02 11:15 | XMS_ITS | Clinical Summary ---
Author Organization [facility] Address [address] [place] [address] Care Team Providers Care Roller Shop Utility Worker Name Role Phone Irasema Murguia BUSINESS RISK CONSULTANT Primary Care Provider [phone] Allergies Active Allergy Reactions Criticality Noted Date [...] - 1-dose 75+ series) 01/22/2019 COVID-19 Vaccine ( season) 2024 08/31/2020, 08/10/2020 Pneumococcal Vaccine: 50+ Years Completed 04/10/2019, 04/08/2018, 04/07/2018, Additional history exists Meningococcal B Vaccine Aged Out No l onger eligible based on patient's age to complete this topic Meningococcal Vaccine Aged Out No gayle leanne eligible based on patient's age to complete this topic RSV Immunizations Under 20 Months Aged Out No longer eligible based on patient's age to complete this topic Insurance [facility] Care Teams Roller Shop Utility Worker Relationship Specialty Start Date End Date Irasema Murguia FNP [address] [place] [address] PCP - General NURSE PRACTITIONER 02/03/20
--- OUTSIDE RECORDS SUMMARY | 2024-11-02 11:15 | XMS_ITS | Clinical Summary ---
Author Organization [facility] Address [address] [place] [address] Care Team Providers Care Trousseau Consultant Name Role Phone Irasema Murguia NP Primary Care Provider [phone] Allergies Active Allergy Reactions Criticality Noted Date [...] (10/11/2020): Added automatically from request for surgery [id number] BPV (benign positional vertigo) 02/19/2020 Chronic kidney [...] Near syncope Coronary artery disease invo lving [place] coronary artery of [place] heart without angina pectoris 01/25/2015 Overview (10/12/2016): CAD in [place] artery Dizziness 01/25/2015 Overview (10/12/2016): Dizziness Malabsorption [...] than three times a week 11/16/2020 Attends Yazdanism Services Not on file 11/16 Active Member [...] place to sleep or slept in a detention (including now)? 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 Gender Identity Not on file Sexual Orientation [...] Fall Risk Assessment 11/17/2021 11/17/2020 Influenza Vaccine (Season Ended) 2025 04/21/2021, 03/01/2020, 03/01/2020, Additional history exists Pneumococcal vaccine 65+ Completed 019, 04/08/2018, 04/07/2018, Additional history exists Medical Devices Implanted Type Area Office Machines Sales Representative Device Identifier Shelf Expiration Date Model / Serial / Lot Du[employer] [id number] 52mm Limit 3 Hole Hip E Hemisphere Offset Shell Acetabular - [id number] Implanted:Qty: 1 on 11/14/2020 by Estefany Joy MD at [facility] Left: Hip [employer] [id number] / / [employer] [id number] Trilogy 6.5mm 30mm Self Tap Acetabular Cortical Screw Bone - [id number] Implanted:Qty: 1 on 11/14/2020 by Estefany Joy MD at [facility] Left: Hip [employer] [id number] / / [employer] [id number] Trilogy 6.5mm 30mm Self Tap Acetabular Cortical Screw Bone - [id number] Implanted:Qty: 1 on 11/14/2020 by Estefany Joy MD at [facility] Left: Hip [employer] [id number] / / [employer] [id number] 36mm Lumen Hip E Liner Acetabular Longevity Sterile Latex Free - [id number] Implanted:Qty: 1 on 11/14/2020 by Estefany Joy MD at [facility] Left: Hip [employer] [id number] / / [employer] [id number] 14mm 149mm 39.1mm Primary Pressfit Hip 12/14 46.5mm Extend Offset - [id number] Implanted:Qty: 1 on 11/14/2020 by Estefany Joy MD at [facility] Left: Hip [employer] [id number] / / [employer] [id number] Versys Legacy 36mm Hip +7mm 12/14 Head Femoral Zimaloy Sterile - [id number] Implanted:Qty: 1 on 11/14/2020 by Estefany Joy MD at [facility] Left: Hip [employer] [id number] / / Insurance [facility] MEDICARE ADVANTAGE MEDICARE ADVANTAGE MEDICARE ADVANTAGE MEDICARE ADVANTAGE Advance Directives For more information, please contact: [phone] * Full Code (Latest Code Status on File) Date Activated Date Inactivated Comments 11/14/2020 6:19 PM 11/17/2020 6:44 PM Care Teams Trousseau Consultant Relationship Specialty Start Date End Date Irasema Murguia NP [address] [place] [address] PCP - General Nurse Practitioner 08/14/19
--- OUTSIDE RECORDS SUMMARY | 2024-11-02 11:15 | XMS_ITS | Clinical Summary ---
Author Organization [facility] Address [address] [place] [address] Phone Care Team Providers Care Pcu Rn Name Role Phone Irasema Murguia QUETA Primary Care Provider [phone] Allergies Active Allergy Reactions Criticality Noted Date Comments Cephalexin Itching Low 02/06/2021 Codeine Low 10/01/2019 Other reaction(s): Other (See comments) Makes patient angry Sulfa Antibiotics Hives,Shortness of breath High 10/01/2019 Tetanus Toxoid Swelling High 10/01/2019 Other reaction(s): Other (See comments) Skin peeled off Medications ALPRAZolam (XANAX) 0.5 MG tablet TAKE 1 TABLET BY MOUTH EVERY DAY NEEDED FOR ANXIETY 0 Active meclizine (ANTIVERT) 12.5 MG tablet Take 2 tablets by mouth every 8 hours 9 Active oxyCODONE-aceta minophen (PERCOCET) 7.5-325 MG per tablet 0 Active potassium chloride (KLOR-CON) 10 MEQ CR tablet Take 10 mEq by mouth 9 Active tamoxifen (NOLVADEX) 20 MG chemo tablet Take 20 mg by mouth 1 (one) time each day 0 Active fluticasone (FLONASE) 50 MCG/ACT nasal spray INSTILL 1 SPRAY INTO EACH NOSTRIL 0 Active loratadine (CLARITIN) 10 MG tablet Take 10 mg by mouth 1 (one) time each day 0 Active Calcium-Magnesi um-Vitamin D (CALCIUM 1200+D3 PO) Take by mouth 3 (three) times a day 2 in am and 1 in pm Active Cholecalciferol (Vitamin D3) 25 MCG (1000 UT) capsule Take by mouth Active aspirin 81 MG chewable tablet Chew 81 mg 1 (one) time each day Active Multiple Vitamins-Minera ls (PreserVision AREDS 2) chewable tablet Chew Acti ve Multiple Vitamin (multivitamin) capsule Take 1 capsule by mouth 1 (one) time each day Active rosuvastatin (CRESTOR) 20 MG tablet Take 20 mg by mouth 1 (one) time each day Active Naloxone HCl (Narcan) 4 MG/0.1ML liquid Call 911. Administer a single spray in one nostril. Repeat every 3 minutes as needed if no or minimal response. 0 Active Bromfenac Sodium 0.07 % solution Administer into affected eye(s) Active bisacodyl (DULCOLAX) 5 MG EC tablet Take 5 mg by mouth Active EPINEPHrine (EPIPEN-JR) 0.15 MG/0.3ML injection syringe Inject 1 Syringe into the shoulder, thigh, or buttocks Active Active Problems Problem Noted Date Diagnosed Date Stage 3b chronic kidney disease 10/05/2019 Benign hypertension 01/25/2015 Overview (10/01/2019): HTN (hypertension), benign Coronary arteriosclerosis 01/25/2015 Overview (10/01/2019): CAD in [place] artery Dyslipidemia 01/25/2015 Overview (09/01/2020): Mixed dyslipidemia Immunizations Immunization Administration Dates Next Due Fluzone High-Dose 03/01/2020 Influenza Split High Dose Pr eservative Free IM 03/01/2020,04/08/2018,04/07/2018,04/07,03/18/2017,03/18/2017,04/09/2016 ,04/09/2016,04/11/2015,04/11/2015 Influenza TIV (IM) 04/21/2021,,04/04/2019,04/22,04/15/2013,04/15/2013 Influenza Trivalent Adjuvanted 03/25/2019 Pfizer Sars-cov-2 Vaccination 08/31/2020, 021 Pneumococcal Conjugate 13-Valent 04/08/2018,1007/2017,04/07/2018 Pneumococcal Polysaccharide 04/10/2019,1 ,03/25/2017,03/25,04/15/2013,04/15/2013 Family History Medical History Relation Comments Kidney disease Sister Relation Status Comments Sister Social History Tobacco Use Types Packs/Day Years Used Date Smoking Tobacco: Former Smokeless Tobacco: Never Alcohol Use Standard Drinks/Week Comments Yes 0 (1 standard drink = 0.6 oz pur e alcohol) occasionally Comments Unknown Sex and Gender Information Value Date Recorded Sex Assigned at Not on file Legal Sex Female 1:55 PM MST Gender Identity Not on file Sexual Orientation [...] Due Date Last Done Comments COVID-19 Vaccine (2023- 5 season) 2024 08/31/2020, 08/10/2020 Influenza Vaccine (Season Ended) 2025 04/21/2021, 04/04/2019, 04/04/2019, Additional history exists Pneumococcal PPSV23/PCV13 65 + Years / Low and Medium Risk Completed 04/10/2019, 04/10/2019, 04/08/2018, Additional history exists Insurance [employer] MEDICARE Care Teams Pcu Rn Relationship Specialty Start Date End Date Irasema Murguia FNP PCP - General Family Medicine 08/06/19
== END 2024-11-02 10:00 | disposition home or self-care (01) ==
LOC: CHSLAB 10:01
PROVIDERS: PCP Nurse Practitioner Family; Visit Provider Internal Medicine Hematology & Oncology
DX: D50.9 Iron deficiency anemia, unspecified (principal)
CPT/HCPCS: 36415; 82607; 82728; 83540; 83550; 85025

== ENCOUNTER 2024-12-23 12:45 | Outpatient (CLI) | payer MEDICARE, SELFPAY ==
--- NOTE | ~2024-12-23 | DEXA_ITS ---
Bone Density Report Name: MARBELLA IYER Age: 79 Sex: Female Ethnicity: White Date of : 1945 Indication: postmenopausal; screening for osteoporosis; height loss; inflammatory bowel disease; prior fracture; cancer; end stage renal disease; hysterectomy; Referring Provider: Irasema Murguia Study: Bone densitometry was performed. Exam Date: December 23, 2024 Accession number: [id number] Bone Density: Region BMD T-score Z-score Classification AP Spine(L1-L4) 1.122 0.7 3.4 Normal World Health Organization criteria for BMD impression classify patients as: Normal (T-score at or above -1.0), Osteopenia (T-score between -1.0 and -2.5), or Osteoporosis (T-score at or below -2.5). Clinical Information Provided by Patient: Has had a low trauma fracture Has used the following medications: Calcium Has the following medical conditions: Cancer, End stage renal disease, Inflammatory bowel diseases, Hysterectomy Patient maximum height was 69 Menopause Age: 37 No regular weight bearing exercise Onset of menses at age 13 Number of children 2 Impression: The patient has normal bone mass. The patient has risk factors, including: previous fracture. Discussion: LOW RISK OF FRACTURE; BONE DENSITY IS WELL ABOVE THE MINIMUM DESIRABLE LEVEL AND ABOVE AVERAGE FOR AGE AND SEX AT ALL SKELETAL SITES TESTED. This person's bone density is above expected limits for age and sex. This is rarely clinically significant, but should be pursued if there are significant musculoskeletal complaints. The patient should follow a healthful lifestyle (good nutrition with adequate calcium and vitamin D, and appropriate weight-bearing exercise). Follow-Up: Consider repeating this study in 5 years or sooner if there is some new clinical indication. Reported by: CHRISTINE on 12/23/2024 1:03:00 PM. Reviewed, dictated and finalized at location A.
--- OUTSIDE RECORDS SUMMARY | 2024-12-23 14:07 | XMS_ITS | Clinical Summary ---
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 Mixed hyperlipidemia 09/05/2021 H/O syncope 09/05/2021 Anemia 03/01/2021 Retention of urine 01/10/2021 Primary osteoarthritis of left hip 10/11/2020 Overview (10/11/2020): Added automatically from request for surgery [id number] BPV (benign positional vertigo) 02/19/2020 Chronic kidney disease, stage 3b 10/05/2019 Bariatric surgery status 11/20/2017 Obesity (BMI 30.0-34.9) 11/01/2017 Breast cancer 04/25/2017 Vasovagal syncope 02/05/2017 Localized edema 10/19/2016 Overview (11/30/2016): Localized edema [...] Near syncope Coronary artery disease invo [place]ving [place] coronary artery of [place] heart without angina pectoris 01/25/2015 Overview (10/12/2016): CAD in [place] artery Dizziness 01/25/2015 Overview (10/12/2016): Dizziness Malabsorption 02/02/2014 Familial multiple polyposis syndrome 10/03/2012 Constipation 10/03/2012 Ischemic colitis 05/26/2012 Former smoker 07/19/2011 Morbid obesity 06/12/2011 Resolved Problems Problem Noted Date Diagnosed Date Resolved Date Preoperative cardiovascular examination 02/05/2017 11/26/2024 Dyslipidemia 01/25/2015 09/05/2021 Overview (10/12/2016): Mixed dyslipidemia Encounters Date Type Department Care Team Description 11/26/2024 10:30 AM CDT Office Visit [facility] Card[facility] [address] [place] [address] Mila Breaux MD Coronary artery disease involving [place] coronary artery of [place] heart without angina pectoris (Primary Dx); Benign hypertension; Mixed hyperlipidemia; Carotid artery disease, unspecified laterality, unspecified type from Last 3 Months Immunizations Immunization Administration [...] ardial infarction Status post radiation therapy 2018 [place] cancer Breast cancer (HCC) Weight loss [...] than three times a week 11/16/2020 Attends Congregation Services Not on file 11/16 Active Member [...] place to sleep or slept in a fdc (including now)? No 11/16/2020 Comments No Sex and Gender Information Value Date Recorded Sex Assigned at Not on file Legal Sex Female 11:59 PM SOCIAL SERVICES DIRECTOR Gender Identity Not on file Sexual Orientation Not on file Obstetrics History Last Filed Vital Signs Vital Sign Reading Time Taken Comments Blood Pressure 118/64 11/26/2024 10:42 AM CDT Pulse 67 11/26/2024 10:42 AM CDT Temperature 35.7 C (96.2 F) 01/10/2021 11:01 AM CDT Respiratory Rate 16 11/17/2020 7:59 AM CDT Oxygen Saturation 97% 11/26/2024 10:42 AM CDT Inhaled Oxygen Concentration - - Weight 91.6 kg (202 lb) 11/26/2024 10:42 AM CDT Height 175.3 cm (5' 9) 11/26/2024 10:42 AM CDT Body Mass Index 29.83 11/26/2024 10:42 AM CDT Plan of Treatment Health Maintenance [...] history exists Medical Devices Implanted Type Area Mechanical Engineering Advisor Device Identifier Shelf Expiration Date Model / Serial / Lot [employer] [id number] 52mm Limit 3 Hole Hip E Hemisphere Offset Shell Acetabular - [id number] Implanted:Qty: 1 on 11/14/2020 by Estefany Joy MD at [facility] Left: Hip [employer] [id number] / / [employer] [id number] Trilogy 6.5mm 30mm Self Tap Acetabular Cortical Screw Bone - [id number] Implanted:Qty: 1 on 11/14/2020 by Estefany Joy MD at [facility] Left: Hip [employer] [id number] / / [employer] [id number] Trilogy 6.5mm 30mm Self Tap Acetabular Cortical Screw Bone - [id number] Implanted:Qty: 1 on 11/14/2020 by Estefany Joy MD at [facility] Left: Hip [employer] [id number] / / [employer] [id number] 36mm Lumen Hip E Liner Acetabular Longevity Sterile Latex Free - [id number] Implanted:Qty: 1 on 11/14/2020 by Estefany Joy MD at [facility] Left: Hip [employer] [id number] / / [employer] [id number] 14mm 149mm 39.1mm Primary Pressfit Hip 12/14 46.5mm Extend Offset - [id number] Implanted:Qty: 1 on 11/14/2020 by Estefany Joy MD at [facility] Left: Hip [employer] [id number] / / [employer] [id number] Versys Legacy 36mm Hip +7mm 12/14 Head Femoral Zimaloy Sterile - [id number] Implanted:Qty: 1 on 11/14/2020 by Estefany Joy MD at [facility] Left: Hip [employer] [id number] / / Insurance MEDICARE ADVANTAGE [facility] Address: [place] [address] MEDICARE ADVANTAGE [facility] Address: [address] [place] [address] MEDICARE ADVANTAGE UHC MEDICARE ADVANTAGE [facility] Address: [address] [address] [place] [address] Advance Directives For more information, please contact: [phone] * Full Code (Latest Code Status on File) Date Activated Date Inactivated Comments 11/14/2020 6:19 PM 11/17/2020 6:44 PM Care Teams Warehouse Puller Relationship Specialty Start Date End Date Irasema Murguia NP [address] [place] [address] PCP - General Nurse Practitioner 08/14/19
--- OUTSIDE RECORDS SUMMARY | 2024-12-23 14:07 | XMS_ITS | Data Portability ---
Author Organization [place] [facility] [employer], Main Office Address [address] [place] [address] Care Team Providers Care Fitness Attendant Name Role Phone CONSTANCE GLEN Primary Care [...] a magnifying visor sup that such is [employer] brand by Carmelina. She can buy of NewCell with a light attached another option would be for her to start using a desk top magnifying glass and I went through [employer] in showed her examples of desk top lamps that have illumination surrounding the glass magnifying lens. I will see her back after the EMG nerve conduction velocity test is completed. 45 minutes were spent total care this patient more than half the time spent in jhuk-bi-dyny care. Not available 06/20/2023 16:44:49 07/26/2023 07/26/2023 [...] use NSAID or Tylenol per her previous cheesemaker helper. Patient denies any history of liver problems. I suspect that she could use Tylenol as needed and she could ask your primary care physician or Dr. Abel her cheesemaker helper currently if they would agree and plans to do that. I will see her back on an as-needed basis. 20 minutes were spent with this patient more than half the time spent in vqox-mp-orgi care for will Not available 07/28/2023 11:49:57 Plan of Treatment Reminders Order Date Submit Date Provider Last Modified By Organization Details Last Modified Time Details Appointments None recorded. Lab None recorded. Referral hand surgeon referral - pt has significan t cubital tunnel syndrome with mild osteoarthr itis left elbow 2023 024 ATHENAFAX Mary Nix MD, [address], [place], [address], 4 15:50:27 Procedures None recorded. Surgeries None recorded. Imaging XR, elbow, 2 view 2022 023 [email or web address] [facility] [place] Hodge, [address], [place], [address], 3 14:44:59 Medication Orders None recorded. Patient TargetsNo targets recorded. Patient InstructionsNo instructions recorded. Reason for Referral Hand Surgeon Referral for Pa in in upper arm possible transposition ulnar nerve pt has significant cubital tunnel syndrome with mild osteoarthritis left elbow Referring Physician: aPko Sow, Orthopedic Surgery, Encounter Date: 07/26/2023 Results Created Date Observation Date Name Description Value Unit Range Abnormal Flag Note LastModifiedBy Organization Detail LastModifiedTime 06/04/2005/28/2023 XR, hand, 3 or more view No observ ation record ed. [email or web address] Not Available 05/09 15:05:46 06/17/20 XR, elbow , 2 view No observ ation record ed. [facility] [place] [address], [place], [address], 06/20/2023 16:42:14 06/17/2008/01/2021 MRI, cervi [place]erson spine , w/o contr ast No observ ation record ed. [email or web address] Not Available 2022 18:12:55 Result Notes None recorded. Problems Name Problem SNOMED Code Status Onset Date Resolution Date Notes Provider Name and Address Organization Details Recorded Time Pain of left hand 556600016338702 Active 2022 NAYANA Lozano [facility] [employer] [facility] 3 15:45:16 Pain in upper arm 956542193 Active 2023 NAYANA Lozano, [facility] [employer] [facility] 4 11:25:57 Problem Notes None recorded. Procedures Surgical History Date Name Laterality Status Provider Name and Address Organization Details Recorded Time Tonsillectomy and/or Adenoidectomy completed NAYANA Lozano [facility] [employer] [facility] 06/17/2023 15:34:43 ligation of fallopian tube completed Fiona Sanchez Delon [facility] [employer] [facility] 06/17/2023 15:34:56 Partial hysterectomy completed Laurie Sanchez [facility] 06/17/2023 15:35:14 Breast Surgery completed Fiona chance [facility] [employer] [facility] 06/17/2023 15:35:40 insertion of stent into ureter completed Fiona Sanchez [facility] [place] [facility] 06/17/2023 15:36:06 excision of bunion completed Fiona Sanchez, [facility] 06/17/2023 15:36:20 Cholecystectomy completed Fiona Gre en, [facility] 06/17/2023 15:36:30 Cholecystectomy completed Fiona Gre en, [facility] 06/17/2023 15:36:47 Cyst Removal completed Fiona Sanchez [facility] 06/17/2023 15:36:59 hemorrhoidectomy completed Fiona Bates een, [facility] 06/17/2023 15:37:17 procedure on heart completed Fiona Sanchez [facility] 06/17/2023 15:37:49 procedure on urinary bladder completed Fiona Sanchez [facility] 06/17/2023 15:38:04 resection of diverticulum completed Fiona Sanchez [facility] 06/17/2023 15:38:30 bypass of stomach completed Fiona bryan, [facility] 06/17/2023 15:39:01 total replacement of hip completed Fiona Sanchez [facility] 06/17/2023 15:39:09 procedure on wrist completed Fiona Sanchez [facility] 06/17/2023 15:39:19 adjustment of lid position completed Fiona Sanchez [facility] 06/17/2023 15:39:31 extraction of cataract completed Fiona Sanchez [facility] 06/17/2023 15:39:53 operation on oral cavity completed Fiona Sanchez [facility] 06/17/2023 15:40:02 Ankle Surgery completed Fiona Sanchez [facility] 06/17/2023 15:40:27 Imaging Results None recorded. Procedure Notes None recorded. Medical Equipment None Reported. Allergies Allergen ID Allergen Name Allergen Category Reaction Reaction Severity Criticality Documentation Date Start Date Code Code System Note Provider Name and Address Organization Details Recorded Time 12974 Substance with sulfonami de structure and antibacte rial mechanism of action (substanc e) medicatio n Not available Not available Not available 06/17/2023 03292 8003 SNOMED NAYANA Lozano, [facility] 15:18:39 41433 codeine medicatio n Not available Not available Not available 06/17/2023 2670 RxNorm NAYANA Lozano, [facility] 15:18:51 96578 Keflex medicatio n Not available Not available Not available 06/17/202399101 7 RxNorm NAYANA Lozano, [facility] 15:41:05 Medications Name Sig Start Date Stop [...] Not Available Vitals Date Recorded Body height Provider Name an d Address Organization Details Last Updated DateTime 07/26/2023 167.64 cm NAYANA Lozano [facility] 07/26/2023 11:24:20 Date Recorded Body height Body mass index (BMI) Body weight Provider Name and Address Organization Details Last Updated DateTime 06/17/2023 167.64 cm 33.7 kg/m2 18661.81 g NAYANA Lozano [facility] 06/17/2023 15:49:18 Social History Question Answer Notes LastModified by Organizat ion Details LastModified Time Tobacco Smoking Status Former Smoker NAYANA Lozano null, [facility] [employer] [facility] 06/17/2023 15:34:23 What Is Your Current Pack Years? 10-packyea rs [email or web address] Information not available 06/17/2023 Sex: Unknown Functional Status None recorded. Mental Status None recorded. Family History Relationship Description Onset Age of this Age Resolved Age Notes LastModified by Organization Details LastModified Time Sister Complication of anesthesia [email or web address] Not available 06/17 15:31:43 Sister Heart disease [email or web address] Not available 2022 15:32:04 Sister Family history of stroke [email or web address] Not available 2022 15:32:44 Sister Family history of malignant neoplasm [email or web address] Not available 2022 15:33:01 Sister Diabetes mellitus [email or web address] Not available 2022 15:34:00 Mother Heart disease [email or web address] Not available 2022 15:32:04 Mother Family history of stroke [email or web address] Not available 2022 15:32:44 Mother Family history of malignant neoplasm Not available 2022 15:33:01 Mother Hypertensive disorder [email or web address] Not available 2022 15:33:13 Mother Diabetes mellitus [email or web address] Not available 2022 15:34:00 Father Heart disease Not available 2022 15:32:04 Father Family history of stroke [email or web address] Not available 2022 15:32:44 Father Family history of malignant neoplasm Not available 2022 15:33:01 Brother Family history of stroke [email or web address] Not available 2022 15:32:44 Maternal Uncle Diabetes mellitus Not available 2022 15:34:00 Unspecified Relation Diabetes mellitus niece [email or web address] Not available 2022 15:34:00 Medical History Condition Response ARTHRITIS Y CANCER: SPECIFY Y ULCERS Y ANEMIA/BLOOD DISORDER Y Past Encounters Encounter ID Performer Location Encounter Start Date Encounter Closed Date Diagnosis/Indication Diagnosis SNOMED-CT Code Diagnosis ICD10 Code Diagnosis Note [id number] Pako Sow MD [facility] [place] [address] [place] [address] 06/17/2023 15:04:14 06/25/2023 14:44:58 Pain of left hand [id number] 55805 M79.673 [id number] Pako Sow MD [facility] [place] [address] [place] [address] 07/26/2023 11:16:23 07/29/2023 15:01:17 Pain in upper arm 705470198 M79.629 G56.22 Health Concerns Section Related Observation LastModified by Organization Detai ls LastModified Time None Recorded Concern Status LastModified by Organization Details LastModified Time None Recorded Advance Directives Directive None Recorded Payers Insurance Date Sequence Insurance Name Policy Number Policy Pickering Covered Member ID Pickering Member ID Guarantor Name 08/01/2023 1 [facility] (MEDICARE REPLACEMENT/A DVANTAGE - PPO) [id number] Maida Camacho [id number] Maida Camacho Notes Date Note Type Note [...] scan of the cervical spine [facility] and I reviewed the report. It indicates severe bilateral facet joint arthritis at multiple levels, mild central canal stenosis with ventral indentation of spinal cord at C5-6 and C6-7. Impression was severe cervical spondylosis. Pako Sow MD [address] [place] [address], [place], [address], [facility] 06/20/2023 16:45:03
--- OUTSIDE RECORDS SUMMARY | 2024-12-23 14:07 | XMS_ITS | Encounter Summary ---
Author Organization [facility] Address [address] [place] [address] Phone Care Team Providers Care Animation Camera Operator Name Role Phone Irasema Murguia NP Primary Care Provider [phone] Encounter Details Date Type Department Care Team (Late st Contact Info) Description 12/12/2020 Telephone [facility] Orthopaedic Surgery [address] Medicine 6th [place] [address] [place] [address] Estefany Joy MD [address] [place] [address] Social History Tobacco Use Types Packs/Day Years [...] than three times a week 11/16/2020 Attends Sikhism Services Not on file 11/16 Active Member [...] place to sleep or slept in a chcf (including now)? No 11/16/2020 Comments No Sex and Gender Information Value Date Recorded Sex Assigned at Not on file Legal Sex Female 11:59 PM LIVESTOCK NUTRITIONIST Gender Identity Not on file Sexual Orientation Not on file documented as of this encounter Plan of Treatment Not on file documented as of this encounter Visit Diagnoses Not on filedocumented in this encounter Care Teams Animation Camera Operator Relationship Specialty Start Date End Date Irasema Murguia NP [address] [place] [address] PCP - General Nurse Practitioner 08/14/19 documented as of this encounter
--- OUTSIDE RECORDS SUMMARY | 2024-12-23 14:07 | XMS_ITS | Clinical Summary ---
Author Organization [facility] Address [address] [place] [address] Phone Care Team Providers Care Tank Car Reconditioner Name Role Phone Irasema Murguia QUETA Primary Care Provider [phone]- [phone] Allergies Active Allergy Reactions Criticality Noted Date [...] Coronary arteriosclerosis 01/25/2015 Overview (10/01/2019): CAD in [place] artery Dyslipidemia 01/25/2015 Overview (09/01/2020): Mixed dyslipidemia [...] 11:03 AM CDT Height 170.2 cm (5' 7) 03/26/2022 11:03 AM CDT Body Mass Index [...] exists Insurance [employer] MEDICARE Care Teams Tank Car Reconditioner Relationship Specialty Start Date End Date Irasema Murguia FNP PCP - General Family Medicine 08/06/19
--- OUTSIDE RECORDS SUMMARY | 2024-12-23 14:07 | XMS_ITS | Referral Summary ---
Author Organization [facility] Address [address] [place] [address] Care Team Providers Care Electrical Engineer Mep Name Role Phone Irasema Murguia NP Primary Care Provider +1 -[phone] Encounters Date Type Department Care Team Description 11/26/2024 10:30 AM CDT Office Visit [facility] Cardiology [address] [place] [address] Mila Breaux MD Coronary artery disease involving [place] coronary artery of [place] heart without angina pectoris (Primary Dx); Benign hypertension; Mixed hyperlipidemia; Carotid artery disease, unspecified laterality, unspecified type from Last 3 Months Allergies Active Allergy [...] (10/11/2020): Added automatically from request for surgery [id number] BPV (benign positional vertigo) 02/19/2020 Chronic kidney [...] Near syncope Coronary artery disease invo lving [place] coronary artery of [place] heart without angina pectoris 01/25/2015 Overview (10/12/2016): CAD in [place] artery Dizziness 01/25/2015 Overview (10/12/2016): Dizziness Malabsorption [...] than three times a week 11/16/2020 Attends Denominational Services Not on file 11/16 Active Member [...] place to sleep or slept in a custodial (including now)? No 11/16/2020 Comments No Sex and Gender Information Value Date Recorded Sex Assigned at Not on file Legal Sex Female 11:59 PM TRACK INSPECTING SUPERVISOR Gender Identity Not on file Sexual Orientation [...] 11/26/2024 10:42 AM CDT Plan of Treatment Not on file Medical Devices Implanted Type Area Clinical Asst Device Identifier Shelf Expiration Date Model / Serial / Lot [employer] [id number] 52mm Limit 3 Hole Hip E Hemisphere Offset Shell Acetabular - [id number] Implanted:Qty: 1 on 11/14/2020 by Estefany Joy MD at [facility] Left: Hip [employer] [id number] / / [employer] [id number] Trilogy 6.5mm 30mm Self Tap Acetabular Cortical Screw Bone - [id number] Implanted:Qty: 1 on 11/14/2020 by Estefany Joy MD at [facility] Left: Hip [employer] [id number] / / [employer] [id number] Trilogy 6.5mm 30mm Self Tap Acetabular Cortical Screw Bone - [id number] Implanted:Qty: 1 on 11/14/2020 by Estefany Joy MD at [facility] Left: Hip [employer] [id number] / / [employer] [id number] 36mm Lumen Hip E Liner Acetabular Longevity Sterile Latex Free - [id number] Implanted:Qty: 1 on 11/14/2020 by Estefany Joy MD at [facility] Left: Hip [employer] [id number] / / [employer] [id number] 14mm 149mm 39.1mm Primary Pressfit Hip 12/14 46.5mm Extend Offset - [id number] Implanted:Qty: 1 on 11/14/2020 by Estefany Joy MD at [facility] Left: Hip [employer] [id number] / / [employer] [id number] Versys Legacy 36mm Hip +7mm 12/14 Head Femoral Zimaloy Sterile - [id number] Implanted:Qty: 1 on 11/14/2020 by Estefany Joy MD at [facility] Left: Hip [employer] [id number] / / Insurance MEDICARE ADVANTAGE MEDICARE ADVANTAGE MEDICARE ADVANTAGE [facility] MEDICARE ADVANTAGE Advance Directives For more information, please contact: [phone] * Full Code (Latest Code Status on File) Date Activated Date Inactivated Comments 11/14/2020 6:19 PM 11/17/2020 6:44 PM Care Teams Electrical Engineer Mep Relationship Specialty Start Date End Date Irasema Murguia NP [address] [place] [address] PCP - General Nurse Practitioner 08/14/19
== END 2024-12-23 12:46 | disposition home or self-care (01) ==
LOC: CHSIMG 12:46
PROVIDERS: PCP Nurse Practitioner Family; Visit Provider Nurse Practitioner Family
DX: Z78.0 Asymptomatic menopausal state (principal)
CPT/HCPCS: 77080

== ENCOUNTER 2025-02-19 12:54 | Outpatient (CLI) | payer MEDICARE, SELFPAY ==
--- NOTE | ~2025-02-19 | MM_ITS ---
EXAMINATION: MM screening gisella BI w rafiq HISTORY: Screening TECHNIQUE: Craniocaudal and mediolateral oblique 3-D tomosynthesis images were obtained and synthetic 2-D images were generated. CAD analysis was submitted and interpreted. COMPARISON: Comparison to multiple prior studies sequentially, with oldest reviewed study dated 12/29. BREAST PARENCHYMAL COMPOSITION: Not dense: There are scattered areas of fibroglandular density. FINDINGS: Right breast is stable without evidence for malignancy. There is a developing asymmetry sup eriorly in the left breast. There are associated coarse calcifications. IMPRESSION: 1. Developing left breast asymmetry. 2. Additional mammographic views and possible breast ultrasound are recommended. BI-RADS Category 0: Incomplete: Needs additional imaging evaluation. Reviewed, dictated and finalized at location A. IMPRESSION: 1. Developing left breast asymmetry. 2. Additional mammographic views and possible breast ultrasound are recommended . BI-RADS Category 0: Incomplete: Needs additional imaging evaluation.
--- OUTSIDE RECORDS SUMMARY | 2025-02-19 12:58 | XMS_ITS | Clinical Summary ---
Author Organization [facility] Address [address] [place] [address] Care Team Providers Care Metal Coater Operator Name Role Phone Irasema Murguia NP Primary Care Provider +1 -[phone] Allergies Active Allergy Reactions Criticality Noted Date [...] ONE TABLET BY MOUTH DAILY 90 tablet 3 5 Active Active Problems Problem Noted Date Diagnosed [...] (10/11/2020): Added automatically from request for surgery [id number] BPV (benign positional vertigo) 02/19/2020 Chronic kidney [...] Near syncope Coronary artery disease invo lving [place] coronary artery of [place] heart without angina pectoris 01/25/2015 Overview (10/12/2016): CAD in [place] artery Dizziness 01/25/2015 Overview (10/12/2016): Dizziness Malabsorption 02/02/2014 Familial multiple polyposis syndrome 10/03/2012 Constipation 10/03/2012 Ischemic colitis 05/26/2012 Former smoker 07/19/2011 Morbid obesity 06/12/2011 Resolved Problems Problem Noted Date Diagnosed Date Resolved Date Preoperative cardiovascular examination 02/05/2017 11/26/2024 Dyslipidemia 01/25/2015 09/05/2021 Overview (10/12/2016): Mixed dyslipidemia Encounters Date Type Department Care Team Description 11/26/2024 10:30 AM CDT Office Visit [facility] Cardiology [address] [place] [address] Mila Breaux MD Coronary artery disease involving [place] coronary artery of [place] heart without angina pectoris (Primary Dx); Benign [...] Tobacco Cessation:Counseling Given: Yes Social Connection and Isolation Panel Answer Date Recorded In a typical week, [...] place to sleep or slept in a snf (including now)? No 11/16/2020 Comments No Sex and Gender Information Value Date Recorded Sex Assigned at Not on file Legal Sex Female 11:59 PM ISSUER Gender Identity Not on file Sexual Orientation [...] Risk Assessment 11/17/2021 11/17/2020 Influenza Vaccine (#1) 2025 1, 03/01/2020, 03/01/2020, Additional history exists Pneumococcal vaccine 65+ Completed 019, 04/08/2018, 04/07/2018, Additional history exists Medical Devices Implanted Type Area Lumber Kiln Operator Device Identifier Shelf Expiration Date Model / Serial / Lot [employer] [id number] 52mm Limit 3 Hole Hip E Hemisphere Offset Shell Acetabular - [id number] Implanted:Qty: 1 on 11/14/2020 by Estefany Joy MD at [facility] Left: Hip [employer] [id number] / / [employer] [id number] Trilogy 6.5mm 30mm Self Tap Acetabular Cortical Screw Bone - [id number] Implanted:Qty: 1 on 11/14/2020 by Estefany Joy MD at [facility] Left: Hip [employer] [id number] / / [employer] [id number] Trilogy 6.5mm 30mm Self Tap Acetabular Cortical Screw Bone - [id number] Implanted:Qty: 1 on 11/14/2020 by Estefany Joy MD at [facility] Left: Hip [employer] [id number] / / [employer] [id number] 36mm Lumen Hip E Liner Acetabular Longevity Sterile Latex Free - [id number] Implanted:Qty: 1 on 11/14/2020 by Estefany Joy MD at [facility] Left: Hip [employer] [id number] / / [employer] [id number] 14mm 149mm 39.1mm Primary Pressfit Hip 12/14 46.5mm Extend Offset - [id number] Implanted:Qty: 1 on 11/14/2020 by Estefany Joy MD at [facility] Left: Hip [employer] [id number] / / [employer] [id number] Versys Legacy 36mm Hip +7mm 12/14 Head Femoral Zimaloy Sterile - [id number] Implanted:Qty: 1 on 11/14/2020 by Estefany Joy MD at [facility] Left: Hip [employer] [id number] / / Insurance MEDICARE ADVANTAGE MEDICARE ADVANTAGE MEDICARE ADVANTAGE [facility] MEDICARE ADVANTAGE Advance Directives For more information, please contact: [phone] * Full Code (Latest Code Status on File) Date Activated Date Inactivated Comments 11/14/2020 6:19 PM 11/17/2020 6:44 PM Care Teams Metal Coater Operator Relationship Specialty Start Date End Date Irasema Murguia NP [address] [place] [address] PCP - General Nurse Practitioner 08/14/19
--- OUTSIDE RECORDS SUMMARY | 2025-02-19 12:58 | XMS_ITS | Clinical Summary ---
Author Organization [facility] Address [address] [place] [address] Phone Care Team Providers Care Upper Caser Name Role Phone Irasema Murguia QUETA Primary Care Provider +1- [phone] Allergies Active Allergy Reactions Criticality Noted Date [...] Coronary arteriosclerosis 01/25/2015 Overview (10/01/2019): CAD in [place] artery Dyslipidemia 01/25/2015 Overview (09/01/2020): Mixed dyslipidemia [...] season) 2024 08/31/2020, 08/10/2020 Influenza Vaccine (#1) 2025 , 04/04/2019, 04/04/2019, Additional history exists Pneumococcal PPSV23/PCV13 65 + Years / Low and Medium Risk Completed 04/10/2019, 04/10/2019, 04/08/2018, Additional history exists Insurance [employer] MEDICARE Care Teams [place]er Relationship Specialty Start Date End Date Irasema Murguia FNP PCP - General Family Medicine 08/06/19
--- OUTSIDE RECORDS SUMMARY | 2025-02-19 12:58 | XMS_ITS | Clinical Summary ---
Author Organization [facility] Address [address] [place] [address] Care Team Providers Care Conduit Cleaner Name Role Phone Irasema Murguia SECURITY SYSTEMS SALES REPRESENTATIVE Primary Care Provider +1 -[phone] Allergies Active Allergy Reactions Criticality Noted Date [...] 9:31 AM CDT Height 170.2 cm (5' 7) 09/17/2022 9:31 AM CDT Body Mass Index [...] patient's age to complete this topic Insurance [facility] Care Teams Conduit Cleaner Relationship Specialty Start Date End Date Irasema Murguia FNP [address] [place] [address] PCP - General NURSE PRACTITIONER 02/03/20
--- OUTSIDE RECORDS SUMMARY | 2025-02-19 12:58 | XMS_ITS | Encounter Summary ---
Author Organization [facility] Address [address] [place] [address] Phone Care Team Providers Care Resident Services Coordinator Name Role Phone Irasema Murguia NP Primary Care Provider +1 -[phone] Encounter Details Date Type Department Care Team (Late st Contact Info) Description 12/12/2020 Telephone [facility] Orthopaedic Surgery [address] [facility] 6th [place] [address] [place] [address] Estefany Joy MD [address] [place] [address] Social History Tobacco Use Types Packs/Day Years Used Date Smoking Tobacco: Former Cigarettes 0.5 38 1 962 - 2000 Smokeless Tobacco: Never Social Connection and Isolation Panel Answer Date Recorded In a typical week, how many times do you talk on the phone with family, friends, or neighbors? More than three times a week 11/16/2020 How often do you get togethe r with friends or relatives? More than three times a week 11/16/2020 Attends Taoism Services Not on file 11/16 Active Member [...] place to sleep or slept in a skilled nursing (including now)? No 11/16/2020 Comments No Sex and Gender Information Value Date Recorded Sex Assigned at Not on file Legal Sex Female 11:59 PM CUBE CUTTER Gender Identity Not on file Sexual Orientation Not on file documented as of this encounter Plan of Treatment Not on file documented as of this encounter Visit Diagnoses Not on filedocumented in this encounter Care Teams Resident Services Coordinator Relationship Specialty Start Date End Date Irasema Murguia NP [address] [place] [address] PCP - General Nurse Practitioner 08/14/19 documented as of this encounter
== END 2025-02-19 12:55 | disposition home or self-care (01) ==
LOC: CHSIMG 12:55
PROVIDERS: PCP Nurse Practitioner Family; Visit Provider Internal Medicine Hematology
DX: Z12.31 Encounter for screening mammogram for malignant neoplasm of breast (principal); R92.8 Other abnormal and inconclusive findings on diagnostic imaging of breast
CPT/HCPCS: 77063; 77067

== ENCOUNTER 2025-02-26 08:47 | Outpatient (CLI) | payer MEDICARE, SELFPAY ==
--- NOTE | ~2025-02-26 | MM_ITS ---
EXAMINATION: MM diagnostic gisella LT w rafqi HISTORY: Left breast asymmetry TECHNIQUE: Additional 3-D tomosynthesis images of the left breast were performed and synthetic 2-D images were generated. CAD analysis was submitted and interpreted. COMPARISON: 02/19/2025, 02/17/2024, 02/11/2023 BREAST PARENCHYMAL COMPOSITION:Not Dense. There are scattered areas of fibroglandular density. FINDINGS: Left breast asymmetry effaces with spot compression. No persistent mass lesion or distortion seen. Benign calcifications are present. IMPRESSION: No mammographic evidence for malignancy. BI-RADS Category 2: Benign finding(s). Reviewed, dictated and finalized at location .
--- OUTSIDE RECORDS SUMMARY | 2025-02-26 08:51 | XMS_ITS | Encounter Summary ---
Author Organization [facility] Address [address] [place] [address] Phone Care Team Providers Care A Class Lineman Name Role Phone Irasema Murguia NP Primary Care Provider +1 -[phone] Encounter Details Date Type Department Care Team (Late st Contact Info) Description 12/12/2020 Telephone [facility] Medicine Orthopaedic Surgery [address] [facility] 6th [place] [address] [place] [address] Estefany Joy MD [address] [place] [address] Social History Tobacco Use Types Packs/Day Years [...] on file Legal Sex Female 11:59 PM BOWLING PIN REFINISHER Gender Identity Not on file Sexual Orientation Not on file documented as of this encounter Plan of Treatment Not on file documented as of this encounter Visit Diagnoses Not on filedocumented in this encounter Care Teams A Class Lineman Relationship Specialty Start Date End Date Irasema Murguia NP [address] [place] [address] PCP - General Nurse Practitioner 08/14/19 documented as of this encounter
--- OUTSIDE RECORDS SUMMARY | 2025-02-26 08:51 | XMS_ITS | Clinical Summary ---
Author Organization [facility] Address [address] [place] [address] Care Team Providers Care Sorter Operator Name Role Phone Irasema Murguia LENS BLOCKER Primary Care Provider +1 -[phone] Allergies Active Allergy Reactions Criticality Noted Date [...] topic Meningococcal Vaccine Aged Out No gayle lenane eligible based on patient's age to complete this topic RSV Immunizations Under 20 Months Aged Out No longer eligible based on patient's age to complete this topic Insurance [place] [address] Care Teams Sorter Operator Relationship Specialty Start Date End Date Irasema Murguia FNP [address] [place] [address] PCP - General NURSE PRACTITIONER 02/03/20
--- OUTSIDE RECORDS SUMMARY | 2025-02-26 08:51 | XMS_ITS | Clinical Summary ---
Author Organization [facility] Address [address] [place] [address] Phone Care Team Providers Care Molder Punch Name Role Phone Irasema Murguia QUETA Primary Care Provider +1- [phone] Allergies Active Allergy Reactions Criticality Noted Date [...] Coronary arteriosclerosis 01/25/2015 Overview (10/01/2019): CAD in [place] artery Dyslipidemia 01/25/2015 Overview (09/01/2020): Mixed dyslipidemia [...] exists Insurance [employer] MEDICARE Care Teams Molder Punch Relationship Specialty Start Date End Date Irasema Murguia FNP PCP - General Family Medicine 08/06/19
--- OUTSIDE RECORDS SUMMARY | 2025-02-26 08:51 | XMS_ITS | Clinical Summary ---
Author Organization [facility] Address [address] [place] [address] Care Team Providers Care Bartender Name Role Phone Irasema Murguia NP Primary Care Provider +1 -[phone] Allergies Active Allergy Reactions Criticality Noted Date [...] (10/11/2020): Added automatically from request for surgery [id number] BPV (benign positional vertigo) 02/19/2020 Chronic kidney [...] Near syncope Coronary artery disease invo lving [place] coronary artery of [place] heart without angina pectoris 01/25/2015 Overview (10/12/2016): CAD in [place] artery Dizziness 01/25/2015 Overview (10/12/2016): Dizziness Malabsorption 02/02/2014 Familial multiple polyposis syndrome 10/03/2012 Constipation 10/03/2012 Ischemic colitis 05/26/2012 Former smoker 07/19/2011 Morbid obesity 06/12/2011 Resolved Problems Problem Noted Date Diagnosed Date Resolved Date Preoperative cardiovascular examination 02/05/2017 11/26/2024 Dyslipidemia 01/25/2015 09/05/2021 Overview (10/12/2016): Mixed dyslipidemia Encounters Date Type Department Care Team Description 11/26/2024 10:30 AM CDT Office Visit [facility] Cardiology [address] [place] [address] Mila Breaux MD Coronary artery disease involving [place] coronary artery of [place] heart without angina pectoris (Primary Dx); Benign [...] than three times a week 11/16/2020 Attends Confucianist Services Not on file 11/16 Active Member [...] place to sleep or slept in a group home (including now)? No 11/16/2020 Comments No Sex and Gender Information Value Date Recorded Sex Assigned at Not on file Legal Sex Female 11:59 PM STAFF TOXICOLOGIST Gender Identity Not on file Sexual Orientation [...] history exists Medical Devices Implanted Type Area Mold Chipper Device Identifier Shelf Expiration Date Model / Serial / Lot [employer] [id number] 52mm Limit 3 Hole Hip E Hemisphere Offset Shell Acetabular - [id number] Implanted:Qty: 1 on 11/14/2020 by Estefany Joy MD at [facility] Left: Hip [employer] [id number] / / [employer] [id number] Trilogy 6.5mm 30mm Self Tap Acetabular Cortical Screw Bone - [id number] Implanted:Qty: 1 on 11/14/2020 by Estefany Joy MD at [facility] Left: Hip [employer] [id number] / / [employer] [id number] Trilogy 6.5mm 30mm Self Tap Acetabular Cortical Screw Bone - [id number] Implanted:Qty: 1 on 11/14/2020 by Estefany Joy MD at [facility] Left: Hip [employer] [id number] / / [employer] [id number] 36mm Lumen Hip E Liner Acetabular Longevity Sterile Latex Free - [id number] Implanted:Qty: 1 on 11/14/2020 by Estefany Joy MD at [facility] Left: Hip [employer] [id number] / / [employer] [id number] 14mm 149mm 39.1mm Primary Pressfit Hip 12/14 46.5mm Extend Offset - [id number] Implanted:Qty: 1 on 11/14/2020 by Estefany Joy MD at [facility] Left: Hip [employer] [id number] / / [employer] [id number] Versys Legacy 36mm Hip +7mm 12/14 Head Femoral Zimaloy Sterile - [id number] Implanted:Qty: 1 on 11/14/2020 by Estefany Joy MD at [facility] Left: Hip [employer] [id number] / / Insurance MEDICARE ADVANTAGE MEDICARE ADVANTAGE MEDICARE ADVANTAGE [facility] MEDICARE ADVANTAGE Advance Directives For more information, please contact: [phone] * Full Code (Latest Code Status on File) Date Activated Date Inactivated Comments 11/14/2020 6:19 PM 11/17/2020 6:44 PM Care Teams Bartender Relationship Specialty Start Date End Date Irasema Murguia NP [address] [place] [address] PCP - General Nurse Practitioner 08/14/19
== END 2025-02-26 08:48 | disposition home or self-care (01) ==
PROVIDERS: PCP Nurse Practitioner Family; Visit Provider Internal Medicine Hematology
DX: R92.8 Other abnormal and inconclusive findings on diagnostic imaging of breast (principal)
CPT/HCPCS: 77061; 77065; G0279

== ENCOUNTER 2025-03-01 09:34 | Outpatient (CLI) | payer MEDICARE, SELFPAY ==
[2025-03-01 09:52] LABS: Hematocrit 42.4 % (35.0-42.0); Hemoglobin 13.3 g/dL (11.7-13.8); Immature Platelet Fraction Pct 3.0 % (1.0-7.0); Mean Corpuscular HGB Conc 31.4 g/dL (32-36); Mean Corpuscular Hemoglobin 29.5 pg (27.0-31.0); Mean Corpuscular Volume 94.0 fL (78.0-102.0); Platelet Count Result 132 K/mm3 (150-420); Red Blood Count 4.51 M/mm3 (4.20-5.40); White Blood Count 5.0 K/mm3 (4.8-10.8)
[2025-03-01 09:57] LABS: Total Protein Urine Random 10 mg/dL; Ur Ttl Prot Creatinine Ratio 0.19 mg/mg (0-0.20)
--- OUTSIDE RECORDS SUMMARY | 2025-03-01 10:14 | XMS_ITS | Clinical Summary ---
Author Organization [facility] Address [address] [place] [address] Phone Care Team Providers Care Hammersmith Helper Name Role Phone Irasema Murguia QUETA Primary Care Provider +1- [phone] Allergies Active Allergy Reactions Criticality Noted Date [...] Coronary arteriosclerosis 01/25/2015 Overview (10/01/2019): CAD in [place] artery Dyslipidemia 01/25/2015 Overview (09/01/2020): Mixed dyslipidemia [...] exists Insurance [employer] MEDICARE Care Teams Hammersmith Helper Relationship Specialty Start Date End Date Irasema Murguia FNP PCP - General Family Medicine 08/06/19
--- OUTSIDE RECORDS SUMMARY | 2025-03-01 10:14 | XMS_ITS | Encounter Summary ---
Author Organization [facility] Address [address] [place] [address] Phone Care Team Providers Care Bleach Supervisor Name Role Phone Irasema Murguia NP Primary Care Provider +1 -[phone] Encounter Details Date Type Department Care Team (Late st Contact Info) Description 12/12/2020 Telephone [facility] Medicine Orthopaedic Surgery [address] [facility] 6th [place] [address] [place] [address] Estefany Joy MD [address] [place] [address] Social History Tobacco Use Types Packs/Day Years [...] than three times a week 11/16/2020 Attends Hindu Services Not on file 11/16 Active Member [...] on file Legal Sex Female 11:59 PM WIRELESS SALES 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
--- OUTSIDE RECORDS SUMMARY | 2025-03-01 10:14 | XMS_ITS | Clinical Summary ---
Author Organization [facility] Address [address] [place] [address] Care Team Providers Care Heel Attacher Wood Name Role Phone Irasema Murguia NP Primary Care Provider +1 -[phone] Allergies Active Allergy Reactions Criticality Noted Date [...] (10/11/2020): Added automatically from request for surgery [id number] BPV (benign positional vertigo) 02/19/2020 Chronic kidney [...] Near syncope Coronary artery disease invo lving [place] coronary artery of [place] heart without angina pectoris 01/25/2015 Overview (10/12/2016): CAD in [place] artery Dizziness 01/25/2015 Overview (10/12/2016): Dizziness Malabsorption [...] than three times a week 11/16/2020 Attends Episcopalian Services Not on file 11/16 Active Member [...] on file Legal Sex Female 11:59 PM NEEDLE SETTER Gender Identity Not on file Sexual Orientation [...] history exists Medical Devices Implanted Type Area Merchandise Flow Associate Device Identifier Shelf Expiration Date Model / Serial / Lot Duane [employer] Inc [id number] 52mm Limit 3 Hole Hip E Hemisphere Offset Shell Acetabular - [id number] Implanted:Qty: 1 on 11/14/2020 by Estefany Joy MD at [facility] Left: Hip Duane [employer] [id number] / / Duane [employer] Inc [id number] Trilogy 6.5mm 30mm Self Tap Acetabular Cortical Screw Bone - [id number] Implanted:Qty: 1 on 11/14/2020 by Estefany Joy MD at [facility] Left: Hip Duane [employer] Inc [id number] / / Duane Bi[employer] Inc [id number] Trilogy 6.5mm 30mm Self Tap Acetabular Cortical Screw Bone - [id number] Implanted:Qty: 1 on 11/14/2020 by Estefany Joy MD at [facility] Left: Hip Duane [employer] Inc [id number] / / Duane Bi[employer] Inc [id number] 36mm Lumen Hip E Liner Acetabular Longevity Sterile Latex Free - [id number] Implanted:Qty: 1 on 11/14/2020 by Estefany Joy MD at [facility] Left: Hip Duane [employer] Inc [id number] / / Duane Bi[employer] Inc [id number] 14mm 149mm 39.1mm Primary Pressfit Hip 12/14 46.5mm Extend Offset - [id number] Implanted:Qty: 1 on 11/14/2020 by Estefany Joy MD at [facility] Left: Hip Duane Bi[employer] Inc [id number] / / Duane Bi[employer] Inc [id number] Versys Legacy 36mm Hip +7mm 12/14 Head Femoral Zimaloy Sterile - [id number] Implanted:Qty: 1 on 11/14/2020 by Estefany Joy MD at [facility] Left: Hip Duane [employer] Inc [id number] / / Insurance [facility] MEDICARE ADVANTAGE [facility] Address: [address] [place], [place] [id number] MEDICARE ADVANTAGE [facility] Address: [address] [place], [place] [id number] MEDICARE ADVANTAGE [facility] Address: [address] [address] [place] [id number] MEDICARE ADVANTAGE [facility] Address: [facility] [address] [place] [address] Advance Directives For more information, please contact: [phone] * Full Code (Latest Code Status on File) Date Activated Date Inactivated Comments 11/14/2020 6:19 PM 11/17/2020 6:44 PM Care Teams Heel Attacher Wood Relationship Specialty Start Date End Date Irasema Murguia NP [address] [place] [address] PCP - General Nurse Practitioner 08/14/19
--- OUTSIDE RECORDS SUMMARY | 2025-03-01 10:14 | XMS_ITS | Clinical Summary ---
Author Organization [facility] Address [address] [place] [address] Care Team Providers Care Band Head Saw Operator Name Role Phone Irasema Murguia CLINICAL INFORMATION SYSTEMS DIRECTOR Primary Care Provider +1 -[phone] Allergies Active Allergy Reactions Criticality Noted Date [...] patient's age to complete this topic Insurance [facility] Care Teams Band Head Saw Operator Relationship Specialty Start Date End Date Irasema Murguia FNP [address] [place] [address] PCP - General NURSE PRACTITIONER 02/03/20
[2025-03-01 10:45] LABS: Albumin Level 3.8 g/dL (3.5-5.1); Anion Gap 7 mmol/L (4-12); Blood Urea Nitrogen 19 mg/dL (7-17); Calcium 9.3 mg/dL (8.4-10.2); Carbon Dioxide 27 mmol/L (22-30); Chloride 104 mmol/L (98-107); Estimated Glomerular Filt Rate 48; Glucose 110 mg/dL (65-110); Osmolality Calculated 289 mOsm/kg (285-295); Potassium 4.1 mmol/L (3.4-5.0); Sodium 138 mmol/L (137-145)
== END 2025-03-01 09:35 | disposition home or self-care (01) ==
LOC: CHSLAB 09:35
PROVIDERS: PCP Nurse Practitioner Family; Visit Provider Internal Medicine Nephrology
DX: N18.32 Chronic kidney disease, stage 3b (principal)
CPT/HCPCS: 36415; 80069; 82570; 83970; 84156; 85027; 85055

== ENCOUNTER 2025-03-18 12:50 | Outpatient (CLI) | payer MEDICARE, SELFPAY ==
[2025-03-18 13:03] LABS: Add Urine Microscopic? YES; Appearance Urine Clear (Clear); Glucose Urine UA Negative (Negative); Leukocyte Esterase Ur 2+ LEU/UL (Negative); Nitrate Urine Negative (Negative); Specific Grav Ur 1.010 (1.010-1.020)
--- OUTSIDE RECORDS SUMMARY | 2025-03-18 14:29 | XMS_ITS | Clinical Summary ---
Author Organization [facility] Address [address] [place] [address] Care Team Providers Care Assembly Technician Name Role Phone Irasema Murguia NP Primary Care Provider +1 -[phone] Allergies Active Allergy Reactions Criticality Noted Date [...] (10/11/2020): Added automatically from request for surgery [id number] BPV (benign positional vertigo) 02/19/2020 Chronic kidney [...] Near syncope Coronary artery disease invo lving [place] coronary artery of [place] heart without angina pectoris 01/25/2015 Overview (10/12/2016): CAD in [place] artery Dizziness 01/25/2015 Overview (10/12/2016): Dizziness Malabsorption [...] than three times a week 11/16/2020 Attends Druze Services Not on file 11/16 Active Member [...] on file Legal 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 Gender Identity Not on file Sexual Orientation [...] history exists Medical Devices Implanted Type Area Fisher Crab Device Identifier Shelf Expiration Date Model / Serial / Lot Duane Lends[employer]et Inc [id number] 52mm Limit 3 Hole Hip E Hemisphere Offset Shell Acetabular - [id number] Implanted:Qty: 1 on 11/14/2020 by Estefany Joy MD at [facility] Left: Hip Duane [employer] Inc [id number] / / Duane [employer] Inc [id number] Trilogy 6.5mm 30mm Self Tap Acetabular Cortical Screw Bone - [id number] Implanted:Qty: 1 on 11/14/2020 by Estefany Joy MD at [facility] Left: Hip Duane [employer] Inc [id number] / / Duane Bi[employer] Inc [id number] Trilogy 6.5mm 30mm Self Tap Acetabular Cortical Screw Bone - [id number] Implanted:Qty: 1 on 11/14/2020 by Estefany Joy MD at [facility] Left: Hip Duane [employer] Inc [id number] / / Duane Bi[employer] Inc [id number] 36mm Lumen Hip E Liner Acetabular Longevity Sterile Latex Free - [id number] Implanted:Qty: 1 on 11/14/2020 by Estefany Joy MD at [facility] Left: Hip Duane [employer] Inc [id number] / / Duane [employer] Inc [id number] 14mm 149mm 39.1mm Primary Pressfit Hip 12/14 46.5mm Extend Offset - [id number] Implanted:Qty: 1 on 11/14/2020 by Estefany Joy MD at [facility] Left: Hip Duane [employer] Inc [id number] / / Duane Bi[employer] Inc [id number] Versys Legacy 36mm Hip +7mm 12/14 Head Femoral Zimaloy Sterile - [id number] Implanted:Qty: 1 on 11/14/2020 by Estefany Joy MD at [facility] Left: Hip Duane [employer] Inc [id number] / / Insurance [facility] MEDICARE ADVANTAGE MEDICARE ADVANTAGE MEDICARE ADVANTAGE [place] [id number] MEDICARE ADVANTAGE Advance Directives For more information, please contact: [phone] * Full Code (Latest Code Status on File) Date Activated Date Inactivated Comments 11/14/2020 6:19 PM 11/17/2020 6:44 PM Care Teams Assembly Technician Relationship Specialty Start Date End Date Irasema Murguia NP [address] [place] [address] PCP - General Nurse Practitioner 08/14/19
--- OUTSIDE RECORDS SUMMARY | 2025-03-18 14:29 | XMS_ITS | Clinical Summary ---
Author Organization [facility] Address [address] [place] [address] Phone Care Team Providers Care Command Center Officer Name Role Phone Irasema Murguia QUETA Primary Care Provider +1- [phone] Allergies Active Allergy Reactions Criticality Noted Date [...] 01/25/2015 Overview (10/01/2019): CAD in [place] artery Dyslipidemia 01/25/2015 Overview (09/01/2020): Mixed dyslipidemia [...] Due Date Last Done Comments COVID-19 Vaccine (2024- 6 season) 2025 08/31/2020, 08/10/2020 Influenza Vaccine (#1) 2025 , 04/04/2019, 04/04/2019, Additional history exists Pneumococcal PPSV23/PCV13 65 + Years / Low and Medium Risk Completed 04/10/2019, 04/10/2019, 04/08/2018, Additional history exists Insurance [employer] MEDICARE Care Teams Command Center Officer Relationship Specialty Start Date End Date Irasema Murguia FNP PCP - General Family Medicine 08/06/19
--- OUTSIDE RECORDS SUMMARY | 2025-03-18 14:29 | XMS_ITS | Encounter Summary ---
Author Organization [facility] Address [address] [place] [address] Phone Care Team Providers Care Market Risk Specialist Name Role Phone Irasema Murguia NP Primary Care Provider +1 -[phone] Encounter Details Date Type Department Care Team (Late st Contact Info) Description 12/12/2020 Telephone [facility] Medicine Orthopaedic Surgery [address] [facility] Advanced Medicine 6th [place] [address] [place] [address] Estefany oJy MD [address] [place] [address] Social History Tobacco Use Types Packs/Day Years [...] than three times a week 11/16/2020 Attends Amish Services Not on file 11/16 Active Member [...] on file 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
== END 2025-03-18 12:51 | disposition home or self-care (01) ==
LOC: CHSLAB 12:51
PROVIDERS: PCP Nurse Practitioner Family; Visit Provider Nurse Practitioner Family
DX: R82.90 Unspecified abnormal findings in urine (principal)
CPT/HCPCS: 81001; 87086

== ENCOUNTER 2025-03-24 14:44 | Outpatient (CLI) | payer MEDICARE, SELFPAY ==
--- NOTE | ~2025-03-24 | CT_ITS ---
EXAMINATION: CT abdomen pelvis wo con DATE: 03/24/2025 15:03 INDICATION: Unspecified abdominal pain. TECHNIQUE: Computed tomography (CT) of the abdomen and pelvis was performed without intravenous contrast. Automated exposure control and iterative reconstruction technique were employed. The dose-length product was 725.14 mGy-cm. COMPARISON: CT abdomen and pelvis 06/02/2024 FINDINGS: The visualized portions of the lung bases demonstrate mild atelectasis. There is mild scarring in paraspinal right lower lobe. No pleural effusion. There is left atrial enlargement of the heart. There are coronary artery calcifications. No pericardial effusion. The liver, spleen, pancreas, and right adrenal gland are normal. There is a 2.2 cm mass measuring low attenuation in left adrenal gland, consistent with an adenoma. Right kidney is normal. There is a 1 mm stone in left kidney. There are scattered diverticula in the colon. There is wall thickening of the descending and sigmoid colon, consistent with colitis. There is a large volume of stool in the ascending and transverse colon. The appendix is not visualized. There are changes of ventral hernia repair. There are changes of gastric bypass procedure. There is a small sliding hiatal hernia. There are no pathologically enlarged lymph nodes. There is no free intraperitoneal fluid. There are bilateral total hip arthroplasties. There is moderate lumbar spondylosis. IMPRESSION: 1. Colitis involving the descending and sigmoid colon. Reviewed, dictated and finalized at location E.
[2025-03-24 14:56] LABS: Hematocrit 41.4 % (35.0-42.0); Hemoglobin 12.9 g/dL (11.7-13.8); Immature Granulocyte Percent A 0.2 % (0.0-0.0); Lymphocytes Absolute Auto 1.40 K/mm3 (1.10-4.50); Mean Corpuscular HGB Conc 31.2 g/dL (32-36); Mean Corpuscular Hemoglobin 28.9 pg (27.0-31.0); Mean Corpuscular Volume 92.8 fL (78.0-102.0); Nucleated Red Blood Cells Absolute Auto 0.00 K/mm3 (0.00-0.00); Nucleated Red Blood Cells Perc 0.0 % (0-0.0); Platelet Count Result 152 K/mm3 (150-420); Red Blood Count 4.46 M/mm3 (4.20-5.40); White Blood Count 5.7 K/mm3 (4.8-10.8)
[2025-03-24 15:10] LABS: Alanine Aminotransferase 12 U/L (6-35); Albumin Level 4.2 g/dL (3.5-5.1); Alkaline Phosphatase 50 U/L (38-126); Anion Gap 9 mmol/L (4-12); Aspartate Amino Transferase 28 U/L (14-36); Bilirubin,Total 0.6 mg/dL (0.2-1.3); Blood Urea Nitrogen 13 mg/dL (7-17); CRP 2.5 mg/dL (<1.0); Calcium 9.4 mg/dL (8.4-10.2); Carbon Dioxide 29 mmol/L (22-30); Chloride 100 mmol/L (98-107); Estimated Glomerular Filt Rate 51; Glucose 98 mg/dL (65-110); Lipase 44 U/L (23-300); Osmolality Calculated 286 mOsm/kg (285-295); Potassium 4.5 mmol/L (3.4-5.0); Sodium 138 mmol/L (137-145); Total Protein 7.8 g/dL (6.3-8.2)
--- OUTSIDE RECORDS SUMMARY | 2025-03-24 15:24 | XMS_ITS | Encounter Summary ---
Author Organization [facility] Address [address] [place] [address] Phone Care Team Providers Care Sales Representative Trainee Name Role Phone Irasema Murguia NP Primary Care Provider +1 -[phone] Encounter Details Date Type Department Care Team (Late st Contact Info) Description 12/12/2020 Telephone [facility] Medicine Orthopaedic Surgery [address] 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
--- OUTSIDE RECORDS SUMMARY | 2025-03-24 15:24 | XMS_ITS | Clinical Summary ---
Author Organization [facility] Address [address] [place] [address] Care Team Providers Care Bulker Name Role Phone Irasema Murguia NP Primary Care Provider +1 -[phone] Allergies Active Allergy Reactions Criticality Noted Date [...] (10/11/2020): Added automatically from request for surgery [id number] BPV (benign positional vertigo) 02/19/2020 Chronic kidney [...] Near syncope Coronary artery disease invo lving [place] coronary artery of [place] heart without angina pectoris 01/25/2015 Overview (10/12/2016): CAD in [place] artery Dizziness 01/25/2015 Overview (10/12/2016): Dizziness Malabsorption [...] than three times a week 11/16/2020 Attends Scientologist Services Not on file 11/16 Active Member [...] on file 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 Gender Identity Not on file Sexual Orientation [...] history exists Medical Devices Implanted Type Area Teacher Of Family And Consumer Science Device Identifier Shelf Expiration Date Model / Serial / Lot Duane Skoodatet Inc [id number] 52mm Limit 3 Hole Hip E Hemisphere Offset Shell Acetabular - [id number] Implanted:Qty: 1 on 11/14/2020 by Estefany Joy MD at [facility] Left: Hip Duane [employer] Inc [id number] / / Duane Bi[employer] Inc [id number] Trilogy 6.5mm 30mm Self Tap Acetabular Cortical Screw Bone - [id number] Implanted:Qty: 1 on 11/14/2020 by Estefany Joy MD at [facility] Left: Hip Duane [employer] Inc [id number] / / Duane [employer] Inc [id number] Trilogy 6.5mm 30mm Self Tap Acetabular Cortical Screw Bone - [id number] Implanted:Qty: 1 on 11/14/2020 by Estefany Joy MD at [facility] Left: Hip Duane [employer] Inc [id number] / / Duane [employer] Inc [id number] 36mm Lumen Hip E Liner Acetabular Longevity Sterile Latex Free - [id number] Implanted:Qty: 1 on 11/14/2020 by Estefany Joy MD at [facility] Left: Hip Duane [employer] Inc [id number] / / Duane Bi[employer] Inc [id number] 14mm 149mm 39.1mm Primary Pressfit Hip 12/14 46.5mm Extend Offset - [id number] Implanted:Qty: 1 on 11/14/2020 by Estefany Joy MD at [facility] Left: Hip Duane [employer] Inc [id number] / / Duane Bi[employer] Inc [id number] Versys Legacy 36mm Hip +7mm 12/14 Head Femoral Zimaloy Sterile - [id number] Implanted:Qty: 1 on 11/14/2020 by Estefany Joy MD at [facility] Left: Hip [employer]ane [employer] [id number] / / Insurance [facility] MEDICARE ADVANTAGE [facility] MEDICARE Address: [address] [place], [place] [id number] MEDICARE ADVANTAGE [facility] MEDICARE Address: [address] [place], [place] [id number] MEDICARE ADVANTAGE [facility] MEDICARE Address: [address] [address] [place] [id number] MEDICARE ADVANTAGE [facility] MEDICARE Address: [facility] [address] [place] [address] Advance Directives For more information, please contact: [phone] * Full Code (Latest Code Status on File) Date Activated Date Inactivated Comments 11/14/2020 6:19 PM 11/17/2020 6:44 PM Care Teams Bulker Relationship Specialty Start Date End Date Irasema Murguia NP [address] [place] [address] PCP - General Nurse Practitioner 08/14/19
--- OUTSIDE RECORDS SUMMARY | 2025-03-24 15:24 | XMS_ITS | Clinical Summary ---
Author Organization [facility] Address [address] [place] [address] Care Team Providers Care Bone Process Operator Name Role Phone Irasema Murguia PROGRESS CLERK Primary Care Provider +1 -[phone] Allergies Active Allergy Reactions Criticality Noted Date [...] 75+ series) 01/22/2019 COVID-19 Vaccine ( season) 2025 08/31/2020, 08/10/2020 Pneumococcal Vaccine: 50+ Years Completed [...] patient's age to complete this topic Insurance [facility] Care Teams Bone Process Operator Relationship Specialty Start Date End Date Irasema Murguia FNP [address] [place] [address] PCP - General NURSE PRACTITIONER 02/03/20
--- OUTSIDE RECORDS SUMMARY | 2025-03-24 15:24 | XMS_ITS | Clinical Summary ---
Author Organization [facility] Address [address] [place] [address] Phone Care Team Providers Care Editor Continuity And Script Name Role Phone Irasema Murguia QUETA Primary Care Provider +1- [phone] Allergies Active Allergy Reactions Criticality Noted Date [...] Coronary arteriosclerosis 01/25/2015 Overview (10/01/2019): CAD in [place] artery Dyslipidemia 01/25/2015 Overview (09/01/2020): Mixed dyslipidemia [...] exists Insurance [employer] MEDICARE Care Teams Editor Continuity And Script Relationship Specialty Start Date End Date Irasema Murguia FNP PCP - General Family Medicine 08/06/19
== END 2025-03-24 14:45 | disposition home or self-care (01) ==
LOC: CHSLAB 14:45
PROVIDERS: PCP Nurse Practitioner Family; Visit Provider Nurse Practitioner Family
DX: K52.9 Noninfective gastroenteritis and colitis, unspecified (principal); R10.9 Unspecified abdominal pain; R11.0 Nausea
CPT/HCPCS: 36415; 74176; 80053; 83690; 85025; 86140

== ENCOUNTER 2025-05-05 11:17 | Outpatient (CLI) | payer MEDICARE, SELFPAY ==
[2025-05-05 11:40] LABS: Hematocrit 41.7 % (35.0-42.0); Hemoglobin 13.2 g/dL (11.7-13.8); Immature Granulocyte Percent A 0.2 % (0.0-0.0); Lymphocytes Absolute Auto 1.59 K/mm3 (1.10-4.50); Mean Corpuscular HGB Conc 31.7 g/dL (32-36); Mean Corpuscular Hemoglobin 29.1 pg (27.0-31.0); Mean Corpuscular Volume 91.9 fL (78.0-102.0); Nucleated Red Blood Cells Absolute Auto 0.00 K/mm3 (0.00-0.00); Nucleated Red Blood Cells Perc 0.0 % (0-0.0); Platelet Count Result 169 K/mm3 (150-420); Red Blood Count 4.54 M/mm3 (4.20-5.40); White Blood Count 4.9 K/mm3 (4.8-10.8)
[2025-05-05 11:55] LABS: Iron 86 ug/dL (37-170)
[2025-05-05 12:05] LABS: Percent Iron Saturation 39 % (20-50)
--- OUTSIDE RECORDS SUMMARY | 2025-05-05 12:59 | XMS_ITS | Clinical Summary ---
Author Organization [facility] Address [address] [place] [address] Care Team Providers Care Home Care Music Therapist Name Role Phone Irasema Murguia NP Primary Care Provider +1 -[phone] Allergies Active Allergy Reactions Criticality Noted Date [...] (10/11/2020): Added automatically from request for surgery [id number] BPV (benign positional vertigo) 02/19/2020 Chronic kidney [...] Near syncope Coronary artery disease invo lving [place] coronary artery of [place] heart without angina pectoris 01/25/2015 Overview (10/12/2016): CAD in [place] artery Dizziness 01/25/2015 Overview (10/12/2016): Dizziness Malabsorption [...] than three times a week 11/16/2020 Attends Catholic Services Not on file 11/16 Active Member [...] on file 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 Gender Identity Not on file Sexual Orientation [...] history exists Medical Devices Implanted Type Area Custom Feed Corn Operator Device Identifier Shelf Expiration Date Model / Serial / Lot Duane QVIVOet Inc [id number] [id number] 52mm Limit 3 Hole Hip E Hemisphere Offset Shell Acetabular - [id number] Implanted:Qty: 1 on 11/14/2020 by Estefany Joy MD at [facility] Left: Hip Duane [employer] Inc [id number] / / Duane [employer] Inc [id number] Trilogy 6.5mm 30mm Self Tap Acetabular Cortical Screw Bone - [id number] Implanted:Qty: 1 on 11/14/2020 by Estefany Joy MD at [facility] Left: Hip Duane [employer] Inc [id number] / / Duane [employer] Inc [id number] Trilogy 6.5mm 30mm Self Tap Acetabular Cortical Screw Bone - [id number] Implanted:Qty: 1 on 11/14/2020 by Estefany Joy MD at [facility] Left: Hip Duane [employer] Inc [id number] / / Duane [employer] Inc [id number] 36mm Lumen Hip E Liner Acetabular Longevity Sterile Latex Free - [id number] Implanted:Qty: 1 on 11/14/2020 by Estefany Joy MD at [facility] Left: Hip Duane [employer] Inc [id number] / / Duane Bi[employer] Inc [id number] 14mm 149mm 39.1mm Primary Pressfit Hip 12/14 46.5mm Extend Offset - [id number] Implanted:Qty: 1 on 11/14/2020 by Estefany Joy MD at [facility] Left: Hip Duane [employer] Inc [id number] / / Duane Bi[employer] Inc [id number] Versys Legacy 36mm Hip +7mm 12/14 Head Femoral Zimaloy Sterile - [id number] Implanted:Qty: 1 on 11/14/2020 by Estefany Joy MD at [facility] Left: Hip Duane [employer] Inc [id number] / / Insurance [facility] MEDICARE ADVANTAGE MEDICARE ADVANTAGE MEDICARE ADVANTAGE [place] [id number] MEDICARE ADVANTAGE Advance Directives For more information, please contact: [phone] * Full Code (Latest Code Status on File) Date Activated Date Inactivated Comments 11/14/2020 6:19 PM 11/17/2020 6:44 PM Care Teams Home Care Music Therapist Relationship Specialty Start Date End Date Irasema Murguia NP [address] [place] [address] PCP - General Nurse Practitioner 08/14/19
--- OUTSIDE RECORDS SUMMARY | 2025-05-05 12:59 | XMS_ITS | Clinical Summary ---
Author Organization [facility] Address [address] [place] [address] Phone Care Team Providers Care Oracle Sql Developer Name Role Phone Irasema Murguia QUETA Primary Care Provider +1- [phone] Allergies Active Allergy Reactions Criticality Noted Date [...] Coronary arteriosclerosis 01/25/2015 Overview (10/01/2019): CAD in [place] artery Dyslipidemia 01/25/2015 Overview (09/01/2020): Mixed dyslipidemia [...] exists Insurance [employer] MEDICARE Care Teams Oracle Sql Developer Relationship Specialty Start Date End Date Irasema Murguia FNP PCP - General Family Medicine 08/06/19
--- OUTSIDE RECORDS SUMMARY | 2025-05-05 12:59 | XMS_ITS | Clinical Summary ---
Author Organization [facility] Address [address] [place] [address] Care Team Providers Care Director Of Business Operations Name Role Phone Irasema Murguia BLOCK OUT MACHINE OPERATOR Primary Care Provider +1 -[phone] Allergies Active Allergy Reactions Criticality Noted Date [...] COVID-19 Vaccine ( season) 2025 08/31/2020, 08/10/2020 Influenza Adult (#1) 2025 04/21/2021, 03/01/2020, 04/04/2019, Additional history exists Pneumococcal Vaccine: 50+ Years Completed 04/10/2019, 04/08/2018, 04/07/2018, Additional history exists Hepatitis A Vaccines Aged Out No long er eligible based on patient's age to complete this topic Meningococcal B Vaccine Aged Out No l onger eligible based on patient's age to complete this topic Meningococcal Vaccine Aged Out No gayle leanne eligible based on patient's age to complete this topic RSV Immunizations Under 20 Months Aged Out No longer eligible based on patient's age to complete this topic Insurance Care Teams Director Of Business Operations Relationship Specialty Start Date End Date Irasema Murguia FNP [address] [place] [address] PCP - General NURSE PRACTITIONER 02/03/20
--- OUTSIDE RECORDS SUMMARY | 2025-05-05 12:59 | XMS_ITS | Encounter Summary ---
Author Organization [facility] Address [address] [place] [address] Phone Care Team Providers Care Philanthropy Officer Name Role Phone Irasema Murguia NP Primary Care Provider +1 -[phone] Encounter Details Date Type Department Care Team (Late st Contact Info) Description 12/12/2020 Telephone [facility] Medicine Orthopaedic Surgery [address] [facility] Advanced Medicine 6th [place] [address] [place] [address] Estefany Joy MD [address] [place] [address] Social History Tobacco Use Types Packs/Day Years [...] than three times a week 11/16/2020 Attends Holiness Services Not on file 11/16 Active Member [...] place to sleep or slept in a fci (including now)? 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
[2025-05-05 13:03] LABS: Vitamin B12 > 1000.0 pg/mL (239-931)
== END 2025-05-05 11:18 | disposition home or self-care (01) ==
PROVIDERS: PCP Nurse Practitioner Family; Visit Provider Internal Medicine Hematology
DX: E85.9 Amyloidosis, unspecified (principal); E78.5 Hyperlipidemia, unspecified; E03.9 Hypothyroidism, unspecified; M81.0 Age-related osteoporosis without current pathological fracture; N18.32 Chronic kidney disease, stage 3b
CPT/HCPCS: 36415; 82607; 82746; 83540; 83550; 85025